=== PATIENT | female | born 1990 | race Caucasian/White ===

== ENCOUNTER 2020-05-03 17:57 | Emergency (ER) | payer OTHER ==
--- OUTSIDE RECORDS SUMMARY | 2020-05-03 17:59 | XMS REPORT | Continuity of Care Document ---
:1990 Author Organization [facility] t Address [address] [place] [address] Care Team Providers Name Role Phone Boaz WHEAT Attending Clinician Doctor Unassigned, Name Attending Clinician Unavailable Jarrod Fisher Attending Clinician Problems This patient has no known problems. Allergies, Adverse Reactions, Alerts This patient has no known allergies or adverse reactions. Medications This patient has no known medications. Procedures This patient has no known procedures. Encounters Start End Encounter Admission Attending Care Care Encounter Source Date/Time Date/Time Type Type Clinicians Facility Department ID 2019-09-16 2019-09-16 Emergency [facility] [id number] 14:20:14 18:01:00 Belkis Blanco [id number] [place] [id number] [place] [id number] 2019-09-16 2019-09-16 Orders Doctor SIMMS [id number] 00:00:00 00:00:00 Only UnassFERNANDO garcia [id number] [facility] [id number] 2019-01-07 2019-01-07 Emergency [place] [id number] 14:13:46 15:40:00 Endy Blanco [id number] [place] [id number] [place] [id number] 2019-01-07 2019-01-07 Orders Doctor DEMI [id number] 00:00:00 00:00:00 Only Unassigned, FERNANDO [id number] [facility] [id number] Results This patient has no known results.
[2020-05-03] MEDS ORDERED: MORPHINE 2 MG/ML SYR ONE (20:09)
[2020-05-03] MEDS ORDERED: NA CHLORIDE 0.9% 1,000 ML ONE (20:09)
--- NOTE | 2020-05-03 20:14 | RAD REPORT ---
EXAM DESCRIPTION: RAD - Wrist Left 3 View - 05/03/2020 8:04 pm CLINICAL HISTORY: Left wrist pain status post injury FINDINGS: No fracture or dislocation is seen. If the patient continues to have symptoms to suggest an occult fracture then a followup plain film se riddhi in 7 days would be recommended
--- NOTE | 2020-05-03 20:15 | RAD REPORT ---
EXAM DESCRIPTION: RAD - Forearm Left - 05/03/2020 8:04 pm CLINICAL HISTORY: Left forearm pain status post injury FINDINGS: No fracture is seen
--- NOTE | 2020-05-03 20:16 | RAD REPORT ---
EXAM DESCRIPTION: RAD - Ankle Right 3 View - 05/03/2020 8:04 pm CLINICAL HISTORY: Right ankle pain FINDINGS: No fracture or dislocation is seen.
--- NOTE | 2020-05-03 20:17 | RAD REPORT ---
EXAM DESCRIPTION: RAD - Wrist Right 3 View - 05/03/2020 8:04 pm CLINICAL HISTORY: Right wrist pain status post injury FINDINGS: No fracture or dislocation is seen. If the patient continues to have symptoms to suggest a n occult fracture then a followup plain film series in 7 days would be recommended.
--- NOTE | 2020-05-03 20:18 | RAD REPORT ---
EXAM DESCRIPTION: RAD - Knee Right 3 View - 05/03/2020 8:04 pm CLINICAL HISTORY: Right knee pain status post injury FINDINGS: No fracture or dislocation is seen.
--- NOTE | 2020-05-03 20:41 | RAD REPORT ---
EXAM DESCRIPTION: CT - Head C Spine Cap Wo Con - 05/03/2020 8:16 pm TECHNIQUE: Computed axial tomography of the head and cervical spine was obtained. Coronal and sagitt al reconstruction was performed Computed axial tomography of the chest, abdomen and pelvis was obtained. Contrast was not requested. All CT scans are performed using dose optimization technique as appropriate and may include automated exposure control or mA/KV adjustment according to patient size. CLINICAL HISTORY: Head and neck injury with chest and abdominal pain status post fall COMPARISON: None FINDINGS: An intracranial bleed is not seen. The ventricles are normal in caliber. An extra-axial fluid collection is not noted. . Fluid within the sinuses/mastoids is not seen. A cervical fracture is not seen. No dislocation is noted. The evaluation of mediastinum, dacia, vessels, solid organs and bowel are limited secondary to the lac k of contrast administration. A mediastinal hematoma is not noted. A pleural effusion is not seen. A lung contusion is not present. The liver,spleen, pancreas, adrenals,kidneys and bladder do not demonstrate a traumatic injury. IMPRESSION: 1. No acute intracranial abnormality is seen. 2. A cervical fracture is not visualized. If the patient continues have symptoms to suggest intracran ial/spinal cord pathology MRI be recommended 3. No traumatic abnormality involving the chest/abdomen/pelvis.
[2020-05-03 20:49] LABS: Absolute Lymphocytes (CBC) 1.9 K/uL (0.7-4.9); Basophils % 0.5 % (0-1.3); Hematocrit 41.2 % (36.0-45.0); Lymphocytes % 26.8 % (15.3-44.8); MPV 7.7 fL (7.6-11.3); RBC Red Blood Cell Count 4.66 M/uL (3.86-4.86)
[2020-05-03 21:03] LABS: Potassium 3.9 mmol/L (3.5-5.1)
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
[2020-05-04 03:52] VITALS: TEMP 98.7
[2020-05-04 03:53] VITALS: BP 112/78; O2SAT 100
== END 2020-05-03 21:17 | disposition home or self-care (01) ==
LOC: ER 17:57
DX: M54.2 Cervicalgia (principal); M54.5 Low back pain; M25.532 Pain in left wrist; M25.531 Pain in right wrist; M25.561 Pain in right knee; M25.571 Pain in right ankle and joints of right foot; V57.5XXA Driver of pick-up truck or van injured in collision with fixed or stationary object in traffic accident, initial encounter; Z88.2 Allergy status to sulfonamides; Z88.5 Allergy status to narcotic agent
CPT/HCPCS: 96361; 85025; 80048; 36415; 86900; 86850; 86901; 70450; 71250; 72125; 73090; 73110 ×2; 73562; 73610; 96374; 99284; J2270; J7030

== ENCOUNTER 2020-10-02 20:08 | Emergency (ER) | payer OTHER, SELFPAY ==
--- OUTSIDE RECORDS SUMMARY | 2020-10-02 20:11 | XMS REPORT | Continuity of Care Document ---
:1990 Author Organization [facility] t Address [address] [place] [address] Care Team Providers Name Role Phone Boaz [...] Clinicians Facility Department ID 2019-09-16 2019-09-16 Emergency [facility] [id number] 14:20:14 18:01:00 Belkis Blanco [id number] [place] [id number] [place] [id number] 2019-09-16 2019-09-16 Orders Doctor SIMMS [id number] 00:00:00 00:00:00 Only UnassFERNANDO garcia [id number] [place] [facility] [id number] 2019-01-07 2019-01-07 Emergency [place] [id number] 14:13:46 15:40:00 Endy Blanco [id number] [place] [id number] [place] [id number] 2019-01-07 2019-01-07 Orders Doctor DEMI [id number] 00:00:00 00:00:00 Only Unassigned, FERNANDO [id number] [place] [facility] [id number] Results This patient has no known results.
--- NOTE | 2020-10-02 21:25 | RAD REPORT ---
EXAM DESCRIPTION: US - 1St Trimest Single 1St Fetus - 10/02/2020 9:12 pm CLINICAL HISTORY: ABD PAIN COMPARISON: No comparisons FINDINGS: There is evidence of 2 gestational sacs within the endometrial fundus. Small yolk sacs are seen in each gestational sac. No embryo is yet visible. The maternal adnexa and ovaries are within normal limits. Normal Doppler blood flow was demonstrated to both ovaries. IMPRESSION: Early twin IUP findings are present. Recommend follow-up ultrasound in 10-12 days along with serial HCG measurements.
[2020-10-02 21:46] LABS: Urine Blood Negative (Negative); Urine Glucose 1+ (Negative); Urine Protein Negative (Negative); Urine Specific Gravity 1.015 (1.005-1.030)
[2020-10-02 21:56] LABS: Absolute Lymphocytes (CBC) 1.9 K/uL (0.7-4.9); Basophils % 0.5 % (0-1.3); Hematocrit 39.7 % (36.0-45.0); Lymphocytes % 21.7 % (15.3-44.8); MPV 7.9 fL (7.6-11.3); RBC Red Blood Cell Count 4.43 M/uL (3.86-4.86)
[2020-10-02 22:31] LABS: BUN Blood Urea Nitrogen 7 mg/dL (7-18); Bicarbonate 26 mmol/L (21-32); Glucose Level 92 mg/dL (74-106); HCG, Quantitative 18682 mIU/mL (1-3); Potassium 3.5 mmol/L (3.5-5.1); Sodium Level 140 mmol/L (136-145)
--- NOTE | 2020-10-02 22:39 | EDPHYS ---
Physician Documentation [facility] Name: Alberto Johnson Age: 29 yrs Sex: Female : 1990 Arrival Date: 10/02/2020 Time: 20:12 Bed 16 Private MD: ED Physician Oliver Da Silva HPI: 10/03 06:34 This 29 yrs old Female presents to ER via Ambulatory with complaints of tw4 Abdominal Pain, 5 WEEKS PREG. 06:34 The patient presents with pelvic pain, that is located in/on the left lower quadrant, a tw4 desire for an ultrasound to document her . Onset: The symptoms/episode began/occurred just prior to arrival, today. Modifying factors: The symptoms are alleviated by nothing, the symptoms are aggravated by. Associated signs and symptoms: The patient has no apparent associated signs or symptoms. Severity of symptoms: At their worst the symptoms were moderate, in the emergency department the symptoms are unchanged. The patient has not experienced similar symptoms in the past. 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 jb4 10/03 06:34 3, Full Term 2 tw4 Historical: - Allergies: 10/02 20:28 Hydrocodone-Acetaminophen; jb4 20:28 Sulfa (Sulfonamide Antibiotics); jb4 20:28 Tramadol HCl; jb4 - Home Meds: 20:28 pre- [Active]; jb4 - PMHx: 20:28 Anemia; jb4 - PSHx: 20:28 ; Adenoids; Appendectomy; jb4 - Immunization history:: Adult Immunizations up to date. - Social history:: Smoking status: Patient denies any tobacco usage or history of. Patient/guardian denies using alcohol, street drugs. ROS: 10/03 06:34 Positive for pelvic pain. tw4 Constitutional: Negative for fever, chills, and weight loss, Eyes: Negative for injury, pain, redness, and discharge, Cardiovascular: Negative for chest pain, palpitations, and edema, Respiratory: Negative for shortness of breath, cough, wheezing, and pleuritic chest pain, Abdomen/GI: Negative for abdominal pain, nausea, vomiting, diarrhea, and constipation, Back: Negative for injury and pain, MS/Extremity: Negative for injury and deformity, Skin: Negative for injury, rash, and discoloration. Exam: 06:34 Constitutional: This is a well developed, well nourished patient who is awake, alert, tw4 and in no acute distress. Head/Face: Normocephalic, atraumatic. Chest/axilla: Normal chest wall appearance and motion. Nontender with no deformity. No lesions are appreciated. Cardiovascular: Regular rate and rhythm with a normal S1 and S2. No gallops, murmurs, or rubs. Normal PMI, no JVD. No pulse deficits. Respiratory: Lungs have equal breath sounds bilaterally, clear to auscultation and percussion. No rales, rhonchi or wheezes noted. No increased work of breathing, no retractions or nasal flaring. Abdomen/GI: Soft, non-tender, with normal bowel sounds. No distension or tympany. No guarding or rebound. No evidence of tenderness throughout. Skin: Warm, dry with normal turgor. Normal color with no rashes, no lesions, and no evidence of cellulitis. MS/ Extremity: Pulses equal, no cyanosis. Neurovascular intact. Full, normal range of motion. Neuro: Awake and alert, GCS 15, oriented to person, place, time, and situation. Cranial nerves II-XII grossly intact. Motor strength 5/5 in all extremities. Sensory grossly intact. Cerebellar exam normal. Normal gait. Vital Signs: 10/02 20:24 BP 119 / 68; Pulse 83; Resp 16; Temp 98.2(TE); Pulse Ox 100% on R/A; Weight 55.34 kg jb4 (R); Height 5 ft. 3 in. (160.02 cm) (R); Pain 8/10; 22:51 BP 120 / 68; Pulse 78; Resp 16; Pulse Ox 99% on R/A; ea 20:24 Body Mass Index 21.61 (55.34 kg, 160.02 cm) jb4 MDM: 20:34 Patient medically screened. tw4 10/03 06:34 Data reviewed: vital signs, nurses notes. Data interpreted: Pulse oximetry: tw4 Interpretation: normal. Counseling: I had a detailed discussion with the patient and/or guardian regarding: the historical points, exam findings, and any diagnostic results supporting the discharge/admit diagnosis. Special discussion: Based on the patient's Hx, exam, and Dx evaluation, there is no indication for emergent surgery or inpatient Tx. It is understood by the patient/guardian that if the Sx's persist or worsen they need to return immediately for re-evaluation. I discussed with the patient/guardian in detail that at this point there is no indication for admission to the hospital. It is understood, however, that if the symptoms persist or worsen the patient needs to return immediately for re-evaluation. 10/02 20:35 Order name: Quantitative Hcg 10/02 20:35 Order name: Abo/rh Typing 10/02 20:35 Order name: Basic Metabolic Panel 10/02 20:35 Order name: CBC with Diff 10/02 20:36 Order name: HCG, Quantitative; Complete Time: 22:33 EDMS 10/02 22:33 Interpretation: Abnormal: HCGQ 93440. 10/02 20:36 Order name: ABO/RH typing; Complete Time: 22:33 EDMS 10/02 22:33 Interpretation: Within normal limits. 10/02 20:35 Order name: Urine Test (obtain specimen); Complete Time: 21:46 10/02 22:37 Interpretation: Within normal limits. 10/02 20:35 Order name: IV Saline Lock; Complete Time: 21:46 10/02 20:35 Order name: Labs collected and sent; Complete Time: 21:46 10/02 20:35 Order name: NPO; Complete Time: 21:46 10/02 20:35 Order name: 1st Trimest Single 1st Fetus; Complete Time: 22:33 10/02 22:33 Interpretation: No acute disease. 10/02 20:36 Order name: Basic Metabolic Panel; Complete Time: 22:33 EDMS 10/02 22:33 Interpretation: Normal except: CL 109. 10/02 20:36 Order name: CBC with Automated Diff; Complete Time: 22:33 EDMS 10/02 22:33 Interpretation: Within normal limits. 10/02 21:46 Order name: Urine Dipstick-Ancillary; Complete Time: 22:33 EDMS 10/02 22:33 Interpretation: Normal except: UGLUC 1+. 10/02 20:35 Order name: Urine Dipstick-Ancillary (obtain specimen); Complete Time: 21:47 Administered Medications: No medications were administered Disposition: 10/02/20 22:38 Discharged to Home. Impression: Discomfort of , Abdominal tenderness, unspecified site. - Condition is Stable. - Discharge Instructions: Abdominal Pain, Adult, Abdominal Pain During . - Work release form, Medication Reconciliation Form, Thank You Letter, Antibiotic Education, Prescription Opioid Use form. - Follow up: Private Physician; When: Upon discharge from the Emergency Department; Reason: Recheck today's complaints, Continuance of care, Re-evaluation by your physician. - Problem is new. - Symptoms have improved. Signatures: Dispatcher [employer] EDMS Jagjit Irving RN RN jb4 Angelica Segura RN Oliver Shook ea, MD MD tw4 Corrections: (The following items were deleted from the chart) 10/02 22:53 22:38 10/02/2020 22:38 Discharged to Home. Impression: Discomfort of ; ea Abdominal tenderness, unspecified site. Condition is Stable. Forms are Medication Reconciliation Form, Thank You Letter, Antibiotic Education, Prescription Opioid Use. Follow up: Private Physician; When: Upon discharge from the Emergency Department; Reason: Recheck today's complaints, Continuance of care, Re-evaluation by your physician. Problem is new. Symptoms have improved. tw4
--- NOTE | 2020-10-02 22:39 | ER ---
Nurse's Notes [facility] Name: Alberto Johnson Age: 29 yrs Sex: Female : 1990 Arrival Date: 10/02/2020 Time: 20:12 Bed 16 Private MD: Diagnosis: Discomfort of ;Abdominal tenderness, unspecified site Presentation: 10/02 20:24 Chief complaint: Patient states: I am having sharp pain beside my left ovary and it jb4 radiates to my vaginal area and up to my shoulder and to my lower back. The pain started last night at 2200, and today it has just been getting worse. Coronavirus screen: Client denies travel out of the [place] in the last 14 days. At this time, the client does not indicate any symptoms associated with coronavirus-19. Ebola Screen: No symptoms or risks identified at this time. Initial Sepsis Screen: Does the patient meet any 2 criteria? No. Patient's initial sepsis screen is negative. Does the patient have a suspected source of infection? No. Patient's initial sepsis screen is negative. Risk Assessment: Do you want to hurt yourself or someone else? Patient reports no desire to harm self or others. Onset of symptoms was October 01, 2020. Transition of care: patient was not received from another setting of care. 20:24 Method Of Arrival: Ambulatory jb4 20:24 Acuity: IKER 2 jb4 Triage Assessment: 20:00 General: Behavior is anxious. 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 jb4 10/03 06:34 3, Full Term 2 tw4 Historical: - Allergies: 10/02 20:28 Hydrocodone-Acetaminophen; jb4 20:28 Sulfa (Sulfonamide Antibiotics); jb4 20:28 Tramadol HCl; jb4 - Home Meds: 20:28 pre- [Active]; jb4 - PMHx: 20:28 Anemia; jb4 - PSHx: 20:28 ; Adenoids; Appendectomy; jb4 - Immunization history:: Adult Immunizations up to date. - Social history:: Smoking status: Patient denies any tobacco usage or history of. Patient/guardian denies using alcohol, street drugs. Screenin:47 Abuse screen: Denies threats or abuse. Denies injuries from another. Nutritional zb screening: No deficits noted. Tuberculosis screening: No symptoms or risk factors identified. Fall Risk None identified. Assessment: 21:00 Reassessment: US at bedside. zb 21:40 Reassessment: ecp at bedside. zb 21:47 General: Appears in no apparent distress. Pain: Complains of pain in left femoral area zb Pain radiates to right femoral area and right iliac crest Pain currently is 8 out of 10 on a pain scale. Quality of pain is described as aching, crampy. Neuro: Level of Consciousness is awake, alert, obeys commands, Oriented to person, place, time, situation. Cardiovascular: Patient's skin is warm and dry. Respiratory: Airway is patent Respiratory effort is even, unlabored, Respiratory pattern is regular, symmetrical. GI: Abdomen is round Bowel sounds present X 4 quads. Abd is soft and non tender X 4 quads. Derm: Skin is intact, is healthy with good turgor, Skin is pink, warm \T\ dry. normal, Skin temperature is warm. Musculoskeletal: Range of motion: intact in all extremities. 22:50 Reassessment: Patient and/or family updated on plan of care and expected duration. Pain ea level reassessed. Patient is alert, oriented x 3, equal unlabored respirations, skin warm/dry/pink. Discharge instruction given to patient verbalized the understanding of instruction. Pt left ED ambulatory accompanied by family. Vital Signs: 20:24 BP 119 / 68; Pulse 83; Resp 16; Temp 98.2(TE); Pulse Ox 100% on R/A; Weight 55.34 kg jb4 (R); Height 5 ft. 3 in. (160.02 cm) (R); Pain 8/10; 22:51 BP 120 / 68; Pulse 78; Resp 16; Pulse Ox 99% on R/A; ea 20:24 Body Mass Index 21.61 (55.34 kg, 160.02 cm) jb4 ED Course: 20:12 Patient arrived in ED. bp1 20:27 Triage completed. jb4 20:28 Arm band placed on right wrist. jb4 20:34 Oliver Da Silva MD is Attending Physician. tw4 20:50 Claudia Lopez, GAYATRI is Primary Nurse. zb 21:12 1st Trimest Single 1st Fetus In Process Unspecified. EDMS 21:51 Patient has correct armband on for positive identification. Placed in gown. Bed in low zb position. Call light in reach. Pulse ox on. NIBP on. Door closed. Noise minimized. 21:53 Inserted saline lock: 20 gauge in left antecubital area, using aseptic technique. Blood zb collected. 22:50 No provider procedures requiring assistance completed. IV discontinued, intact, ea bleeding controlled, No redness/swelling at site. Pressure dressing applied. Administered Medications: No medications were administered Outcome: 22:38 Discharge ordered by MD. luciano 22:50 Discharged to home ambulatory, with family. princess 22:50 Condition: stable 22:50 Discharge instructions given to patient, Instructed on discharge instructions, follow up and referral plans. Demonstrated understanding of instructions, follow-up care. 22:53 Patient left the ED. princess Signatures: Dispatcher [employer] EDJagjit Santos, RN RN jb4 Angelica Segura RN RN Oliver Ramos MD MD tw4 Marina Cabrera Zipporah RN RN zb
[2020-10-02 23:08] VITALS: TEMP 98.2
[2020-10-02 23:09] VITALS: BP 120/68; O2SAT 99
== END 2020-10-02 22:53 | disposition home or self-care (01) ==
LOC: ER 20:08
DX: O26.891 Other specified pregnancy related conditions, first trimester (principal); O30.041 Twin pregnancy, dichorionic/diamniotic, first trimester
CPT/HCPCS: 36415; 76801; 80048; 81003; 84702; 85025; 86900; 86901; 99284

== ENCOUNTER 2022-07-20 06:18 | Emergency (ER) | payer OTHER ==
--- OUTSIDE RECORDS SUMMARY | 2022-07-20 06:25 | XMS REPORT | Continuity of Care Document ---
:1990 Author Organization [facility] t Address [address] [place] [address] Care Team Providers Name Role Phone PCP, PATIENT DOES NOT HAVE A Primary Care Physician Unavaila FRAN Thomas Attending Clinician Unavailable FRAN MAYA Attending Clinician Unavailable DARYL ESCAMILLA Attending Clinician Unavailable Daryl Christina Attending Clinician Doctor Unassigned, [place] Attending Clinician Unavailable AARON HENDRICKS Attending Clinician Unavailable Aaron Hendricks MD Attending Clinician Nurse, [facility] Attending Clinician Unavailable KRYSTA SUN Attending Clinician Unavailable Krysta Sun MD Attending Clinician [phone] Josue Rausch DO Attending Clinician Ultrasound, [facility] Attending Clinician Unavailable Manny Pearson MD Attending Clinician Filipe Navarrete MD Attending Clinician Eric Arellano DO Attending Clinician FILIPE NAVARRETE Attending Clinician Unavailable Pob, [facility] Attending Clinician Unavailable Ultrasound, Ang-Mfvalentino Attending Clinician Unavailable MANNY PEARSON Attending Clinician Unavailable FRANCOIS AMEZCUA Attending Clinician Unavailable BELKIS SANDRA Attending Clinician Unavailable Belkis Sandra PA-C Attending Clinician Endy Fisher Attending Clinician AARON HENDRICKS Admitting Clinician Unavailable RKYSTA SUN Admitting Clinician Unavailable Krysta Sun MD Admitting Clinician [phone] Aaron Hendricks MD Admitting Clinician BELKIS SANDRA Admitting Clinician Unavailable Payers Payer Name Policy Type Policy Number Effective Date Expiration Date S [facility] [id number] 2020 CHOICE MEDICAID 00:00:[address] [facility] [id number] 2020 [facility]:00[facility] [id number] 2018 2020 00:00:00 00:00:00 Problems Condition Condition Condition Status Onset Resolution Last Treating Co mments Source Name Details Category Date Date Treatment Clinician Date Disease Active 2020-06 Univers uterine uterine 1-12 [place]y of contractio contractio [place] 00 Medical third third Branch trimester, trimester, antepartum antepartum Premature Premature Disease Active 2020-06 Uni vers uterine uterine 1-11 ity of contractio contractio 00:00[place] ns 00 Medical Branch Decreased Decreased Disease Active 2020-06 Uni vers 0-14 [place] of movements movements 00:00[place] in third in third 00 Medica l trimester trimester Bran ch Anemia of Anemia of Disease Active Uni vers mother in mother in 9- ity of , , [place] antepartum antepartum 00 Me dical Branch Abnormal Abnormal Disease Active Unive rs maternal maternal 9 ity of glucose glucose 00:00: [place] tolerance, tolerance, 00 Me dical antepartum antepartum Br anch Uterine Uterine Disease Active Univers contractio contractio 9-10 it y of ns during ns during 00:00[place] 00 [place] Branch Sciatic Sciatic Disease Active Univers nerve nerve 8-02 ity of pain, pain, 00:00: [place] unspecifie unspecifie 00 Me dical d d Branch laterality laterality History of History of Disease Active U nivers UTI UTI 6-08 ity of 00:00: [place] Medical [facility] History of History of Disease Active U nivers 4-27 ity of section section 00:00: Medical Branch Nausea Nausea Disease Active Univers 4-27 ity of 00:00: 00 Medical Branch Dichorioni Dichorioni Disease Active U nivers c c 4 ity of diamniotic diamniotic 00:00: [place] twin twin Medical Bran ch in third in third trimester trimester History of History of Disease Active U nivers gestationa gestationa 10-07 it y of l l 00:00: [place] hypertensi hypertensi 00 Me dical on on Branch Allergies, Adverse Reactions, Alerts Allergy Allergy Status Severity Reaction(s) Onset Inactive Treating Comm ents Source Name Type Date Date Clinician Hydrocod Propensi Active Nausea Univer s one ty to and/or 4 ity of adverse Vomiting 00:00: [place] reaction Medical s Branch Tramadol Propensi Active Nausea Univer s ty to and/or 4-27 ity of adverse Vomiting 00:00: [place] reaction Medical s Branch HYDROCOD DRUG Active N/V Univers ONE INGREDI 4-27 ity of 00:00: [place] [facility] TRAMADOL DRUG Active N/V Univers INGREDI 4-27 ity of 00:00: 00 Medical Branch Sulfa Propensi Active Anaphylaxis Uni vers (Sulfona ty to 7-28 ity of mide adverse 00:00: [place] Antibiot reaction 00 Medica l ics) s Branch Sulfa Propensi Active Anaphylaxis Uni vers (Sulfona ty to 7-28 ity of mide adverse 00:00: [place] Antibiot reaction 00 Medica l ics) s Branch SULFA Drug Active Anaphylaxis Unive rs (SULFONA Class 7-28 ity of MIDE 00:00: [place] ANTIBIOT 00 Medical ICS) Branch Social History Social Habit Start Date Stop Date Quantity Comments Source ASSERTION 2020-09-07 University of 00:00:00 [facility] Exposure to 2022-04-11 2022-04-21 Not sure University of SARS-CoV-2 00:00:00 17:01:00 [facility] (event) Mobile Alcohol intake 2022-04-21 2022-04-21 Ex-drinker [facility] 00:00:00 00:00:00 (finding) [facility] Tobacco use and 2020-10-07 2020-10-07 Smokeless tobacco Un iversity of exposure 00:00:00 00:00:00 non-user [facility] Sex [birth year] At [birth year] Universit y of 00:00:00 00:00:00 [facility] Smoking Status Start Date Stop Date Source Never smoked tobacco [facility] Medications Ordered Filled Start Stop Current Ordering Indication Dosage Frequency Signature Comments Components Source Medication Medication Date Date Medication? Clinician (SIG) Name Name acetaminoph 2021-06 No 650mg 650 mg, U nivers en 06-22 Oral, ity of (TYLENOL) 00:15: 23:45 ONCE, 1 [place] tablet 650 00 :00 dose, On Medic al mg [facility] 04/21/22 at 1815, HERNANDO naproxen 2021-06 No 250mg 250 mg, Univ ers (NAPROSYN) 06-22 Oral, ity of tablet 250 00:15: 23:45 ONCE, 1 [place] mg 00 :00 dose, On Medical [facility] 04/21/22 at 1815, HERNANDO naproxen 2021-06 Yes [id number] 500mg Take 1 [place] 500 mg EC 06-21 tablet by ity o f tablet 00:00: mouth in [place] 00 the Medical morning Branch and 1 tablet in the evening. Take with meals. No known 2020-06 No Univers medications 2-14 ity of 14:54: [place] 56 [facility] SERTraline 2020-06 Yes [id number] 25mg Take 1 U nivers 25 mg 2-14 tablet by ity of tablet 00:00: mouth [place] 00 daily. [facility] Branch SERTraline 2020-06 Yes [id number] 25mg Take 1 U nivers 25 mg 2-14 tablet by ity of tablet 00:00: mouth [place] 00 daily. [facility] Branch SERTraline 2020-06 Yes [id number] 25mg Take 1 U nivers 25 mg 2-14 tablet by ity of tablet 00:00: mouth [place] 00 daily. Medical Branch FEROSUL 325 2020-06- No TAKE ONE U nivers mg (65 mg 2- 12-14 (1) TABLET ity of iron) 00:00: 00:00 BY MOUTH 2 [place] tablet 00 :00 (TWO) Medical TIMES Branch DAILY. ibuprofen 2020-06- No TAKE ONE Uni vers 600 mg 2- 12-14 (1) TABLET ity of tablet 00:00: 00:00 BY MOUTH [place] 00 :00 EVERY 6 Medical (SIX) Branch HOURS NEEDED (PAIN). TAKE WITH FOOD OR MILK. 2020-06- No Take by Unive rs vit 1-15 11-15 mouth. ity of calc,iron,f 06:29: 00:00 [place] olic 27 :00 Medical ( Branch VITAMIN ORAL) 2020-06- No Take by Unive rs vit 1-15 11-15 mouth. ity of calc,iron,f 06:29: 00:00 [place] olic 27 :00 Medical ( Branch VITAMIN ORAL) 2020-06 Yes [id number] 1{tbl} Take 1 Univers vitamin 1-15 tablet by ity of w/FA tablet 00:00: mouth [place] 00 daily. Medical Branch docusate 2020-06 Yes [id number] 240mg Take 1 U nivers calcium 240 1-15 capsule by it y of mg capsule 00:00: mouth once [place] 00 daily as Medical needed for Branch Constipati on. ferrous 2020-06 Yes [id number] 325mg Take 1 [place] sulfate 325 1-15 tablet by ity of mg (65 mg 00:00: mouth 2 [place] iron) 00 (two) Medical tablet times Branch daily. ibuprofen 2020-06 Yes [id number] 600mg Take 1 Univers 600 mg 1-15 tablet by ity of tablet 00:00: mouth [place] 00 every 6 Medical (six) Branch hours as needed (Pain). Take with food or milk. 2020-06 Yes [id number] 1{tbl} Take 1 Univers vitamin 1-15 tablet by ity of w/FA tablet 00:00: mouth [place] 00 daily. Medical Branch docusate 2020-06 Yes [id number] 240mg Take 1 U nivers calcium 240 1-15 capsule by it y of mg capsule 00:00: mouth once [place] 00 daily as Medical needed for Branch Constipati on. ferrous 2020-06 Yes [id number] 325mg Take 1 [place] sulfate 325 1-15 tablet by ity of mg (65 mg 00:00: mouth 2 [place] iron) 00 (two) Medical tablet times Branch daily. ibuprofen 2020-06 Yes [id number] 600mg Take 1 Univers 600 mg 1-15 tablet by ity of tablet 00:00: mouth [place] 00 every 6 Medical (six) Branch hours as needed (Pain). Take with food or milk. 2020-06 Yes [id number] 1{tbl} Take 1 Univers vitamin 1-15 tablet by ity of w/FA tablet 00:00: mouth [place] 00 daily. Medical Branch docusate 2020-06 Yes [id number] 240mg Take 1 U nivers calcium 240 1-15 capsule by it y of mg capsule 00:00: mouth once [place] 00 daily as Medical needed for Branch Constipati on. ferrous 2020-06 Yes [id number] 325mg Take 1 [place] sulfate 325 1-15 tablet by ity of mg (65 mg 00:00: mouth 2 [place] iron) 00 (two) Medical tablet times Branch daily. ibuprofen 2020-06 Yes [id number] 600mg Take 1 Univers 600 mg 1-15 tablet by ity of tablet 00:00: mouth [place] 00 every 6 Medical (six) Branch hours as needed (Pain). Take with food or milk. 2020-06 Yes [id number] 1{tbl} Take 1 Univers vitamin 1-15 tablet by ity of w/FA tablet 00:00: mouth [place] 00 daily. Medical Branch docusate 2020-06 Yes [id number] 240mg Take 1 U nivers calcium 240 1-15 capsule by it y of mg capsule 00:00: mouth once [place] 00 daily as Medical needed for Branch Constipati on. ferrous 2020-06 Yes [id number] 325mg Take 1 [place] sulfate 325 1-15 tablet by ity of mg (65 mg 00:00: mouth 2 [place] iron) 00 (two) Medical tablet times Branch daily. ibuprofen 2020-06 Yes [id number] 600mg Take 1 Univers 600 mg 1-15 tablet by ity of tablet 00:00: mouth [place] 00 every 6 Medical (six) Branch hours as needed (Pain). Take with food or milk. cetirizine 2020-06 Yes 10mg Take 10 mg U nivers 10 mg -15 by mouth ity of tablet 00:00: daily. [place] Medical Branch fluticasone 2020-06 Yes USE TWO Uni vers propionate 1-15 (2) SPRAYS ity of 50 00:00: IN EACH [place] mcg/actuati 00 NOSTRIL Medic al on nasal DAILY. Branch spray foLIC acid 2020-06 Yes 1mg Take 1 mg [place] 1 mg tablet -15 by mouth ity of 00:00: daily. [place] [address] Medical Branch 2020-06- No [id number] 1{tbl} Take 1 Univers vitamin -15 05-15 tablet by ity of w/FA tablet 00:00: 00:00 mouth [place] 00 :00 daily. Medical Branch docusate 2020-06- No [id number] 240mg Take 1 Univers calcium 240 06-27 capsule by i ty of mg capsule 00:00: 00:00 mouth once [place] 00 :00 daily as Medical needed for Branch Constipati on. ferrous 2020-06- No [id number] 325mg Take 1 U nivers sulfate 325 06-27 tablet by it y of mg (65 mg 00:00: 00:00 mouth 2 [place] iron) 00 :00 (two) Medical tablet times Branch daily. ibuprofen 2020-06 No [id number] 600mg Take 1 Univers 600 mg -27 05- tablet by ity of tablet 00:00: 00:00 mouth [place] 00 :00 every 6 Medical (six) Branch hours as needed (Pain). Take with food or milk. cetirizine 2020-06- No 10mg Take 10 mg Univers 10 mg -15 -03 by mouth ity of tablet 00:00: 00:00 daily. [place] 00 :00 Medical Branch fluticasone 2020-06- No USE TWO [place] propionate 1-15 - (2) SPRAYS it y of 50 00:00: 00:00 IN EACH [place] mcg/actuati 00 :00 NOSTRIL Medic al on nasal DAILY. Branch spray foLIC acid 2020-06- No 1mg Take 1 mg U nivers 1 mg tablet 06-27 by mouth ity of 00:00: 00:00 daily. [place] 00 :00 Medical Branch acetaminoph 2020-06- No [id number] 1{tbl} Take 1 U nivers en-codeine -15 05-05 tablet by ity of 300-30 mg 00:00: 05:59 mouth [place] tablet 00 :00 every 6 Medical (six) Branch hours as needed (Pain Scale above 4) for up to 7 days. Do not exceed 3 grams of acetaminop hen in 24 hours. Indication s: acute pain acetaminoph 2020-06 No [id number] 1{tbl} Take 1 U nivers en-codeine 06-27 tablet by ity of 300-30 mg 00:00: 05:59 mouth [place] tablet 00 :00 every 6 Medical (six) Branch hours as needed (Pain Scale above 4) for up to 7 days. Do not exceed 3 grams of acetaminop hen in 24 hours. Indication s: acute pain acetaminoph 2020-06- No [id number] 1{tbl} Take 1 U nivers en-codeine 06-27 tablet by ity of 300-30 mg 00:00: 05:59 mouth [place] tablet 00 :00 every 6 Medical (six) Branch hours as needed (Pain Scale above 4) for up to 7 days. Do not exceed 3 grams of acetaminop hen in 24 hours. Indication s: acute pain acetaminoph 2020-06 Yes 1{tbl} 1 tablet, Univers en-codeine 06-24 Oral, ity of (TYLENOL 10:16: Q4HPRN, [place] #3) 300-30 40 Starting Medic al mg tablet 1 on Fri Branch tablet 04/24/21 at 0416, Until Discontinu ed, Routine, Pain (scale 7-10) acetaminoph 2020-06 No 1{tbl} 1 tablet, Univers en-codeine -04-27 Oral, ity of (TYLENOL 10:16: 20:36 Q4HPRN, [place] #3) 300-30 40 :48 Starting Medic al mg tablet 1 on Fri Branch tablet 04/24/21 at 0416, Until 04/27/21 at 1436, Routine, Pain (scale 7-10) rho(D) 2020-06 Yes 300ug 300 mcg, Univer s immune 1-12 Intramuscu ity of globulin 10:16: lar, ONCE, [place] (RHOGAM) 12 For 1 Medical syringe 300 dose, Branch mcg Conditiona l, Routine rho(D) 2020-06- No 300ug 300 mcg, Unive rs immune 1-12 11-15 Intramuscu ity of globulin 10:16: 20:36 [place], ONCE, [place] (RHOGAM) 12 :48 For 1 Medical syringe 300 dose, Branch mcg Conditiona l, Routine ondansetron 2020-06 Yes 4mg 4 mg, Slow Univers (ZOFRAN 1-12 IV Push, ity of (PF)) 10:16: Q8HPRN, [place] injection 4 07 Starting Medi [place] mg on Tue Branch 04/24/21 at 0416, Until Discontinu ed, Routine, Nausea and Vomiting (N/V) simethicone 2020-06 Yes 160mg 160 mg, [place] (GAS RELIEF 12 Oral, ity of (SIMETHICON 10:16: PC+HSPRN, [place] E)) 07 Starting Medical chewable on Tue Branch tablet 160 04/24/21 mg at 0416, Until Discontinu ed, Routine, Gas magnesium 2020-06 Yes 30mL 30 mL, Univer s hydroxide -12 Oral, ity of (MILK OF 10:16: QDAILYPRN, [place] MAGNESIA) 07 Starting Medica l 400 mg/5 mL on Tue Branch suspension 04/24/21 30 mL at 0416, Until Discontinu ed, Routine, Constipati on ondansetron 2020-06- No 4mg 4 mg, Slow Univers (ZOFRAN -12 11-15 IV Push, ity of (PF)) 10:16: 20:36 Q8HPRN, [place] injection 4 07 :48 Starting Medi [place] mg on Tue Branch 04/24/21 at 0416, Until 04/27/21 at 1436, Routine, Nausea and Vomiting (N/V) simethicone 2020-06- No 160mg 160 mg, U nivers (GAS RELIEF -12 11-15 Oral, ity of (SIMETHICON 10:16: 20:36 PC+HSPRN, [place] E)) 07 :48 Starting Medical chewable on Tue tablet 160 04/24/21 mg at 0416, Until Tue04/27/21 at 1436, Routine, Gas magnesium 2020-06- No 30mL 30 mL, Unive rs hydroxide 1-12 04-27 Oral, ity of (MILK OF 10:16: 20:36 QDAILYPRNSalomon MAGNDINORAH) 07 :48 Starting Medica l 400 mg/5 mL on Tue suspension 04/24/21 30 mL at 0416, Until Tue04/27/21 at 1436, Routine, Constipati on ibuprofen 2020-06 Yes 600mg 600 mg, Univ ers (IBU) 1-12 Oral, ity of tablet 600 10:16: Q6HPRN, [place] mg 06 Starting Medical on Tue04/24/21 at 0416, Until Discontinu ed, Routine, Pain (scale 1-3) diphenhydrA 2020-06 Yes 25mg 25 mg, IV U nivers MINE-0.9 % 1-12 Piggyback, ity of sod.chlr 10:16: Administer [place] (BENADRYL) 06 over 30 Medica l 25 mg/50 mL Minutes, Bran ch piggyback Q6HPRN, 1 25 mg dose, Starting on Tue04/24/21 at 0416, Until Discontinu ed, Routine, Itching diphenhydrA 2020-06 Yes 25mg 25 mg, Univ ers MINE 1-12 Oral, ity of (BENADRYL) 10:16: Q6HPRN, [place] tablet 25 06 Starting Medica l mg on Tue04/24/21 at 0416, Until Discontinu ed, Routine, Sleep, Itching bisacodyL 2020-06 Yes 10mg 10 mg, Univer s (DULCOLAX) 1-12 Rectal, ity of suppository 10:16: QDAILYPRN, [place] 10 mg 06 Starting Medical on Tue04/24/21 at 0416, Until Discontinu ed, Routine, Constipati on docusate 2020-06 Yes 240mg 240 mg, Unive rs calcium 1-12 Oral, ity of (SURFAK) 10:16: QDAILYPRN, [place] capsule 240 06 Starting Medi [place] mg on Tue04/24/21 at 0416, Until Discontinu ed, Routine, Constipati on ibuprofen 2020-06 No 600mg 600 mg, Uni vers (IBU) 06-24 Oral, ity of tablet 600 10:16: 20:36 Q6HPRN, [place] mg 06 :48 Starting Medical on Tue04/24/21 at 0416, Until Tue04/27/21 at 1436, Routine, Pain (scale 1-3) diphenhydrA 2020-06 No 25mg 25 mg, IV Univers MINE-0.9 % 06-24 Piggyback, it y of sod.chlr 10:16: 20:36 Administer [place] (BENADRYL) 06 :48 over 30 Medica l 25 mg/50 mL Minutes, Bran ch piggyback Q6HPRN, 1 25 mg dose, Starting on Tue04/24/21 at 0416, Until Tue04/27/21 at 1436, Routine, Itching diphenhydrA 2020-06 No 25mg 25 mg, Uni vers MINE 06-24 Oral, ity of (BENADRYL) 10:16: 20:36 Q6HPRN, [place] tablet 25 06 :48 Starting Medica l mg on Tue04/24/21 at 0416, Until 04/27/21 at 1436, Routine, Sleep, Itching bisacodyL 2020-06 No 10mg 10 mg, Unive rs (DULCOLAX) 06-24 Rectal, ity o f suppository 10:16: 20:36 QDAILYPRN, [place] 10 mg 06 :48 Starting Medical on Tue04/24/21 at 0416, Until 04/27/21 at 1436, Routine, Constipati on docusate 2020-06 No 240mg 240 mg, Univ ers calcium 06-24 Oral, ity of (SURFAK) 10:16: 20:36 QDAILYPRN, [place] capsule 240 06 :48 Starting Medi [place] mg on Tue04/24/21 at 0416, Until Tue04/27/21 at 1436, Routine, Constipati on nalbuphine 2020-06 Yes 5mg 5 mg, Univer s (NUBAIN) 06-24 Intravenou ity o f injection 5 09:49: s, PRN, 1 [place] mg 46 dose, Medical Starting Branch on Tue04/24/21 at 0349, Until Discontinu ed, Routine, itching, PACU nalbuphine 2020-06- No 5mg 5 mg, Unive rs (NUBAIN) 06-24 Intravenou ity of injection 5 09:49: 20:36 s, PRN, 1 [place] mg 46 :48 dose, Medical Starting Branch on Tue04/24/21 at 0349, Until 04/27/21 at 1436, Routine, itching, PACU ketorolac 2020-06 No 30mg 30 mg, Unive rs (TORADOL) 06-24 Slow IV ity of injection 09:49: 10:22 Push, PRN, [place] 30 mg 46 :00 1 dose, Medical Starting Branch on Tue04/24/21 at 0349, Until Discontinu ed, Routine, Pain (scale 4-6), PACU
Fa culty member approving Restricted medication : LD PACU ceFAZolin 2020-06 No 2000mg 2 g (2,000 Univers in dextrose 06-24 11-12 mg), IV ity of (iso-os) 06:32: 07:03 Piggyback, [place] (ANCEF) 2 22 :00 O.R. Medical gram/100 mL HOLDING Branc h Piggyback 2 ONCE, 1 g dose, Starting on Tue04/24/21 at 0032, Until Discontinu ed, 100 mL
Reas on for Anti-Infec tive: Surgical Prophylaxi s
Surgi [place] Prophylaxi s: [employer] BLASTING
Duration of therapy: within 24 hours of surgery D5W 0.45% 2020-06 No 1000mL at 75 Univ ers NaCl 06-24 11-12 mL/hr, ity of (1/2NS) IV 02:15: 10:16 1,000 mL, [place] infusion 00 :12 IV Medical 1,000 mL Infusion, Branch CONTINUOUS , Starting on [place] 04/23/21 at 2015, Until Tue04/24/21 at 0416, HERNANDO magnesium 2020-06- No 2g/h 2 g/hr (50 U nivers sulfate in 06-24 mL/hr), at it y of 0.9 %NaCl 02:15: 10:16 50 mL/hr, [place] 10 gram/250 00 :12 IV Medical mL (40 Infusion, Branch mg/mL) IV CONTINUOUS SOLUTION , Starting on [place] 04/23/21 at 2014, Until Tue04/24/21 at 0416, HERNANDO 2020-06 Yes Take by [facility] s vit 12 mouth. ity of calc,iron,f 01:07: [place] ol 30 Medical ( Branch VITAMIN ORAL) betamethaso 2020-06- No 12mg 12 mg, Uni vers ne acet,sod 06-24 Intramuscu i ty of phos 00:00: 10:16 [facility], Q24H, [place] (CELESTONE 00 :12 2 doses, Medic al SOLUSPAN) 6 First dose Br anch mg/mL on [place] injection 04/23/21 12 mg at 1800, Last dose on Tue04/24/21 at 1800, Routine ceFAZolin 2020-06- No 1000mg 1,000 mg, Univers (ANCEF) 06-23 IV ity of 1,000 mg in 23:45: 01:13 [place], [place] NaCl 0.9% 00 :00 ONCE, 1 Medical (NS) 50 mL dose, On Branc h MINI-BAG [place] 04/23/21 at 1745, Administer over 30 Minutes, 50 mL
Reas on for Anti-Infec tive: Empiric Non-Surgic al Prophylaxi s terbutaline 2020-06- No .25mg 0.25 mg, Univers (BRETHINE) 06-23 Subcutaneo it y of injection 23:45: 01:16 , ONCE, [place] 0.25 mg 00 :00 1 dose, On Medica l [place] Branch 04/23/21 at 1745, Routine D5W-LR IV 2020-06- No 1000mL at 125 Uni vers infusion 06-23 mL/hr, IV ity o f 1,000 mL 22:45: 10:16 Infusion, [place] 00 :12 CONTINUOUS Medical , Starting Branch on [place] 04/23/21 at 1645, Until 04/24/21 at 0416, Routine sodium 2020-06- No 30mL 30 mL, Univers citrate-cit 06-2312 Oral, ity of dayron acid 22:37: 07:04 PRE-PROCED [place] (BICITRA) 31 :00 URE ONCE, Medic al 500-334 1 dose, Branch mg/5 mL Starting solution 30 on [place] mL 04/23/21 at 1637, Until Discontinu ed, Routine, Surgery/Pr ocedure lactated 2020-06- No 1000mL at 999 Univ ers ringers IV 06-2311 mL/hr, ity of infusion 22:00: 22:25 1,000 mL, [place] 1,000 mL 00 :00 IV Medical Infusion, Branch ONCE, 1 dose, On [place] 04/23/21 at 1600, Routine magnesium 2020-06 Yes [id number] 400mg Take 1 Univers oxide 400 1-11 tablet by ity o f mg (241.3 00:00: mouth [place] mg 00 daily. Medical magnesium) Branch tablet magnesium 2020-06 Yes [id number] 400mg Take 1 Univers oxide 400 1-11 tablet by ity o f mg (241.3 00:00: mouth [place] mg 00 daily. Medical magnesium) Branch tablet magnesium 2020-06 Yes [id number] 400mg Take 1 Univers oxide 400 1-11 tablet by ity o f mg (241.3 00:00: mouth [place] mg 00 daily. Medical magnesium) Branch tablet magnesium 2020-06- No [id number] 400mg Take 1 Univers oxide 400 -11 11-15 tablet by ity of mg (241.3 00:00: 00:00 mouth [place] mg 00 :00 daily. Medical magnesium) Branch tablet magnesium 2020-06- No [id number] 400mg Take 1 Univers oxide 400 1-11 11-15 tablet by ity of mg (241.3 00:00: 00:00 mouth [place] mg 00 :00 daily. Medical magnesium) Branch tablet cetirizine 2020-06 Yes [id number] 10mg Take 1 Univers 10 mg 1-04 tablet by ity of tablet 00:00: mouth [place] 00 daily. Medical Branch fluticasone 2020-06 Yes [id number] 2{spray Use 2 Univers propionate 1-04 } Sprays in ity of (FLONASE 00:00: each [place] ALLERGY 00 nostril Medical RELIEF) 50 daily. Branch mcg/actuati on nasal spray cetirizine 2020-06 Yes [id number] 10mg Take 1 Univers 10 mg 1-04 tablet by ity of tablet 00:00: mouth [place] 00 daily. Medical Branch fluticasone 2020-06 Yes [id number] 2{spray Use 2 Univers propionate 1-04 } Sprays in ity of (FLONASE 00:00: each [place] ALLERGY 00 nostril Medical RELIEF) 50 daily. Branch mcg/actuati on nasal spray cetirizine 2020-06 Yes [id number] 10mg Take 1 Univers 10 mg 1-04 tablet by ity of tablet 00:00: mouth [place] 00 daily. Medical Branch fluticasone 2020-06 Yes [id number] 2{spray Use 2 Univers propionate 1-04 } Sprays in ity of (FLONASE 00:00: each [place] ALLERGY 00 nostril Medical RELIEF) 50 daily. Branch mcg/actuati on nasal spray cetirizine 2020-06 Yes [id number] 10mg Take 1 Univers 10 mg 1-04 tablet by ity of tablet 00:00: mouth [place] 00 daily. Medical Branch fluticasone 2020-06 Yes [id number] 2{spray Use 2 Univers propionate 1-04 } Sprays in ity of (FLONASE 00:00: each [place] ALLERGY 00 nostril Medical RELIEF) 50 daily. Branch mcg/actuati on nasal spray cetirizine 2020-06- No [id number] 10mg Take 1 Univers 10 mg 1-04 11-15 tablet by ity of tablet 00:00: 00:00 mouth [place] 00 :00 daily. Medical Branch fluticasone 2020-06- No [id number] 2{spray Use 2 Univers propionate 1-04 11-15 } Sprays in ity of (FLONASE 00:00: 00:00 each [place] ALLERGY 00 :00 nostril Medical RELIEF) 50 daily. Branch mcg/actuati on nasal spray cetirizine 2020-06- No [id number] 10mg Take 1 Univers 10 mg 06-16 tablet by ity of tablet 00:00: 00:00 mouth [place] 00 :00 daily. Medical Branch fluticasone 2020-06- No [id number] 2{spray Use 2 Univers propionate 06-16 } Sprays in ity of (FLONASE 00:00: 00:00 each [place] ALLERGY 00 :00 nostril Medical RELIEF) 50 daily. Branch mcg/actuati on nasal spray iron 2020-06- No 300mg 300 mg, IV Unive rs sucrose 0-26 - Infusion, ity of (VENOFER) 17:30: 20:27 ONCE, 1 [place] 300 mg in 00 :00 dose, On Medica l NaCl 0.9% Tue Branch (NS) 250 mL 04/07/21 infusion at 1230, Administer over 2.5 Hours, 250 mL
A pproved Indication /Faculty: ADC PROVIDER 2020-06 Yes Take by Univer s vit 0-26 mouth. ity of calc,iron,f 15:47: [address] ( Branch VITAMIN ORAL) 2020-06 Yes Take by Univer s vit 0-26 mouth. ity of calc,iron,f 15:47: [address] ( Branch VITAMIN ORAL) 2020-06 Yes Take by Univer s vit 0-26 mouth. ity of calc,iron,f 15:47: [address] ( Branch VITAMIN ORAL) 2020-06 Yes Take by Univer s vit 0-26 mouth. ity of calc,iron,f 15:47: [place] [id number] Medical ( Branch VITAMIN ORAL) 2020-06 Yes Take by [facility] vit 0-26 mouth. ity of calc,iron,f 15:47: [address] ( Branch VITAMIN ORAL) lactated 2020-06- No 1000mL at 999 [facility] ers ringers IV 0-15 10-15 mL/hr, ity of infusion 03:30: 02:36 1,000 mL, [place] 1,000 mL 00 :00 IV Medical Infusion, Branch ONCE, 1 dose, On [place] 03/26/21 at 2230, STAT acetaminoph 2021-1 Yes 1{tbl} 1 tablet, [facility] en-codeine 0-15 Oral, ity of (TYLENOL 02:21: [id number], [place] #3) 300-30 58 Starting Medic al mg tablet 1 on [place] Branch tablet 03/26/21 at 2121, Until Discontinu ed, Routine, Pain (scale 7-10) 2020-06 Yes [facility] by [email or web address] 0-15 mouth. ity of calc,iron,f 00:01: [place] [address] Medical ( Branch VITAMIN ORAL) 2020-06 Yes Take by [email or web address] vit 0-15 mouth. ity of calc,iron,f 00:01: [place] [address] Medical ( Branch VITAMIN ORAL) 2020-06 Yes Take by [email or web address] [facility] vit 0-15 mouth. ity of calc,iron,f 00:01: [address] ( Branch VITAMIN ORAL) iron 2020-06- No 300mg 300 mg, IV Unive rs sucrose 0-14 10-15 Infusion, ity of (VENOFER) 23:45: 04:17 ONCE, [place] 300 mg in 00 :00 Administer Medi gaston NaCl 0.9% over 2.5 Branch (NS) 250 mL Hours, On infusion [place] 03/26/21 at 1845, For 1 dose Nitrofurant 2020-06 Yes TAKE ONE [place] oin&Nit. 0-14 (1) ity of Macrocryst 00:00: CAPSULE(S) [place] 100 mg 00 BY MOUTH Medical capsule TWICE A Branch DAY. Nitrofurant 2020-06 Yes TAKE ONE [place] oin&Nit. 0-14 (1) ity of Macrocryst 00:00: CAPSULE(S) [place] 100 mg 00 BY MOUTH Medical capsule TWICE A Branch DAY. Nitrofurant 2020-06 Yes TAKE ONE [place] oin&Nit. 0-14 (1) ity of Macrocryst 00:00: CAPSULE(S) [place] 100 mg 00 BY MOUTH Medical capsule TWICE A Branch DAY. Nitrofurant 2020-06 Yes TAKE ONE [place] oin&Nit. 0-14 (1) ity of Macrocryst 00:00: CAPSULE(S) [place] 100 mg 00 BY MOUTH Medical capsule TWICE A Branch DAY. Nitrofurant 2020-06 Yes TAKE ONE [place] oin&Nit. 0-14 (1) ity of Macrocryst 00:00: CAPSULE(S) [place] 100 mg 00 BY MOUTH Medical capsule TWICE A Branch DAY. Nitrofurant 2020-06 Yes TAKE ONE [place] oin&Nit. 0-14 (1) ity of Macrocryst 00:00: CAPSULE(S) [place] 100 mg 00 BY MOUTH Medical capsule TWICE A Branch DAY. Nitrofurant 2020-06 Yes TAKE ONE [place] oin&Nit. 0-14 (1) ity of Macrocryst 00:00: CAPSULE(S) [place] 100 mg 00 BY MOUTH Medical capsule TWICE A Branch DAY. Nitrofurant 2020-06- No TAKE ONE U nivers oin&Nit. 0-14 -15 (1) ity of Macrocryst 00:00: 00:00 CAPSULE(S) [place] 100 mg 00 :00 BY MOUTH Medical capsule TWICE A Branch DAY. Nitrofurant 2020-06- No TAKE ONE U nivers oin&Nit. 0-14 -15 (1) ity of Macrocryst 00:00: 00:00 CAPSULE(S) [place] 100 mg 00 :00 BY MOUTH Medical capsule TWICE A Branch DAY. Yes Take by [facility] s vit 9-10 mouth. ity of calc,iron,f 19:44: [place] olic 27 Medical ( Branch VITAMIN ORAL) Nitrofurant 2020- No 100mg 100 mg, U nivers oin&Nit. 02-2010 Oral, ity of Macrocryst 19:30: 18:31 ONCE, 1 [place] (MACROBID) 00 :00 dose, Fri Medi [place] 100 mg 02/20/21 at Branch capsule 100 1430, mg Routine
Reason for Anti-Infec tive: Empiric Therapy for Suspected Infection< br>Empiric Therapy Site: Urine
D uration of therapy: 7 days lactated 2020- No 1000mL at 999 [facility] ers ringers IV 02-20 09-10 mL/hr, ity of infusion 19:15: 18:30 1,000 mL, [place] 1,000 mL 00 :00 IV Medical Infusion, Branch ONCE, 1 dose, 02/20/21 at 1415, STAT Yes Take by [facility] vit 9-10 mouth. ity of calc,iron,f 17:03: [address] ( Branch VITAMIN ORAL) Yes Take by [facility] vit 9-10 mouth. ity of calc,iron,f 14:44: [address] ( Branch VITAMIN ORAL) Yes Take by [facility] vit 9-10 mouth. ity of calc,iron,f 14:44: [address] ( Branch VITAMIN ORAL) Yes Take by [facility] vit 9-10 mouth. ity of calc,iron,f 14:44: [address] ( Branch VITAMIN ORAL) Yes Take by [facility] vit 9-10 mouth. ity of calc,iron,f 14:44: [address] ( Branch VITAMIN ORAL) Yes Take by [facility] vit 9-10 mouth. ity of calc,iron,f 14:44: [address] ( Branch VITAMIN ORAL) Yes Take by [facility] s vit 9-10 mouth. ity of calc,iron,f 14:44: [address] ( Branch VITAMIN ORAL) Yes Take by [facility] s vit 9-10 mouth. ity of calc,iron,f 14:44: [address] ( Branch VITAMIN ORAL) Yes Take by [facility] s vit 9-10 mouth. ity of calc,iron,f 14:44: [address] ( Branch VITAMIN ORAL) Yes Take by [facility] s vit 9-10 mouth. ity of calc,iron,f 14:44: [place] [address] Medical ( Branch VITAMIN ORAL) Yes Take by Un[facility] s vit 9-10 mouth. ity of calc,iron,f 14:44: [place] [address] Medical ( Branch VITAMIN ORAL) Nitrofurant Yes [id number] 100mg Take 1 [facility] oin&Nit. 9-10 capsule by ity o f [place] 00:00: mouth 2 [place] 100 [place] 00 (two) Medical capsule times Branch daily. famotidine 1-0 Yes [id number] 20mg Take 1 [facility] 20 mg 9-10 tablet by ity of tablet 00:00: mouth (two) Medical times Branch daily. Take about 30 minutes before eating. Nitrofurant 2020-0 Yes [id number] 100mg Take 1 [facility] oin&Nit. 9-10 capsule by ity o f [place] 00:00: mouth 2 [place] 100 mg 00 (two) Medical capsule times Branch daily. famotidine 2020-0 Yes [id number] 20mg Take 1 [facility] 20 mg 9-10 tablet by ity of tablet 00:00: mouth 2 (two) Medical times Branch daily. Take about 30 minutes before eating. Nitrofurant 2020-0 Yes [id number] 100mg Take 1 [facility] oin&Nit. 9-10 capsule by ity o f [place] 00:00: mouth 2 [place] 100 mg 00 (two) Medical capsule times Branch daily. famotidine 2020-0 Yes [id number] 20mg Take 1 [facility] 20 mg 9-10 tablet by ity of tablet 00:00: mouth (two) Medical times Branch daily. Take about 30 minutes before eating. Nitrofurant 2020-0 Yes [id number] 100mg Take 1 [facility] oin&Nit. 9-10 capsule by ity o f [place] 00:00: mouth 2 [place] 100 mg 00 (two) Medical capsule times Branch daily. famotidine 2020-0 Yes [id number] 20mg Take 1 [facility] 20 mg 9-10 tablet by ity of tablet 00:00: mouth (two) Medical times Branch daily. Take about 30 minutes before eating. Nitrofurant 2020-0 Yes [id number] 100mg Take 1 [facility] oin&Nit. 9-10 capsule by ity o f [place] 00:00: mouth 2 [place] 100 mg 00 (two) Medical capsule times Branch daily. famotidine 2021-0 Yes [id number] 20mg Take 1 [facility] 20 mg 9-10 tablet by ity of tablet 00:00: mouth 2 (two) Medical times Branch daily. Take about 30 minutes before eating. Nitrofurant 2020-0 Yes [id number] 100mg Take 1 [facility] oin&Nit. 9-10 capsule by ity o f [place] 00:00: mouth 2 [place] 100 mg 00 (two) Medical capsule times Branch daily. famotidine 1-0 Yes [id number] 20mg Take 1 [facility] 20 mg 9-10 tablet by ity of tablet 00:00: mouth 2 (two) Medical times Branch daily. Take about 30 minutes before eating. Nitrofurant 2020-0 Yes [id number] 100mg Take 1 [facility] oin&Nit. 9-10 capsule by ity o f [place] 00:00: mouth [place] 100 mg 00 (two) Medical capsule times Branch daily. famotidine 2020-0 Yes [id number] 20mg Take 1 [facility] 20 mg 9-10 tablet by ity of tablet 00:00: mouth (two) Medical times Branch daily. Take about 30 minutes before eating. Nitrofurant 2020-0 Yes [id number] 100mg Take 1 [facility] oin&Nit. 9-10 capsule by ity o f [place] 00:00: mouth 2 [place] 100 mg 00 (two) Medical capsule times Branch daily. famotidine 2020-0 Yes [id number] 20mg Take 1 [facility] 20 mg 9-10 tablet by ity of tablet 00:00: mouth (two) Medical times Branch daily. Take about 30 minutes before eating. Nitrofurant 1-0 Yes [id number] 100mg Take 1 [facility] oin&Nit. 9-10 capsule by ity o f [place] 00:00: mouth 2 [place] 100 mg 00 (two) Medical capsule times Branch daily. famotidine 1-0 Yes [id number] 20mg Take 1 [facility] 20 mg 9-10 tablet by ity of tablet 00:00: mouth (two) Medical times Branch daily. Take about 30 minutes before eating. Nitrofurant 2021-0 Yes [id number] 100mg Take 1 [facility] oin&Nit. 9-10 capsule by ity o f [place] 00:00: mouth 2 [place] 100 mg 00 (two) Medical capsule times Branch daily. famotidine 2021-0 Yes [id number] 20mg Take 1 [facility] 20 mg 9-10 tablet by ity of tablet 00:00: mouth 2 (two) Medical times Branch daily. Take about 30 minutes before eating. Nitrofurant 1-0 Yes [id number] 100mg Take 1 [facility] oin&Nit. 9-10 capsule by ity o f [place] 00:00: mouth 2 [place] 100 mg (two) Medical capsule times Branch daily. famotidine 2021-0 Yes [id number] 20mg Take 1 [facility] 20 mg 9-10 tablet by ity of tablet 00:00: mouth (two) Medical times Branch daily. Take about 30 minutes before eating. famotidine 2021-0 Yes [id number] 20mg Take 1 [facility] 20 mg 9-10 tablet by ity of tablet 00:00: mouth (two) Medical times Branch daily. Take about 30 minutes before eating. famotidine 2021-0 Yes [id number] 20mg Take 1 [facility] 20 mg 9-10 tablet by ity of tablet 00:00: mouth (two) Medical times Branch daily. Take about 30 minutes before eating. famotidine 2021-0 Yes [id number] 20mg Take 1 [facility] 20 mg 9-10 tablet by ity of tablet 00:00: mouth (two) Medical times Branch daily. Take about 30 minutes before eating. famotidine 2021-0 Yes [id number] 20mg Take 1 [facility] 20 mg 9-10 tablet by ity of tablet 00:00: mouth (two) Medical times Branch daily. Take about 30 minutes before eating. famotidine 2021-0 Yes [id number] 20mg Take 1 [facility] 20 mg 9-10 tablet by ity of tablet 00:00: mouth (two) Medical times Branch daily. Take about 30 minutes before eating. famotidine 2021-0 Yes [id number] 20mg Take 1 [facility] 20 mg 9-10 tablet by ity of tablet 00:00: mouth (two) Medical times Branch daily. Take about 30 minutes before eating. famotidine 2021-0 Yes [id number] 20mg Take 1 [facility] 20 mg 9-10 tablet by ity of tablet 00:00: mouth (two) Medical times Branch daily. Take about 30 minutes before eating. famotidine 2021-0 Yes [id number] 20mg Take 1 [facility] 20 mg 9-10 tablet by ity of tablet 00:00: mouth 2 [place] 00 (two) Medical times Branch daily. Take about 30 minutes before eating. famotidine 2020-0 Yes [id number] 20mg Take 1 Univers 20 mg 9-10 tablet by ity of tablet 00:00: mouth 2 [place] 00 (two) Medical times Branch daily. Take about 30 minutes before eating. famotidine 2020-0 2020- No [id number] 20mg Take 1 Univers 20 mg 9-10 11-15 tablet by ity of tablet 00:00: 00:00 mouth 2 [place] 00 :00 (two) Medical times Branch daily. Take about 30 minutes before eating. famotidine 2020-0 2020- No [id number] 20mg Take 1 Univers 20 mg 9-10 11-15 tablet by ity of tablet 00:00: 00:00 mouth 2 [place] 00 :00 (two) Medical times Branch daily. Take about 30 minutes before eating. Nitrofurant 0 2020- No [id number] 100mg Take 1 Univers oin&Nit. 9-10 10-14 capsule by ity of Macrocryst 00:00: 00:00 mouth 2 [place] 100 mg 00 :00 (two) Medical capsule times Branch daily. Nitrofurant 2020-0 Yes [id number] 100mg Take 1 Univers oin&Nit. 7-06 07 capsule by ity o f Macrocryst 00:00: mouth [place] (MACROBID) 00 daily. Medical 100 mg Branch capsule Nitrofurant 2020-0 2020- No [id number] 100mg Take 1 Univers oin&Nit. 7-06 09-10 07 capsule by ity of Macrocryst 00:00: 00:00 mouth [place] (MACROBID) 00 :00 daily. Medical 100 mg Branch capsule aspirin 81 2020-0 Yes [id number] 81mg Take 1 Univers mg EC 6-08 tablet by ity of tablet 00:00: mouth [place] 00 daily. Medical Branch aspirin 81 2020-0 Yes [id number] 81mg Take 1 Univers mg EC 6-08 tablet by ity of tablet 00:00: mouth [place] 00 daily. Medical Branch aspirin 81 2020-0 Yes [id number] 81mg Take 1 Univers mg EC 6-08 tablet by ity of tablet 00:00: mouth [place] 00 daily. Medical Branch aspirin 81 2020-0 Yes [id number] 81mg Take 1 Univers mg EC 6-08 tablet by ity of tablet 00:00: mouth [place] 00 daily. Medical Branch aspirin 81 2020-0 Yes [id number] 81mg Take 1 Univers mg EC 6-08 tablet by ity of tablet 00:00: mouth [place] 00 daily. Medical Branch aspirin 81 2020-0 Yes [id number] 81mg Take 1 Univers mg EC 6-08 tablet by ity of tablet 00:00: mouth [place] 00 daily. Medical Branch aspirin 81 2020-0 Yes [id number] 81mg Take 1 Univers mg EC 6-08 tablet by ity of tablet 00:00: mouth [place] 00 daily. Medical Branch aspirin 81 2020-0 Yes [id number] 81mg Take 1 Univers mg EC 6-08 tablet by ity of tablet 00:00: mouth [place] 00 daily. Medical Branch aspirin 81 2020-0 Yes [id number] 81mg Take 1 Univers mg EC 6-08 tablet by ity of tablet 00:00: mouth [place] 00 daily. Medical Branch aspirin 81 2020-0 Yes [id number] 81mg Take 1 Univers mg EC 6-08 tablet by ity of tablet 00:00: mouth [place] 00 daily. Medical Branch aspirin 81 2020-0 Yes [id number] 81mg Take 1 Univers mg EC 6-08 tablet by ity of tablet 00:00: mouth [place] 00 daily. Medical Branch aspirin 81 2020-0 Yes [id number] 81mg Take 1 Univers mg EC 6-08 tablet by ity of tablet 00:00: mouth [place] 00 daily. Medical Branch aspirin 81 2020-0 Yes [id number] 81mg Take 1 Univers mg EC 6-08 tablet by ity of tablet 00:00: mouth [place] 00 daily. Medical Branch aspirin 81 2020-0 Yes [id number] 81mg Take 1 Univers mg EC 6-08 tablet by ity of tablet 00:00: mouth [place] 00 daily. Medical Branch aspirin 81 2020-0 Yes [id number] 81mg Take 1 Univers mg EC 6-08 tablet by ity of tablet 00:00: mouth [place] 00 daily. Medical Branch aspirin 81 2020-0 Yes [id number] 81mg Take 1 Univers mg EC 6-08 tablet by ity of tablet 00:00: mouth [place] 00 daily. Medical Branch aspirin 81 2020-0 Yes [id number] 81mg Take 1 Univers mg EC 6-08 tablet by ity of tablet 00:00: mouth [place] 00 daily. Medical Branch aspirin 81 0 Yes [id number] 81mg Take 1 Univers mg EC 6-08 tablet by ity of tablet 00:00: mouth [place] 00 daily. Medical Branch aspirin 81 0 Yes [id number] 81mg Take 1 Univers mg EC 6-08 tablet by ity of tablet 00:00: mouth [place] 00 daily. Medical Branch aspirin 81 0 Yes [id number] 81mg Take 1 Univers mg EC 6-08 tablet by ity of tablet 00:00: mouth [place] 00 daily. Medical Branch aspirin 81 Yes [id number] 81mg Take 1 Univers mg EC 6-08 tablet by ity of tablet 00:00: mouth [place] 00 daily. Medical Branch aspirin 81 2020- No [id number] 81mg Take 1 Univers mg EC 6-08 11-15 tablet by ity of tablet 00:00: 00:00 mouth [place] 00 :00 daily. Medical Branch aspirin 81 2020- No [id number] 81mg Take 1 Univers mg EC 6-08 11-15 tablet by ity of tablet 00:00: 00:00 mouth [place] 00 :00 daily. Medical Branch foLIC acid Yes [id number] 1mg Take 1 U nivers 1 mg tablet 4-27 tablet by ity of 00:00: mouth [place] 00 daily. Medical Branch ferrous Yes [id number] 325mg Take 1 Uni vers sulfate 4-27 tablet by ity of (IRON, 00:00: mouth [place] FERROUS 00 daily. Medical SULFATE,) Branch 325 mg (65 mg iron) tablet ascorbic Yes [id number] 500mg Take 1 [facility] [place] acid, 4-27 tablet by ity of vitamin C, 00:00: mouth [place] 500 mg 00 daily. Medical tablet Take with Branch iron. foLIC acid Yes [id number] 1mg Take 1 U nivers 1 mg tablet 4-27 tablet by ity of 00:00: mouth [place] 00 daily. Medical Branch ferrous Yes [id number] 325mg Take 1 Uni vers sulfate 4-27 tablet by ity of (IRON, 00:00: mouth [place] FERROUS 00 daily. Medical SULFATE,) Branch 325 mg (65 mg iron) tablet ascorbic 2021-0 Yes [id number] 500mg Take 1 [facility] [place] acid, 4-27 tablet by ity of vitamin C, 00:00: mouth [place] 500 mg 00 daily. Medical tablet Take with Branch iron. foLIC acid 0 Yes [id number] 1mg Take 1 U nivers 1 mg tablet 4-27 tablet by ity of 00:00: mouth [place] 00 daily. Medical Branch ferrous 0 Yes [id number] 325mg Take 1 Uni vers sulfate 4-27 tablet by ity of (IRON, 00:00: mouth [place] FERROUS 00 daily. Medical SULFATE,) Branch 325 mg (65 mg iron) tablet ascorbic 0 Yes [id number] 500mg Take 1 [place] acid, 4-27 tablet by ity of vitamin C, 00:00: mouth [place] 500 mg 00 daily. Medical tablet Take with Branch iron. foLIC acid Yes [id number] 1mg Take 1 U nivers 1 mg tablet 4-27 tablet by ity of 00:00: mouth [place] 00 daily. Medical Branch ferrous 0 Yes [id number] 325mg Take 1 Uni vers sulfate 4-27 tablet by ity of (IRON, 00:00: mouth [place] FERROUS 00 daily. Medical SULFATE,) Branch 325 mg (65 mg iron) tablet ascorbic 0 Yes [id number] 500mg Take 1 [place] acid, 4-27 tablet by ity of vitamin C, 00:00: mouth [place] 500 mg 00 daily. Medical tablet Take with Branch iron. foLIC acid 0 Yes [id number] 1mg Take 1 U nivers 1 mg tablet 4-27 tablet by ity of 00:00: mouth [place] 00 daily. Medical Branch ferrous 0 Yes [id number] 325mg Take 1 Uni vers sulfate 4-27 tablet by ity of (IRON, 00:00: mouth [place] FERROUS 00 daily. Medical SULFATE,) Branch 325 mg (65 mg iron) tablet ascorbic 0 Yes [id number] 500mg Take 1 [place] acid, 4-27 tablet by ity of vitamin C, 00:00: mouth [place] 500 mg 00 daily. Medical tablet Take with Branch iron. foLIC acid 0 Yes [id number] 1mg Take 1 U nivers 1 mg tablet 4-27 tablet by ity of 00:00: mouth [place] 00 daily. Medical Branch ferrous 2021-0 Yes [id number] 325mg Take 1 Uni vers sulfate 4-27 tablet by ity of (IRON, 00:00: mouth [place] FERROUS 00 daily. Medical SULFATE,) Branch 325 mg (65 mg iron) tablet ascorbic Yes [id number] 500mg Take 1 [place] acid, 4-27 tablet by ity of vitamin C, 00:00: mouth [place] 500 mg 00 daily. Medical tablet Take with Branch iron. foLIC acid Yes [id number] 1mg Take 1 U nivers 1 mg tablet 4-27 tablet by ity of 00:00: mouth [place] 00 daily. Medical Branch ferrous Yes [id number] 325mg Take 1 Uni vers sulfate 4-27 tablet by ity of (IRON, 00:00: mouth [place] FERROUS 00 daily. Medical SULFATE,) Branch 325 mg (65 mg iron) tablet ascorbic Yes [id number] 500mg Take 1 [place] acid, 4-27 tablet by ity of vitamin C, 00:00: mouth [place] 500 mg 00 daily. Medical tablet Take with Branch iron. foLIC acid Yes [id number] 1mg Take 1 U nivers 1 mg tablet 4-27 tablet by ity of 00:00: mouth [place] 00 daily. Medical Branch ferrous Yes [id number] 325mg Take 1 Uni vers sulfate 4-27 tablet by ity of (IRON, 00:00: mouth [place] FERROUS 00 daily. Medical SULFATE,) Branch 325 mg (65 mg iron) tablet ascorbic Yes [id number] 500mg Take 1 [place] acid, 4-27 tablet by ity of vitamin C, 00:00: mouth [place] 500 mg 00 daily. Medical tablet Take with Branch iron. foLIC acid Yes [id number] 1mg Take 1 U nivers 1 mg tablet 4-27 tablet by ity of 00:00: mouth [place] 00 daily. Medical Branch ferrous 0 Yes [id number] 325mg Take 1 Uni vers sulfate 4-27 tablet by ity of (IRON, 00:00: mouth [place] F[place]OUS 00 daily. Medical SULFATE,) Branch 325 mg (65 mg iron) tablet ascorbic 0 Yes [id number] 500mg Take 1 [place] acid, 4-27 tablet by ity of vitamin C, 00:00: mouth [place] 500 mg 00 daily. Medical tablet Take with Branch iron. foLIC acid 2021-0 Yes [id number] 1mg Take 1 U nivers 1 mg tablet 4-27 tablet by ity of 00:00: mouth [place] 00 daily. Medical Branch ferrous 0 Yes [id number] 325mg Take 1 Uni vers sulfate 4-27 tablet by ity of (IRON, 00:00: mouth [place] F[place]OUS 00 daily. Medical SULFATE,) Branch 325 mg (65 mg iron) tablet ascorbic 0 Yes [id number] 500mg Take 1 [place] acid, 4-27 tablet by ity of vitamin C, 00:00: mouth [place] 500 mg 00 daily. Medical tablet Take with Branch iron. foLIC acid Yes [id number] 1mg Take 1 U nivers 1 mg tablet 4-27 tablet by ity of 00:00: mouth [place] 00 daily. Medical Branch ferrous Yes [id number] 325mg Take 1 Uni vers sulfate 4-27 tablet by ity of (IRON, 00:00: mouth [place] F[place]OUS 00 daily. Medical SULFATE,) Branch 325 mg (65 mg iron) tablet ascorbic Yes [id number] 500mg Take 1 [place] acid, 4-27 tablet by ity of vitamin C, 00:00: mouth [place] 500 mg 00 daily. Medical tablet Take with Branch iron. foLIC acid Yes [id number] 1mg Take 1 U nivers 1 mg tablet 4-27 tablet by ity of 00:00: mouth [place] 00 daily. Medical Branch ferrous 0 Yes [id number] 325mg Take 1 Uni vers sulfate 4-27 tablet by ity of (IRON, 00:00: mouth [place] 00 daily. Medical SULFATE,) Branch 325 mg (65 mg iron) tablet ascorbic 0 Yes [id number] 500mg Take 1 [place] acid, 4-27 tablet by ity of vitamin C, 00:00: mouth [place] 500 mg 00 daily. Medical tablet Take with Branch iron. foLIC acid Yes [id number] 1mg Take 1 U nivers 1 mg tablet 4-27 tablet by ity of 00:00: mouth [place] 00 daily. Medical Branch ferrous 0 Yes [id number] 325mg Take 1 Uni vers sulfate 4-27 tablet by ity of (IRON, 00:00: mouth [place] F[place] 00 daily. Medical SULFATE,) Branch 325 mg (65 mg iron) tablet ascorbic 0 Yes [id number] 500mg Take 1 [place] acid, 4-27 tablet by ity of vitamin C, 00:00: mouth [place] 500 mg 00 daily. Medical tablet Take with Branch iron. foLIC acid Yes [id number] 1mg Take 1 U nivers 1 mg tablet 4-27 tablet by ity of 00:00: mouth [place] 00 daily. Medical Branch ferrous 0 Yes [id number] 325mg Take 1 Uni vers sulfate 4-27 tablet by ity of (IRON, 00:00: mouth [place] F[place]OUS 00 daily. Medical SULFATE,) Branch 325 mg (65 mg iron) tablet ascorbic 0 Yes [id number] 500mg Take 1 [place] acid, 4-27 tablet by ity of vitamin C, 00:00: mouth [place] 500 mg 00 daily. Medical tablet Take with Branch iron. foLIC acid Yes [id number] 1mg Take 1 U nivers 1 mg tablet 4-27 tablet by ity of 00:00: mouth [place] 00 daily. Medical Branch ferrous Yes [id number] 325mg Take 1 Uni vers sulfate 4-27 tablet by ity of (IRON, 00:00: mouth [place] F[place]OUS 00 daily. Medical SULFATE,) Branch 325 mg (65 mg iron) tablet ascorbic Yes [id number] 500mg Take 1 [place] acid, 4-27 tablet by ity of vitamin C, 00:00: mouth [place] 500 mg 00 daily. Medical tablet Take with Branch iron. foLIC acid 0 Yes [id number] 1mg Take 1 U nivers 1 mg tablet 4-27 tablet by ity of 00:00: mouth [place] 00 daily. Medical Branch ferrous 0 Yes [id number] 325mg Take 1 Uni vers sulfate 4-27 tablet by ity of (IRON, 00:00: mouth [place] F[place] 00 daily. Medical SULFATE,) Branch 325 mg (65 mg iron) tablet ascorbic 0 Yes [id number] 500mg Take 1 [place] acid, 4-27 tablet by ity of vitamin C, 00:00: mouth [place] 500 mg 00 daily. Medical tablet Take with Branch iron. foLIC acid 0 Yes [id number] 1mg Take 1 U nivers 1 mg tablet 4-27 tablet by ity of 00:00: mouth [place] 00 daily. Medical Branch ferrous 0 Yes [id number] 325mg Take 1 Uni vers sulfate 4-27 tablet by ity of (IRON, 00:00: mouth [place] F[place] 00 daily. Medical SULFATE,) Branch 325 mg (65 mg iron) tablet ascorbic 0 Yes [id number] 500mg Take 1 [place] acid, 4-27 tablet by ity of vitamin C, 00:00: mouth [place] 500 mg 00 daily. Medical tablet Take with Branch iron. foLIC acid 0 Yes [id number] 1mg Take 1 U nivers 1 mg tablet 4-27 tablet by ity of 00:00: mouth [place] 00 daily. Medical Branch ferrous 0 Yes [id number] 325mg Take 1 Uni vers sulfate 4-27 tablet by ity of (IRON, 00:00: mouth [place] F[place]OUS 00 daily. Medical SULFATE,) Branch 325 mg (65 mg iron) tablet ascorbic 0 Yes [id number] 500mg Take 1 [place] acid, 4-27 tablet by ity of vitamin C, 00:00: mouth [place] 500 mg 00 daily. Medical tablet Take with Branch iron. foLIC acid Yes [id number] 1mg Take 1 U nivers 1 mg tablet 4-27 tablet by ity of 00:00: mouth [place] 00 daily. Medical Branch ferrous 0 Yes [id number] 325mg Take 1 Uni vers sulfate 4-27 tablet by ity of (IRON, 00:00: mouth [place] F[place]OUS 00 daily. Medical SULFATE,) Branch 325 mg (65 mg iron) tablet ascorbic 0 Yes [id number] 500mg Take 1 [place] acid, 4-27 tablet by ity of vitamin C, 00:00: mouth [place] 500 mg 00 daily. Medical tablet Take with Branch iron. foLIC acid 0 Yes [id number] 1mg Take 1 U nivers 1 mg tablet 4-27 tablet by ity of 00:00: mouth [place] 00 daily. Medical Branch ferrous 0 Yes [id number] 325mg Take 1 Uni vers sulfate 4-27 tablet by ity of (IRON, 00:00: mouth [place] FERROUS 00 daily. Medical SULFATE,) Branch 325 mg (65 mg iron) tablet ascorbic 0 Yes [id number] 500mg Take 1 [place] acid, 4-27 tablet by ity of vitamin C, 00:00: mouth [place] 500 mg 00 daily. Medical tablet Take with Branch iron. foLIC acid 2021-0 Yes [id number] 1mg Take 1 U nivers 1 mg tablet 4-27 tablet by ity of 00:00: mouth [place] 00 daily. Medical Branch ferrous Yes [id number] 325mg Take 1 Uni vers sulfate 4-27 tablet by ity of (IRON, 00:00: mouth [place] F[place]OUS 00 daily. Medical SULFATE,) Branch 325 mg (65 mg iron) tablet ascorbic Yes [id number] 500mg Take 1 [place] acid, 4-27 tablet by ity of vitamin C, 00:00: mouth [place] 500 mg 00 daily. Medical tablet Take with Branch iron. foLIC acid 2020- No [id number] 1mg Take 1 [facility] 1 mg tablet 4-27 11-15 tablet by it y of 00:00: 00:00 mouth [place] 00 :00 daily. Medical Branch ferrous 2020- No [id number] 325mg Take 1 [place] sulfate 4-27 11-15 tablet by ity of (IRON, 00:00: 00:00 mouth [place] F[place]OUS 00 :00 daily. Medical SULFATE,) Branch 325 mg (65 mg iron) tablet ascorbic 2020- No [id number] 500mg Take 1 [facility] nivers acid, 4-27 11-15 tablet by ity of vitamin C, 00:00: 00:00 mouth [place] 500 mg 00 :00 daily. Medical tablet Take with Branch iron. foLIC acid 2020- No [id number] 1mg Take 1 [facility] 1 mg tablet 4-27 11-15 tablet by it y of 00:00: 00:00 mouth [place] 00 :00 daily. Medical Branch ferrous 2020- No [id number] 325mg Take 1 Un [place] sulfate 4-27 11-15 tablet by ity of (IRON, 00:00: 00:00 mouth [place] FERROUS 00 :00 daily. Medical SULFATE,) Branch 325 mg (65 mg iron) tablet ascorbic 2020- No [id number] 500mg Take 1 U nivers acid, 4-27 11-15 tablet by ity of vitamin C, 00:00: 00:00 mouth [place] 500 mg 00 :00 daily. Medical tablet Take with Branch iron. Vital Signs Vital Name Observation Time Observation Value Comments Source Systolic blood 2022-04-21 23:02:00 122 mm[Hg] Univer sity of pressure [facility] Diastolic blood 2022-04-21 23:02:00 78 mm[Hg] Unive rsity of pressure [facility] Heart rate 2022-04-21 23:02:00 66 /min Universi ty of [facility] Body temperature 2022-04-21 23:02:00 36.83 Ilsa Univ ersity of [facility] Respiratory rate 2022-04-21 23:02:00 18 /min Univ ersity of [facility] Body height 2022-04-21 23:02:00 160 cm Universi ty of [facility] Body weight 2022-04-21 23:02:00 57.153 kg Universi ty of [facility] BMI 2022-04-21 23:02:00 22.32 kg/m2 Universi ty of [facility] Oxygen saturation in 2022-04-21 23:02:00 99 /min University of Arterial blood by [facility] Pulse oximetry Branch Systolic blood 2021-05-26 20:32:00 109 mm[Hg] Univer sity of pressure [facility] Diastolic blood 2021-05-26 20:32:00 58 mm[Hg] Unive rsity of pressure [facility] Heart rate 2021-05-26 20:32:00 80 /min Universi ty of [facility] Body temperature 2021-05-26 20:32:00 36.61 Ilsa Univ ersity of [facility] Respiratory rate 2021-05-26 20:32:00 18 /min Univ ersity of [facility] Body height 2021-05-26 20:32:00 157.5 cm Universi ty of [facility] Body weight 2021-05-26 20:32:00 57.834 kg Universi ty of [place] [facility] BMI 2021-05-26 20:32:00 23.32 kg/m2 Universi ty of [facility] Systolic blood 2021-05-14 17:25:00 124 mm[Hg] Univer sity of pressure [facility] Diastolic blood 2021-05-14 17:25:00 64 mm[Hg] Unive rsity of pressure [facility] Heart rate 2021-05-14 17:25:00 61 /min Universi ty of [facility] Body temperature 2021-05-14 17:25:00 36.67 Ilsa Univ ersity of [facility] Respiratory rate 2021-05-14 17:25:00 16 /min Univ ersity of [facility] Body height 2021-05-14 17:25:00 157.5 cm Universi ty of [facility] Body weight 2021-05-14 17:25:00 56.359 kg Universi ty of [facility] BMI 2021-05-14 17:25:00 22.73 kg/m2 Universi ty of [facility] Branch Systolic blood 2021-05-01 15:53:00 116 mm[Hg] Univer sity of pressure [facility] Diastolic blood 2021-05-01 15:53:00 79 mm[Hg] Unive rsity of pressure [facility] Heart rate 2021-05-01 15:53:00 84 /min Universi ty of [facility] Body temperature 2021-05-01 15:53:00 36.72 Ilsa Univ ersity of [facility] Respiratory rate 2021-05-01 15:53:00 18 /min Univ [facility]ity [facility] [place] [facility] Body weight 2021-05-01 15:53:00 58.015 kg Universi ty of [facility] BMI 2021-05-01 15:53:00 23.39 kg/m2 Universi ty of [facility] Systolic blood 2021-04-27 14:10:00 118 mm[Hg] Univer sity of pressure [facility] Diastolic blood 2021-04-27 14:10:00 76 mm[Hg] Unive rsity of pressure [facility] Heart rate 2021-04-27 14:10:00 75 /min Universi ty [facility] [place] [facility] Body temperature 2021-04-27 14:10:00 36.72 Ilsa Univ ersity of [facility] [place] [facility] Respiratory rate 2021-04-27 14:10:00 18 /min Univ ersity of [facility] Branch Oxygen saturation in 2021-04-27 14:10:00 97 /min University of Arterial blood by [facility] Pulse oximetry Branch Body height 2021-04-23 21:11:00 157.5 cm Universi ty of [facility] Body weight 2021-04-23 21:11:00 68.947 kg Universi ty of [facility] [place] [facility] BMI 2021-04-23 21:11:00 27.80 kg/m2 Universi ty of [facility] Branch Systolic blood 2021-04-24 09:45:00 118 mm[Hg] Univer sity of pressure [facility] Diastolic blood 2021-04-24 09:45:00 76 mm[Hg] Unive rsity of pressure [facility] Heart rate 2021-04-24 09:45:00 71 /min Universi ty of [place] [facility] Oxygen saturation in 2021-04-24 09:45:00 98 /min University Arterial blood by [facility] Pulse oximetry Branch Respiratory rate 2021-04-24 09:30:00 26 /min Univ ersity of [facility] Body temperature 2021-04-24 09:20:00 36.61 Ilsa Univ ersity of [facility] [place] [facility] Body height 2021-04-23 21:11:00 157.5 cm [facility]i ty [facility] [place] [facility] Body weight 2021-04-23 21:11:00 68.947 kg [facility]i ty [facility] [place] [facility] BMI 2021-04-23 21:11:00 27.80 kg/m2 Universi ty of [facility] Systolic blood 2021-04-23 17:17:00 112 mm[Hg] Univer sity of pressure [facility] Diastolic blood 2021-04-23 17:17:00 75 mm[Hg] Unive rsity of pressure [facility] Heart rate 2021-04-23 17:17:00 97 /min Universi ty of [facility] Respiratory rate 2021-04-23 17:17:00 20 /min Univ ersity of [place] [facility] Body height 2021-04-23 17:17:00 157.5 cm Universi ty of [facility] Body weight 2021-04-23 17:17:00 68.181 kg Universi ty of [facility] [place] [facility] BMI 2021-04-23 17:17:00 27.49 kg/m2 Universi ty of [facility] [place] [facility] Systolic blood 2021-04-16 15:13:00 100 mm[Hg] Univer sity of pressure [facility] Diastolic blood 2021-04-16 15:13:00 57 mm[Hg] Unive rsity of pressure [facility] Heart rate 2021-04-16 15:13:00 112 /min Universi ty of [facility] Body temperature 2021-04-16 15:13:00 36.44 Ilsa Univ ersity of [facility] [place] [facility] Respiratory rate 2021-04-16 15:13:00 19 /min Univ ersity of [facility] Body height 2021-04-16 15:13:00 157.5 cm Universi ty of [facility] [place] [facility] Body weight 2021-04-16 15:13:00 69.032 kg Universi ty of [facility] [place] [facility] BMI 2021-04-16 15:13:00 27.84 kg/m2 Universi ty of [facility] Oxygen saturation in 2021-04-16 15:13:00 98 /min University of Arterial blood by [facility] Pulse oximetry Branch Systolic blood 2021-04-09 15:30:00 99 mm[Hg] Univer sity of pressure [facility] Diastolic blood 2021-04-09 15:30:00 59 mm[Hg] Unive rsity of pressure [facility] Branch Heart rate 2021-04-09 15:30:00 105 /min Universi ty of [place] [facility] Body temperature 2021-04-09 15:30:00 36.94 Ilsa Univ ersity of [place] [facility] Respiratory rate 2021-04-09 15:30:00 19 /min Univ ersity of [facility] Body height 2021-04-09 15:30:00 157.5 cm Universi ty of [facility] Body weight 2021-04-09 15:30:00 67.643 kg Universi ty of [facility] [place] [facility] BMI 2021-04-09 15:30:00 27.28 kg/m2 Universi ty of [facility] [place] [facility] Systolic blood 2021-04-07 19:37:00 104 mm[Hg] Univer sity of pressure [facility] Diastolic blood 2021-04-07 19:37:00 60 mm[Hg] Unive rsity of pressure [facility] Body temperature 2021-04-07 18:00:00 36.89 Ilsa Univ ersity of [place] [facility] Respiratory rate 2021-04-07 18:00:00 16 /min Univ ersity of [facility] Branch Heart rate 2021-04-07 17:15:00 93 /min Universi ty of [facility] [place] [facility] Body weight 2021-04-07 16:29:00 68.13 kg Universi ty of [facility] [place] [facility] BMI 2021-04-07 16:29:00 27.47 kg/m2 Universi ty of [facility] [place] [facility] Systolic blood 2021-03-30 18:11:00 101 mm[Hg] Univer sity of pressure [facility] Diastolic blood 2021-03-30 18:11:00 59 mm[Hg] Unive rsity of pressure [facility] Heart rate 2021-03-30 18:11:00 97 /min Universi ty of [facility] Respiratory rate 2021-03-30 18:11:00 19 /min Univ ersity of [facility] Body height 2021-03-30 18:11:00 157.5 cm Universi ty of [facility] [place] [facility] Body weight 2021-03-30 18:11:00 68.748 kg Universi ty of [facility] [place] [facility] BMI 2021-03-30 18:11:00 27.72 kg/m2 Universi ty of [facility] [place] [facility] Heart rate 2021-03-26 23:00:00 89 /min Universi ty of [facility] [place] [facility] Oxygen saturation in 2021-03-26 23:00:00 100 /min University Arterial blood by [facility] Pulse oximetry Branch Systolic blood 2021-03-26 20:00:00 122 mm[Hg] Univer sity of pressure [facility] Diastolic blood 2021-03-26 20:00:00 69 mm[Hg] Unive rsity of pressure [facility] Body temperature 2021-03-26 20:00:00 36.78 Ilsa Univ ersity of [facility] [place] [facility] Respiratory rate 2021-03-26 20:00:00 18 /min Univ ersity of [facility] Body height 2021-03-26 20:00:00 157.5 cm Universi ty of [facility] Body weight 2021-03-26 20:00:00 67.405 kg Universi ty of [facility] BMI 2021-03-26 20:00:00 27.18 kg/m2 Universi ty of [facility] [place] [facility] Systolic blood 2021-03-16 19:05:00 100 mm[Hg] Univer sity of pressure [facility] Diastolic blood 2021-03-16 19:05:00 64 mm[Hg] Unive rsity of pressure [facility] Heart rate 2021-03-16 19:05:00 99 /min Universi ty of [facility] Body temperature 2021-03-16 19:05:00 36.83 Ilsa Univ ersity of [facility] Respiratory rate 2021-03-16 19:05:00 18 /min Univ ersity of [facility] Body height 2021-03-16 19:05:00 157.5 cm Universi ty of [facility] Body weight 2021-03-16 19:05:00 65.726 kg Universi ty of [place] [facility] BMI 2021-03-16 19:05:00 26.50 kg/m2 Universi ty of [facility] Systolic blood 2021-03-02 20:23:00 125 mm[Hg] Univer sity of pressure [facility] Diastolic blood 2021-03-02 20:23:00 74 mm[Hg] Unive rsity of pressure [facility] Heart rate 2021-03-02 20:23:00 100 /min Universi ty of [facility] Body temperature 2021-03-02 20:23:00 36.61 Ilsa Univ ersity of [facility] Respiratory rate 2021-03-02 20:23:00 18 /min Univ ersity of [facility] Body height 2021-03-02 20:23:00 157.5 cm Universi ty of [facility] Body weight 2021-03-02 20:23:00 65.545 kg Universi ty of [facility] BMI 2021-03-02 20:23:00 26.43 kg/m2 Universi ty of [facility] Systolic blood 2021-02-20 17:18:00 116 mm[Hg] Univer sity of pressure [facility] Diastolic blood 2021-02-20 17:18:00 69 mm[Hg] Unive rsity of pressure [facility] Heart rate 2021-02-20 17:18:00 98 /min Universi ty of [facility] [place] [facility] Respiratory rate 2021-02-20 17:18:00 28 /min Univ ersity of [facility] Body height 2021-02-20 17:18:00 157.5 cm Universi ty of [facility] Body weight 2021-02-20 17:18:00 63.141 kg Universi ty of [facility] BMI 2021-02-20 17:18:00 25.46 kg/m2 Universi ty of [facility] Oxygen saturation in 2021-02-20 17:18:00 100 /min [facility] Arterial blood by [facility] Pulse oximetry Branch Procedures Procedure Date / Time Performing Clinician Source Performed EKG-12 LEAD 2022-04-21 23:40:50 Daryl Escamilla [facility] CONSENT/REFUSAL FOR 2022-04-21 22:56:41 Doctor Unassigned, No Un [facility] DIAGNOSIS AND TREATMENT Name Medical Branch GALV ONLY - [place] 2021-04-25 21:18:00 Yoselin Dean [facility] IGG/IGM [facility] GALV ONLY - [place] 2021-04-25 21:18:00 Yoselin Dean [facility] IGG/IGM [facility] CBC WITH DIFF 2021-04-25 10:29:00 [facility] CBC WITH DIFF 2021-04-25 10:29:00 [facility] SURGICAL PATHOLOGY EXAM 2021-04-24 08:44:00 [facility] 2021-04-24 08:29:00 Daniele Paulino [facility] VENOUS CORD GAS 2021-04-24 08:29:00 Daniele Paulino [facility] SECTION 2021-04-24 06:59:00 [facility] 2021-04-24 06:59:00 Daniele Paulino [facility] HB ABO GROUPING 2021-04-24 06:29:00 [facility] RHO (D) IMMUNE GLOBULIN 2021-04-24 06:29:00 Tammy Brito [facility] HB ABO GROUPING 2021-04-24 06:29[facility] GLOBULIN 2021-04-24 06:29:00 Tammy Brito [facility] COVID-19 (ID NOW RAPID 2021-04-24 04:59:00 Aaron Hendricks [facility] TESTING) [facility] Branch LAB ONLY COVID 2021-04-24 04:59:00 Eladio [facility] COVID-19 (ID NOW RAPID 2021-04-24 04:59:00 Fish, Aaron Pastor [facility] TESTING) Medical Branch LAB ONLY COVID 2021-04-24 04:59:00 Fish, [facility] INTERPRETATION [facility] GROUP B STREPTOCOCCUS BY 2021-04-24 00:03:00 Fish, Aaron [facility] GROUP B STREPTOCOCCUS BY 2021-04-24 00:03:00 Fish, Aaron [facility] URINE CULTURE 2021-04-23 23:56:00 Fish, [facility] URINE CULTURE 2021-04-23 23:56:00 Fish, [facility] URINALYSIS 2021-04-23 23:55:00 Fish, [facility] HB ABO GROUPING 2021-04-23 23:55:00 Fish, [facility] URINALYSIS 2021-04-23 23:55:00 Fish, [facility] HB ABO GROUPING 2021-04-23 23:55:00 Fish, [facility] HEPATITIS B SURFACE 2021-04-23 23:53:00 Fish, Aaron [facility] ADC OR THI ONLY - RPR 2021-04-23 23:53:00 Fish, Aaron [facility] HIV 1/2 AG-AB WITH REFLEX 2021-04-23 23:53:00 Fish, Aaron Prescott [facility] HEPATITIS B SURFACE 2021-04-23 23:53:00 Fish, Aaron [facility] ADC OR THI ONLY - RPR 2021-04-23 23:53:00 Fish, Aaron Prescott [facility] HIV 1/2 AG-AB WITH REFLEX 2021-04-23 23:53:00 Fish, Aaron [facility] CBC WITH DIFF 2021-04-23 22:00:00 Fish, [facility] CBC WITH DIFF 2021-04-23 22:00:00 Fish, [facility] ASSIGNMENT OF BENEFITS 2021-04-23 20:31:55 Doctor Unassigned, No [facility] HOSPITAL ADMISSION 2021-04-23 06:01:00 Doctor Unassigned, No Uni versity of [facility] HOSPITAL ADMISSION 2021-04-23 06:01:00 [facility] 2021-04-16 15:16:00 Aaron Hendricks [facility] POCT URINALYSIS W/O 2021-04-09 16:15:00 Aaron Hendricks [facility] CONSENT/REFUSAL FOR 2021-04-07 15:55:21 Doctor Unassigned, No Un [facility] DIAGNOSIS AND [facility] ASSIGNMENT OF BENEFITS 2021-04-07 15:55:03 Doctor Unassigned, No [facility] POCT URINALYSIS W/O 2021-03-30 18:13:00 Aaron Hendricks [facility] CBC WITH DIFF 2021-03-26 21:32:00 Eladio Aaron [facility] ASSIGNMENT OF BENEFITS 2021-03-26 19:13:44 Doctor Unassigned, No [facility] CBC WITH DIFF 2021-03-17 16:50:00 Eladio Aaron [facility] ASSIGNMENT OF BENEFITS 2021-03-17 15:25:37 Doctor Unassigned, No [facility] POCT URINALYSIS W/O 2021-03-16 19:25:00 Aaron Hendricks [facility] STERILIZATION CONSENT 2021-03-02 05:01:00 Doctor Unassigned, No [facility] HB ABO GROUPING 2021-02-20 18:25:00 Eladio [facility] CBC WITH DIFF 2021-02-20 18:19:00 Eladio [facility] HIV 1/2 AG-AB WITH REFLEX 2021-02-20 18:19:00 Aaron Hendricks [facility] ADC ONLY - FERN TEST 2021-02-20 18:18:00 Aaron Hendricks [facility] Encounters Start End Encounter Admission Attending Care Care Encounter Source Date/Time Date/Time Type Type Clinicians Facility Department ID 2021-04-14 Outpatient P [facility] DAVID [id number] Univers 09:55:29 ity of [facility] 2021-04-14 Outpatient P [facility] DAVID [id number] Univers 06:58:15 ity of [facility] 2021-04-13 Outpatient P [facility] DAVID [id number] Univers 21:52:42 ity of [facility] 2021-04-13 Outpatient [facility] [id number] Univers 21:48:48 ity of [facility] 2022-05-19 2022-05-19 Outpatient R FRAN MAYA [facility] B [id number] Univers 11:30:00 11:30:00 FRANCESCO FRNA ity [facility] 2022-04-21 2022-04-21 Emergency X RIDDLE, [facility] ERT [id number] Univers 17:03:00 17:55:00 CHRISTSHAWNA it y of [facility] 2022-04-21 2022-04-21 Emergency [place], [facility] [id number] Univers 17:03:00 17:55:00 Daryl RAHMAN [id number] ity of [place] 4.2.7.2.686 [facility] [id number] [facility] 084 Branch 2022-04-21 2022-04-21 Orders Doctor DEMI 1.2.840.114 [id number] Univers 00:00:00 00:00:00 Only Unassigned, FERNANDO [id number] ity of [place] [facility] [id number] Nito [id number] [facility] 009 Branch 2021-06-16 2021-06-16 Outpatient R ELADIOLAMBERTN [facility] [id number] Univers 13:00:00 13:00:00 ity of [facility] 2021-05-26 2021-05-26 Routine Lambert Hendricksn [facility] CARR 1.2.840.114 [id number] Univers 14:25:34 14:40:34 NORBERT [id number] i ty of Visit WOMEN'S [id number] [facility] [place] [facility] [id number] [facility] 134 Branch 2021-05-26 2021-05-26 Outpatient R AARON HENDRICKS [facility] [id number] Univers 13:00:00 13:00:00 ity of [facility] 2021-05-14 2021-05-14 Outpatient R AARON HENDRICKS [facility] [id number] Univers 11:15:00 12:07:49 ity of [facility] 2021-05-14 2021-05-14 Routine Aaron Hendricks [facility] 1.2.840.114 [id number] Univers 11:00:44 12:07:49 NORBERT [id number] i ty [id number] [id number] [address] 2021-05-14 2021-05-14 Letter Aaron Hendricks [facility] [id number] Univers 00:00:00 00:00:00 (Out) NORBERT [id number] it y [id number] [id number] [address] 2021-05-01 2021-05-01 Nurse Nurse, Lkj [facility] 1.2.840.114 [id number] Univers 09:45:05 10:00:05 Visit Aaron Hendricks [id number] ity [place] [id number] [address] 2021-05-01 2021-05-01 Outpatient R AARON HENDRICKS [facility] [id number] Univers 09:30:00 09:30:00 ity of [facility] 2021-04-23 2021-04-27 Inpatient P DANIELE [facility] DAVID [id number] Univers 14:34:00 12:31:00 GLENNY it y of KRYSTA Corea [facility] 2021-04-23 2021-04-27 [facility] Aaron Hendricks 1.2.840.114 [id number] Univers 14:34:00 12:31:00 Encounter Krysta Sun 350. [id number] ity of [facility] 4.2.7.2.686 Nito as [id number] [facility] 134 Mobile 2021-04-24 2021-04-24 Surgery Daniele SIMMS 1.2.840.114 [id number] Univers 01:30:00 03:47:00 Glenny KING [id number] ity of [facility] 4.2.7.2.686 [place] as [id number] [facility] 013 Branch 2021-04-24 2021-04-24 Anesthesia Josue Rausch 1.2.840.114 [id number] Univers 00:36:26 00:36:26 Event FERNANDO 350.1.13.10 it y of [facility] 4.2.7.2.686 [place]ito as [id number] [facility] 140 Mobile 2021-04-23 2021-04-23 Routine Fish, Aaron [facility] 1.2.840.114 [id number] Univers 10:33:09 12:23:17 NORBERT 350.1.13.10 i ty of Visit W[facility] 4.2.7.2.686 [facility] [id number] [address] 2021-04-23 2021-04-23 Outpatient R AARON HENDRICKS [facility] [id number] Univers 10:30:00 12:23:17 ity [facility] 2021-04-23 2021-04-23 Orders Doctor SIMMS 1.2.840.114 [id number] Univers 00:00:00 00:00:00 Only Unassigned, FERNANDO [id number] ity of [place] [facility] 4.2.7.2.686 Nito as [id number] [facility] 009 Mobile 2021-04-16 2021-04-16 Routine Fish, Aaron CARR 1.2.840.114 [id number] Univers 10:02:54 10:50:32 NORBERT 350.1.13.10 i ty of [place] 4.2.7.2.686 [place] [facility] [id number] [address] 2021-04-16 2021-04-16 Outpatient R AARON HENDRICKS [facility] [id number] Univers 10:00:00 10:50:32 ity [facility] 2021-04-09 2021-04-09 Routine Aaron Hendricks [facility] 1.2.840.114 [id number] Univers 10:16:43 11:07:35 NORBERT 350.1.13.10 i ty of [place] W[place] 4.2.7.2.686 [place] [facility] [id number] [address] 2021-04-09 2021-04-09 Outpatient R AARON HENDRICKS [facility] [id number] Univers 10:00:00 11:07:35 ity [facility] 2021-04-07 2021-04-07 Hospital Aaron Hendricks [facility] 1.2.840.114 [id number] Univers 10:53:00 15:42:00 Encounter [id number] [facility] 4.2.7.2.686 [facility] [id number] [address] 2021-04-07 2021-04-07 Restaurant Managing Partner Ultrasound, [facility] 1.2 .840.114 [id number] [facility] 09:05:58 10:05:58 Visit Manny Pearson [id number] ity Filipe Navarrete [place] 4.2.7.2.686 [facility] [id number] [address] 2021-04-07 2021-04-07 Outpatient P LANDON [facility] [id number] Univers 09:00:00 09:00:00 [facility] 2021-04-07 2021-04-07 Outpatient P [facility] DAVID [id number] Univers 00:00:00 00:00:00 ity [facility] 2021-03-30 2021-03-30 Routine Aaron Hendricks [facility] 1.2.840.114 [id number] Univers 13:04:07 13:33:33 Norbert 350.1.13.10 i ty of Visit Women's 4.[place].2.686 [place] [facility] [id number] [address] 2021-03-30 2021-03-30 Outpatient R AARON HENDRICKS [facility] [id number] Univers 13:00:00 13:00:00 ity of [facility] 2021-03-26 2021-03-26 [facility] Aarno Hendricks [facility] 1.2.840.114 [id number] Univers 14:14:00 23:18:00 Encounter Bella 350.1.13.10 ity of [place].2.686 [place] [id number] [facility] 083 Branch 2021-03-26 2021-03-26 Telephone Aaron Hendricks [facility] 1.2.840.114 [id number] Univers 00:00:00 00:00:00 Bella 350.1.13.10 i ty of [place].2.686 [place] [id number] Nm dical nal 134 [facility] 2021-03-26 2021-03-26 Telephone Aaron Hendricks [facility] 1.2.840.11 [id number] Univers 00:00:00 00:00:00 Norbert 350.1.13.10 it y of [place]'s 4.2.7.2.686 [place] [facility] [id number] [facility] 134 [address] 2021-03-26 2021-03-26 Orders Doctor DEMI 1.2.840.114 [id number] Univers 00:00:00 00:00:00 Only Unassigned, FERNANDO [id number] ity of [place] [facility] 4.2.7.2.686 Nito as [id number] [facility] 009 Branch 2021-03-17 2021-03-17 Outpatient R A[facility]ICKS [facility] [facility] [id number] Univers 11:00:00 11:00:00 ity of [facility] 2021-03-17 2021-03-17 Restaurant Managing Partner Bonilla Peguero Lab Main [facility] 1.2.8 40.114 [id number] Univers 10:27:40 10:42:40 Visit Aaron Hendricks 350.1.13.10 ity of [place] [phone] Nm dical nal 353 [facility] 2021-03-172021-03-17 Case Aaron Hendricks [place] 1.2.840.114 [id number] Univers 00:00:00 00:00:00 Management NORBERT 350.1.13.10 [place] [facility] [phone] [facility] 134 Mobile 2021-03-17 2021-03-17 Orders Doctor DEMI 1.2.840.114 [id number] Univers 00:00:00 00:00:00 Only Unassigned, FERNANDO 350.1.13.10 ity of [place] [facility] 4.2.7.2.686 [place] [phone] [place] [address] [place] 2021-03-16 2021-03-16 Routine Aaron Hendricks [facility] 1.2.840.114 [id number] Univers 13:47:40 14:25:56 Norbert 350.1.13.10 i ty of Visit Women's 4.2.7.2.686 [facility] Health [phone] [address] 2021-03-16 2021-03-16 Outpatient R AARON HENDRICKS [facility] [id number] Univers 13:45:00 13:45:00 ity of [facility] 2021-03-10 2021-03-10 Restaurant Managing Partner Ultrasound, [facility] 1.2 .840.114 [id number] Univers 09:58:59 10:58:59 Visit Manny Pearson [employer] 350.1.13.10 ity of [facility] 4.2.7.2.686 [place] MATERNAL [phone] [facility] ical & CHILD [address] [place] [address] 2021-03-10 2021-03-10 Outpatient P GOMEZ [facility] [id number] Univers 08:00:00 08:00:00 MANNY gaona [facility] 2021-03-02 2021-03-02 Routine Aaron Hendricks [facility] 1.2.840.114 [id number] Univers 15:01:02 16:11:02 Norbert 350.1.13.10 i ty of Visit Women's [place] [phone] [facility] 134 [address] 2021-03-02 2021-03-02 Outpatient R AARON HENDRICKS [facility] [id number] Univers 15:00:00 15:00:00 ity of [facility] 2021-03-02 2021-03-02 Orders Doctor DEMI 1.2.840.114 [id number] Univers 00:00:00 00:00:00 Only Unassigned, FERNANDO 350.1.13.10 ity of [place] [facility] 4.2.7.2.686 [place] [phone] [facility] [address] 2021-02-25 2021-02-25 Telephone Aaron Hendricks [facility] 1.2.840.11 [id number] Univers 00:00:00 00:00:00 Norbert 350.1.13.10 it y of [place] [phone] [address] 2021-02-24 2021-02-24 Outpatient R AARON HENDRICKS [facility] [id number] Univers 13:15:00 13:15:00 ity of [facility] 2021-02-20 2021-02-20 Hospital Aaron Hendricks [facility] 1.2.840.114 [id number] Univers 11:59:00 14:43:00 Encounter [place] 350.1.13.10 [place] of [place].2.[place] [id number] [place] [id number] [place] 2021-02-20 2021-02-20 Routine Aaron Hendricks [facility] 1.2.840.114 [id number] Univers 11:09:15 11:38:12 [place] 350.1.13.10 ity of Visit [place].2.[place] [facility] [phone] Nm dic[address] 2021-02-20 2021-02-20 Outpatient R AARON HENDRICKS [facility] [id number] Univers 11:00:00 11:00:00 ity of [facility] 2021-02-20 2021-02-20 Telephone Aaron Hendricks 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 1.2.840.11 [id number] Univers 00:00:00 00:00:00 Norbert 350.1.13.10 it y of [facility] 4.2.7.2.686 [facility] [id number] [address] 2021-02-04 2021-02-04 Outpatient P [facility] [id number] Univers 14:45:00 14:45:00 ity [facility] 2021-02-03 2021-02-03 Outpatient R SEVEN [facility] [id number] Univers 08:00:00 08:00:00 FRANCOIS ity [facility] 2021-02-02 2021-02-02 Outpatient R AARON HENDRICKS [facility] [id number] Univers 08:00:00 08:00:00 ity of [facility] 2021-01-12 2021-01-12 Outpatient R AARON HENDRICKS [facility] [id number] Univers 13:15:00 13:15:00 ity of [facility] 2021-01-06 2021-01-06 Outpatient P [facility] [id number] Univers 14:00:00 14:00:00 ity of [facility] 2021-01-01 2021-01-01 Outpatient R FISHAARON [facility] [id number] Univers 08:00:00 08:00:00 ity of [facility] 2020-12-24 2020-12-24 Outpatient R FISHAARON [facility] [id number] Univers 10:30:00 10:30:00 ity of [facility] 2020-12-17 2020-12-17 Outpatient R FISHAARON [facility] [id number] Univers 13:15:00 13:15:00 ity of [facility] 2020-12-16 2020-12-16 Outpatient R FISHAARON [facility] [id number] Univers 13:45:00 13:45:00 ity of [facility] 2020-11-18 2020-11-18 Outpatient R FISHAARON [facility] [id number] Univers 11:00:00 11:00:00 ity of [facility] 2020-11-18 2020-11-18 Outpatient R AARON HENDRICKS [facility] [id number] Univers 08:00:00 08:00:00 ity of [facility] 2020-10-29 2020-10-29 Outpatient P [facility] [id number] Univers 14:00:00 14:00:00 ity of [facility] 2020-10-28 2020-10-28 Outpatient R FISHAARON [facility] [id number] Univers 14:30:00 14:30:00 ity of [facility] 2020-10-21 2020-10-21 Outpatient R FISHAARON [facility] [id number] Univers 08:30:00 08:30:00 ity of [facility] 2020-10-07 2020-10-07 Outpatient R FISHAARON [facility] [id number] Univers 10:30:00 10:30:00 jimenez [facility] 2019-09-16 2019-09-16 Emergency X BOAZ [facility] ERT [id number] Univers 14:20:14 18:01:00 BELKIS gaona [facility] 2019-09-16 2019-09-16 Emergency Boaz [facility] 1.2.640.701 [id number] 14:20:14 18:01:00 Belkis Rahman 350.1.13.10 [place] [address].2.7.2.686 [place] [id number] 084 2019-09-16 2019-09-16 Orders Doctor DEMI 1.2.840.114 [id number] 00:00:00 00:00:00 Only UnassignedFERNANDO 350.1.13.10 [place] [address]686 [id number] 009 2019-01-07 2019-01-07 Emergency [facility] 1.2.544.419 [id number] 14:13:46 15:40:00 Endy Rahman 350.1.13.10 [place] [address].2.7.2.686 [place] [id number] 084 2019-01-07 2019-01-07 Orders Doctor DEMI 1.2.840.114 [id number] 00:00:00 00:00:00 Only Unassigned FERNANDO 350.1.13.10 [place] [address]686 [phone] 009 Results Test Description Test Time Test Comments Results Result Comments Source SURGICAL PATHOLOGY EXAM 2021-04-27 18:44:00 Test Item Value Reference Range Interpretation Comme [facility] Case Report (test code = 3957755095) Surgical Pathology ?Case: [id number] ? Authorizing Provider: ?Krysta Sun, ? Collected: ? 04/24/20214 ? MD ? Ordering Location: ? ? Obstetrics and Gynecology ?Received: ?04/24/2021 8954 ? (DEMI 3A) ?Pathologist: ? Jose Manuel Asencio MD ?Specimens: ? A) - FALLOPIAN TUBE, LEFT ? B) - FALLOPIAN TUBE, RIGHT ? Final Diagnosis (test code = f1ramKSeATGqc4qhFXXrpJAyHiDbLwQpHiEoYz 9830426686) dWMxIHtccnRmMVxlcGljOTYwMVxhbnNpXHNwbHRw F0BkgljbOYbsKQ5gVY5piFjgkKXdlPKzSUWmGfZr n3tsx993lZXmk0osYVVFhfqczWb9hNdfX03nl9L0 FxpbI06duVUyCJD5KGHtUNUvpVCqWIRsOZR9FYIr jAPsT0lhQYElXA8hjkiyGOhxXRviDIKdwJX6HQYz cTVdO8JqDNHnNOvtKAMkkdc1GjFvYd6lxXIyqOki MFxwYXJkXHBsYWluXGZzMjBccGFyIEEuIEZBTExP YJmOBiXANWWTUPVCETTPREXWCQoWTJ5LXIxdQlMJ NAUCAD1CSnljBQQoGRJoLLFAIIiLTBKOC5HZDIZA X1ONG71vC7WdAnTZJE2XWWITHHODRyUtPBXQTuLP RklFRFxwYXJccGFyIEIuIEZBTExPUElBTiBUVUJF HHYMRSlQMWrvQ5IKIUQHHUDBRIUPU6NUFAdQWcrl rTOhXGYuFI7iEqYGRJSDMh7JYhIQHMTVQC1GMC1R PVUWQWjWHGbIPaNJQSVMQTdHSA7ZECNDDXGdEAMk wivnTLG3q2hwrABbILHjxHBmJoElCSVnOAHlg0tz PLWusRXdFfTwMrKzBpNnRgnvvLWdFLSmZqDbb7tu b176yDHnj3wgRCMvSgD0wOOrILJtbUlfaht0uWny ZxYqGYDxf1auodRvMnWrZXWnGDKaRSXesOYsR851 DRFePOqhh5pjx1LuKRCbzCOjx2G4IBSFFXzpVpZx H103r3qsp7rgugOdzHJ7RIMiBXR8BRypycNzvrB4 XPcooKIrBiA5QQzqgiRwVKzgobNhxvChOca8EHBi C847NSZ2fZket2ogKRX6KSGiFUEiQtouFm3jvHUv G641YPMyGULCMVPcdPn8YWRkuzOzstNhuIZNo009 O738s2enPJWyckUstCvDaniff6dqM719HDNraAWl rqVhPbMbPXLycSJauZS8SOBrIA7ptbogTWiqZRxo OLSotdJ9VFJlsVUoQ4SzBENvIG0oxniwDDU7GEzy AZIpNLT2GeVgSQGfe8Diarx7CkBhxq8jbh13HWT5 k6EabSxfQHN9QCW8NsJhXk9dcBRkURFdBB4kRaWj rOMhDJDuhb58tCagSXqsqkOtrR6iOjOmBTYyeFQy VWZnQW6zpMIeYSKogL0sjfgkJPKkFxFuzzqoSKBz iJsfpeQyBk9jbJqgIII6ESbqS9mudA6bQdC8SUyx X6rdhH7tHDq2FQqblVD5URIcaF9wOF5btvrqu5ec AHmdDIulQUTcqaP0iaQ0HLIwqWZuE2KojY1fPRQe XE6bibowy9tqXKC2FUxmVZYqLEB3YoAdCPVgr6Lf kxi6SyGey6QasTHgSCdsS30uc015ASMcjnBwQ4vd wOQpdcilxAEnigyjTSfscoA3GPOfYYGdHRihFCCc XGZzMjBcbGFuZzEwMzNcaGljaFxmMVxkYmNoXGYx SPnbQ0hqGzSoE3OfDRNfEwDpuRTlETjdcZG4GUMc BCKfo35bxGa9CGStqsoqr7MyQKCnoSHyjCCjbT9a yiGpx9srWVTxXFKlNSRvU2UgJYG5qPYcZJQvuJEk vPG2GJ2lhlUqJO7oVFYoNozomtDxuDMjiiRgQUJl CLfww6nxPX5cIPCmzFmwqT1tsCN0DFUle9imiUPb mDIrj1hvx9JbefVkFAwuRGNlMUutZPXhNYOwBW1q ITVxaHOaluVxi1C5XkiftOBueophObjmmtJ8RUyx wjjdNTMsSQgnE6hnByWlCTPowQydByhme5OtPLVh XGZzMjhccGFyfX0= Clinical Information (test code = 30 yo s/p ERCS for PTL, w BT L 5660580421) Gross Description (test code = j4zssOEsBSAtyXNMHNWdQsqtcaGlOQGbiSPz [facility] 4665773887) horwOBnnUA8gWC4fyObcpYKcpWOiFV2JBBNkUsFv MIBdlYFpltFiUxPbKIFbqUIfnEN8WVBmAF4kwqjb HRdoQRxlBPZnunD1TLNpdYUjC3RsWCDeXA4mchpz YOX9MPnamZ2jdmSCXkifAq1inNCyxCeuHmVmGwEt ZNPeUQKuYQDcwIhiSTUbPSs4rG9HYoruQZY9BEAZ NjsoMRDtPU4Fo8swWFAuhGLpIGM9VSdxzIPjMHGa JQXfTFe0BEKtRTcrdLLbUX1rnRwfXrytxArib3Yw uKAfEXotCRRgFCHfGCzbKNUgPW4CMiRnGZwFTTJl XOk5XxY7ONq2VHKVOhTpYqDgGPliWSU2WNQhZPt4 VVk1OLbNItZkHda2IPLzZDP4ZXK2VLgaUMifeIUk DVhnFaUIeldnvZMwEYJaHEDbZDjjKnuxLHrbQ61w xFaboK9pEzZfFCOJGcZPWDqPU0ZEEM8gYBKGOQqj [file] s3onpYwiz6SdqNGvCA6QYp4= Disclaimer (test code = 5413215700) s4nudWEiTMKdz7scILVqtGJvYtReElN cZnRuYmpc jFNrIYppzzDaZCvrn5ZxK3HsAaYnCCswxqCcLHEx JueklhbwGHZgQHI3irEfHHMiIJhfIJKbPZglWt8w qSZjlPkrAmRzVTHwc3xfssFZMVvdXyOyV531DEPy VZwhk6tqj8QpQALruHCwg6M6QLJMujyzvBb7vUlh M20jj6Q7UeadE1blAISwAZEmV3VrXM7cZQWhBqu6 GXT3EJD7MVPiNWCkE8OqDR8jEMNvfWNxJCm7g2ff oTseUHJdADU4y6liTChsyxNuKF5zny1hpGp1j9jd ejCiUJXgYJOkmZIVAIMvH4KorGhjOi0fcUu1gEqi VizmLIB0Xsd2UX8jke34otd2sGoyYGQwpjupKzI2 SEsgNLGrtsgpNSh8UHhaZPKtwQE7DIIpsFEmX7Ps LASoJY5pxyn6HXY3ZEmgARRwDyH7ZBZnuBYbWJLj yQqiZFxge445XXP2WbOgQM0fN8Rjb6O1vD0wjBWs MEKorGZbDdXlPJGsne8naHXtVDfnl2KaPVH8lgP0 rNYnoQKvCFDhJD79Ijsmj9BiHtyuh1JwI23ibMB8 LIziw4gsWY0aPcK6ggAhHRvgy3gsuC4pWcH4GScw EI1xVL8sSGYzcS8pwpbtFRKeHiOyrwyvEYStzJst idCvEi6gzWxqTHT9LGmjM1dxuW4wRvT1IEjdL5ap kR5xFKz4CGnnjTU7HSZdfL0nXQ3shsqnw2ggAAxd PLwzNRBlhwH8wuD4DDTizPOaI1YwuW8oUFTwTA3w lxspi7kiLMF8TDudBNKcVJH6CcIdSTTpk1Tcmfa8 KyKvc2WjoQRnLElsK64hb878FYUzdqJvY9niiMVa zctalLDozuhfHVfjbuQ5ZEVcvrZkl2QgURYySVE7 GXczBJoneORkETBbaAvlm2vaR8MnuKOrRZYtNCjw XGYxXGZzMjBcbGFuZzEwMzNcaGljaFxmMVxkYmNo [file] G7xcZsUlrE9olZtlTGnnExLkXpXfDHulCLZ1nP== Embedded Images (test code = 9810279053) [facility] ONLY - [place] [id number] 14:51:03 Test Item Value Reference Range Interpretation Comments Syphilis IgG/IgM (test Non-reactive Non-reactive code = 52679-0) GAGAN (test code = GAGAN) Non-reactive - No serologic evidence of T. pallidum infection. Cannot exclude incubating or early syphilis. Submit a second specimen in 2-4 weeks if syphilis is clinically suspected. Equivocal - Further testing to follow. Reactive - Further testing to follow. Lab Interpretation (test Normal code = 13018-1) [facility] ONLY - [place] [id number] 14:51:03 Test Item Value Reference Range Interpretation Comments Syphilis IgG/IgM (test Non-reactive Non-reactive code = 36427-3) GAGAN (test code = GAGAN) Non-reactive - No serologic evidence of T. pallidum infection. Cannot exclude incubating or early syphilis. Submit a second specimen in 2-4 weeks if syphilis is clinically suspected. Equivocal - Further testing to follow. Reactive - Further testing to follow. Lab Interpretation (test Normal code = 26836-2) [facility] with [id number] 11:18:41 Test Item Value Reference Range Interpretation Comments WBC (test code = See_Comment H [Automated 6690-2) message] The sy stem which generated this result transmitted reference range : 4.30 - 11.10 10*3/?L. The reference range was not used to interpret this result as normal/abnormal . RBC (test code = See_Comment L [Automated 789-8) message] The sy stem which generated this result transmitted reference range : 3.93 - 5.25 10*6/?L. The reference range was not used to interpret this result as normal/abnormal . HGB (test code = 8.4 g/dL 11.6-15.0 L 718-7) HCT (test code = 28.4 % 35.7-45.2 L 4544-3) MCV (test code = 79.8 fL 80.6-95.5 L 787-2) MCH (test code = 23.6 pg 25.9-32.8 L 785-6) MCHC (test code = 29.6 g/dL 31.6-35.1 L 786-4) RDW-SD (test code = 57.2 fL 39.0-49.9 H 92303-4) RDW-CV (test code = 20.2 % 12.0-15.5 H 788-0) PLT (test code = See_Comment [Automated 777-3) message] The sy stem which generated this result transmitted reference range : 166 - 358 10*3/ ?L. The reference r maria elena was not used to interpret this result as normal/abnormal . MPV (test code = 10.1 fL 9.5-12.9 32879-6) NRBC/100 WBC (test See_Comment [Automat ed code = 4125704676) message] The system which generated this result transmitted reference range : 0.0 - 10.0 /100 WBCs. The refer ence range was not u sed to interpret th is result as normal/abnormal . NRBC x10^3 (test code <0.01 See_Comment [Auto mated = 8347044546) message] The s ystem which generated this result transmitted reference range : 10*3/?L. The reference range was not used to interpret this result as normal/abnormal . GRAN MAT (NEUT) % 78.8 % (test code = 770-8) IMM GRAN % (test code 1.00 % = 5995088803) LYMPH % (test code = 15.1 % 736-9) MONO % (test code = 4.7 % 5905-5) EOS % (test code = 0.2 % 713-8) BASO % (test code = 0.2 % 706-2) GRAN MAT x10^3(ANC) 8.96 10*3/uL 1.88-7.09 H (test code = 9083925672) IMM GRAN x10^3 (test 0.11 10*3/uL 0.00-0.06 H code = 4153327903) LYMPH x10^3 (test code 1.71 10*3/uL 1.32-3.29 = 731-0) MONO x10^3 (test code 0.53 10*3/uL 0.33-0.92 = 742-7) EOS x10^3 (test code = <0.03 0.03-0.39 L 711-2) BASO x10^3 (test code <0.03 0.01-0.07 = 704-7) Lab Interpretation Abnormal (test code = 55964-2) [facility] with [id number] 11:18:41 Test Item Value Reference Range Interpretation Comments WBC (test code = See_Comment H [Automated 6690-2) message] The sy stem which generated this result transmitted reference range : 4.30 - 11.10 10*3/?L. The reference range was not used to interpret this result as normal/abnormal . RBC (test code = See_Comment L [Automated 789-8) message] The sy stem which generated this result transmitted reference range : 3.93 - 5.25 10*6/?L. The reference range was not used to interpret this result as normal/abnormal . HGB (test code = 8.4 g/dL 11.6-15.0 L 718-7) HCT (test code = 28.4 % 35.7-45.2 L 4544-3) MCV (test code = 79.8 fL 80.6-95.5 L 787-2) MCH (test code = 23.6 pg 25.9-32.8 L 785-6) MCHC (test code = 29.6 g/dL 31.6-35.1 L 786-4) RDW-SD (test code = 57.2 fL 39.0-49.9 H 38166-7) RDW-CV (test code = 20.2 % 12.0-15.5 H 788-0) PLT (test code = See_Comment [Automated 777-3) message] The sy stem which generated this result transmitted reference range : 166 - 358 10*3/ ?L. The reference r maria elena was not used to interpret this result as normal/abnormal . MPV (test code = 10.1 fL 9.5-12.9 49110-5) NRBC/100 WBC (test See_Comment [Automat ed code = 9217234641) message] The system which generated this result transmitted reference range : 0.0 - 10.0 /100 WBCs. The refer ence range was not u sed to interpret th is result as normal/abnormal . NRBC x10^3 (test code <0.01 See_Comment [Auto mated = 5911563946) message] The s ystem which generated this result transmitted reference range : 10*3/?L. The reference range was not used to interpret this result as normal/abnormal . GRAN MAT (NEUT) % 78.8 % (test code = 770-8) IMM GRAN % (test code 1.00 % = 0609143589) LYMPH % (test code = 15.1 % 736-9) MONO % (test code = 4.7 % 5905-5) EOS % (test code = 0.2 % 713-8) BASO % (test code = 0.2 % 706-2) GRAN MAT x10^3(ANC) 8.96 10*3/uL 1.88-7.09 H (test code = 3848792219) IMM GRAN x10^3 (test 0.11 10*3/uL 0.00-0.06 H code = 8288926477) LYMPH x10^3 (test code 1.71 10*3/uL 1.32-3.29 = 731-0) MONO x10^3 (test code 0.53 10*3/uL 0.33-0.92 = 742-7) EOS x10^3 (test code = <0.03 0.03-0.39 L 711-2) BASO x10^3 (test code <0.03 0.01-0.07 = 704-7) Lab Interpretation Abnormal (test code = 55654-0) [facility] (D) IMMUNE [id number] 10:16:52 Test Item Value Reference Range Interpretation Comments RHIG CANDIDATE? No- see comment Patient i s not a (test code = candidate for R hIg- 5055) Patient is Rh Positive.Perfor med at [facility] Laboratory [facility] Blood [address] [place] [address] Free: [phone] A No. [id number] [facility] (D) IMMUNE [id number] 10:16:52 Test Item Value Reference Range Interpretation Comments RHIG CANDIDATE? No- see comment Patient i s not a (test code = candidate for R hIg- 5055) Patient is Rh Positive.Perfor med at [facility] Laboratory Services - [facility] Blood [address] [place] [address] Free: [phone] A No. [id number] [facility] [id number] 08:56:38 Test Item Value Reference Range Interpretation Comments BASE EXCESS, CORD mEq/L (test code = 4106744137) AC PH, CORD (BEAKER) 7.18-7.38 (test code = 1205178563) PC02, CORD (test code See_Comment [Auto mated message] The = 7355981266) system which g enerated this result transmit ca reference range : 32 - 66 mmHg. The refer ence range was not used to interpret this result as normal/abnormal . PO2, CORD (test code See_Comment [Autom ated message] The = 9321616474) system which g enerated this result transmit ca reference range : 10 - 30 mmHg. The refer ence range was not used to interpret this result as normal/abnormal . BICARBONATE, CORD See_Comment [Automate d message] The (test code = system which ge nerated this 7128876334) result transmit ca reference range : 17 - 27 mEq/L. The refe rence range was not used to interpret this result as normal/abnormal . [facility] CORD [id number] 08:56:38 Test Item Value Reference Range Interpretation Comments BASE EXCESS, CORD mEq/L (test code = 6406222797) AC PH, CORD (BEAKER) 7.18-7.38 (test code = [id number]) PC02, CORD (test code See_Comment [Auto mated message] The = [id number]) system which g enerated this result transmit ca reference range : 32 - 66 mmHg. The refer ence range was not used to interpret this result as normal/abnormal . PO2, CORD (test code See_Comment [Autom ated message] The = [id number]) system which g enerated this result transmit ca reference range : 10 - 30 mmHg. The refer ence range was not used to interpret this result as normal/abnormal . BICARBONATE, CORD See_Comment [Automate d message] The (test code = system which ge nerated this [id number]) result transmit ca reference range : 17 - 27 mEq/L. The refe rence range was not used to interpret this result as normal/abnormal . [facility] CORD [id number] 08:54:07 Test Item Value Reference Range Interpretation Comments VENOUS BASE EXCESS, mEq/L CORD (test code = [id number]) VENOUS PH, CORD (test 7.25-7.45 code = [id number]) VENOUS PC02, CORD See_Comment [Automate d message] The (test code = system which ge nerated [id number]) this result tra nsmitted reference range : 27 - 49 mmHg. The refer ence range was not used to interpret this result as normal/abnormal . VENOUS PO2, CORD (test See_Comment [Aut omated message] The code = [id number]) system wh ich generated this result tra nsmitted reference range : 17 - 41 mmHg. The refer ence range was not used to interpret this result as normal/abnormal . VENOUS BICARBONATE, See_Comment [Automa ca message] The CORD (test code = [facility] [id number]) this result tra nsmitted reference range : 12 - 29 mEq/L. The refe rence range was not used to interpret this result as normal/abnormal . [facility] CORD [id number] 08:54:07 Test Item Value Reference Range Interpretation Comments VENOUS BASE EXCESS, mEq/L CORD (test code = [id number]) VENOUS PH, CORD (test 7.25-7.45 code = 1039202585) VENOUS PC02, CORD See_Comment [Automate d message] The (test code = system [facility] nerated [id number]) this result tra nsmitted reference range : 27 - 49 mmHg. The refer ence range was not used to interpret this result as normal/abnormal . VENOUS PO2, CORD (test See_Comment [Aut omated message] The code = [id number]) system [facility] generated this result tra nsmitted reference range : 17 - 41 mmHg. The refer ence range was not used to interpret this result as normal/abnormal . VENOUS BICARBONATE, See_Comment [Automa ca message] The CORD (test code = [facility] [id number]) this result tra nsmitted reference range : 12 - 29 mEq/L. The refe rence range was not used to interpret this result as normal/abnormal . [facility] OR [facility] ONLY - [id number] 08:52:42 Test Item Value Reference Range Interpretation Comments RPR (Qualitative) (test code = Nonreactive Nonreactive 39330-0) Lab Interpretation (test code = Normal 50721-0) [facility] OR [facility] ONLY - [id number] 08:52:42 Test Item Value Reference Range Interpretation Comments RPR (Qualitative) (test code = Nonreactive Nonreactive 85981-8) Lab Interpretation (test code = Normal 16533-7) [facility] CORD [id number] 08:50:56 Test Item Value Reference Range Interpretation Comments VENOUS BASE EXCESS, mEq/L CORD (test code = [id number]) VENOUS PH, CORD (test 7.25-7.45 code = 6693697399) VENOUS PC02, CORD See_Comment [Automate d message] The (test code = system which ge nerated [id number]) this result tra nsmitted reference range : 27 - 49 mmHg. The refer ence range was not used to interpret this result as normal/abnormal . VENOUS PO2, CORD (test See_Comment [Aut omated message] The code = [id number]) system [facility] generated this result tra nsmitted reference range : 17 - 41 mmHg. The refer ence range was not used to interpret this result as normal/abnormal . VENOUS BICARBONATE, See_Comment [Automa ca message] The CORD (test code = [facility] [id number]) this result tra nsmitted reference range : 12 - 29 mEq/L. The refe rence range was not used to interpret this result as normal/abnormal . [facility] CORD [id number] 08:50:56 Test Item Value Reference Range Interpretation Comments VENOUS BASE EXCESS, mEq/L CORD (test code = 9297902290) VENOUS PH, CORD (test 7.25-7.45 code = 1342341408) VENOUS PC02, CORD See_Comment [Automate d message] The (test code = system which ge nerated 9163072554) this result tra nsmitted reference range : 27 - 49 mmHg. The refer ence range was not used to interpret this result as normal/abnormal . VENOUS PO2, CORD (test See_Comment [Aut omated message] The code = [id number]) system [facility] generated this result tra nsmitted reference range : 17 - 41 mmHg. The refer ence range was not used to interpret this result as normal/abnormal . VENOUS BICARBONATE, See_Comment [Automa ca message] The CORD (test code = system [facility] generated 8198609918) this result tra nsmitted reference range : 12 - 29 mEq/L. The refe rence range was not used to interpret this result as normal/abnormal . [facility] CORD [id number] 08:48:36 Test Item Value Reference Range Interpretation Comments BASE EXCESS, CORD mEq/L (test code = 2247855651) AC PH, CORD (BEAKER) 7.18-7.38 (test code = 9374789567) PC02, CORD (test code See_Comment [Auto mated message] The = ) system which g enerated this result transmit ca reference range : 32 - 66 mmHg. The refer ence range was not used to interpret this result as normal/abnormal . PO2, CORD (test code See_Comment [Autom ated message] The = ) system which g enerated this result transmit ca reference range : 10 - 30 mmHg. The refer ence range was not used to interpret this result as normal/abnormal . BICARBONATE, CORD See_Comment [Automate d message] The (test code = system which ge nerated this 0889219234) result transmit ca reference range : 17 - 27 mEq/L. The refe rence range was not used to interpret this result as normal/abnormal . [facility] [id number] 08:48:36 Test Item Value Reference Range Interpretation Comments BASE EXCESS, CORD mEq/L (test code = 0167857347) AC PH, CORD (BEAKER) 7.18-7.38 (test code = 0745158588) PC02, CORD (test code See_Comment [Auto mated message] The = ) system which g enerated this result transmit ca reference range : 32 - 66 mmHg. The refer ence range was not used to interpret this result as normal/abnormal . PO2, CORD (test code See_Comment [Autom ated message] The = ) system which g enerated this result transmit ca reference range : 10 - 30 mmHg. The refer ence range was not used to interpret this result as normal/abnormal . BICARBONATE, CORD See_Comment [Automate d message] The (test code = system which ge nerated this 5285577398) result transmit ca reference range : 17 - 27 mEq/L. The refe rence range was not used to interpret this result as normal/abnormal . [facility] - ONCE [id number] 07:13:42 Test Item Value Reference Range Interpretation Comments ABO & RH (test code A POSITIVE Performe d at [facility] = 20) Laboratory Serv [facility] Blood [facility] [place] [address]Jdha Free: [phone] A No. [id number] IAT (test code = Negative Performed a t [facility] 1185) Laboratory Serv [facility] [address] [facility] s [address]Coni Free: [phone] A No. [id number] [facility] - ONCE [id number] 07:13:42 Test Item Value Reference Range Interpretation Comments ABO & RH (test code A POSITIVE Performe d at [facility] = 20) Laboratory Serv [facility]3 [facility] s [address]Jbpo Free: [phone] A No. [id number] IAT (test code = Negative Performed a t [facility] 1185) Laboratory [facility] Blood Bank3 [facility] s [address]Lcrt Free: [phone] A No. [id number] [facility] B Surface [id number] 06:10:47 Test Item Value Reference Range Interpretation Comments HBsAg Semi-Quantitative (test code = Negative Negative 5195-3) [facility] B Surface [id number] 06:10:47 Test Item Value Reference Range Interpretation Comments HBsAg Semi-Quantitative (test code = Negative Negative 5195-3) [facility]-AB WITH [id number] 01:35:43 Test Item Value Reference Range Interpretation Comments HIV Negative Negative Semi-quantitative (test code = 78452-0) GAGAN (test code = Non-reactive for HIV-1 GAGAN) antigen and HIV-1/HIV-2 antibodies. ?No laboratory evidence of HIV infection. ?Repeat in 2-4 weeks if acute HIV infection is suspected. [facility] WITH [id number] 01:35:43 Test Item Value Reference Range Interpretation Comments HIV Negative Negative Semi-quantitative (test code = 24685-1) GAGAN (test code = Non-reactive for HIV-1 GAGAN) antigen and HIV-1/HIV-2 antibodies. ?No laboratory evidence of HIV infection. ?Repeat in 2-4 weeks if acute HIV infection is suspected. [facility] - ONCE [id number] 00:42:20 Test Item Value Reference Range Interpretation Comments ABO & RH (test code A Positive Performe d at [facility] = 20) Laboratory [facility] Blood [address] [place], [place] [address]Toll Free: [phone] A No. [id number] IAT (test code = Negative Performed a t [facility] 1185) Laboratory [facility] Blood [place] [address]Toll Free: [phone] A No. [id number] [facility] Screen - ONCE [id number] 00:42:20 Test Item Value Reference Range Interpretation Comments ABO & RH (test code A Positive Performe d at [facility] = 20) Laboratory [facility] Blood [place] [address]Toll Free: [phone] A No. [id number] IAT (test code = Negative Performed a t [facility] 1185) Laboratory [facility] Blood [place] [address]Toll Free: [phone] A No. [id number] [facility] WITH [id number] 22:10:03 Test Item Value Reference Range Interpretation Comments WBC (test code = See_Comment [Automated 6465-2) message] The sy stem which generated this result transmitted reference range : 4.30 - 11.10 10*3/?L. The reference range was not used to interpret this result as normal/abnormal . RBC (test code = See_Comment [Automated 653-8) message] The sy stem which generated this result transmitted reference range : 3.93 - 5.25 10*6/?L. The reference range was not used to interpret this result as normal/abnormal . HGB (test code = 9.2 g/dL 11.6-15.0 L 718-7) HCT (test code = 30.9 % 35.7-45.2 L 4544-3) MCV (test code = 78.4 fL 80.6-95.5 L 787-2) MCH (test code = 23.4 pg 25.9-32.8 L 785-6) MCHC (test code = 29.8 g/dL 31.6-35.1 L 786-4) RDW-SD (test code = 55.2 fL 39.0-49.9 H 37657-8) RDW-CV (test code = 20.4 % 12.0-15.5 H 788-0) PLT (test code = See_Comment [Automated 777-3) message] The sy stem which generated this result transmitted reference range : 166 - 358 10*3/ ?L. The reference r maria elena was not used to interpret this result as normal/abnormal . MPV (test code = 10.0 fL 9.5-12.9 78601-1) NRBC/100 WBC (test See_Comment [Automat ed code = 6200920147) message] The system which generated this result transmitted reference range : 0.0 - 10.0 /100 WBCs. The refer ence range was not u sed to interpret th is result as normal/abnormal . NRBC x10^3 (test code <0.01 See_Comment [Auto mated = 8846683083) message] The s ystem which generated this result transmitted reference range : 10*3/?L. The reference range was not used to interpret this result as normal/abnormal . GRAN MAT (NEUT) % 80.2 % (test code = 770-8) IMM GRAN % (test code 0.60 % = 7885097205) LYMPH % (test code = 15.0 % 736-9) MONO % (test code = 3.6 % 5905-5) EOS % (test code = 0.3 % 713-8) BASO % (test code = 0.3 % 706-2) GRAN MAT x10^3(ANC) 5.80 10*3/uL 1.88-7.09 (test code = 5951479680) IMM GRAN x10^3 (test 0.04 10*3/uL 0.00-0.06 code = 3405917855) LYMPH x10^3 (test code 1.08 10*3/uL 1.32-3.29 L = 731-0) MONO x10^3 (test code 0.26 10*3/uL 0.33-0.92 L = 742-7) EOS x10^3 (test code = <0.03 0.03-0.39 L 711-2) BASO x10^3 (test code <0.03 0.01-0.07 = 704-7) Lab Interpretation Abnormal (test code = 16040-7) [facility] WITH [id number] 22:10:03 Test Item Value Reference Range Interpretation Comments WBC (test code = See_Comment [Automated 6690-2) message] The sy stem which generated this result transmitted reference range : 4.30 - 11.10 10*3/?L. The reference range was not used to interpret this result as normal/abnormal . RBC (test code = See_Comment [Automated 789-8) message] The sy stem which generated this result transmitted reference range : 3.93 - 5.25 10*6/?L. The reference range was not used to interpret this result as normal/abnormal . HGB (test code = 9.2 g/dL 11.6-15.0 L 718-7) HCT (test code = 30.9 % 35.7-45.2 L 4544-3) MCV (test code = 78.4 fL 80.6-95.5 L 787-2) MCH (test code = 23.4 pg 25.9-32.8 L 785-6) MCHC (test code = 29.8 g/dL 31.6-35.1 L 786-4) RDW-SD (test code = 55.2 fL 39.0-49.9 H 71576-3) RDW-CV (test code = 20.4 % 12.0-15.5 H 788-0) PLT (test code = See_Comment [Automated 777-3) message] The sy stem which generated this result transmitted reference range : 166 - 358 10*3/ ?L. The reference r maria elena was not used to interpret this result as normal/abnormal . MPV (test code = 10.0 fL 9.5-12.9 24079-3) NRBC/100 WBC (test See_Comment [Automat ed code = 6257687987) message] The system which generated this result transmitted reference range : 0.0 - 10.0 /100 WBCs. The refer ence range was not u sed to interpret th is result as normal/abnormal . NRBC x10^3 (test code <0.01 See_Comment [Auto mated = 5971494646) message] The s ystem which generated this result transmitted reference range : 10*3/?L. The reference range was not used to interpret this result as normal/abnormal . GRAN MAT (NEUT) % 80.2 % (test code = 770-8) IMM GRAN % (test code 0.60 % = 7128275999) LYMPH % (test code = 15.0 % 736-9) MONO % (test code = 3.6 % 5905-5) EOS % (test code = 0.3 % 713-8) BASO % (test code = 0.3 % 706-2) GRAN MAT x10^3(ANC) 5.80 10*3/uL 1.88-7.09 (test code = 8413330100) IMM GRAN x10^3 (test 0.04 10*3/uL 0.00-0.06 code = 2550060905) LYMPH x10^3 (test code 1.08 10*3/uL 1.32-3.29 L = 731-0) MONO x10^3 (test code 0.26 10*3/uL 0.33-0.92 L = 742-7) EOS x10^3 (test code = <0.03 0.03-0.39 L 711-2) BASO x10^3 (test code <0.03 0.01-0.07 = 704-7) Lab Interpretation Abnormal (test code = 19397-1) [facility] URINALYSIS W/O SPECIFIC [id number] 15:17:00 Test Item Value Reference Range Interpretation Comments POCT PH U (test code = 3254) n/a 5-8 POCT U LEUK EST (test code = n/a Negative - Negative 3263) POCT U NIT (test code = 3262) n/a Negative - Negative POCT U PROT (test code = 3259) negative Negative - Negative POCT U GLU (test code = 3256) Negative - Negative POCT U KETONE (test code = 3258) n/a Negative - Negative POCT U BLD (test code = 3257) n/a Negative - Negative Lab Interpretation (test code = Normal 45696-1) [facility] URINALYSIS W/O SPECIFIC [id number] 16:16:00 Test Item Value Reference Range Interpretation Comments POCT PH U (test code = 3254) n/a 5-8 POCT U LEUK EST (test code = n/a Negative - Negative 3263) POCT U NIT (test code = 3262) n/a Negative - Negative POCT U PROT (test code = 3259) negative Negative - Negative POCT U GLU (test code = 3256) Negative - Negative POCT U KETONE (test code = 3258) n/a Negative - Negative POCT U BLD (test code = 3257) n/a Negative - Negative Lab Interpretation (test code = Normal 46184-4) [facility] URINALYSIS W/O SPECIFIC [id number] 18:14:00 Test Item Value Reference Range Interpretation Comments POCT PH U (test code = 3254) n/a 5-8 POCT U LEUK EST (test code = n/a Negative - Negative 3263) POCT U NIT (test code = 3262) n/a Negative - Negative POCT U PROT (test code = 3259) negative Negative - Negative POCT U GLU (test code = 3256) negative Negative - Negative POCT U KETONE (test code = 3258) n/a Negative - Negative POCT U BLD (test code = 3257) n/a Negative - Negative Lab Interpretation (test code = Normal 10303-4) [facility] WITH [id number] 21:35:10 Test Item Value Reference Range Interpretation Comments WBC (test code = See_Comment [Automated 7120-2) message] The sy stem which generated this result transmitted reference range : 4.30 - 11.10 10*3/?L. The reference range was not used to interpret this result as normal/abnormal . RBC (test code = See_Comment L [Automated 298-8) message] The sy stem which generated this result transmitted reference range : 3.93 - 5.25 10*6/?L. The reference range was not used to interpret this result as normal/abnormal . HGB (test code = 8.4 g/dL 11.6-15.0 L 718-7) HCT (test code = 27.9 % 35.7-45.2 L 4544-3) MCV (test code = 77.9 fL 80.6-95.5 L 787-2) MCH (test code = 23.5 pg 25.9-32.8 L 785-6) MCHC (test code = 30.1 g/dL 31.6-35.1 L 786-4) RDW-SD (test code = 42.6 fL 39.0-49.9 49726-2) RDW-CV (test code = 15.2 % 12.0-15.5 788-0) PLT (test code = See_Comment [Automated 777-3) message] The sy stem which generated this result transmitted reference range : 166 - 358 10*3/ ?L. The reference r maria elena was not used to interpret this result as normal/abnormal . MPV (test code = 9.7 fL 9.5-12.9 98798-9) NRBC/100 WBC (test See_Comment [Automat ed code = 8477427745) message] The system which generated this result transmitted reference range : 0.0 - 10.0 /100 WBCs. The refer ence range was not u sed to interpret th is result as normal/abnormal . NRBC x10^3 (test code See_Comment [Auto mated = 8886072561) message] The s ystem which generated this result transmitted reference range : 10*3/?L. The reference range was not used to interpret this result as normal/abnormal . GRAN MAT (NEUT) % 72.7 % (test code = 770-8) IMM GRAN % (test code 1.10 % = 1457196278) LYMPH % (test code = 18.8 % 736-9) MONO % (test code = 6.2 % 5905-5) EOS % (test code = 0.8 % 713-8) BASO % (test code = 0.4 % 706-2) GRAN MAT x10^3(ANC) 5.16 10*3/uL 1.88-7.09 (test code = 7547694399) IMM GRAN x10^3 (test 0.08 10*3/uL 0.00-0.06 H code = 0458993506) LYMPH x10^3 (test code 1.34 10*3/uL 1.32-3.29 = 731-0) MONO x10^3 (test code 0.44 10*3/uL 0.33-0.92 = 742-7) EOS x10^3 (test code = 0.06 10*3/uL 0.03-0.39 711-2) BASO x10^3 (test code 0.03 10*3/uL 0.01-0.07 = 704-7) Lab Interpretation Abnormal (test code = 10953-3) [facility] SPECIFIC [id number] 19:26:00 Test Item Value Reference Range Interpretation Comments POCT PH U (test code = 3254) N/A 5-8 POCT U LEUK EST (test code = N/A Negative - Negative 3263) POCT U NIT (test code = 3262) N/A Negative - Negative POCT U PROT (test code = 3259) Negative Negative - Negative POCT U GLU (test code = 3256) Negative Negative - Negative POCT U KETONE (test code = 3258) N/A Negative - Negative POCT U BLD (test code = 3257) N/A Negative - Negative Lab Interpretation (test code = Normal 13458-3) [facility] WITH [id number] 19:37:38 Test Item Value Reference Range Interpretation Comments HIV Negative Negative Semi-quantitative (test code = 25774-1) GAGAN (test code = Non-reactive for HIV-1 GAGAN) antigen and HIV-1/HIV-2 antibodies. ?No laboratory evidence of HIV infection. ?Repeat in 2-4 weeks if acute HIV infection is suspected. [facility], BLOOD [id number] 19:31:04 Test Item Value Reference Range Interpretation Comments ABO & RH (test code A Positive Performe d at [facility] = 20) Laboratory Serv [facility] Blood Bank[address] [place] [address]Oetg Free: [phone] A No. [id number] IAT (test code = Negative Performed a t [facility] 1185) Laboratory [facility] Blood [facility] [place] [address]Dxtq Free: [phone] A No. [id number] [facility] ONLY - FERN [id number] 18:53:33 Test Item Value Reference Range Interpretation Comments Fern Test (test code = 7380310688) Negative [facility] WITH [id number] 18:45:29 Test Item Value Reference Range Interpretation Comments WBC (test code = See_Comment [Automated 6690-2) message] The sy stem which generated this result transmitted reference range : 4.30 - 11.10 10*3/?L. The reference range was not used to interpret this result as normal/abnormal . RBC (test code = See_Comment L [Automated 789-8) message] The sy stem which generated this result transmitted reference range : 3.93 - 5.25 10*6/?L. The reference range was not used to interpret this result as normal/abnormal . HGB (test code = 9.9 g/dL 11.6-15.0 L 718-7) HCT (test code = 30.7 % 35.7-45.2 L 4544-3) MCV (test code = 80.8 fL 80.6-95.5 787-2) MCH (test code = 26.1 pg 25.9-32.8 785-6) MCHC (test code = 32.2 g/dL 31.6-35.1 786-4) RDW-SD (test code = 38.5 fL 39.0-49.9 L 16226-2) RDW-CV (test code = 13.2 % 12.0-15.5 788-0) PLT (test code = See_Comment [Automated 777-3) message] The sy stem which generated this result transmitted reference range : 166 - 358 10*3/ ?L. The reference r maria elena was not used to interpret this result as normal/abnormal . MPV (test code = 9.7 fL 9.5-12.9 40637-5) NRBC/100 WBC (test See_Comment [Automat ed code = 4318701206) message] The system which generated this result transmitted reference range : 0.0 - 10.0 /100 WBCs. The refer ence range was not u sed to interpret th is result as normal/abnormal . NRBC x10^3 (test code <0.01 See_Comment [Auto mated = 4407323285) message] The s ystem which generated this result transmitted reference range : 10*3/?L. The reference range was not used to interpret this result as normal/abnormal . GRAN MAT (NEUT) % 75.3 % (test code = 770-8) IMM GRAN % (test code 1.50 % = 4518636199) LYMPH % (test code = 16.4 % 736-9) MONO % (test code = 5.8 % 5905-5) EOS % (test code = 0.5 % 713-8) BASO % (test code = 0.5 % 706-2) GRAN MAT x10^3(ANC) 6.37 10*3/uL 1.88-7.09 (test code = 7371440517) IMM GRAN x10^3 (test 0.13 10*3/uL 0.00-0.06 H code = 1982658924) LYMPH x10^3 (test code 1.39 10*3/uL 1.32-3.29 = 731-0) MONO x10^3 (test code 0.49 10*3/uL 0.33-0.92 = 742-7) EOS x10^3 (test code = 0.04 10*3/uL 0.03-0.39 711-2) BASO x10^3 (test code 0.04 10*3/uL 0.01-0.07 = 704-7) Lab Interpretation Abnormal (test code = 01124-1) [facility]
[2022-07-20] MEDS ORDERED: IBUPROFEN 400 MG TAB ONE (07:03)
[2022-07-20] MEDS ORDERED: IBUPROFEN 200 MG TAB PO ONE (07:03)
--- NOTE | 2022-07-20 07:53 | ER ---
Nurse's Notes [facility] Name: Alberto Johnson Age: 31 yrs Sex: Female : 1990 Arrival Date: 07/20/2022 Time: 06:22 Bed 18 Private MD: Diagnosis: Sprain of other part of left wrist and hand Presentation: 07/20 06:40 Chief complaint: Patient states: left wrist/hand pain of 7,onset Tuesday. Patient pf1 stated she tripped over her kids while carrying a pot of food. Patient denies any head injury. Coronavirus screen: Vaccine status: Patient reports being unvaccinated. Client denies travel out of the [place] in the last 14 days. At this time, the client does not indicate any symptoms associated with coronavirus-19. Ebola Screen: Patient negative for fever greater than or equal to 101.5 degrees Fahrenheit, and additional compatible Ebola Virus Disease symptoms. Initial Sepsis Screen: Does the patient meet any 2 criteria? No. Patient's initial sepsis screen is negative. Does the patient have a suspected source of infection? No. Patient's initial sepsis screen is negative. Risk Assessment: Do you want to hurt yourself or someone else? Patient reports no desire to harm self or others. Care prior to arrival: None. 06:40 Method Of Arrival: Ambulatory pf1 06:40 Acuity: IKER 4 pf1 08:01 Onset of symptoms was July 20, 2022. ap3 Triage Assessment: 06:47 General: see nurse assessment. pf1 08:02 Injury Description: fall onto left wrist. 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 Last tetanus immunization: < 10 years ago Flu vaccine is not up to date. It has been more than one year since last vaccine. - Social history:: Smoking status: Patient denies any tobacco usage or history of. Patient/guardian denies using alcohol, street drugs. - Family history:: not pertinent. Screenin:47 [facility] ED Fall Risk Assessment (Adult) History of falling in the last 3 months, pf1 including since admission Yes- single mechanical fall (1 pt) Confusion or Disorientation No (0 pts) Intoxicated or Sedated No (0 pts) Impaired Gait No (0 pts) Mobility Assist Device Used No (0 pt) Altered Elimination No (0 pt) Score/Fall Risk Level 0 - 2 = Low Risk Oriented to surroundings, Maintained a safe environment, Educated pt \T\ family on fall prevention, incl call for assistance when getting out of bed, Assessed \T\ reinforced patient's understanding of fall precautions, Provided non-skid footwear, Hourly rounding (assess needs \T\ fall precautionary measures) done, Used ambulatory aids as needed (educated on \T\ assisted with), Used gait belt as appropriate. Abuse screen: Denies threats or abuse. Nutritional screening: No deficits noted. Tuberculosis screening: No symptoms or risk factors identified. Assessment: 06:45 General: Appears in no apparent distress. comfortable, well groomed, well developed, pf1 Behavior is calm, cooperative, appropriate for age, quiet. Pain: Complains of pain in left hand and left wrist Pain currently is 7 out of 10 on a pain scale. Neuro: No deficits noted. Level of Consciousness is awake, alert, obeys commands, Oriented to person, place, time, situation. Cardiovascular: No deficits noted. Capillary refill < 3 seconds Patient's skin is warm and dry. Respiratory: No deficits noted. Airway is patent Trachea midline Respiratory effort is even, unlabored, Respiratory pattern is regular, symmetrical. GI: No deficits noted. No signs and/or symptoms were reported involving the gastrointestinal system. Abdomen is flat, non-distended. : No deficits noted. No signs and/or symptoms were reported regarding the genitourinary system. EENT: No deficits noted. No signs and/or symptoms were reported regarding the EENT system. Derm: No deficits noted. No signs and/or symptoms reported regarding the dermatologic system. Musculoskeletal: Circulation, motion, and sensation intact. Capillary refill < 3 seconds, Range of motion: intact in all extremities, Swelling present in left hand Reports pain in left hand and left wrist. Vital Signs: 06:40 BP 133 / 88; Pulse 71; Resp 18; Temp 98.1; Pulse Ox 100% on R/A; Weight 55.79 kg; pf1 Height 5 ft. 2 in. (157.48 cm); Pain 7/10; 06:40 Body Mass Index 22.50 (55.79 kg, 157.48 cm) pf1 ED Course: 06:22 Patient arrived in ED. ja2 06:31 Eric Carmona MD is Attending Physician. ann 06:33 Maria Teresa lima, RN is Primary Nurse. pf1 06:43 Triage completed. pf1 06:45 Arm band placed on. pf1 06:47 Patient did not have IV access during this emergency room visit. pf1 07:23 Attending Physician role handed off by Eric Carmona MD sp3 07:23 Marie Redman MD is Attending Physician. sp3 07:50 XRAY Wrist LEFT 3 view In Process Unspecified. EDMS 07:52 Gab Duong MD is Referral Physician. sp3 08:01 Patient has correct armband on for positive identification. Bed in low position. Call ap3 light in reach. Pulse ox on. NIBP on. Door closed. Noise minimized. 08:01 No provider procedures requiring assistance completed. ap3 Administered Medications: 07:01 Drug: Motrin (ibuprofen) 600 mg Route: PO; pf1 08:01 Follow up: Response: No adverse reaction; Pain is decreased ap3 Medication: 08:01 VIS not applicable for this client. ap3 Outcome: 07:52 Discharge ordered by . sp3 08:02 Discharged to home ambulatory. ap3 08:02 Condition: good 08:02 Discharge instructions given to patient, Instructed on discharge instructions, follow up and referral plans. Demonstrated understanding of instructions, follow-up care, medications, Prescriptions given X 1. 08:02 Patient left the ED. ap3 Signatures: Dispatcher [employer] EDCT Eric Carmona MD MD cha Prokisch, Amanda, RN RN ap3 Marie Redman MD MD sp3 Anne-Marie Avilez ja2 Maria Teresa lima, GAYATRI RN pf1
--- NOTE | 2022-07-20 07:53 | EDPHYS ---
Physician Documentation [facility] Name: Alberto Johnson Age: 31 yrs Sex: Female : 1990 Arrival Date: 07/20/2022 Time: 06:22 Bed 18 Private MD: ED Physician Marie Redman HPI: 07/20 06:54 This 31 yrs old Female presents to ER via Ambulatory with complaints of Wrist ann Injury. 06:54 The patient or guardian reports decreased range of motion, pain. The complaints affect ann the left wrist diffusely. Context: The problem was sustained at home, resulted from a direct blow, a fall. Onset: The symptoms/episode began/occurred yesterday. Modifying factors: The symptoms are alleviated by holding still, ice/coldpack to affected area, the symptoms are aggravated by movement. Associated signs and symptoms: The patient has no apparent associated signs or symptoms. Compartment Syndrome negative for numbness, tingling, positive for pain. The patient has not experienced similar symptoms in the past. 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 Last tetanus immunization: < 10 years ago Flu vaccine is not up to date. It has been more than one year since last vaccine. - Social history:: Smoking status: Patient denies any tobacco usage or history of. Patient/guardian denies using alcohol, street drugs. - Family history:: not pertinent. ROS: 06:54 Constitutional: Negative for fever, chills, and weight loss, Eyes: Negative for injury, ann pain, redness, and discharge, ENT: Negative for injury, pain, and discharge, Neck: Negative for injury, pain, and swelling, Cardiovascular: Negative for chest pain, palpitations, and edema, Respiratory: Negative for shortness of breath, cough, wheezing, and pleuritic chest pain, Abdomen/GI: Negative for abdominal pain, nausea, vomiting, diarrhea, and constipation, Back: Negative for injury and pain, : Negative for injury, bleeding, discharge, and swelling, Skin: Negative for injury, rash, and discoloration, Neuro: Negative for headache, weakness, numbness, tingling, and seizure, Psych: Negative for depression, anxiety, suicide ideation, homicidal ideation, and hallucinations, Allergy/Immunology: Negative for hives, rash, and allergies, Endocrine: Negative for neck swelling, polydipsia, polyuria, polyphagia, and marked weight changes, Hematologic/Lymphatic: Negative for swollen nodes, abnormal bleeding, and unusual bruising. 06:54 MS/extremity: Positive for decreased range of motion, pain, tenderness, of the lateral aspect of left wrist and medial aspect of left wrist. Exam: 06:54 Constitutional: This is a well developed, well nourished patient who is awake, alert, ann and in no acute distress. Head/Face: Normocephalic, atraumatic. Eyes: Pupils equal round and reactive to light, extra-ocular motions intact. Lids and lashes normal. Conjunctiva and sclera are non-icteric and not injected. Cornea within normal limits. Periorbital areas with no swelling, redness, or edema. ENT: Nares patent. No nasal discharge, no septal abnormalities noted. Tympanic membranes are normal and external auditory canals are clear. Oropharynx with no redness, swelling, or masses, exudates, or evidence of obstruction, uvula midline. Mucous membranes moist. Neck: Trachea midline, no thyromegaly or masses palpated, and no cervical lymphadenopathy. Supple, full range of motion without nuchal rigidity, or vertebral point tenderness. No Meningismus. Chest/axilla: Normal chest wall appearance and motion. Nontender with no deformity. No lesions are appreciated. Cardiovascular: Regular rate and rhythm with a normal S1 and S2. No gallops, murmurs, or rubs. Normal PMI, no JVD. No pulse deficits. Respiratory: Lungs have equal breath sounds bilaterally, clear to auscultation and percussion. No rales, rhonchi or wheezes noted. No increased work of breathing, no retractions or nasal flaring. Abdomen/GI: Soft, non-tender, with normal bowel sounds. No distension or tympany. No guarding or rebound. No evidence of tenderness throughout. Back: No spinal tenderness. No costovertebral tenderness. Full range of motion. Skin: Warm, dry with normal turgor. Normal color with no rashes, no lesions, and no evidence of cellulitis. Neuro: Awake and alert, GCS 15, oriented to person, place, time, and situation. Cranial nerves II-XII grossly intact. Motor strength 5/5 in all extremities. Sensory grossly intact. Cerebellar exam normal. Normal gait. Psych: Awake, alert, with orientation to person, place and time. Behavior, mood, and affect are within normal limits. 06:54 Musculoskeletal/extremity: Extremities: grossly normal except: noted in the lateral aspect of left wrist and medial aspect of left wrist: decreased ROM, pain, ROM: limited active range of motion, limited passive range of motion, in the lateral aspect of left wrist and medial aspect of left wrist, Pulses: noted to be 4+ in the bilateral radial, brachial, femoral, popliteal, posterior tibial and and dorsalis pedis arteries., Sensation intact. Compartment Syndrome exam of affected extremity: is normal. Joints: All joints are normal except the left wrist displays pain at rest, painful range of motion, tenderness. Vital Signs: 06:40 BP 133 / 88; Pulse 71; Resp 18; Temp 98.1; Pulse Ox 100% on R/A; Weight 55.79 kg; pf1 Height 5 ft. 2 in. (157.48 cm); Pain 7/10; 06:40 Body Mass Index 22.50 (55.79 kg, 157.48 cm) pf1 MDM: 06:31 Patient medically screened. [facility] 06:58 Differential diagnosis: closed fracture, contusion, abrasion, tendonitis. Data [facility] reviewed: vital signs, nurses notes, radiologic studies, plain films. Consideration of Admission/Observation Escalation of care including admission/observation considered. I considered the following discharge prescriptions or medication management in the emergency department Medications were administered in the Emergency Department. See MAR. Test considered but Not performed: CT: LEFT WRIST. Care significantly affected by the following chronic conditions: ANEMIA. 07/20 06:47 Order name: XRAY Wrist LEFT 3 view bb 07/20 06:54 Order name: Ice pack; Complete Time: 07:01 ann 07/20 06:54 Order name: Splint - Volar Wrist Splint: COCK UP; Complete Time: 08:01 ann Administered Medications: 07:01 Drug: Motrin (ibuprofen) 600 mg Route: PO; pf1 08:01 Follow up: Response: No adverse reaction; Pain is decreased ap3 Disposition Summary: 07/20/22 07:52 Discharge Ordered Location: Home sp3 Problem: new sp3 Symptoms: have improved sp3 Condition: Stable sp3 Diagnosis - Sprain of other part of left wrist and hand sp3 Followup: [facility] - With: Private Physician - When: 2 - 3 days - Reason: Recheck today's complaints, Continuance of care, Re-evaluation by your physician Followup: ann - With: - When: 2 - 3 days - Reason: Recheck today's complaints, Continuance of care, Re-evaluation by your physician Discharge Instructions: - Wrist Pain, Adult ann - Wrist Pain, Adult, [id number] [facility] - Discharge Summary Sheet pf1 - Wrist Sprain, Adult [facility] Forms: - Medication Reconciliation Form sp3 - SBAR form pf1 - Thank You Letter sp3 - Antibiotic Education sp3 - Prescription Opioid Use sp3 Prescriptions: - Diclofenac Sodium 75 mg Oral tablet,delayed release (DR/EC) - take 1 tablet by ORAL route 2 times per day; 14 tablet; Refills: 0, Product ann Selection Permitted Signatures: Dispatcher [employer] EDEric Grijalva MD MD cha Patel, Setul, MD MD sp3 Maria Teresa lima RN RN pf1 Magnolia Jolley RN ap3
--- NOTE | 2022-07-20 08:23 | RAD REPORT ---
EXAM DESCRIPTION: RAD - Wrist Left 3 View - 07/20/2022 7:48 am CLINICAL HISTORY: PAIN COMPARISON: Wrist Left 3 View dated 05/03/2020 FINDINGS: No fracture is identified. There is no dislocation or periosteal reaction noted. No foreig n body or other soft tissue abnormality. IMPRESSION: Negative left wrist examination.
[2022-07-20 08:24] VITALS: BP 133/88; TEMP 98.1; O2SAT 100
== END 2022-07-20 08:02 | disposition home or self-care (01) ==
LOC: ER 06:18
DX: S63.8X2A Sprain of other part of left wrist and hand, initial encounter (principal)

== ENCOUNTER → 2023-06-05 | Emergency (ER) | payer OTHER, SELFPAY ==
[~2023-06-05] MED LIST: AMOX/K CLAV 875 MG TAB ONE; IBUPROFEN 200 MG TAB PO ONE; ONDANSETRON 4 MG (ODT) TAB ONE; OSELTAMIVIR 75 MG CAP PO ONE
--- OUTSIDE RECORDS SUMMARY | 2023-06-05 12:00 | XMS REPORT | Continuity of Care Document ---
Author Name Unknown Address [address] [facility] [address] [place] [address] [facility] Address [address] [facility] 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 Name Role Phone PCP, PATIENT DOES NOT HAVE A Primary Care Physic romulo Unavailable SREEDHAR RODGERS Attending Clinician Unavailable JEANA MAYA Attending Clinician UnavailJEANA Rodriguez Attending Clinician UnavailBonilla [facility] Attending Clinician Unavailabl e Doctor Unassigned, [place] Attending Clinician U navailDARYL Escobar Attending Clinician Unavaila Daryl Aden Attending Clinician + [phone] AARON HENDRICKS Attending Clinician Unavailable Aaron Hendricks MD Attending Clinician [phone] Nurse, [facility] Attending Clinician Unavailable KRYSTA SUN Attending Clinician Unav ailKrysta Bui MD Attending Clinician + Josue Rausch DO Attending Clinician [phone] Ultrasound, [facility] Attending Clinician Unavaila Manny Dickey MD Attending Clinician [phone] Fiilpe Navarrete MD Attending Clinician + [phone] Eric Arellano DO Attending Clinician FILIPE NAVARRETE Attending Clinician Unavailsen Bautista, [facility] Attending Clinician Unavaila MANNY Dickey Attending Clinician UnavailFRANCOIS Gudino Attending Clinician Unavailable BELKIS SANDRA Attending Clinician Unavailable Belkis Sandra PA-C Attending Clinician [phone] Endy Fisher Attending Clinician [phone] AARON HENDRICKS Admitting Clinician Unavailable JEANA MAYA Admitting Clinician Unavaila KRYSTA Mcbride Admitting Clinician Unav ailable Daniele Paulino MD, Krysta Admitting Clinician + Aaron Hendricks MD Admitting Clinician [phone] BELKIS SANDRA Admitting Clinician Unavailable Payers Payer Name Policy Type Policy Number Effective Date Expirati on Date Source [employer] MEDICAID [id number] 2020 00:00:00 [place] [id number] 2020 00:00:00 [facility] [id number] 2018 00:00:00 2020 00:00:00 Problems Condition Name Condition Details Condition Category Status Onset Date Resolution Date Last Treatment Date Treating Clinician Comments Source Dizziness and giddiness Dizziness and giddiness Disease Active 11-22 00:00: 00 [facility] Pain pelvic Pain pelvic Disease Active 11-22 00:00: 00 [facility] Dyspareuni a in female Dyspareuni a in female Disease Active 20 00:00: 00 [facility] RLQ abdominal pain RLQ abdominal pain Disease Active 08-24 00:00: 00 [facility] Vaginal discharge Vaginal discharge Disease Active 08-24 00:00: 00 [facility] Tubal ligation status Tubal ligation status Disease Active 08-24 00:00: 00 [facility] uterine contractio ns in third trimester, antepartum uterine contractio ns in third trimester, antepartum Disease Active 2020-06 00:00: 00 [facility] Premature uterine contractio ns Premature uterine contractio ns Disease Active 2020-06 1-11 00:00: 00 [facility] Decreased movements in third trimester Decreased movements in third trimester Disease Active 2020-06 0-14 00:00: 00 [facility] Anemia of mother in , antepartum Anemia of mother in , antepartum Disease Active 9-22 00:00: 00 [facility] Abnormal maternal glucose tolerance, antepartum Abnormal maternal glucose tolerance, antepartum Disease Active 9-22 00:00: 00 [facility] Uterine contractio ns during Uterine contractio ns during Disease Active 9-10 00:00: 00 [facility] Sciatic nerve pain, unspecifie d laterality Sciatic nerve pain, unspecifie d laterality Disease Active 8-02 00:00: 00 [facility] History of UTI History of UTI Disease Active 6-08 00:00: 00 [facility] Screening examinatio n for venereal disease Screening examinatio n for venereal disease Disease Active 4 00:00: 00 [facility] History of section History of section Disease Active 4 00:00: 00 [facility] Nausea Nausea Disease Active 10-07 00:00: 00 [facility] Dichorioni c diamniotic twin in third trimester Dichorioni c diamniotic twin in third trimester Disease Active 10-07 00:00: 00 [facility] History of gestationa l hypertensi on History of gestationa l hypertensi on Disease Active 4 00:00: 00 [facility] Allergies, Adverse Reactions, Alerts Allergy Name Allergy Type Status Severity Reaction(s) Onset Date Inactive Date Treating Clinician Comments Source Hydrocod one Propensi ty to adverse reaction s Active Nausea and/or Vomiting 10-07 00:00: 00 [facility] Tramadol Propensi ty to adverse reaction s Active Nausea and/or Vomiting 10-07 00:00: 00 [facility] HYDROCOD ONE DRUG INGREDI Active N/V 10-07 00:00: 00 [facility] TRAMADOL DRUG INGREDI Active N/V 10-07 00:00: 00 [facility] Sulfa (Sulfona mide Antibiot ics) Propensi ty to adverse reaction s Active Anaphylaxis 01-07 00:00: 00 [facility] Sulfa (Sulfona mide Antibiot ics) Propensi ty to adverse reaction s Active Anaphylaxis 01-07 00:00: 00 [facility] SULFA (SULFONA MIDE ANTIBIOT ICS) Drug Class Active Anaphylaxis 01-07 00:00: 00 [facility] Social History Social Habit Start Date Stop Date Quantity Comments Source ASSERTION 2020-09-07 00:00:00 [facility] Alcohol intake 2022-11-22 00:00:00 2022-11-22 00:00:00 Ex-drinker (finding) [facility] Exposure to SARS-CoV-2 (event) 2022-09-12 00:00:00 2022-09-22 15:40:00 Not sure [facility] Tobacco use and exposure 2022-08-24 00:00:00 2022-08-24 00:00:00 Smokeless tobacco non-user [facility] Sex Assigned At 1990 00:00:00 1990 00:00:00 [facility] Smoking Status Start Date Stop Date Source Never smoked tobacco [facility] Medications Ordered Medication Name Filled Medication Name Start Date Stop Date Current Medication? Ordering Clinician Indication Dosage Frequency Signature (SIG) Comments Components Source metroNIDAZO LE 500 mg tablet 08-25 00:00: 00 09-02 04:59 :00 No [id number] 500mg Take 1 tablet by mouth every 12 (twelve) hours for 7 days. [facility] metroNIDAZO LE 500 mg tablet 08-25 00:00: 00 09-02 04:59 :00 No [id number] 500mg Take 1 tablet by mouth every 12 (twelve) hours for 7 days. [facility] acetaminoph en (TYLENOL) tablet 650 mg 2021-06 00:15: 00 04-21 23:45 :00 No 650mg 650 mg, Oral, ONCE, 1 dose, On Tue04/21/22 at 1815, HERNANDO [facility] naproxen (NAPROSYN) tablet 250 mg 2021-06 00:15: 00 04-21 23:45 :00 No 250mg 250 mg, Oral, ONCE, 1 dose, On Tue04/21/22 at 1815, HERNANDO [facility] naproxen 500 mg EC tablet 2021-06 00:00: 00 Yes [id number] 500mg Take 1 tablet by mouth in the morning and 1 tablet in the evening. Take with meals. [facility] naproxen 500 mg EC tablet 2021-06 00:00: 00 Yes [id number] 500mg Take 1 tablet by mouth in the morning and 1 tablet in the evening. Take with meals. [facility] naproxen 500 mg EC tablet 2021-06 00:00: 00 Yes [id number] 500mg Take 1 tablet by mouth in the morning and 1 tablet in the evening. Take with meals. [facility] naproxen 500 mg EC tablet 2021-06 00:00: 00 Yes [id number] 500mg Take 1 tablet by mouth in the morning and 1 tablet in the evening. Take with meals. [facility] naproxen 500 mg EC tablet 2021-06 00:00: 00 Yes [id number] 500mg Take 1 tablet by mouth in the morning and 1 tablet in the evening. Take with meals. [facility] naproxen 500 mg EC tablet 2021-06 00:00: 00 Yes [id number] 500mg Take 1 tablet by mouth in the morning and 1 tablet in the evening. Take with meals. [facility] naproxen 500 mg EC tablet 2021-06 00:00: 00 Yes [id number] 500mg Take 1 tablet by mouth in the morning and 1 tablet in the evening. Take with meals. [facility] naproxen 500 mg EC tablet 2021-06 00:00: 00 Yes [id number] 500mg Take 1 tablet by mouth in the morning and 1 tablet in the evening. Take with meals. [facility] naproxen 500 mg EC tablet 2021-06 00:00: 00 Yes [id number] 500mg Take 1 tablet by mouth in the morning and 1 tablet in the evening. Take with meals. [facility] naproxen 500 mg EC tablet 2021-06 00:00: 00 Yes [id number] 500mg Take 1 tablet by mouth in the morning and 1 tablet in the evening. Take with meals. [facility] naproxen 500 mg EC tablet 2021-06 00:00: 00 Yes [id number] 500mg Take 1 tablet by mouth in the morning and 1 tablet in the evening. Take with meals. [facility] naproxen 500 mg EC tablet 2021-06 00:00: 00 Yes [id number] 500mg Take 1 tablet by mouth in the morning and 1 tablet in the evening. Take with meals. [facility] naproxen 500 mg EC tablet 2021-06 00:00: 00 Yes [id number] 500mg Take 1 tablet by mouth in the morning and 1 tablet in the evening. Take with meals. [facility] naproxen 500 mg EC tablet 2021-06 00:00: 00 Yes [id number] 500mg Take 1 tablet by mouth in the morning and 1 tablet in the evening. Take with meals. [facility] No known medications 2020-06 14:54: 56 No [facility] SERTraline 25 mg tablet 2020-06 00:00: 00 Yes [id number] 25mg Take 1 tablet by mouth daily. [facility] SERTraline 25 mg tablet 2020-06 00:00: 00 Yes [id number] 25mg Take 1 tablet by mouth daily. [facility] SERTraline 25 mg tablet 2020-06 00:00: 00 Yes [id number] 25mg Take 1 tablet by mouth daily. [facility] SERTraline 25 mg tablet 2020-06 00:00: 00 Yes [id number] 25mg Take 1 tablet by mouth daily. [facility] SERTraline 25 mg tablet 2020-06 00:00: 00 Yes [id number] 25mg Take 1 tablet by mouth daily. [facility] SERTraline 25 mg tablet 2020-06 00:00: 00 Yes [id number] 25mg Take 1 tablet by mouth daily. [facility] SERTraline 25 mg tablet 2020-06 00:00: 00 Yes [id number] 25mg Take 1 tablet by mouth daily. [facility] SERTraline 25 mg tablet 2020-06 00:00: 00 Yes [id number] 25mg Take 1 tablet by mouth daily. [facility] SERTraline 25 mg tablet 2020-06 00:00: 00 Yes [id number] 25mg Take 1 tablet by mouth daily. [facility] SERTraline 25 mg tablet 2020-06 00:00: 00 Yes [id number] 25mg Take 1 tablet by mouth daily. [facility] SERTraline 25 mg tablet 2020-06 00:00: 00 Yes [id number] 25mg Take 1 tablet by mouth daily. [facility] SERTraline 25 mg tablet 2020-06 00:00: 00 Yes [id number] 25mg Take 1 tablet by mouth daily. [facility] SERTraline 25 mg tablet 2020-06 00:00: 00 Yes [id number] 25mg Take 1 tablet by mouth daily. [facility] SERTraline 25 mg tablet 2020-06 00:00: 00 Yes [id number] 25mg Take 1 tablet by mouth daily. [facility] SERTraline 25 mg tablet 2020-06 00:00: 00 Yes [id number] 25mg Take 1 tablet by mouth daily. [facility] SERTraline 25 mg tablet 2020-06 00:00: 00 Yes [id number] 25mg Take 1 tablet by mouth daily. [facility] FEROSUL 325 mg (65 mg iron) tablet 2020-06 00:00: 00 05-26 00:00 :00 No TAKE ONE (1) TABLET BY MOUTH 2 (TWO) TIMES DAILY. [facility] ibuprofen 600 mg tablet 2020-06 00:00: 00 05-26 00:00 :00 No TAKE ONE (1) TABLET BY MOUTH EVERY 6 (SIX) HOURS NEEDED (PAIN). TAKE WITH FOOD OR MILK. [facility] vit calc,iron,f olic ( VITAMIN ORAL) 2020-06 06:29: 27 04-27 00:00 :00 No Take by mouth. [facility] vit calc,iron,f olic ( VITAMIN ORAL) 2020-06 06:29: 27 04-27 00:00 :00 No Take by mouth. [facility] vitamin w/FA tablet 2020-06 00:00: 00 Yes [id number] 1{tbl} Take 1 tablet by mouth daily. [facility] docusate calcium 240 mg capsule 2020-06 00:00: 00 Yes [id number] 240mg Take 1 capsule by mouth once daily as needed for Constipati on. [facility] ferrous sulfate 325 mg (65 mg iron) tablet 2020-06 00:00: 00 Yes [id number] 325mg Take 1 tablet by mouth 2 (two) times daily. [facility] ibuprofen 600 mg tablet 2020-06 00:00: 00 Yes [id number] 600mg Take 1 tablet by mouth every 6 (six) hours as needed (Pain). Take with food or milk. [facility] vitamin w/FA tablet 2020-06 00:00: 00 Yes [id number] 1{tbl} Take 1 tablet by mouth daily. [facility] docusate calcium 240 mg capsule 2020-06 00:00: 00 Yes [id number] 240mg Take 1 capsule by mouth once daily as needed for Constipati on. [facility] ferrous sulfate 325 mg (65 mg iron) tablet 2020-06 00:00: 00 Yes [id number] 325mg Take 1 tablet by mouth 2 (two) times daily. [facility] ibuprofen 600 mg tablet 2020-06 00:00: 00 Yes [id number] 600mg Take 1 tablet by mouth every 6 (six) hours as needed (Pain). Take with food or milk. [facility] vitamin w/FA tablet 2020-06 00:00: 00 Yes [id number] 1{tbl} Take 1 tablet by mouth daily. [facility] docusate calcium 240 mg capsule 2020-06 00:00: 00 Yes [id number] 240mg Take 1 capsule by mouth once daily as needed for Constipati on. [facility] ferrous sulfate 325 mg (65 mg iron) tablet 2020-06 00:00: 00 Yes [id number] 325mg Take 1 tablet by mouth 2 (two) times daily. [facility] ibuprofen 600 mg tablet 2020-06 00:00: 00 Yes [id number] 600mg Take 1 tablet by mouth every 6 (six) hours as needed (Pain). Take with food or milk. [facility] vitamin w/FA tablet 2020-06 00:00: 00 Yes [id number] 1{tbl} Take 1 tablet by mouth daily. [facility] docusate calcium 240 mg capsule 2020-06 00:00: 00 Yes [id number] 240mg Take 1 capsule by mouth once daily as needed for Constipati on. [facility] ferrous sulfate 325 mg (65 mg iron) tablet 2020-06 00:00: 00 Yes [id number] 325mg Take 1 tablet by mouth 2 (two) times daily. [facility] ibuprofen 600 mg tablet 2020-06 00:00: 00 Yes [id number] 600mg Take 1 tablet by mouth every 6 (six) hours as needed (Pain). Take with food or milk. [facility] cetirizine 10 mg tablet 2020-06 00:00: 00 Yes 10mg Take 10 mg by mouth daily. [facility] fluticasone propionate 50 mcg/actuati on nasal spray 2020-06 00:00: 00 Yes USE TWO (2) SPRAYS IN EACH NOSTRIL DAILY. [facility] foLIC acid 1 mg tablet 2020-06 00:00: 00 Yes 1mg Take 1 mg by mouth daily. [facility] vitamin w/FA tablet 2020-06 00:00: 00 05-15 00:00 :00 No [id number] 1{tbl} Take 1 tablet by mouth daily. [facility] docusate calcium 240 mg capsule 2020-06 00:00: 00 05-15 00:00 :00 No [id number] 240mg Take 1 capsule by mouth once daily as needed for Constipati on. [facility] ferrous sulfate 325 mg (65 mg iron) tablet 2020-06 00:00: 00 05-15 00:00 :00 No [id number] 325mg Take 1 tablet by mouth 2 (two) times daily. [facility] ibuprofen 600 mg tablet 2020-06 00:00: 00 05-15 00:00 :00 No [id number] 600mg Take 1 tablet by mouth every 6 (six) hours as needed (Pain). Take with food or milk. [facility] cetirizine 10 mg tablet 2020-06 00:00: 00 05-15 00:00 :00 No 10mg Take 10 mg by mouth daily. [facility] fluticasone propionate 50 mcg/actuati on nasal spray 2020-06 00:00: 00 05-15 00:00 :00 No USE TWO (2) SPRAYS IN EACH NOSTRIL DAILY. [facility] foLIC acid 1 mg tablet 2020-06 00:00: 00 05-15 00:00 :00 No 1mg Take 1 mg by mouth daily. [facility] acetaminoph en-codeine 300-30 mg tablet 2020-06 00:00: 00 05-05 05:59 :00 No [id number] 1{tbl} Take 1 tablet by mouth every 6 (six) hours as needed (Pain Scale above 4) for up to 7 days. Do not exceed 3 grams of acetaminop hen in 24 hours. Indication s: [facility] 300-30 mg tablet 2020-06 00:00: 00 05-05 05:59 :00 No [id number] 1{tbl} Take 1 tablet by mouth every 6 (six) hours as needed (Pain Scale above 4) for up to 7 days. Do not exceed 3 grams of acetaminop hen in 24 hours. Indication s: acute [facility] acetaminoph en-codeine 300-30 mg tablet 2020-06 00:00: 00 05-05 05:59 :00 No [id number] 1{tbl} Take 1 tablet by mouth every 6 (six) hours as needed (Pain Scale above 4) for up to 7 days. Do not exceed 3 grams of acetaminop hen in 24 hours. Indication s: acute pain [facility] acetaminoph en-codeine (TYLENOL #3) 300-30 mg tablet 1 tablet 2020-06 10:16: 40 Yes 1{tbl} 1 tablet, Oral, Q4HPRN, Starting on Tue04/24/21 at 0416, Until Discontinu ed, Routine, Pain (scale 7-10) [facility] acetaminoph en-codeine (TYLENOL #3) 300-30 mg tablet 1 tablet 2020-06 10:16: 40 04-27 20:36 :48 No 1{tbl} 1 tablet, Oral, Q4HPRN, Starting on Tue04/24/21 at 0416, Until 04/27/21 at 1436, Routine, Pain (scale 7-10) [facility] rho(D) immune globulin (RHOGAM) syringe 300 mcg 2020-06 10:16: 12 Yes 300ug 300 mcg, Intramuscu lar, ONCE, For 1 dose, Conditiona l, Routine [facility] rho(D) immune globulin (RHOGAM) syringe 300 mcg 2020-06 10:16: 12 04-27 20:36 :48 No 300ug 300 mcg, Intramuscu lar, ONCE, For 1 dose, Conditiona l, Routine [facility] ondansetron (ZOFRAN (PF)) injection 4 mg 2020-06 10:16: 07 Yes 4mg 4 mg, Slow IV Push, Q8HPRN, Starting on Tue04/24/21 at 0416, Until Discontinu ed, Routine, Nausea and Vomiting (N/V) [facility] simethicone (GAS RELIEF (SIMETHICON E)) chewable tablet 160 mg 2020-06 10:16: 07 Yes 160mg 160 mg, Oral, PC+HSPRN, Starting on Tue04/24/21 at 0416, Until Discontinu ed, Routine, Gas [facility] magnesium hydroxide (MILK OF MAGNESIA) 400 mg/5 mL suspension 30 mL 2020-06 10:16: 07 Yes 30mL 30 mL, Oral, QDAILYPRN, Starting on Tue04/24/21 at 0416, Until Discontinu ed, Routine, Constipati on [facility] ondansetron (ZOFRAN (PF)) injection 4 mg 2020-06 10:16: 07 04-27 20:36 :48 No 4mg 4 mg, Slow IV Push, Q8HPRN, Starting on Tue04/24/21 at 0416, Until Tue04/27/21 at 1436, Routine, Nausea and Vomiting (N/V) [facility] simethicone (GAS RELIEF (SIMETHICON E)) chewable tablet 160 mg 2020-06 10:16: 07 04-27 20:36 :48 No 160mg 160 mg, Oral, PC+HSPRN, Starting on Tue04/24/21 at 0416, Until 04/27/21 at 1436, Routine, Gas [facility] magnesium hydroxide (MILK OF MAGNESIA) 400 mg/5 mL suspension 30 mL 2020-06 10:16: 07 04-27 20:36 :48 No 30mL 30 mL, Oral, QDAILYPRN, Starting on Tue04/24/21 at 0416, Until 04/27/21 at 1436, Routine, Constipati on [facility] ibuprofen (IBU) tablet 600 mg 2020-06 10:16: 06 Yes 600mg 600 mg, Oral, Q6HPRN, Starting on Tue04/24/21 at 0416, Until Discontinu ed, Routine, Pain (scale 1-3) [facility] diphenhydrA MINE-0.9 % sod.chlr (BENADRYL) 25 mg/50 mL piggyback 25 mg 2020-06 10:16: 06 Yes 25mg 25 mg, IV Piggyback, Administer over 30 Minutes, Q6HPRN, 1 dose, Starting on Tue04/24/21 at 0416, Until Discontinu ed, Routine, Itching [facility] diphenhydrA MINE (BENADRYL) tablet 25 mg 2020-06 10:16: 06 Yes 25mg 25 mg, Oral, Q6HPRN, Starting on Tue04/24/21 at 0416, Until Discontinu ed, Routine, Sleep, Itching [facility] bisacodyL (DULCOLAX) suppository 10 mg 2020-06 10:16: 06 Yes 10mg 10 mg, Rectal, QDAILYPRN, Starting on Tue04/24/21 at 0416, Until Discontinu ed, Routine, Constipati on [facility] docusate calcium (SURFAK) capsule 240 mg 2020-06 10:16: 06 Yes 240mg 240 mg, Oral, QDAILYPRN, Starting on Tue04/24/21 at 0416, Until Discontinu ed, Routine, Constipati on [facility] ibuprofen (IBU) tablet 600 mg 2020-06 10:16: 06 04-27 20:36 :48 No 600mg 600 mg, Oral, Q6HPRN, Starting on Tue04/24/21 at 0416, Until 04/27/21 at 1436, Routine, Pain (scale 1-3) [facility] diphenhydrA MINE-0.9 % sod.chlr (BENADRYL) 25 mg/50 mL piggyback 25 mg 2020-06 10:16: 06 04-27 20:36 :48 No 25mg 25 mg, IV Piggyback, Administer over 30 Minutes, Q6HPRN, 1 dose, Starting on Tue04/24/21 at 0416, Until Tue04/27/21 at 1436, Routine, Itching [facility] diphenhydrA MINE (BENADRYL) tablet 25 mg 2020-06 10:16: 06 04-27 20:36 :48 No 25mg 25 mg, Oral, Q6HPRN, Starting on Tue04/24/21 at 0416, Until Tue04/27/21 at 1436, Routine, Sleep, Itching [facility] bisacodyL (DULCOLAX) suppository 10 mg 2020-06 10:16: 06 04-27 20:36 :48 No 10mg 10 mg, Rectal, QDAILYPRN, Starting on Tue04/24/21 at 0416, Until Tue04/27/21 at 1436, Routine, Constipati on [facility] docusate calcium (SURFAK) capsule 240 mg 2020-06 10:16: 06 04-27 20:36 :48 No 240mg 240 mg, Oral, QDAILYPRN, Starting on Tue04/24/21 at 0416, Until Tue04/27/21 at 1436, Routine, Constipati on [facility] nalbuphine (NUBAIN) injection 5 mg 2020-06 09:49: 46 Yes 5mg 5 mg, Intravenou s, PRN, 1 dose, Starting on Tue04/24/21 at 0349, Until Discontinu ed, Routine, itching, PACU [facility] nalbuphine (NUBAIN) injection 5 mg 2020-06 09:49: 46 04-27 20:36 :48 No 5mg 5 mg, Intravenou s, PRN, 1 dose, Starting on Tue04/24/21 at 0349, Until 04/27/21 at 1436, Routine, itching, PACU [facility] ketorolac (TORADOL) injection 30 mg 2020-06 09:49: 46 04-24 10:22 :00 No 30mg 30 mg, Slow IV Push, PRN, 1 dose, Starting on Tue04/24/21 at 0349, Until Discontinu ed, Routine, Pain (scale 4-6), PACU
Fa culty member approving Restricted medication : LD PACU [facility] ceFAZolin in dextrose (iso-os) (ANCEF) 2 gram/100 mL Piggyback 2 g 2020-06 06:32: 22 04-24 07:03 :00 No 2000mg 2 g (2,000 mg), IV Piggyback, O.R. HOLDING ONCE, 1 dose, Starting on Tue04/24/21 at 0032, Until Discontinu ed, 100 mL
Reas on for Anti-Infec tive: Surgical Prophylaxi s
Surgi gaston Prophylaxi s: BELLMAKER
Duration of therapy: within 24 hours of surgery [facility] D5W 0.45% NaCl (1/2NS) IV infusion 1,000 mL 2020-06 02:15: 00 04-24 10:16 :12 No 1000mL at 75 mL/hr, 1,000 mL, IV Infusion, CONTINUOUS , Starting on Tue04/23/21 at 2014, Until Tue04/24/21 at 0416, [facility] magnesium sulfate in 0.9 %NaCl 10 gram/250 mL (40 mg/mL) IV SOLUTION 2020-06 02:15: 00 04-24 10:16 :12 No 2g/h 2 g/hr (50 mL/hr), at 50 mL/hr, IV Infusion, CONTINUOUS , Starting on Makenzie 04/23/21 at 2014, Until Tue04/24/21 at 0416, [facility] vit calc,iron,f olic ( VITAMIN ORAL) 2020-06 01:07: 30 Yes Take by mouth. [facility] betamethaso ne acet,sod phos (CELESTONE SOLUSPAN) 6 mg/mL injection 12 mg 2020-06 00:00: 00 04-24 10:16 :12 No 12mg 12 mg, Intramuscu lar, Q24H, 2 doses, First dose on Tue04/23/21 at 1800, Last dose on Tue04/24/21 at 1800, Routine [facility] ceFAZolin (ANCEF) 1,000 mg in NaCl 0.9% (NS) 50 mL MINI-BAG 2020-06 23:45: 00 04-24 01:13 :00 No 1000mg 1,000 mg, IV Piggyback, ONCE, 1 dose, On Makenzie 04/23/21 at 1745, Administer over 30 Minutes, 50 mL
Reas on for Anti-Infec tive: Empiric Non-Surgic al Prophylaxi s [facility] terbutaline (BRETHINE) injection 0.25 mg 2020-06 23:45: 00 04-24 01:16 :00 No .25mg 0.25 mg, Subcutaneo us, ONCE, 1 dose, On Tue04/23/21 at 1745, Routine [facility] [id number] IV infusion 1,000 mL 2020-06 22:45: 00 04-24 10:16 :12 No 1000mL at 125 mL/hr, IV Infusion, CONTINUOUS , Starting on Tue04/23/21 at 1645, Until Tue04/24/21 at 0416, Routine [facility] sodium citrate-cit dayron acid (BICITRA) 500-334 mg/5 mL solution 30 mL 2020-06 22:37: 31 04-24 07:04 :00 No 30mL 30 mL, Oral, PRE-PROCED URE ONCE, 1 dose, Starting on Makenzie 04/23/21 at 1637, Until Discontinu ed, Routine, Surgery/Pr ocedure [facility] lactated ringers IV infusion 1,000 mL 2020-06 22:00: 00 04-23 22:25 :00 No 1000mL at 999 mL/hr, 1,000 mL, IV Infusion, ONCE, 1 dose, On Makenzie 04/23/21 at 1600, Routine [facility] magnesium oxide 400 mg (241.3 mg magnesium) tablet 2020-06 00:00: 00 Yes [id number] 400mg Take 1 tablet by mouth daily. [facility] magnesium oxide 400 mg (241.3 mg magnesium) tablet 2020-06 00:00: 00 Yes [id number] 400mg Take 1 tablet by mouth daily. [facility] magnesium oxide 400 mg (241.3 mg magnesium) tablet 2020-06 00:00: 00 Yes [id number] 400mg Take 1 tablet by mouth daily. [facility] magnesium oxide 400 mg (241.3 mg magnesium) tablet 2020-06 00:00: 00 04-27 00:00 :00 No [id number] 400mg Take 1 tablet by mouth daily. [facility] magnesium oxide 400 mg (241.3 mg magnesium) tablet 2020-06 00:00: 00 04-27 00:00 :00 No [id number] 400mg Take 1 tablet by mouth daily. [facility] cetirizine 10 mg tablet 2020-06 00:00: 00 Yes [id number] 10mg Take 1 tablet by mouth daily. [facility] fluticasone propionate (FLONASE ALLERGY RELIEF) 50 mcg/actuati on nasal spray 2020-06 00:00: 00 Yes [id number] 2{spray } Use 2 Sprays in each nostril daily. [facility] cetirizine 10 mg tablet 2020-06 00:00: 00 Yes [id number] 10mg Take 1 tablet by mouth daily. [facility] fluticasone propionate (FLONASE ALLERGY RELIEF) 50 mcg/actuati on nasal spray 2020-06 00:00: 00 Yes [id number] 2{spray } Use 2 Sprays in each nostril daily. [facility] cetirizine 10 mg tablet 2020-06 00:00: 00 Yes [id number] 10mg Take 1 tablet by mouth daily. [facility] fluticasone propionate (FLONASE ALLERGY RELIEF) 50 mcg/actuati on nasal spray 2020-06 00:00: 00 Yes [id number] 2{spray } Use 2 Sprays in each nostril daily. [facility] cetirizine 10 mg tablet 2020-06 00:00: 00 Yes [id number] 10mg Take 1 tablet by mouth daily. [facility] fluticasone propionate (FLONASE ALLERGY RELIEF) 50 mcg/actuati on nasal spray 2020-06 00:00: 00 Yes [id number] 2{spray } Use 2 Sprays in each nostril daily. [facility] cetirizine 10 mg tablet 2020-06 00:00: 00 04-27 00:00 :00 No [id number] 10mg Take 1 tablet by mouth daily. [facility] fluticasone propionate (FLONASE ALLERGY RELIEF) 50 mcg/actuati on nasal spray 2020-06 00:00: 00 04-27 00:00 :00 No [id number] 2{spray } Use 2 Sprays in each nostril daily. [facility] cetirizine 10 mg tablet 2020-06 00:00: 00 04-27 00:00 :00 No [id number] 10mg Take 1 tablet by mouth daily. [facility] fluticasone propionate (FLONASE ALLERGY RELIEF) 50 mcg/actuati on nasal spray 2020-06 00:00: 00 04-27 00:00 :00 No [id number] 2{spray } Use 2 Sprays in each nostril daily. [facility] iron sucrose (VENOFER) 300 mg in NaCl 0.9% (NS) 250 mL infusion 2020-06 0 17:30: 00 04-07 20:27 :00 No 300mg 300 mg, IV Infusion, ONCE, 1 dose, On Tue04/07/21 at 1230, Administer over 2.5 Hours, 250 mL
Appr kwaku Indication /Faculty: ADC PROVIDER [facility] vit calc,iron,f olic ( VITAMIN ORAL) 2020-06 0 15:47: 10 Yes Take by mouth. [facility] vit calc,iron,f olic ( VITAMIN ORAL) 2020-06 0 15:47: 10 Yes Take by mouth. [facility] vit calc,iron,f olic ( VITAMIN ORAL) 2020-06 0 15:47: 10 Yes Take by mouth. [facility] vit calc,iron,f olic ( VITAMIN ORAL) 2020-06 15:47: 10 Yes Take by mouth. [facility] vit calc,iron,f olic ( VITAMIN ORAL) 2020-06 15:47: 10 Yes Take by mouth. [facility] lactated ringers IV infusion 1,000 mL 2020-06 03:30: 00 03-27 02:36 :00 No 1000mL at 999 mL/hr, 1,000 mL, IV Infusion, ONCE, 1 dose, On Tue03/26/21 at 2230, STAT [facility] acetaminoph en-codeine (TYLENOL #3) 300-30 mg tablet 1 tablet 2020-06 02:21: 58 Yes 1{tbl} 1 tablet, Oral, Q4HPRN, Starting on Tue03/26/21 at 2121, Until Discontinu ed, Routine, Pain (scale 7-10) [facility] vit calc,iron,f olic ( VITAMIN ORAL) 2020-06 0 00:01: 28 Yes Take by mouth. [facility] vit calc,iron,f olic ( VITAMIN ORAL) 2020-06 0 00:01: 28 Yes Take by mouth. [facility] vit calc,iron,f olic ( VITAMIN ORAL) 2020-06 0 00:01: 28 Yes Take by mouth. [facility] iron sucrose (VENOFER) 300 mg in NaCl 0.9% (NS) 250 mL infusion 2020-06 23:45: 00 03-27 04:17 :00 No 300mg 300 mg, IV Infusion, ONCE, Administer over 2.5 Hours, On Makenzie 03/26/21 at 1845, For 1 dose [facility] Nitrofurant oin&Nit. Macrocryst 100 mg capsule 2020-06 00:00: 00 Yes TAKE ONE (1) CAPSULE(S) BY MOUTH TWICE A DAY. [facility] Nitrofurant oin&Nit. Macrocryst 100 mg capsule 2020-06 00:00: 00 Yes TAKE ONE (1) CAPSULE(S) BY MOUTH TWICE A DAY. [facility] Nitrofurant oin&Nit. Macrocryst 100 mg capsule 2020-06 00:00: 00 Yes TAKE ONE (1) CAPSULE(S) BY MOUTH TWICE A DAY. [facility] Nitrofurant oin&Nit. Macrocryst 100 mg capsule 2020-06 00:00: 00 Yes TAKE ONE (1) CAPSULE(S) BY MOUTH TWICE A DAY. [facility] Nitrofurant oin&Nit. Macrocryst 100 mg capsule 2020-06 00:00: 00 Yes TAKE ONE (1) CAPSULE(S) BY MOUTH TWICE A DAY. [facility] Nitrofurant oin&Nit. Macrocryst 100 mg capsule 2020-06 00:00: 00 Yes TAKE ONE (1) CAPSULE(S) BY MOUTH TWICE A DAY. [facility] Nitrofurant oin&Nit. Macrocryst 100 mg capsule 2020-06 00:00: 00 Yes TAKE ONE (1) CAPSULE(S) BY MOUTH TWICE A DAY. [facility] Nitrofurant oin&Nit. Macrocryst 100 mg capsule 2020-06 00:00: 00 04-27 00:00 :00 No TAKE ONE (1) CAPSULE(S) BY MOUTH TWICE A DAY. [facility] Nitrofurant oin&Nit. Macrocryst 100 mg capsule 2020-06 0-14 00:00: 00 04-27 00:00 :00 No TAKE ONE (1) CAPSULE(S) BY MOUTH TWICE A DAY. [facility] vit calc,iron,f olic ( VITAMIN ORAL) 02-20 19:44: 27 Yes Take by mouth. [facility] Nitrofurant oin&Nit. Macrocryst (MACROBID) 100 mg capsule 100 mg 02-20 19:30: 00 02-20 18:31 :00 No 100mg 100 mg, Oral, ONCE, 1 dose, Tue02/20/21 at 1430, Routine
Reason for Anti-Infec tive: Empiric Therapy for Suspected Infection< br>Empiric Therapy Site: Urine
D uration of therapy: 7 days [facility] lactated ringers IV infusion 1,000 mL 02-20 19:15: 00 02-20 18:30 :00 No 1000mL at 999 mL/hr, 1,000 mL, IV Infusion, ONCE, 1 dose, Tue02/20/21 at 1415, STAT [facility] vit calc,iron,f olic ( VITAMIN ORAL) 02-20 17:03: 54 Yes Take by mouth. [facility] vit calc,iron,f olic ( VITAMIN ORAL) 02-20 14:44: 27 Yes Take by mouth. [facility] vit calc,iron,f olic ( VITAMIN ORAL) 02-20 14:44: 27 Yes Take by mouth. [facility] vit calc,iron,f olic ( VITAMIN ORAL) 02-20 14:44: 27 Yes Take by mouth. [facility] vit calc,iron,f olic ( VITAMIN ORAL) 02-20 14:44: 27 Yes Take by mouth. [facility] vit calc,iron,f olic ( VITAMIN ORAL) 02-20 14:44: 27 Yes Take by mouth. [facility] vit calc,iron,f olic ( VITAMIN ORAL) 02-20 14:44: 27 Yes Take by mouth. [facility] vit calc,iron,f olic ( VITAMIN ORAL) 02-20 14:44: 27 Yes Take by mouth. [facility] vit calc,iron,f olic ( VITAMIN ORAL) 02-20 14:44: 27 Yes Take by mouth. [facility] vit calc,iron,f olic ( VITAMIN ORAL) 02-20 14:44: 27 Yes Take by mouth. [facility] vit calc,iron,f olic ( VITAMIN ORAL) 02-20 14:44: 27 Yes Take by mouth. [facility] Nitrofurant oin&Nit. Macrocryst 100 mg capsule 02-20 00:00: 00 Yes [id number] 100mg Take 1 capsule by mouth 2 (two) times daily. [facility] famotidine 20 mg tablet 02-20 00:00: 00 Yes [id number] 20mg Take 1 tablet by mouth 2 (two) times daily. Take about 30 minutes before eating. [facility] Nitrofurant oin&Nit. Macrocryst 100 mg capsule 02-20 00:00: 00 Yes [id number] 100mg Take 1 capsule by mouth 2 (two) times daily. [facility] famotidine 20 mg tablet 02-20 00:00: 00 Yes [id number] 20mg Take 1 tablet by mouth 2 (two) times daily. Take about 30 minutes before eating. [facility] Nitrofurant oin&Nit. Macrocryst 100 mg capsule 02-20 00:00: 00 Yes [id number] 100mg Take 1 capsule by mouth 2 (two) times daily. [facility] famotidine 20 mg tablet 02-20 00:00: 00 Yes [id number] 20mg Take 1 tablet by mouth 2 (two) times daily. Take about 30 minutes before eating. [facility] Nitrofurant oin&Nit. Macrocryst 100 mg capsule 0 02-20 00:00: 00 Yes [id number] 100mg Take 1 capsule by mouth 2 (two) times daily. [facility] famotidine 20 mg tablet 02-20 00:00: 00 Yes [id number] 20mg Take 1 tablet by mouth 2 (two) times daily. Take about 30 minutes before eating. [facility] Nitrofurant oin&Nit. Macrocryst 100 mg capsule 0 02-20 00:00: 00 Yes [id number] 100mg Take 1 capsule by mouth 2 (two) times daily. [facility] famotidine 20 mg tablet 02-20 00:00: 00 Yes [id number] 20mg Take 1 tablet by mouth 2 (two) times daily. Take about 30 minutes before eating. [facility] Nitrofurant oin&Nit. Macrocryst 100 mg capsule 02-20 00:00: 00 Yes [id number] 100mg Take 1 capsule by mouth 2 (two) times daily. [facility] famotidine 20 mg tablet 02-20 00:00: 00 Yes [id number] 20mg Take 1 tablet by mouth 2 (two) times daily. Take about 30 minutes before eating. [facility] Nitrofurant oin&Nit. Macrocryst 100 mg capsule 02-20 00:00: 00 Yes [id number] 100mg Take 1 capsule by mouth 2 (two) times daily. [facility] famotidine 20 mg tablet 0 02-20 00:00: 00 Yes [id number] 20mg Take 1 tablet by mouth 2 (two) times daily. Take about 30 minutes before eating. [facility] Nitrofurant oin&Nit. Macrocryst 100 mg capsule 02-20 00:00: 00 Yes [id number] 100mg Take 1 capsule by mouth 2 (two) times daily. [facility] famotidine 20 mg tablet 2020-0 02-20 00:00: 00 Yes [id number] 20mg Take 1 tablet by mouth 2 (two) times daily. Take about 30 minutes before eating. [facility] Nitrofurant oin&Nit. Macrocryst 100 mg capsule 2020-0 10 00:00: 00 Yes [id number] 100mg Take 1 capsule by mouth 2 (two) times daily. [facility] famotidine 20 mg tablet 2020-0 02-20 00:00: 00 Yes [id number] 20mg Take 1 tablet by mouth 2 (two) times daily. Take about 30 minutes before eating. [facility] Nitrofurant oin&Nit. Macrocryst 100 mg capsule 2020-0 02-20 00:00: 00 Yes [id number] 100mg Take 1 capsule by mouth 2 (two) times daily. [facility] famotidine 20 mg tablet 2020-0 02-20 00:00: 00 Yes [id number] 20mg Take 1 tablet by mouth 2 (two) times daily. Take about 30 minutes before eating. [facility] Nitrofurant oin&Nit. Macrocryst 100 mg capsule 2020-0 02-20 00:00: 00 Yes [id number] 100mg Take 1 capsule by mouth 2 (two) times daily. [facility] famotidine 20 mg tablet 2020-0 02-20 00:00: 00 Yes [id number] 20mg Take 1 tablet by mouth 2 (two) times daily. Take about 30 minutes before eating. [facility] famotidine 20 mg tablet 2020-0 02-20 00:00: 00 Yes [id number] 20mg Take 1 tablet by mouth 2 (two) times daily. Take about 30 minutes before eating. [facility] famotidine 20 mg tablet 2020-0 02-20 00:00: 00 Yes [id number] 20mg Take 1 tablet by mouth 2 (two) times daily. Take about 30 minutes before eating. [facility] famotidine 20 mg tablet 2020-0 02-20 00:00: 00 Yes [id number] 20mg Take 1 tablet by mouth 2 (two) times daily. Take about 30 minutes before eating. [facility] famotidine 20 mg tablet 2020-0 02-20 00:00: 00 Yes [id number] 20mg Take 1 tablet by mouth 2 (two) times daily. Take about 30 minutes before eating. [facility] famotidine 20 mg tablet 02-20 00:00: 00 Yes [id number] 20mg Take 1 tablet by mouth 2 (two) times daily. Take about 30 minutes before eating. [facility] famotidine 20 mg tablet 02-20 00:00: 00 Yes [id number] 20mg Take 1 tablet by mouth 2 (two) times daily. Take about 30 minutes before eating. [facility] famotidine 20 mg tablet 02-20 00:00: 00 Yes [id number] 20mg Take 1 tablet by mouth 2 (two) times daily. Take about 30 minutes before eating. [facility] famotidine 20 mg tablet 02-20 00:00: 00 Yes [id number] 20mg Take 1 tablet by mouth 2 (two) times daily. Take about 30 minutes before eating. [facility] famotidine 20 mg tablet 02-20 00:00: 00 Yes [id number] 20mg Take 1 tablet by mouth 2 (two) times daily. Take about 30 minutes before eating. [facility] famotidine 20 mg tablet 02-20 00:00: 00 04-27 00:00 :00 No [id number] 20mg Take 1 tablet by mouth 2 (two) times daily. Take about 30 minutes before eating. [facility] famotidine 20 mg tablet 02-20 00:00: 00 04-27 00:00 :00 No [id number] 20mg Take 1 tablet by mouth 2 (two) times daily. Take about 30 minutes before eating. [facility] Nitrofurant oin&Nit. Macrocryst 100 mg capsule 02-20 00:00: 00 03-26 00:00 :00 No [id number] 100mg Take 1 capsule by mouth 2 (two) times daily. [facility] Nitrofurant oin&Nit. Macrocryst (MACROBID) 100 mg capsule -06 00:00: 00 Yes [id number] 07 100mg Take 1 capsule by mouth daily. [facility] Nitrofurant oin&Nit. Macrocryst (MACROBID) 100 mg capsule 12-16 00:00: 00 02-20 00:00 :00 No [id number] 07 100mg Take 1 capsule by mouth daily. [facility] aspirin 81 mg EC tablet 11-18 00:00: 00 Yes [id number] 81mg Take 1 tablet by mouth daily. [facility] aspirin 81 mg EC tablet 11-18 00:00: 00 Yes [id number] 81mg Take 1 tablet by mouth daily. [facility] aspirin 81 mg EC tablet 11-18 00:00: 00 Yes [id number] 81mg Take 1 tablet by mouth daily. [facility] aspirin 81 mg EC tablet 11-18 00:00: 00 Yes [id number] 81mg Take 1 tablet by mouth daily. [facility] aspirin 81 mg EC tablet 11-18 00:00: 00 Yes [id number] 81mg Take 1 tablet by mouth daily. [facility] aspirin 81 mg EC tablet 11-18 00:00: 00 Yes [id number] 81mg Take 1 tablet by mouth daily. [facility] aspirin 81 mg EC tablet 11-18 00:00: 00 Yes [id number] 81mg Take 1 tablet by mouth daily. [facility] aspirin 81 mg EC tablet 11-18 00:00: 00 Yes [id number] 81mg Take 1 tablet by mouth daily. [facility] aspirin 81 mg EC tablet 11-18 00:00: 00 Yes [id number] 81mg Take 1 tablet by mouth daily. [facility] aspirin 81 mg EC tablet 11-18 00:00: 00 Yes [id number] 81mg Take 1 tablet by mouth daily. [facility] aspirin 81 mg EC tablet 11-18 00:00: 00 Yes [id number] 81mg Take 1 tablet by mouth daily. [facility] aspirin 81 mg EC tablet 0 608 00:00: 00 Yes [id number] 81mg Take 1 tablet by mouth daily. [facility] aspirin 81 mg EC tablet 0 08 00:00: 00 Yes [id number] 81mg Take 1 tablet by mouth daily. [facility] aspirin 81 mg EC tablet 0 08 00:00: 00 Yes [id number] 81mg Take 1 tablet by mouth daily. [facility] aspirin 81 mg EC tablet 0 08 00:00: 00 Yes [id number] 81mg Take 1 tablet by mouth daily. [facility] aspirin 81 mg EC tablet 11-18 00:00: 00 Yes [id number] 81mg Take 1 tablet by mouth daily. [facility] aspirin 81 mg EC tablet 11-18 00:00: 00 Yes [id number] 81mg Take 1 tablet by mouth daily. [facility] aspirin 81 mg EC tablet 0 11-18 00:00: 00 Yes [id number] 81mg Take 1 tablet by mouth daily. [facility] aspirin 81 mg EC tablet 0 11-18 00:00: 00 Yes [id number] 81mg Take 1 tablet by mouth daily. [facility] aspirin 81 mg EC tablet 11-18 00:00: 00 Yes [id number] 81mg Take 1 tablet by mouth daily. [facility] aspirin 81 mg EC tablet 0 08 00:00: 00 Yes [id number] 81mg Take 1 tablet by mouth daily. [facility] aspirin 81 mg EC tablet 08 00:00: 00 04-27 00:00 :00 No [id number] 81mg Take 1 tablet by mouth daily. [facility] aspirin 81 mg EC tablet 08 00:00: 00 04-27 00:00 :00 No [id number] 81mg Take 1 tablet by mouth daily. [facility] foLIC acid 1 mg tablet 427 00:00: 00 Yes [id number] 1mg Take 1 tablet by mouth daily. [facility] ferrous sulfate (IRON, FERROUS SULFATE,) 325 mg (65 mg iron) tablet 10-07 00:00: 00 Yes [id number] 325mg Take 1 tablet by mouth daily. [facility] ascorbic acid, vitamin C, 500 mg tablet 10-07 00:00: 00 Yes [id number] 500mg Take 1 tablet by mouth daily. Take with iron. [facility] foLIC acid 1 mg tablet 10-07 00:00: 00 Yes [id number] 1mg Take 1 tablet by mouth daily. [facility] ferrous sulfate (IRON, FERROUS SULFATE,) 325 mg (65 mg iron) tablet 10-07 00:00: 00 Yes [id number] 325mg Take 1 tablet by mouth daily. [facility] ascorbic acid, vitamin C, 500 mg tablet 10-07 00:00: 00 Yes [id number] 500mg Take 1 tablet by mouth daily. Take with iron. [facility] foLIC acid 1 mg tablet 10-07 00:00: 00 Yes [id number] 1mg Take 1 tablet by mouth daily. [facility] ferrous sulfate (IRON, FERROUS SULFATE,) 325 mg (65 mg iron) tablet 10-07 00:00: 00 Yes [id number] 325mg Take 1 tablet by mouth daily. [facility] ascorbic acid, vitamin C, 500 mg tablet 10-07 00:00: 00 Yes [id number] 500mg Take 1 tablet by mouth daily. Take with iron. [facility] foLIC acid 1 mg tablet 10-07 00:00: 00 Yes [id number] 1mg Take 1 tablet by mouth daily. [facility] ferrous sulfate (IRON, FERROUS SULFATE,) 325 mg (65 mg iron) tablet 10-07 00:00: 00 Yes [id number] 325mg Take 1 tablet by mouth daily. [facility] ascorbic acid, vitamin C, 500 mg tablet 10-07 00:00: 00 Yes [id number] 500mg Take 1 tablet by mouth daily. Take with iron. [facility] foLIC acid 1 mg tablet 10-07 00:00: 00 Yes [id number] 1mg Take 1 tablet by mouth daily. [facility] ferrous sulfate (IRON, FERROUS SULFATE,) 325 mg (65 mg iron) tablet 10-07 00:00: 00 Yes [id number] 325mg Take 1 tablet by mouth daily. [facility] ascorbic acid, vitamin C, 500 mg tablet 10-07 00:00: 00 Yes [id number] 500mg Take 1 tablet by mouth daily. Take with iron. [facility] foLIC acid 1 mg tablet 10-07 00:00: 00 Yes [id number] 1mg Take 1 tablet by mouth daily. [facility] ferrous sulfate (IRON, FERROUS SULFATE,) 325 mg (65 mg iron) tablet 10-07 00:00: 00 Yes [id number] 325mg Take 1 tablet by mouth daily. [facility] ascorbic acid, vitamin C, 500 mg tablet 10-07 00:00: 00 Yes [id number] 500mg Take 1 tablet by mouth daily. Take with iron. [facility] foLIC acid 1 mg tablet 10-07 00:00: 00 Yes [id number] 1mg Take 1 tablet by mouth daily. [facility] ferrous sulfate (IRON, FERROUS SULFATE,) 325 mg (65 mg iron) tablet 10-07 00:00: 00 Yes [id number] 325mg Take 1 tablet by mouth daily. [facility] ascorbic acid, vitamin C, 500 mg tablet 10-07 00:00: 00 Yes [id number] 500mg Take 1 tablet by mouth daily. Take with iron. [facility] foLIC acid 1 mg tablet 10-07 00:00: 00 Yes [id number] 1mg Take 1 tablet by mouth daily. [facility] ferrous sulfate (IRON, FERROUS SULFATE,) 325 mg (65 mg iron) tablet 10-07 00:00: 00 Yes [id number] 325mg Take 1 tablet by mouth daily. [facility] ascorbic acid, vitamin C, 500 mg tablet 10-07 00:00: 00 Yes [id number] 500mg Take 1 tablet by mouth daily. Take with iron. [facility] foLIC acid 1 mg tablet 10-07 00:00: 00 Yes [id number] 1mg Take 1 tablet by mouth daily. [facility] ferrous sulfate (IRON, FERROUS SULFATE,) 325 mg (65 mg iron) tablet 10-07 00:00: 00 Yes [id number] 325mg Take 1 tablet by mouth daily. [facility] ascorbic acid, vitamin C, 500 mg tablet 10-07 00:00: 00 Yes [id number] 500mg Take 1 tablet by mouth daily. Take with iron. [facility] foLIC acid 1 mg tablet 10-07 00:00: 00 Yes [id number] 1mg Take 1 tablet by mouth daily. [facility] ferrous sulfate (IRON, FERROUS SULFATE,) 325 mg (65 mg iron) tablet 10-07 00:00: 00 Yes [id number] 325mg Take 1 tablet by mouth daily. [facility] ascorbic acid, vitamin C, 500 mg tablet 10-07 00:00: 00 Yes [id number] 500mg Take 1 tablet by mouth daily. Take with iron. [facility] foLIC acid 1 mg tablet 10-07 00:00: 00 Yes [id number] 1mg Take 1 tablet by mouth daily. [facility] ferrous sulfate (IRON, FERROUS SULFATE,) 325 mg (65 mg iron) tablet 10-07 00:00: 00 Yes [id number] 325mg Take 1 tablet by mouth daily. [facility] ascorbic acid, vitamin C, 500 mg tablet 10-07 00:00: 00 Yes [id number] 500mg Take 1 tablet by mouth daily. Take with iron. [facility] foLIC acid 1 mg tablet 10-07 00:00: 00 Yes [id number] 1mg Take 1 tablet by mouth daily. [facility] ferrous sulfate (IRON, FERROUS SULFATE,) 325 mg (65 mg iron) tablet 10-07 00:00: 00 Yes [id number] 325mg Take 1 tablet by mouth daily. [facility] ascorbic acid, vitamin C, 500 mg tablet 10-07 00:00: 00 Yes [id number] 500mg Take 1 tablet by mouth daily. Take with iron. [facility] foLIC acid 1 mg tablet 10-07 00:00: 00 Yes [id number] 1mg Take 1 tablet by mouth daily. [facility] ferrous sulfate (IRON, FERROUS SULFATE,) 325 mg (65 mg iron) tablet 10-07 00:00: 00 Yes [id number] 325mg Take 1 tablet by mouth daily. [facility] ascorbic acid, vitamin C, 500 mg tablet 10-07 00:00: 00 Yes [id number] 500mg Take 1 tablet by mouth daily. Take with iron. [facility] foLIC acid 1 mg tablet 10-07 00:00: 00 Yes [id number] 1mg Take 1 tablet by mouth daily. [facility] ferrous sulfate (IRON, FERROUS SULFATE,) 325 mg (65 mg iron) tablet 10-07 00:00: 00 Yes [id number] 325mg Take 1 tablet by mouth daily. [facility] ascorbic acid, vitamin C, 500 mg tablet 10-07 00:00: 00 Yes [id number] 500mg Take 1 tablet by mouth daily. Take with iron. [facility] foLIC acid 1 mg tablet 10-07 00:00: 00 Yes [id number] 1mg Take 1 tablet by mouth daily. [facility] ferrous sulfate (IRON, FERROUS SULFATE,) 325 mg (65 mg iron) tablet 10-07 00:00: 00 Yes [id number] 325mg Take 1 tablet by mouth daily. [facility] ascorbic acid, vitamin C, 500 mg tablet 10-07 00:00: 00 Yes [id number] 500mg Take 1 tablet by mouth daily. Take with iron. [facility] foLIC acid 1 mg tablet 10-07 00:00: 00 Yes [id number] 1mg Take 1 tablet by mouth daily. [facility] ferrous sulfate (IRON, FERROUS SULFATE,) 325 mg (65 mg iron) tablet 10-07 00:00: 00 Yes [id number] 325mg Take 1 tablet by mouth daily. [facility] ascorbic acid, vitamin C, 500 mg tablet 10-07 00:00: 00 Yes [id number] 500mg Take 1 tablet by mouth daily. Take with iron. [facility] foLIC acid 1 mg tablet 10-07 00:00: 00 Yes [id number] 1mg Take 1 tablet by mouth daily. [facility] ferrous sulfate (IRON, FERROUS SULFATE,) 325 mg (65 mg iron) tablet 10-07 00:00: 00 Yes [id number] 325mg Take 1 tablet by mouth daily. [facility] ascorbic acid, vitamin C, 500 mg tablet 10-07 00:00: 00 Yes [id number] 500mg Take 1 tablet by mouth daily. Take with iron. [facility] foLIC acid 1 mg tablet 10-07 00:00: 00 Yes [id number] 1mg Take 1 tablet by mouth daily. [facility] ferrous sulfate (IRON, FERROUS SULFATE,) 325 mg (65 mg iron) tablet 10-07 00:00: 00 Yes [id number] 325mg Take 1 tablet by mouth daily. [facility] ascorbic acid, vitamin C, 500 mg tablet 10-07 00:00: 00 Yes [id number] 500mg Take 1 tablet by mouth daily. Take with iron. [facility] foLIC acid 1 mg tablet 10-07 00:00: 00 Yes [id number] 1mg Take 1 tablet by mouth daily. [facility] ferrous sulfate (IRON, FERROUS SULFATE,) 325 mg (65 mg iron) tablet 10-07 00:00: 00 Yes [id number] 325mg Take 1 tablet by mouth daily. [facility] ascorbic acid, vitamin C, 500 mg tablet 10-07 00:00: 00 Yes [id number] 500mg Take 1 tablet by mouth daily. Take with iron. [facility] foLIC acid 1 mg tablet 10-07 00:00: 00 Yes [id number] 1mg Take 1 tablet by mouth daily. [facility] ferrous sulfate (IRON, FERROUS SULFATE,) 325 mg (65 mg iron) tablet 10-07 00:00: 00 Yes [id number] 325mg Take 1 tablet by mouth daily. [facility] ascorbic acid, vitamin C, 500 mg tablet 10-07 00:00: 00 Yes [id number] 500mg Take 1 tablet by mouth daily. Take with iron. [facility] foLIC acid 1 mg tablet 10-07 00:00: 00 Yes [id number] 1mg Take 1 tablet by mouth daily. [facility] ferrous sulfate (IRON, FERROUS SULFATE,) 325 mg (65 mg iron) tablet 10-07 00:00: 00 Yes [id number] 325mg Take 1 tablet by mouth daily. [facility] ascorbic acid, vitamin C, 500 mg tablet 10-07 00:00: 00 Yes [id number] 500mg Take 1 tablet by mouth daily. Take with iron. [facility] foLIC acid 1 mg tablet 10-07 00:00: 00 04-27 00:00 :00 No [id number] 1mg Take 1 tablet by mouth daily. [facility] ferrous sulfate (IRON, FERROUS SULFATE,) 325 mg (65 mg iron) tablet 10-07 00:00: 00 04-27 00:00 :00 No [id number] 325mg Take 1 tablet by mouth daily. [facility] ascorbic acid, vitamin C, 500 mg tablet 10-07 00:00: 00 04-27 00:00 :00 No [id number] 500mg Take 1 tablet by mouth daily. Take with iron. [facility] foLIC acid 1 mg tablet 10-07 00:00: 00 04-27 00:00 :00 No [id number] 1mg Take 1 tablet by mouth daily. [facility] ferrous sulfate (IRON, FERROUS SULFATE,) 325 mg (65 mg iron) tablet 10-07 00:00: 00 04-27 00:00 :00 No [id number] 325mg Take 1 tablet by mouth daily. [facility] ascorbic acid, vitamin C, 500 mg tablet 10-07 00:00: 00 04-27 00:00 :00 No [id number] 500mg Take 1 tablet by mouth daily. Take with iron. [facility] Vital Signs Vital Name Observation Time Observation Value Comments S ource Systolic blood pressure 2022-11-22 19:00:00 120 mm[Hg] [facility] Diastolic blood pressure 2022-11-22 19:00:00 78 mm[Hg] [facility] Heart rate 2022-11-22 19:00:00 99 /min [facility] Body height 2022-11-22 19:00:00 158.8 cm [facility] Body weight 2022-11-22 19:00:00 56.926 kg [facility] BMI 2022-11-22 19:00:00 22.59 kg/m2 [facility] Systolic blood pressure 2022-09-22 20:52:00 119 mm[Hg] [facility] Diastolic blood pressure 2022-09-22 20:52:00 71 mm[Hg] [facility] Heart rate 2022-09-22 20:52:00 67 /min [facility] Respiratory rate 2022-09-22 20:52:00 18 /min [facility] Body height 2022-09-22 20:52:00 158.8 cm [facility] Body weight 2022-09-22 20:52:00 60.328 kg [facility] BMI 2022-09-22 20:52:00 23.94 kg/m2 [facility] Systolic blood pressure 2022-08-24 19:04:00 129 mm[Hg] [facility] Diastolic blood pressure 2022-08-24 19:04:00 74 mm[Hg] [facility] Heart rate 2022-08-24 19:04:00 64 /min [facility] Body temperature 2022-08-24 19:04:00 36.72 Ilsa [facility] Respiratory rate 2022-08-24 19:04:00 16 /min [facility] Body height 2022-08-24 19:04:00 160 cm [facility] Body weight 2022-08-24 19:04:00 59.693 kg [facility] BMI 2022-08-24 19:04:00 23.31 kg/m2 [facility] Systolic blood pressure 2022-04-21 23:02:00 122 mm[Hg] [facility] Diastolic blood pressure 2022-04-21 23:02:00 78 mm[Hg] [facility] Heart rate 2022-04-21 23:02:00 66 /min [facility] Body temperature 2022-04-21 23:02:00 36.83 Ilsa [facility] Respiratory rate 2022-04-21 23:02:00 18 /min [facility] Body height 2022-04-21 23:02:00 160 cm [facility] Body weight 2022-04-21 23:02:00 57.153 kg [facility] BMI 2022-04-21 23:02:00 22.32 kg/m2 [facility] Oxygen saturation in Arterial blood by Pulse oximetry 2022-04-21 23:02:00 99 /min [facility] Systolic blood pressure 2021-05-26 20:32:00 109 mm[Hg] [facility] Diastolic blood pressure 2021-05-26 20:32:00 58 mm[Hg] [facility] Heart rate 2021-05-26 20:32:00 80 /min [facility] Body temperature 2021-05-26 20:32:00 36.61 Ilsa [facility] Respiratory rate 2021-05-26 20:32:00 18 /min [facility] Body height 2021-05-26 20:32:00 157.5 cm [facility] Body weight 2021-05-26 20:32:00 57.834 kg [facility] BMI 2021-05-26 20:32:00 23.32 kg/m2 [facility] Systolic blood pressure 2021-05-14 17:25:00 124 mm[Hg] [facility] Diastolic blood pressure 2021-05-14 17:25:00 64 mm[Hg] [facility] Heart rate 2021-05-14 17:25:00 61 /min [facility] Body temperature 2021-05-14 17:25:00 36.67 Ilsa [facility] Respiratory rate 2021-05-14 17:25:00 16 /min [facility] Body height 2021-05-14 17:25:00 157.5 cm [facility] Body weight 2021-05-14 17:25:00 56.359 kg [facility] BMI 2021-05-14 17:25:00 22.73 kg/m2 [facility] Systolic blood pressure 2021-05-01 15:53:00 116 mm[Hg] [facility] Diastolic blood pressure 2021-05-01 15:53:00 79 mm[Hg] [facility] Heart rate 2021-05-01 15:53:00 84 /min [facility] Body temperature 2021-05-01 15:53:00 36.72 Ilsa [facility] Respiratory rate 2021-05-01 15:53:00 18 /min [facility] Body weight 2021-05-01 15:53:00 58.015 kg [facility] BMI 2021-05-01 15:53:00 23.39 kg/m2 [facility] Systolic blood pressure 2021-04-27 14:10:00 118 mm[Hg] [facility] Diastolic blood pressure 2021-04-27 14:10:00 76 mm[Hg] [facility] Heart rate 2021-04-27 14:10:00 75 /min [facility] Body temperature 2021-04-27 14:10:00 36.72 Ilsa [facility] Respiratory rate 2021-04-27 14:10:00 18 /min [facility] Oxygen saturation in Arterial blood by Pulse oximetry 2021-04-27 14:10:00 97 /min [facility] Body height 2021-04-23 21:11:00 157.5 cm [facility] Body weight 2021-04-23 21:11:00 68.947 kg [facility] BMI 2021-04-23 21:11:00 27.80 kg/m2 [facility] Systolic blood pressure 2021-04-24 09:45:00 118 mm[Hg] [facility] Diastolic blood pressure 2021-04-24 09:45:00 76 mm[Hg] [facility] Heart rate 2021-04-24 09:45:00 71 /min [facility] Oxygen saturation in Arterial blood by Pulse oximetry 2021-04-24 09:45:00 98 /min [facility] Respiratory rate 2021-04-24 09:30:00 26 /min [facility] Body temperature 2021-04-24 09:20:00 36.61 Ilsa [facility] Body height 2021-04-23 21:11:00 157.5 cm [facility] Body weight 2021-04-23 21:11:00 68.947 kg [facility] BMI 2021-04-23 21:11:00 27.80 kg/m2 [facility] Systolic blood pressure 2021-04-23 17:17:00 112 mm[Hg] [facility] Diastolic blood pressure 2021-04-23 17:17:00 75 mm[Hg] [facility] Heart rate 2021-04-23 17:17:00 97 /min [facility] 2021-04-23 17:17:00 20 /min [facility] Body height 2021-04-23 17:17:00 157.5 cm [facility] Body weight 2021-04-23 17:17:00 68.181 kg [facility] BMI 2021-04-23 17:17:00 27.49 kg/m2 [facility] Systolic blood pressure 2021-04-16 15:13:00 100 mm[Hg] [facility] Diastolic blood pressure 2021-04-16 15:13:00 57 mm[Hg] [facility] Heart rate 2021-04-16 15:13:00 112 /min [facility] Body temperature 2021-04-16 15:13:00 36.44 Ilsa [facility] Respiratory rate 2021-04-16 15:13:00 19 /min [facility] Body height 2021-04-16 15:13:00 157.5 cm [facility] Body weight 2021-04-16 15:13:00 69.032 kg [facility] BMI 2021-04-16 15:13:00 27.84 kg/m2 [facility] Oxygen saturation in Arterial blood by Pulse oximetry 2021-04-16 15:13:00 98 /min [facility] Systolic blood pressure 2021-04-09 15:30:00 99 mm[Hg] [facility] Diastolic blood pressure 2021-04-09 15:30:00 59 mm[Hg] [facility] Heart rate 2021-04-09 15:30:00 105 /min [facility] Body temperature 2021-04-09 15:30:00 36.94 Ilsa [facility] Respiratory rate 2021-04-09 15:30:00 19 /min [facility] Body height 2021-04-09 15:30:00 157.5 cm [facility] Body weight 2021-04-09 15:30:00 67.643 kg [facility] BMI 2021-04-09 15:30:00 27.28 kg/m2 [facility] Systolic blood pressure 2021-04-07 19:37:00 104 mm[Hg] [facility] Diastolic blood pressure 2021-04-07 19:37:00 60 mm[Hg] [facility] Body temperature 2021-04-07 18:00:00 36.89 Ilsa [facility] Respiratory rate 2021-04-07 18:00:00 16 /min [facility] Heart rate 2021-04-07 17:15:00 93 /min [facility] Body weight 2021-04-07 16:29:00 68.13 kg [facility] BMI 2021-04-07 16:29:00 27.47 kg/m2 [facility] Systolic blood pressure 2021-03-30 18:11:00 101 mm[Hg] [facility] Diastolic blood pressure 2021-03-30 18:11:00 59 mm[Hg] [facility] Heart rate 2021-03-30 18:11:00 97 /min [facility] Respiratory rate 2021-03-30 18:11:00 19 /min [facility] Body height 2021-03-30 18:11:00 157.5 cm [facility] Body weight 2021-03-30 18:11:00 68.748 kg [facility] BMI 2021-03-30 18:11:00 27.72 kg/m2 [facility] Heart rate 2021-03-26 23:00:00 89 /min [facility] Oxygen saturation in Arterial blood by Pulse oximetry 2021-03-26 23:00:00 100 /min [facility] Systolic blood pressure 2021-03-26 20:00:00 122 mm[Hg] [facility] Diastolic blood pressure 2021-03-26 20:00:00 69 mm[Hg] [facility] Body temperature 2021-03-26 20:00:00 36.78 Ilsa [facility] Respiratory rate 2021-03-26 20:00:00 18 /min [facility] Body height 2021-03-26 20:00:00 157.5 cm [facility] Body weight 2021-03-26 20:00:00 67.405 kg [facility] BMI 2021-03-26 20:00:00 27.18 kg/m2 [facility] Systolic blood pressure 2021-03-16 19:05:00 100 mm[Hg] [facility] Diastolic blood pressure 2021-03-16 19:05:00 64 mm[Hg] [facility] Heart rate 2021-03-16 19:05:00 99 /min [facility] Body temperature 2021-03-16 19:05:00 36.83 Ilsa [facility] Respiratory rate 2021-03-16 19:05:00 18 /min [facility] Body height 2021-03-16 19:05:00 157.5 cm [facility] Body weight 2021-03-16 19:05:00 65.726 kg [facility] BMI 2021-03-16 19:05:00 26.50 kg/m2 [facility] Systolic blood pressure 2021-03-02 20:23:00 125 mm[Hg] [facility] Diastolic blood pressure 2021-03-02 20:23:00 74 mm[Hg] [facility] Heart rate 2021-03-02 20:23:00 100 /min [facility] Body temperature 2021-03-02 20:23:00 36.61 Ilsa [facility] Respiratory rate 2021-03-02 20:23:00 18 /min [facility] Body height 2021-03-02 20:23:00 157.5 cm [facility] Body weight 2021-03-02 20:23:00 65.545 kg [facility] BMI 2021-03-02 20:23:00 26.43 kg/m2 [facility] Systolic blood pressure 2021-02-20 17:18:00 116 mm[Hg] [facility] Diastolic blood pressure 2021-02-20 17:18:00 69 mm[Hg] [facility] Heart rate 2021-02-20 17:18:00 98 /min [facility] Respiratory rate 2021-02-20 17:18:00 28 /min [facility] Body height 2021-02-20 17:18:00 157.5 cm [facility] Body weight 2021-02-20 17:18:00 63.141 kg [facility] BMI 2021-02-20 17:18:00 25.46 kg/m2 [facility] Oxygen saturation in Arterial blood by Pulse oximetry 2021-02-20 17:18:00 100 /min [facility] Procedures Procedure Date / Time Performed Performing Clinician Source US ABDOMEN COMPLETE 2022-10-15 15:40:06 Laura Maya [facility] US PELVIS COMPLETE WITH TRANSVAGINAL 2022-09-20 16:40:32 Jeana Maya [facility] ASSIGNMENT OF BENEFITS 2022-09-20 15:22:06 Docto r Unassigned, [place] [facility] GC & CHLAMYDIA AMPLIFIED ASSAY 2022-08-24 19:37:00 Jeana Maya [facility] GALV ONLY - VAGINAL PATHOGENS BY NUCLEIC ACID TESTING 2022-08-24 19:37:00 Jeana Maya [facility] ASSIGNMENT OF BENEFITS 2022-08-24 18:48:09 Docto r Unassigned, [place] [facility] POCT URINALYSIS W/O SPECIFIC GRAVITY 2022-08-24 00:00:00 Jeana Maya [facility] EKG-12 LEAD 2022-04-21 23:40:[address] [facility] CONSENT/REFUSAL FOR DIAGNOSIS AND TREATMENT 2022-04-21 22:56:41 Doctor Unassigned, [place] [facility] GALV ONLY - SYPHILIS IGG/IGM 2021-04-25 21:18:00 Dianne [facility] GALV ONLY - SYPHILIS IGG/IGM 2021-04-25 21:18:00 Dianne [facility] CBC WITH DIFF 2021-04-25 10:29:00 Tammy Brito [facility] CBC WITH DIFF 2021-04-25 10:29:00 Tammy Brito [facility] SURGICAL PATHOLOGY EXAM 2021-04-24 08:44:00 Neftali Paulino [facility] VENOUS CORD GAS 2021-04-24 08:29:00 Daniele rayo [facility] VENOUS CORD GAS 2021-04-24 08:29:00 Daniele rayo [facility] SECTION 2021-04-24 06:59:00 Daniele moreno [facility] TUBAL LIGATION 2021-04-24 06:59:00 Daniele rayo [facility] HB ABO GROUPING 2021-04-24 06:29:00 GailDavid thakur [facility] RHO (D) IMMUNE GLOBULIN 2021-04-24 06:29:00 Alisha [facility] HB ABO GROUPING 2021-04-24 06:29:00 David Levy [facility] RHO (D) IMMUNE GLOBULIN 2021-04-24 06:29:00 Alisha [facility] COVID-19 (ID NOW RAPID TESTING) 2021-04-24 04:59:00 Fish, [facility] LAB ONLY COVID INTERPRETATION 2021-04-24 04:59:00 Fish, [facility] COVID-19 (ID NOW RAPID TESTING) 2021-04-24 04:59:00 Fish, [facility] LAB ONLY COVID INTERPRETATION 2021-04-24 04:59:00 Fish, [facility] GROUP B STREPTOCOCCUS BY PCR 2021-04-24 00:03:00 Fish, [facility] GROUP B STREPTOCOCCUS BY PCR 2021-04-24 00:03:00 Fish, [facility] URINE CULTURE 2021-04-23 23:56:00 Fish, [facility] URINE CULTURE 2021-04-23 23:56:00 Fish, Aaron [facility] URINALYSIS 2021-04-23 23:55:00 Fish, [facility] HB ABO GROUPING 2021-04-23 23:55:00 Fish, Aaron [facility] URINALYSIS 2021-04-23 23:55:00 Fish, [facility] HB ABO GROUPING 2021-04-23 23:55:00 Fish, [facility] HEPATITIS B SURFACE ANTIGEN 2021-04-23 23:53:00 Fish, [facility] ADC OR THI ONLY - RPR 2021-04-23 23:53:00 Fish, [facility] HIV 1/2 AG-AB WITH REFLEX 2021-04-23 23:53:00 Fish, [facility] HEPATITIS B SURFACE ANTIGEN 2021-04-23 23:53:00 Fish, [facility] ADC OR THI ONLY - RPR 2021-04-23 23:53:00 Fish, [facility] HIV 1/2 AG-AB WITH REFLEX 2021-04-23 23:53:00 Fish, [facility] CBC WITH DIFF 2021-04-23 22:00:00 Fish, Aaron [facility] CBC WITH DIFF 2021-04-23 22:00:00 Fish, [facility] ASSIGNMENT OF BENEFITS 2021-04-23 20:31:55 Docramu r Unassigned, [place] [facility] ADMISSION 2021-04-23 06:01:00 Doctor Un assigned, [place] [facility] ADMISSION 2021-04-23 06:01:00 Doctor Un assigned, [place] [facility] POCT URINALYSIS W/O SPECIFIC GRAVITY 2021-04-16 15:16:00 Fish, [facility] POCT URINALYSIS W/O SPECIFIC GRAVITY 2021-04-09 16:15:00 Fish, [facility] CONSENT/REFUSAL FOR DIAGNOSIS AND TREATMENT 2021-04-07 15:55:21 Doctor Unassigned, [place] [facility] ASSIGNMENT OF BENEFITS 2021-04-07 15:55:03 Docto r Unassigned, [place] [facility] POCT URINALYSIS W/O SPECIFIC GRAVITY 2021-03-30 18:13:00 Fish, [facility] CBC WITH DIFF 2021-03-26 21:32:00 Fish, [facility] ASSIGNMENT OF BENEFITS 2021-03-26 19:13:44 Docto r Unassigned, [place] [facility] CBC WITH DIFF 2021-03-17 16:50:00 Fish, [facility] ASSIGNMENT OF BENEFITS 2021-03-17 15:25:37 Docto r Unassigned, [place] [facility] POCT URINALYSIS W/O SPECIFIC GRAVITY 2021-03-16 19:25:00 Aaron Hendricks [facility] STERILIZATION CONSENT FORM 2021-03-02 05:01:00 Doctor Unassigned, [place] [facility] HB ABO GROUPING 2021-02-20 18:25:00 Aaron Hendricks [facility] CBC WITH DIFF 2021-02-20 18:19:00 Aaron Hendricks [facility] HIV 1/2 AG-AB WITH REFLEX 2021-02-20 18:19:00 Eladio, Me navarrete [facility] ADC ONLY - FERN TEST 2021-02-20 18:18:00 Aaron Hendricks [facility] Encounters Start Date/Time End Date/Time Encounter Type Admission Type Attending Clinicians Care Facility Care Department Encounter ID Source 2021-04-14 09:55:29 Outpatient [facility] [id number] [facility] 2021-04-14 06:58:15 Outpatient [facility] [id number] [facility] 2021-04-13 21:52:42 Outpatient [facility] [id number] [facility] 2021-04-13 21:48:[address] [facility] [id number] [facility] 2022-12-06 10:30:00 2022-12-06 10:30:00 Outpatient R SREEDHAR RODGERS [facility] [id number] [facility] 2022-11-22 14:00:00 2022-11-22 14:25:36 Outpatient R JEANA MAYA CHERYAL [facility] [id number] [facility] 2022-11-22 14:00:00 2022-11-22 14:25:36 Office Visit Jeana Maya [facility] [id number] [facility] 2022-10-15 09:50:17 2022-10-15 23:59:00 Outpatient R JEANA MAYA CHERYAL [facility] [id number] [facility] 2022-10-15 09:50:17 2022-10-15 23:59:00 Hospital Encounter Jeana Maya [facility] [id number] [facility] 2022-10-15 10:30:00 2022-10-15 10:45:00 Machinist Instructor Visit Pob, [facility] Lab Main Jenaa Maya [facility] [id number] [facility] 2022-09-22 16:00:00 2022-09-22 16:09:11 Outpatient R JEANA MAYA CHERYAL [facility] [id number] [facility] 2022-09-22 16:00:00 2022-09-22 16:09:11 Office Visit LatoyaJeana cohen [facility] 1.2.840.114 350.1.13.10 4.2.7.2.686 [id number] [facility] 2022-09-22 00:00:00 2022-09-22 00:00:00 Telephone LatoyaJeana cohen [facility] 1.2.840.114 350.1.13.10 4.2.7.2.686 [id number] [facility] 2022-09-20 10:24:14 2022-09-20 23:59:00 Outpatient R JEANA MAYA CHERYAL [facility] [id number] [facility] 2022-09-20 10:24:14 2022-09-20 23:59:00 Hospital Encounter Jeana Maya [facility] 1.2.840.114 350.1.13.10 4.2.7.2.686 [id number] [facility] 2022-09-20 00:00:00 2022-09-20 00:00:00 Orders Only Doctor Unassigned, [place] [facility] 1.2840.114 350.1.13.10 4.2.7.2.686 [id number] [id number] [facility] 2022-09-14 00:00:00 2022-09-14 00:00:00 Outpatient R JEANA MAYA CHERYAL [facility] [id number] [facility] 2022-08-25 00:00:00 2022-08-25 00:00:00 Telephone Jeana Maya [facility] 1.2840.114 350.1.13.10 4.2.7.2.686 [id number] [facility] 2022-08-24 14:00:00 2022-08-24 14:24:38 Outpatient R JEANA MAYA CHERYAL [facility] [id number] [facility] 2022-08-24 14:00:00 2022-08-24 14:24:38 Office Visit Jeana Maya [facility] 1.2840.114 350.1.13.10 4.2.7.2.686 [id number] 134 [id number] [facility] 2022-08-24 00:00:00 2022-08-24 00:00:00 Orders Only Doctor Unassigned, [place] [facility] 1.2840.114 350.1.13.10 4.2.7.2.686 [id number] [id number] [facility] 2022-05-19 11:30:00 2022-05-19 11:30:00 Outpatient R JEANA MAYAJEANA COHEN [facility] [id number] [facility] 2022-04-21 17:03:00 2022-04-21 17:55:00 Emergency X DARYL ESCAMILLA [facility] [id number] [facility] 2022-04-21 17:03:00 2022-04-21 17:55:00 Emergency Daryl Escamilla [facility] 1.0.114 350.1.13.10 4.2.7.2.686 [id number] [facility] 2022-04-21 00:00:00 2022-04-21 00:00:00 Orders Only Doctor Unassigned, [place] [facility] 1.114 350.1.13.10 4.2.7.2.686 [id number] [id number] [facility] 2021-06-16 13:00:00 2021-06-16 13:00:00 Outpatient R AARON HENDRICKS [facility] [id number] [facility] 2021-05-26 14:25:34 2021-05-26 14:40:34 Routine Visit EladioAaron [facility] 1.114 350.1.13.10 4.2.7.2.686 [id number] 134 [id number] [facility] 2021-05-26 13:00:00 2021-05-26 13:00:00 Outpatient R AARON HENDRICKS [facility] [id number] [facility] 2021-05-14 11:15:00 2021-05-14 12:07:49 Outpatient R AARON HENDRICKS [facility] [id number] [facility] 2021-05-14 11:00:44 2021-05-14 12:07:49 Routine Visit [facility] Aaron [facility] 1..114 350.1.13.10 4.2.7.2.686 [id number] [facility] 2021-05-14 00:00:00 2021-05-14 00:00:00 Letter (Out) Aaron Hendricks [facility] 1.2.840.114 350.1.13.10 4.2.7.2.686 [id number] [facility] 2021-05-01 09:45:05 2021-05-01 10:00:05 Nurse Visit Nurse, Lkj [facility] Aaron Hendricks [facility] 1.2.840.114 350.1.13.10 4.2.7.2.686 [id number] 134 [id number] [facility] 2021-05-01 09:30:00 2021-05-01 09:30:00 Outpatient R AARON HENDRICKS [facility] [id number] [facility] 2021-04-23 14:34:00 2021-04-27 12:31:00 Inpatient P DANIELE [facility]AKENJILISA [facility] [id number] [facility] 2021-04-23 14:34:00 2021-04-27 12:31:00 Hospital Encounter Aaron Hendricks [facility] 1.2.840.114 350.1.13.10 4.2.7.2.686 [id number] [facility] 2021-04-24 01:30:00 2021-04-24 03:47:[address] [facility] 1.2.840.114 350.1.13.10 4.2.7.2.686 [id number] [facility] 2021-04-24 00:36:26 2021-04-24 00:36:26 Anesthesia Event Shalom Josue [facility] 1.2.840.114 350.1.13.10 4.2.7.2.686 [id number] [facility] 2021-04-23 10:33:09 2021-04-23 12:23:17 Routine Visit Aaron Hendricks [facility] 1.2.840.114 350.1.13.10 4.2.7.2.686 [id number] 134 [id number] [facility] 2021-04-23 10:30:00 2021-04-23 12:23:17 Outpatient R AARON HENDRICKS [facility] [id number] [facility] 2021-04-23 00:00:00 2021-04-23 00:00:00 Orders Only Doctor Unassigned, [place] [facility] 1.2840.114 350.1.13.10 4.2.7.2.686 [id number] [id number] [facility] 2021-04-16 10:02:54 2021-04-16 10:50:32 Routine Visit Aaron Hendricks [facility] 1.2.840.114 350.1.13.10 4.2.7.2.686 [id number] 134 [id number] [facility] 2021-04-16 10:00:00 2021-04-16 10:50:32 Outpatient R AARON HENDRICKS [facility] [id number] [facility] 2021-04-09 10:16:43 2021-04-09 11:07:35 Routine Visit aAron Hendricks [facility] 1.2.840.114 350.1.13.10 4.2.7.2.686 [id number] [facility] 2021-04-09 10:00:00 2021-04-09 11:07:35 Outpatient R AARON HENDRICKS [facility] [id number] [facility] 2021-04-07 10:53:00 2021-04-07 15:42:00 Hospital Encounter Aaron Hendricks [facility] 1.0.114 350.1.13.10 4.2.7.2.686 [id number] [facility] 2021-04-07 09:05:58 2021-04-07 10:05:58 Machinist Instructor Visit Ultrasound, Adc Manny Bartlett, Filipe Arellano [facility] Professio nal Building 1.20.114 350.1.13.10 4.2.7.2.686 [id number] [facility] 2021-04-07 09:00:00 2021-04-07 09:00:00 Outpatient FILIPE LEE [facility] [id number] [facility] 2021-04-07 00:00:00 2021-04-07 00:00:00 Outpatient P [facility] [id number] [facility] 2021-03-30 13:04:07 2021-03-30 13:33:33 Routine Visit Aaron Hendricks [facility] 1..114 350.1.13.10 4.2.7.2.686 [id number] [facility] 2021-03-30 13:00:00 2021-03-30 13:00:00 Outpatient R AARON HENDRICKS [facility] [id number] [facility] 2021-03-26 14:14:00 2021-03-26 23:18:00 Hospital Encounter Aaron Hendricks [facility] 1..114 350.1.13.10 4.2.7.2.686 [id number] [facility] 2021-03-26 00:00:00 2021-03-26 00:00:00 Telephone Aaron Hendricks [facility] Building 1.2.114 350.1.13.10 4.2.7.2.686 [id number] [facility] 2021-03-26 00:00:00 2021-03-26 00:00:00 Telephone Aaron Hendricks [facility] 1.2.114 350.1.13.10 4.2.7.2.686 [id number] 134 [id number] [facility] 2021-03-26 00:00:00 2021-03-26 00:00:00 Orders Only Doctor Unassigned, [place] [facility] 1.20.114 350.1.13.10 4.2.7.2.686 [id number] [id number] [facility] 2021-03-17 11:00:00 2021-03-17 11:00:00 Outpatient R AARON HENDRICKS [facility] [id number] [facility] 2021-03-17 10:27:40 2021-03-17 10:42:40 Machinist Instructor Visit Pob, Adc Lab Main Eladio [facility] 1.114 350.1.13.10 4.2.7.2.686 [id number] [facility] 2021-03-17 00:00:00 2021-03-17 00:00:00 Case Management Eladio Aaron [facility] 1.2.114 350.1.13.10 4.2.7.2.686 [id number] 134 [id number] [facility] 2021-03-17 00:00:00 2021-03-17 00:00:00 Orders Only Doctor Unassigned, [place] [facility] 1.20.114 350.1.13.10 4.2.7.2.686 [id number] [id number] [facility] 2021-03-16 13:47:40 2021-03-16 14:25:56 Routine Visit Eladio Aaron [facility] 1.0.114 350.1.13.10 4.2.7.2.686 [id number] [facility] 2021-03-16 13:45:00 2021-03-16 13:45:00 Outpatient R AARON HENDRICKS [facility] [id number] [facility] 2021-03-10 09:58:59 2021-03-10 10:58:59 Machinist Instructor Visit Ultrasound, Manny Ang Luis Diego [facility] 1.0.114 350.1.13.10 4.2.7.2.686 [id number] [facility] 2021-03-10 08:00:00 2021-03-10 08:00:00 Outpatient MANNY AGUILERA [facility] [id number] [facility] 2021-03-02 15:01:02 2021-03-02 16:11:02 Routine Visit Eladio Aaron [facility] 1.2.114 350.1.13.10 4.2.7.2.686 [id number] 134 [id number] [facility] 2021-03-02 15:00:00 2021-03-02 15:00:00 Outpatient R AARON HENDRICKS [facility] [id number] [facility] 2021-03-02 00:00:00 2021-03-02 00:00:00 Orders Only Doctor Unassigned, [place] [facility] 1.0.114 350.1.13.10 4.2.7.2.686 [id number] [facility] 2021-02-25 00:00:00 2021-02-25 00:00:00 Telephone Aaron Hendricks [facility] 1.0.114 350.1.13.10 4.2.7.2.686 [id number] [facility] 2021-02-24 13:15:00 2021-02-24 13:15:00 Outpatient R AARON HENDRICKS [facility] [id number] [facility] 2021-02-20 11:59:00 2021-02-20 14:43:00 Hospital Encounter Aaron Hendricks [facility] 1.2.840.114 350.1.13.10 4.2.7.2.686 [id number] [facility] 2021-02-20 11:09:15 2021-02-20 11:38:12 Routine Visit [facility] 1.2.840.114 350.1.13.10 4.2.7.2.686 [id number] [facility] 2021-02-20 11:00:00 2021-02-20 11:00:00 Outpatient R AARON HENDRICKS [facility] [id number] [facility] 2021-02-20 00:00:00 2021-02-20 00:00:00 Telephone Aaron Hendricks [facility] 1.2.840.114 350.1.13.10 4.2.7.2.686 [id number] 134 [id number] [facility] 2021-02-12 14:34:26 2021-02-12 15:27:11 Routine Visit Aaron Hendricks [facility] 1.2.840.114 350.1.13.10 4.2.7.2.686 [id number] [facility] 2021-02-12 14:30:00 2021-02-12 14:30:00 Outpatient R AARON HENDRICKS [facility] [id number] [facility] 2021-02-10 08:01:18 2021-02-10 09:01:18 Machinist Instructor Visit Ultrasound, Manny Ang [facility] 1..840.114 350.1.13.10 4.2.7.2.686 [id number] [facility] 2021-02-10 08:00:00 2021-02-10 08:00:00 Outpatient P [facility] [id number] [facility] 2021-02-09 00:00:00 2021-02-09 00:00:[address] [facility] 1..840.114 350.1.13.10 4.2.7.2.686 [id number] [facility] 2021-02-04 14:45:00 2021-02-04 14:45:00 Outpatient P [facility] [id number] [facility] 2021-02-03 08:00:00 2021-02-03 08:00:00 Outpatient R FRANCOIS AMEZCUA [facility] [id number] [facility] 2021-02-02 08:00:00 2021-02-02 08:00:00 Outpatient R AARON HENDRICKS [facility] [id number] [facility] 2021-01-12 13:15:00 2021-01-12 13:15:00 Outpatient R AARON HENDRICKS [facility] [id number] [facility] 2021-01-06 14:00:00 2021-01-06 14:00:00 Outpatient P [facility] [id number] [facility] 2021-01-01 08:00:00 2021-01-01 08:00:00 Outpatient R AARON HENDRICKS [facility] [id number] [facility] 2020-12-24 10:30:00 2020-12-24 10:30:00 Outpatient R AARON HENDRICSK [facility] [id number] [facility] 2020-12-17 13:15:00 2020-12-17 13:15:00 Outpatient AARON MISHRA [facility] [id number] [facility] 2020-12-16 13:45:00 2020-12-16 13:45:00 Outpatient R AARON HENDRICKS [facility] [id number] [facility] 2020-11-18 11:00:00 2020-11-18 11:00:00 Outpatient R AARON HENDRICKS [facility] [id number] [facility] 2020-11-18 08:00:00 2020-11-18 08:00:00 Outpatient R AARON HENDRICKS [facility] [id number] [facility] 2020-10-29 14:00:00 2020-10-29 14:00:00 Outpatient P [facility] [id number] [facility] 2020-10-28 14:30:00 2020-10-28 14:30:00 Outpatient R AARON HENDRICKS [facility] [id number] [facility] 2020-10-21 08:30:00 2020-10-21 08:30:00 Outpatient R AARON HENDRICKS [facility] [id number] [facility] 2020-10-07 10:30:00 2020-10-07 10:30:00 Outpatient R AARON HENDRICKS [facility] [id number] [facility] 2019-09-16 14:20:14 2019-09-16 18:01:00 Emergency X BELKIS SANDRA [facility] [id number] [facility] 2019-09-16 14:20:14 2019-09-16 18:01:00 Emergency Belkis Sandra [facility] 1.840.114 350.1.13.10 4.2.7.2.686 [id number] 2019-09-16 00:00:00 2019-09-16 00:00:00 Orders Only Doctor Unassigned, [place] [facility] 1.840.114 350.1.13.10 4.2.7.2.686 [id number] 2019-01-07 14:13:46 2019-01-07 15:40:00 Emergency Endy Spencer [facility] 1.2.840.114 350.1.13.10 4.2.7.2.686 [id number] 2019-01-07 00:00:00 2019-01-07 00:00:00 Orders Only Doctor Unassigned, [place] [facility] 1.2.840.114 350.1.13.10 4.2.7.2.686 [id number] Results Test Description Test Time Test Comments Results Result Co mments Source [facility]/O SPECIFIC [id number] 19:02:00* Test Item Value Reference Range Interpretation Comme nts POCT PH U (test code = 3254) 5 mg/dl 5-8 POCT U LEUK EST (test code = 3263) negative Negative - Negative POCT U NIT (test code = 3262) negative Negative - Negati ve POCT U PROT (test code = 3259) negative Negative - Negat kezia POCT U GLU (test code = 3256) negative Negative - Negati ve POCT U KETONE (test code = 3258) negative Negative - Neg ative POCT U BLD (test code = 3257) negative Negative - Negati ve [facility] [id number] 18:44:00* Test Item Value Reference Range Interpretation Comme nts Case Report (test code = 7143818590) Surgical Pathology ?Case: [id number] ? Authorizing Provider: ?Krysta Sun, ? Collected: ? 04/24/2021 0244 ? MD ? Ordering Location: ? ? Obstetrics and Gynecology ?Received: ?04/24/2021 7718 ? (DEMI 3A) ?Pathologist: ? Luis M, Jose Manuel Marvin MD ?Specimens: ? A) - FALLOPIAN TUBE, LEFT ? B) - FALLOPIAN TUBE, RIGHT ? Final Diagnosis (test code = 4313047505) g9aixFIjLXGxp5jaSPZjqC FuZzEwMzNcZnRuYmpcdWMx IHtccnRmMVxlcGljOTYwMV lgxaEiUOGopMHfC6Izpgyc CHyhLT8vPQ1hnUhxvGCrcW DeMCAqCuDij1hse243dEWm n5zgKNHGainnmVx7iKzhM8 5sd4J3AzfoX91maQQyTTL9 VPImMHKiuCRmSYVeTQM7WS NetDBeJ5gvIBLbOM6aebml FTkcUOzkFLWuwFY2QNWnaY MiW0OxBSVfYSrbFWSlqlj0 NwDrNt2tcDXfdUqtWSjsUV JkXHBsYWluXGZzMjBccGFy IEEuIEZBTExPUElBTiBUVU UENLWNPARYUPAKGUePLG9W IHhaDcUNJEGNAX2HHurkTA YgLXOrAXQVLPtVAQGRB3ZJ SWJQZ2DYA09aJ3KeFrUEST 9QSUFOIFRVQkUgSURFTlRJ RklFRFxwYXJccGFyIEIuIE ZBTExPUElBTiBUVUJFLCBS XHtOMPcaI3WEYTXUIMZUEB DWX1ECNWzRKxybpLOqPIVd CF1bPoRUDFHTTm5QHhDYFT YKPF7JOB1HZPODWDoQBDfD IdMQNYTKMGxLVE7PMHWHHY YgJTRjrhuwBBN0p6rfbNMc XHNzdGVjZjIyMDAwXGFuc2 lcZGVmbGFuZzEwMzNcZnRu IgdckJLyNQIoAlNvk3ezf5 71fIFvf4mnFGHwRpS6lFNr JGPdvLsbxpt6cBjuIcDoYF Bpv3eikxOdIlUxRWXzRIDp YXPdsNHbM104ITVzNAiln3 zku6TjEBLppOQmr9U1QHOQ NTvuMaOnG540s9cey5ukft RgpTC1HJGxOBZ7JUebbrXc xqN5ZPvdiDOrGnW0NItypl XlYMscomIzdyXbMew0XUNa E240LDY8tMjwb4hnPQP5BJ QxMXTtItduHr5awOGyK522 JQKhIEXFDEHbxXc8NHWhit NbdoTizFZZt642O429x5in ANWvdwScmEmUyfgcz5mrD7 19XHBhcGVydzEyMjQwXHBh kJVilZG4RSOoXA2mbsudTA itYDljNDLbasI3IDZrtSPc I5LmNQNuJY0iegcvWXY9KN pnSATxWZQ0BeOnYTDvz7Lz dnr1NkIkna8wwh79QME6o6 CitYmeZXQ0CXT0ImLfEl9w uLUcKBEuON7zViMsyNVgZN Lvad21oYtkTXkjrfDdbP2e WoVvUTWasYHjLWZzTU9iiK UeDMEhzT3upzoiLTLwRcPp mmayLULijTaysvYlNe4vrE zoLOC4CRkgF3aieR6uVkM8 KUdhR1npzC8dJQv5RCzinM D1SWHfoW4gHV4pakmvb1ow GOwsBHwyNQMcyeO0knP7JM KnaOBgW3BjtB1yGTGbNI5c fhpuz3cnMNN4ACeuZZZrSB P4YkBgHBNbm5Qupbf9HrSm e9PglGKhYZdkS76uc427VF OofyCyF4sxhJNrltnsbVAe ohezALnvkrB4LYDtTSGgQK luXGYxXGZzMjBcbGFuZzEw MzNcaGljaFxmMVxkYmNoXG GzIRmzK8pjXhEmM4KtLPCl SyFrmYIsDErzzTI0KUTgTT Ukn49vmXg4ATCgfvqxh6Ju GPNbxZPllVRfcR3zgcRtd5 acVYLzDMNeGBIfI3HhIRF1 aXNhDLCgwEAalPN1CS8qdk KsID9jQJXmFeebgdZghNIg puJhDXOdSXqnv3faPE4rNF PbaQmrcH3eoMP1EGNcw5po iFTedTXyf3jpu5QfdkFwWH ckNWWfSIpmQULjTJZwSL4t ZGIuyMQcvbGud3B0GwbunX AcezyqWeqzfrT0CXwujtuk VHMwCHyeL5mpPlKbMWOmdJ efHioeo0DaOQFkNMJeAnmy cGFyfX0= Clinical Information (test code = [id number]) 30 yo s/p ERCS for PTL, w BTL Gross Description (test code = 0984790498) d0vciGXzFUJugNFWTPTbSp aepjArIZHycUPeL3Kivdvl JCmlVC0tPG5urXfmiWNcrP DhQJ5OCTNmOwNnSTHlvXBc jzYpNpRjFVHknRCcyHE5QZ OqSR1kjpkiPMuqMNqfFYRd ztX2OEPjiBSvS6ViRTInLL 3uvzqeBXI9EJepnL0brgLZ FvhfRa1jpNBehRevWkNkZs NoYXJzZXQwXGZuaWwgQXJp LTp1qC1CAeacBWM2ZKHYJl iuZJWcWA9Tr4ybYHXhdGVc WON0LKskjDXpZSQjPGFpJP i2HGXzORssoEYiBV8ekRna LtykeFuin2MnyTSnVKzcFE XvTJFrZWcrTUFgCK9GQdMd JPwGCVYcKQb6JsY5YDh2XH AVJdQrWxDwRHbmRME1MBIm YQg6HLi9EQyMXxQjIun2RQ TuLXF5GGJ7WQnvUTmlhQRh IFxcZiBBcmlhbCBcXGZzID AiXVjjLmuqQGhqV69btHel sD1yFtEjQQIKDtPWVKyTZ6 TWPT5oOYRBZXwwLRCHED2v gRIoEZ0SZOPrVOciZUIgjZ WGLLM7YN1xKVFAImkshVMe VSDblVflJRsuyE9hKO1JBT v8rqMrLQCuOiMkH9AzM5gn DT8aFLAkegRlMJDzaYZvLG NgqiDvh0ArROfhlhWcGZZb bGVkIHdpdGggdGhlIHBhdG brfnWbrqEtMU4fXAPXQHHm vR5xMCSsHBEzDHayb8EzJO 0uiERcRFylsEGpqKLjYW4z FKPzjjIbx0BjYL3kCHFlb3 gxL2oyIGEcfz1zkY9cCXWp Q80nsiHab3IqEsQszN8vzT FvSPQ0YxPdTFWbYSOsgVEv ocBeRL0tuJnmPhbjUX08GW WjGOupJTUuAU6mkASbSLT7 aGljaCBpcyBzZXJpYWxseS VeHML4vR3mJMXgyT0anvA6 VMTjDQDjrb3lrG1rYPZwah 2lt2h1QRSzylOuBKNtJCRs XSTjhSQvn0OuHcLtQNRdPS DIXABlVPCdzkZxsWl7FBEo DHD3dF1vmhFvheKrx3OdrK q6sXIqMElbTCDnFeagcC2j CN9DEEGjPUltVSMqpHMFUE E7RC1rCOgalUNncvjwRIFh R5PcZ9ZzijVfsXGhLKApca Epe3kmHUT5DESqiQNtaUWq SxSoIwneLWZ9AJg4ROjtZS RkI1EaR4CuUPsjMNK4XCHf MiBcXGRiICBPVlIgIiBaQj Q5YUE9VaHiPJe1ZKvtZ5GJ HUReHWY5OOY7Gby8OsD0AS l7CTHUBz0aQYQ2JWNzKxD5 WrZ9OLU7SKQsAHBvIkJhVB YgQXJpYWwgXFxmcyAxMCBc SWDbRDeazqF4UQDkInPzDm 5zNlRYBV2JTPBQQJHVYbTu VTPHF8eYMfwiSMSbMWeeiM ihfC0qYYXaH98za4YAg4Tl YM6DAAx6ubMueprmdB0xLX DcewTnWMzerHLmH5ntGhHl IwGLcGElxP5ydyBMKIfzRJ NbC1OggtDlSHdsCULukh7w nCxmNJutBkKjBKBca2m2oR G8cNGdvLL9uKIhkYyeUF6b wIChMVUVSX48wNLtsaciRh YjmHddmBnlxsO0lREeOLSr lIpzoIPqRZ7fHCIsodXij3 CkPC2vBPIwd9zwJ1cgNSKw qw1yeC0tHBLnT76xmaAkh4 CyGaFxxT0nwNQmBFP2RjVk RNUrMBUqdZNfxuKrDH9rzR xtVzrhTM70SFHqVWenWGOm OV4aoFInOGS2jAawqGMynt QvCIFbZFhkrQPbGSF0mC8e VDOojB0jtlM9DLNzDCQrni 7qcQ1zVIIegq8cz4r1MDBy cmVtYXJrYWJsZSBjdXQgc3 VyZmFjZXMuICBSZXByZXNl vlKclZx4PGIyJGH8oY9ivp XmxvLql6GenIw7sBDdAXrd JHUrOlyyzW2zXOfxiL0sGC w4gJlbEA3aQXrgSQ7gyVme WPYaCPCQP2IbUQecvWwrnV 3zQBQyT14al9SWz5QzFYCk VJbmt0bbiPicm2MalILeTP mxVEUwbUMxFQdavG9gMfGl l7ojiQx2ENwwiqH9TNBsmn 4YPuirdK6cIeUjb3fvkJd5 YZEFVoxeulV2e0jkpQjsg9 DsfCMbHK6NGq1= Disclaimer (test code = [id number]) i9oukWJbGGSqr7jjXJBrbW FuZzEwMzNcZnRuYmpcdWMx VBsrsnIqPVgvo3YpL0KqFf AwMFxhbnNpXGRlZmxhbmcx QGGmOIY7tnQxMLUgNHgzVQ CpJHhvWc6sgUPncZytIiKv FIMok3fdslSHTXhwRxApF6 22QZVwYJsxi1pck3ToNVZv lHHmf0S4CDONinydyDf5zA zrH57hr0L6OuxdZ9ldRITo CCTgJ2ZiQV9tLKSjNak5XI T0ARO1CGJtBVXkK9IqVN8i JCTysSNlWBu2q7cheNonJS KxUVZ7f4vhYCpenoEeAR8c zj4ftQa7h9gxkvYhUEIpUJ FnyIRPOWCiI6PpoQzrOl9b kBy3hBnbYzrgPNW3Yxv7YP 8ckv16zvw1eXrqPQFabzje NyP1CFeyCBEuzrhpNHz0YH nlEVCcbWH6DXCspLIyI6Bs VTEwSJ7fhti5QYW9HWksPK GrGfP3ZXRqfOZnVZSbaWgm USabd709MCY7KjKsAU9vH9 Mgb6M4hI9vsYAoVSCzsTLd VwJvREIirc3usMJdXRyzz9 ZrRIK6qpI4jNGioQBqCGIq OY59Skcja3OaJdkbt5PzG6 2xvZC4WOcds3aoUE4dTqO5 zgYbDQfmi2jerE8gBxR4DH bsZU6cEG2iRQAcjM9vzdma XHBnYnJkcmhlYWRccGdicm WsAu9rqXtuVLN3IPoyS0pl yI1uFdF3PIwrB2nqyE1jTR k1VZkcnHV8VHGfzD7cGT4r yeswr2upRUryYRpzXFKjxd J3cvT7INKjbDPgW4XrzH0h JKCfEV8chbapi8opFFI1FU geCJGgDQR2QmEjNWKrs8Dc mtr9PpMkw3PqpHKnRIglW6 4ox816VYMmzzVbO9sviIEs pxjgwONtiftzYExwxdF1DR WlraAbq1HmTWNyAGS5UMru YWnsbHVkJJXkpNeqs9buB7 RscGFyXHBsYWluXGYxXGZz MjBcbGFuZzEwMzNcaGljaF vqUEhaLcLsGTSzVMguU7db EqUtO0FmAYMeKwBelVUyQ2 ggVGhpcyByZXBvcnQgbWF5 OPfqW5j9CWYcjoGfjSn4vu SvLjOrXZGrVJK0MBrbaPUw GNOgz2YafbdmaFNzPp3xlY SmTJRxkB5eNSWsMMUkCLgc IL2tjKk0ACPErXNwjJNeLk URWGAhJF94rnUiWKUAfkbb x6V1DOdeVJMxk3EknTDfB3 out2MjFCRgk81fJB3im5X3 k7trNJE3ZB9cg8UqARWeaO MzqRHuHXUfx0Ckpjaas2Su BKDigyNno3OhWHFfopCbqD MwBCIddqYbyk1cxjSnZQYw PLJrE4JhpakrzObnxfQdLB Vksf6cgtLpNVE3TZKHRCBj MXRdx3HtjN7fgTHPEFW5iN Cqwv5wujCIuAAtEJPqir90 QLTvEO6wM6syCSIlMDEmvk WkgFVud4GrLIOttHM7mYXi MA1JXaUWb05aDNOgSHTVxr KeJZZowVpavWT9nvA8mH7f IChGREEpLlx+IFRoZSBGRE PdTC1gdoOwt5AeldEkyGyd QSJplKGik4RfaNDzt7OtuE zdq8QrnVGqgNRnSA1fFORu clxwYXIgVVRNQiBMYWJvcm E1z5DjWDSaAVYdUMX6wTyv iuw4MDFxmF4zIIMnO9wbwo nsQKzpPJYoa2QnqD0mzONZ iWKfe8HlbLHfgRHSyQTmCH 6ivtWwBCgIUKoLOKA9yhZg QMWnr4SjMOobF2ruG08jsT iypPl7nFG7SNJ9pV6xSgc+ IFxwYXJccGFyIEFwcHJvcH DcWJVfgAoujjWkH1DocsZc qL7ehZKsonJhOU9mFJ3jI9 Q3eOSxOVBjrbAfi3fbGKyh dmUgYmVlbiByZXZpZXdlZC Rcx3PpPIulMXV4ZBdbohXz bmNsdWRpbmcgSCZFLCBTcG EeaISfODA0HBcnzpUywhNy TD6ziO1yrOshiD9nqDZrbM J9dbfjDBDfTURxgGdyTDXn ND5foTMmVKGipeCDpFrxlI CbjO0uT0OqTMGnYNMurm2q BWEwpV5mGMyuu0YrpykvFJ WfQYUpFIGcimTyoq2mCKLo pZWOUK8TIBqsmUGsu4Jclt EnD5wPJZA8TPIxQbCmRpww EOIfxYCliYAgYZOhcx60YS BchQ1epBonCENjoJ0zlY3n aVwofQ4nZqYjLeKjOIabHK 9pLIYsO7yzjXPpSGIiKPLc V1ltTvVfbD6wlYshSMogMz OuMzFsYZflIMR5iA== Embedded Images (test code = [id number]) [facility] ONLY - SYPHILIS IGG/[id number] 14:51:03* Test Item Value Reference Range Interpretation Comme nts Syphilis IgG/IgM (test code = 24596-1) Non-reactive Non-reactive GAGAN (test code = GAGAN) Non-reactive - No serologic evidence of T. pallidum infection. Cannot exclude incubating or early syphilis. Submit a second specimen in 2-4 weeks if syphilis is clinically suspected. Equivocal - Further testing to follow. Reactive - Further testing to follow. Lab Interpretation (test code = 00023-3) Normal [facility] ONLY - SYPHILIS IGG/[id number] 14:51:03* Test Item Value Reference Range Interpretation Comme nts Syphilis IgG/IgM (test code = 04011-2) Non-reactive Non-reactive GAGAN (test code = GAGAN) Non-reactive - No serologic evidence of T. pallidum infection. Cannot exclude incubating or early syphilis. Submit a second specimen in 2-4 weeks if syphilis is clinically suspected. Equivocal - Further testing to follow. Reactive - Further testing to follow. Lab Interpretation (test code = 51493-9) Normal [facility] with Fbvntvfytfgl6835-73-11 11:18:41* Test Item Value Reference Range Interpretation Comme nts WBC (test code = 6690-2) See_Comment H [Automated [employer] ABa ge] The system which generated this result transmitted reference range: 4.30 - 11.10 10*3/?L. The reference range was not used to interpret this result as normal/abnormal. RBC (test code = 789-8) See_Comment L [Automated [employer] ABa ge] The system which generated this result transmitted reference range: 3.93 - 5.25 10*6/?L. The reference range was not used to interpret this result as normal/abnormal. HGB (test code = 718-7) 8.4 g/dL 11.6-15.0 L HCT (test code = 4544-3) 28.4 % 35.7-45.2 L MCV (test code = 787-2) 79.8 fL 80.6-95.5 L MCH (test code = 785-6) 23.6 pg 25.9-32.8 L MCHC (test code = 786-4) 29.6 g/dL 31.6-35.1 L RDW-SD (test code = 59680-1) 57.2 fL 39.0-49.9 H RDW-CV (test code = 788-0) 20.2 % 12.0-15.5 H PLT (test code = 777-3) See_Comment [Automated [employer] ABa ge] The system which generated this result transmitted reference range: 166 - 358 10*3/?L. The reference range was not used to interpret this result as normal/abnormal. MPV (test code = 93893-2) 10.1 fL 9.5-12.9 NRBC/100 WBC (test code = 2624409899) See_Comment [Automated [employer] ssage] The system which generated this result transmitted reference range: 0.0 - 10.0 /100 WBCs. The reference range was not used to interpret this result as normal/abnormal. NRBC x10^3 (test code = 4342954843) <0.01 See_Comment [Automated messa ge] The system which generated this result transmitted reference range: 10*3/?L. The reference range was not used to interpret this result as normal/abnormal. GRAN MAT (NEUT) % (test code = 770-8) 78.8 % IMM GRAN % (test code = 0796784868) 1.00 % LYMPH % (test code = 736-9) 15.1 % MONO % (test code = 5905-5) 4.7 % EOS % (test code = 713-8) 0.2 % BASO % (test code = 706-2) 0.2 % GRAN MAT x10^3(ANC) (test code = 4723649864) 8.96 10*3/uL 1.88-7.09 H IMM GRAN x10^3 (test code = 6108689367) 0.11 10*3/uL 0.00-0.06 H LYMPH x10^3 (test code = 731-0) 1.71 10*3/uL 1.32-3.29 MONO x10^3 (test code = 742-7) 0.53 10*3/uL 0.33-0.92 EOS x10^3 (test code = 711-2) <0.03 0.03-0.39 L BASO x10^3 (test code = 704-7) <0.03 0.01-0.07 Lab Interpretation (test code = 81527-8) Abnormal [facility] with Ezgmqxewhkwl1985-53-88 11:18:41* Test Item Value Reference Range Interpretation Comme nts WBC (test code = 6690-2) See_Comment H [Automated messa ge] The system which generated this result transmitted reference range: 4.30 - 11.10 10*3/?L. The reference range was not used to interpret this result as normal/abnormal. RBC (test code = 789-8) See_Comment L [Automated messa ge] The system which generated this result transmitted reference range: 3.93 - 5.25 10*6/?L. The reference range was not used to interpret this result as normal/abnormal. HGB (test code = 718-7) 8.4 g/dL 11.6-15.0 L HCT (test code = 4544-3) 28.4 % 35.7-45.2 L MCV (test code = 787-2) 79.8 fL 80.6-95.5 L MCH (test code = 785-6) 23.6 pg 25.9-32.8 L MCHC (test code = 786-4) 29.6 g/dL 31.6-35.1 L RDW-SD (test code = 33475-9) 57.2 fL 39.0-49.9 H RDW-CV (test code = 788-0) 20.2 % 12.0-15.5 H PLT (test code = 777-3) See_Comment [Automated [employer] ABa ge] The system which generated this result transmitted reference range: 166 - 358 10*3/?L. The reference range was not used to interpret this result as normal/abnormal. MPV (test code = 24917-0) 10.1 fL 9.5-12.9 NRBC/100 WBC (test code = 7335809690) See_Comment [Automated [employer] ssage] The system which generated this result transmitted reference range: 0.0 - 10.0 /100 WBCs. The reference range was not used to interpret this result as normal/abnormal. NRBC x10^3 (test code = 1978187571) <0.01 See_Comment [Automated [employer] ABa ge] The system which generated this result transmitted reference range: 10*3/?L. The reference range was not used to interpret this result as normal/abnormal. GRAN MAT (NEUT) % (test code = 770-8) 78.8 % IMM GRAN % (test code = 7833546088) 1.00 % LYMPH % (test code = 736-9) 15.1 % MONO % (test code = 5905-5) 4.7 % EOS % (test code = 713-8) 0.2 % BASO % (test code = 706-2) 0.2 % GRAN MAT x10^3(ANC) (test code = 6690548893) 8.96 10*3/uL 1.88-7.09 H IMM GRAN x10^3 (test code = 7626844880) 0.11 10*3/uL 0.00-0.06 H LYMPH x10^3 (test code = 731-0) 1.71 10*3/uL 1.32-3.29 MONO x10^3 (test code = 742-7) 0.53 10*3/uL 0.33-0.92 EOS x10^3 (test code = 711-2) <0.03 0.03-0.39 L BASO x10^3 (test code = 704-7) <0.03 0.01-0.07 Lab Interpretation (test code = 25940-4) Abnormal [facility] (D) IMMUNE [id number] 10:16:52* Test Item Value Reference Range Interpretation Comme nts RHIG CANDIDATE? (test code = 5055) No- see comment Patient is not a candidate for RhIg- Patient is Rh Positive.Performed at [facility] Laboratory [facility] Blood [address] Free: [phone] No. [id number] [facility] (D) IMMUNE [id number] 10:16:52* Test Item Value Reference Range Interpretation Comme nts RHIG CANDIDATE? (test code = 5055) No- see comment Patient is not a candidate for RhIg- Patient is Rh Positive.Performed at [facility] Laboratory Services [facility] Blood [address] Free: [phone] No. [id number] [facility] [id number] 08:56:38* Test Item Value Reference Range Interpretation Comme nts BASE EXCESS, CORD (test code = 3911189530) mEq/L AC PH, CORD (BEAKER) (test code = 4817490550) 7.18-7.38 PC02, CORD (test code = 0203579735) See_Comment [Automated messa ge] The system which generated this result transmitted reference range: 32 - 66 mmHg. The reference range was not used to interpret this result as normal/abnormal. PO2, CORD (test code = 5697524696) See_Comment [Automated messa ge] The system which generated this result transmitted reference range: 10 - 30 mmHg. The reference range was not used to interpret this result as normal/abnormal. BICARBONATE, CORD (test code = 1453743173) See_Comment [Automated messa ge] The system which generated this result transmitted reference range: 17 - 27 mEq/L. The reference range was not used to interpret this result as normal/abnormal. [facility] [id number] 08:56:38* Test Item Value Reference Range Interpretation Comme nts BASE EXCESS, CORD (test code = 2200564958) mEq/L AC PH, CORD (BEAKER) (test code = 6569445929) 7.18-7.38 PC02, CORD (test code = 4216256285) See_Comment [Automated messa ge] The system which generated this result transmitted reference range: 32 - 66 mmHg. The reference range was not used to interpret this result as normal/abnormal. PO2, CORD (test code = 8300872948) See_Comment [Automated messa ge] The system which generated this result transmitted reference range: 10 - 30 mmHg. The reference range was not used to interpret this result as normal/abnormal. BICARBONATE, CORD (test code = 2517908523) See_Comment [Automated messa ge] The system which generated this result transmitted reference range: 17 - 27 mEq/L. The reference range was not used to interpret this result as normal/abnormal. [facility] CORD [id number] 08:54:07* Test Item Value Reference Range Interpretation Comme nts VENOUS BASE EXCESS, CORD (test code = 5155852849) mEq/L VENOUS PH, CORD (test code = 5861113766) 7.25-7.45 VENOUS PC02, CORD (test code = 8967571890) See_Comment [Automated messa ge] The system which generated this result transmitted reference range: 27 - 49 mmHg. The reference range was not used to interpret this result as normal/abnormal. VENOUS PO2, CORD (test code = 3433599836) See_Comment [Automated me ssage] The system which generated this result transmitted reference range: 17 - 41 mmHg. The reference range was not used to interpret this result as normal/abnormal. VENOUS BICARBONATE, CORD (test code = 3333084250) See_Comment [Automated messa ge] The system which generated this result transmitted reference range: 12 - 29 mEq/L. The reference range was not used to interpret this result as normal/abnormal. [facility] CORD [id number] 08:54:07* Test Item Value Reference Range Interpretation Comme nts VENOUS BASE EXCESS, CORD (test code = 2902295967) mEq/L VENOUS PH, CORD (test code = 6220821550) 7.25-7.45 VENOUS PC02, CORD (test code = 0528970544) See_Comment [Automated messa ge] The system which generated this result transmitted reference range: 27 - 49 mmHg. The reference range was not used to interpret this result as normal/abnormal. VENOUS PO2, CORD (test code = 9106866252) See_Comment [Automated me ssage] The system which generated this result transmitted reference range: 17 - 41 mmHg. The reference range was not used to interpret this result as normal/abnormal. VENOUS BICARBONATE, CORD (test code = 4327501657) See_Comment [Automated messa ge] The system which generated this result transmitted reference range: 12 - 29 mEq/L. The reference range was not used to interpret this result as normal/abnormal. [facility] ONLY - [id number] 08:52:42* Test Item Value Reference Range Interpretation Comme nts RPR (Qualitative) (test code = 62470-2) Nonreactive Nonreactive Lab Interpretation (test cod e = 10391-8) Normal [facility] ONLY - [id number] 08:52:42* Test Item Value Reference Range Interpretation Comme nts RPR (Qualitative) (test code = 71533-7) Nonreactive Nonreactive Lab Interpretation (test cod e = 80877-6) Normal [facility] CORD [id number] 08:50:56* Test Item Value Reference Range Interpretation Comme nts VENOUS BASE EXCESS, CORD (test code = 4923092823) mEq/L VENOUS PH, CORD (test code = 5699640034) 7.25-7.45 VENOUS PC02, CORD (test code = 6365879430) See_Comment [Automated messa ge] The system which generated this result transmitted reference range: 27 - 49 mmHg. The reference range was not used to interpret this result as normal/abnormal. VENOUS PO2, CORD (test code = 9649531049) See_Comment [Automated me ssage] The system which generated this result transmitted reference range: 17 - 41 mmHg. The reference range was not used to interpret this result as normal/abnormal. VENOUS BICARBONATE, CORD (test code = 4227094366) See_Comment [Automated messa ge] The system which generated this result transmitted reference range: 12 - 29 mEq/L. The reference range was not used to interpret this result as normal/abnormal. [facility] CORD [id number] 08:50:56* Test Item Value Reference Range Interpretation Comme nts VENOUS BASE EXCESS, CORD (test code = 5919520562) mEq/L VENOUS PH, CORD (test code = 6745929926) 7.25-7.45 VENOUS PC02, CORD (test code = 9167618312) See_Comment [Automated messa ge] The system which generated this result transmitted reference range: 27 - 49 mmHg. The reference range was not used to interpret this result as normal/abnormal. VENOUS PO2, CORD (test code = 0122782181) See_Comment [Automated me ssage] The system which generated this result transmitted reference range: 17 - 41 mmHg. The reference range was not used to interpret this result as normal/abnormal. VENOUS BICARBONATE, CORD (test code = 7869375478) See_Comment [Automated messa ge] The system which generated this result transmitted reference range: 12 - 29 mEq/L. The reference range was not used to interpret this result as normal/abnormal. [facility] CORD [id number] 08:48:36* Test Item Value Reference Range Interpretation Comme nts BASE EXCESS, CORD (test code = 6839543140) mEq/L AC PH, CORD (BEAKER) (test code = 1400026918) 7.18-7.38 PC02, CORD (test code = 0496020771) See_Comment [Automated messa ge] The system which generated this result transmitted reference range: 32 - 66 mmHg. The reference range was not used to interpret this result as normal/abnormal. PO2, CORD (test code = 1503740187) See_Comment [Automated messa ge] The system which generated this result transmitted reference range: 10 - 30 mmHg. The reference range was not used to interpret this result as normal/abnormal. BICARBONATE, CORD (test code = 5485754268) See_Comment [Automated messa ge] The system which generated this result transmitted reference range: 17 - 27 mEq/L. The reference range was not used to interpret this result as normal/abnormal. [facility] [id number] 08:48:36* Test Item Value Reference Range Interpretation Comme nts BASE EXCESS, CORD (test code = 9864381672) mEq/L AC PH, CORD (BEAKER) (test code = 7049155238) 7.18-7.38 PC02, CORD (test code = 8891388712) See_Comment [Automated messa ge] The system which generated this result transmitted reference range: 32 - 66 mmHg. The reference range was not used to interpret this result as normal/abnormal. PO2, CORD (test code = 2104050766) See_Comment [Automated messa ge] The system which generated this result transmitted reference range: 10 - 30 mmHg. The reference range was not used to interpret this result as normal/abnormal. BICARBONATE, CORD (test code = 8839695399) See_Comment [Automated messa ge] The system which generated this result transmitted reference range: 17 - 27 mEq/L. The reference range was not used to interpret this result as normal/abnormal. [facility] and Screen - ONCE Whjbaof8838-08-31 07:13:42* Test Item Value Reference Range Interpretation Comme nts ABO & RH (test code = 20) A POSITIVE Performed at [facility] Laboratory Services - [facility] Blood [address] Free: [phone] No. [id number] IAT (test code = 1185) Negative Performed at [facility] Laboratory Services - [facility] Blood [address] Free: [phone] No. [id number] [facility] - ONCE [id number] 07:13:42* Test Item Value Reference Range Interpretation Comme nts ABO & RH (test code = 20) A POSITIVE Performed at [facility] Laboratory Services - [facility] Blood [address] Free: [phone] No. [id number] IAT (test code = 1185) Negative Performed at [facility] Laboratory Services - [facility] Blood [address] [address]Pddq Free: [phone] No. [id number] [facility] B Surface Tooynlq8414-85-21 06:10:47 * Test Item Value Reference Range Interpretation Comme nts HBsAg Semi-Quantitative (herlinda t code = 5195-3) Negative Negative [facility] B Surface Cbppmav2184-18-36 06:10:47 * Test Item Value Reference Range Interpretation Comme nts HBsAg Semi-Quantitative (herlinda t code = 5195-3) Negative Negative [facility] AG-AB WITH [id number] 01:35:43* Test Item Value Reference Range Interpretation Comme nts HIV Semi-quantitative (test code = 39175-1) Negative Negative GAGAN (test code = GAGAN) Non-reactive for HIV-1 antigen and HIV-1/HIV-2 antibodies. ?No laboratory evidence of HIV infection. ?Repeat in 2-4 weeks if acute HIV infection is suspected. [facility]-AB WITH [id number] 01:35:43* Test Item Value Reference Range Interpretation Comme nts HIV Semi-quantitative (test code = 13387-6) Negative Negative GAGAN (test code = GAGAN) Non-reactive for HIV-1 antigen and HIV-1/HIV-2 antibodies. ?No laboratory evidence of HIV infection. ?Repeat in 2-4 weeks if acute HIV infection is suspected. [facility] - ONCE [id number] 00:42:20 * Test Item Value Reference Range Interpretation Comme nts ABO & RH (test code = 20) A Positive Performed at [facility] Laboratory Services - [facility] Blood [address] [place] [id number] Free: [phone] No. [id number] IAT (test code = 1185) Negative Performed at [facility] Laboratory Services - [facility] Blood [address] [id number] Free: [phone] No. [id number] [facility] and Screen - ONCE [id number] 00:42:20 * Test Item Value Reference Range Interpretation Comme nts ABO & RH (test code = 20) A Positive Performed at [facility] Laboratory [facility] Blood [address] Free: [phone] No. [id number] IAT (test code = 1185) Negative Performed at [facility] Blood [place] [address]Toll Free: [phone] No. [id number] [facility] WITH [id number] 22:10:03* Test Item Value Reference Range Interpretation Comme nts WBC (test code = 6690-2) See_Comment [Automated messa ge] The system which generated this result transmitted reference range: 4.30 - 11.10 10*3/?L. The reference range was not used to interpret this result as normal/abnormal. RBC (test code = 789-8) See_Comment [Automated messa ge] The system which generated this result transmitted reference range: 3.93 - 5.25 10*6/?L. The reference range was not used to interpret this result as normal/abnormal. HGB (test code = 718-7) 9.2 g/dL 11.6-15.0 L HCT (test code = 4544-3) 30.9 % 35.7-45.2 L MCV (test code = 787-2) 78.4 fL 80.6-95.5 L MCH (test code = 785-6) 23.4 pg 25.9-32.8 L MCHC (test code = 786-4) 29.8 g/dL 31.6-35.1 L RDW-SD (test code = 36963-9) 55.2 fL 39.0-49.9 H RDW-CV (test code = 788-0) 20.4 % 12.0-15.5 H PLT (test code = 777-3) See_Comment [Automated messa ge] The system which generated this result transmitted reference range: 166 - 358 10*3/?L. The reference range was not used to interpret this result as normal/abnormal. MPV (test code = 84903-6) 10.0 fL 9.5-12.9 NRBC/100 WBC (test code = 2644313650) See_Comment [Automated [employer] ssage] The system which generated this result transmitted reference range: 0.0 - 10.0 /100 WBCs. The reference range was not used to interpret this result as normal/abnormal. NRBC x10^3 (test code = 8803635684) <0.01 See_Comment [Automated messa ge] The system which generated this result transmitted reference range: 10*3/?L. The reference range was not used to interpret this result as normal/abnormal. GRAN MAT (NEUT) % (test code = 770-8) 80.2 % IMM GRAN % (test code = 8420667036) 0.60 % LYMPH % (test code = 736-9) 15.0 % MONO % (test code = 5905-5) 3.6 % EOS % (test code = 713-8) 0.3 % BASO % (test code = 706-2) 0.3 % GRAN MAT x10^3(ANC) (test code = 3603487671) 5.80 10*3/uL 1.88-7.09 IMM GRAN x10^3 (test code = 9703191281) 0.04 10*3/uL 0.00-0.06 LYMPH x10^3 (test code = 731-0) 1.08 10*3/uL 1.32-3.29 L MONO x10^3 (test code = 742-7) 0.26 10*3/uL 0.33-0.92 L EOS x10^3 (test code = 711-2) <0.03 0.03-0.39 L BASO x10^3 (test code = 704-7) <0.03 0.01-0.07 Lab Interpretation (test code = 14633-8) Abnormal [facility] WITH [id number] 22:10:03* Test Item Value Reference Range Interpretation Comme nts WBC (test code = 6690-2) See_Comment [Automated messa ge] The system which generated this result transmitted reference range: 4.30 - 11.10 10*3/?L. The reference range was not used to interpret this result as normal/abnormal. RBC (test code = 789-8) See_Comment [Automated messa ge] The system which generated this result transmitted reference range: 3.93 - 5.25 10*6/?L. The reference range was not used to interpret this result as normal/abnormal. HGB (test code = 718-7) 9.2 g/dL 11.6-15.0 L HCT (test code = 4544-3) 30.9 % 35.7-45.2 L MCV (test code = 787-2) 78.4 fL 80.6-95.5 L MCH (test code = 785-6) 23.4 pg 25.9-32.8 L MCHC (test code = 786-4) 29.8 g/dL 31.6-35.1 L RDW-SD (test code = 12656-6) 55.2 fL 39.0-49.9 H RDW-CV (test code = 788-0) 20.4 % 12.0-15.5 H PLT (test code = 777-3) See_Comment [Automated messa ge] The system which generated this result transmitted reference range: 166 - 358 10*3/?L. The reference range was not used to interpret this result as normal/abnormal. MPV (test code = 76330-3) 10.0 fL 9.5-12.9 NRBC/100 WBC (test code = 9240749335) See_Comment [Automated [employer] ssage] The system which generated this result transmitted reference range: 0.0 - 10.0 /100 WBCs. The reference range was not used to interpret this result as normal/abnormal. NRBC x10^3 (test code = 9877996246) <0.01 See_Comment [Automated messa ge] The system which generated this result transmitted reference range: 10*3/?L. The reference range was not used to interpret this result as normal/abnormal. GRAN MAT (NEUT) % (test code = 770-8) 80.2 % IMM GRAN % (test code = 5466451381) 0.60 % LYMPH % (test code = 736-9) 15.0 % MONO % (test code = 5905-5) 3.6 % EOS % (test code = 713-8) 0.3 % BASO % (test code = 706-2) 0.3 % GRAN MAT x10^3(ANC) (test code = 1891819101) 5.80 10*3/uL 1.88-7.09 IMM GRAN x10^3 (test code = 3247400322) 0.04 10*3/uL 0.00-0.06 LYMPH x10^3 (test code = 731-0) 1.08 10*3/uL 1.32-3.29 L MONO x10^3 (test code = 742-7) 0.26 10*3/uL 0.33-0.92 L EOS x10^3 (test code = 711-2) <0.03 0.03-0.39 L BASO x10^3 (test code = 704-7) <0.03 0.01-0.07 Lab Interpretation (test code = 61011-8) Abnormal [facility] URINALYSIS W/O SPECIFIC [id number] 15:17:00* Test Item Value Reference Range Interpretation Comme nts POCT PH U (test code = 3254) n/a 5-8 POCT U LEUK EST (test code = 3263) n/a Negative - Negative POCT U NIT (test code = 3262) n/a Negative - Negati ve POCT U PROT (test code = 3259) negative Negative - Negat kezia POCT U GLU (test code = 3256) Negative - Negati ve POCT U KETONE (test code = 3258) n/a Negative - Neg ative POCT U BLD (test code = 3257) n/a Negative - Negati ve Lab Interpretation (test cod e = 08669-1) Normal [facility] URINALYSIS W/O SPECIFIC [id number] 16:16:00* Test Item Value Reference Range Interpretation Comme nts POCT PH U (test code = 3254) n/a 5-8 POCT U LEUK EST (test code = 3263) n/a Negative - Negative POCT U NIT (test code = 3262) n/a Negative - Negati ve POCT U PROT (test code = 3259) negative Negative - Negat kezia POCT U GLU (test code = 3256) Negative - Negati ve POCT U KETONE (test code = 3258) n/a Negative - Neg ative POCT U BLD (test code = 3257) n/a Negative - Negati ve Lab Interpretation (test cod e = 40796-4) Normal [facility]/O SPECIFIC [id number] 18:14:00* Test Item Value Reference Range Interpretation Comme nts POCT PH U (test code = 3254) n/a 5-8 POCT U LEUK EST (test code = 3263) n/a Negative - Negative POCT U NIT (test code = 3262) n/a Negative - Negati ve POCT U PROT (test code = 3259) negative Negative - Negat kezia POCT U GLU (test code = 3256) negative Negative - Negati ve POCT U KETONE (test code = 3258) n/a Negative - Neg ative POCT U BLD (test code = 3257) n/a Negative - Negati ve Lab Interpretation (test cod e = 04794-3) Normal [facility] WITH [id number] 21:35:10* Test Item Value Reference Range Interpretation Comme nts WBC (test code = 6690-2) See_Comment [Automated messa ge] The system which generated this result transmitted reference range: 4.30 - 11.10 10*3/?L. The reference range was not used to interpret this result as normal/abnormal. RBC (test code = 789-8) See_Comment L [Automated messa ge] The system which generated this result transmitted reference range: 3.93 - 5.25 10*6/?L. The reference range was not used to interpret this result as normal/abnormal. HGB (test code = 718-7) 8.4 g/dL 11.6-15.0 L HCT (test code = 4544-3) 27.9 % 35.7-45.2 L MCV (test code = 787-2) 77.9 fL 80.6-95.5 L MCH (test code = 785-6) 23.5 pg 25.9-32.8 L MCHC (test code = 786-4) 30.1 g/dL 31.6-35.1 L RDW-SD (test code = 74908-2) 42.6 fL 39.0-49.9 RDW-CV (test code = 788-0) 15.2 % 12.0-15.5 PLT (test code = 777-3) See_Comment [Automated messa ge] The system which generated this result transmitted reference range: 166 - 358 10*3/?L. The reference range was not used to interpret this result as normal/abnormal. MPV (test code = 29123-2) 9.7 fL 9.5-12.9 NRBC/100 WBC (test code = 0708228247) See_Comment [Automated [employer] ssage] The system which generated this result transmitted reference range: 0.0 - 10.0 /100 WBCs. The reference range was not used to interpret this result as normal/abnormal. NRBC x10^3 (test code = 5647593070) See_Comment [Automated messa ge] The system which generated this result transmitted reference range: 10*3/?L. The reference range was not used to interpret this result as normal/abnormal. GRAN MAT (NEUT) % (test code = 770-8) 72.7 % IMM GRAN % (test code = 8028122183) 1.10 % LYMPH % (test code = 736-9) 18.8 % MONO % (test code = 5905-5) 6.2 % EOS % (test code = 713-8) 0.8 % BASO % (test code = 706-2) 0.4 % GRAN MAT x10^3(ANC) (test code = 5610006741) 5.16 10*3/uL 1.88-7.09 IMM GRAN x10^3 (test code = 5989650543) 0.08 10*3/uL 0.00-0.06 H LYMPH x10^3 (test code = 731-0) 1.34 10*3/uL 1.32-3.29 MONO x10^3 (test code = 742-7) 0.44 10*3/uL 0.33-0.92 EOS x10^3 (test code = 711-2) 0.06 10*3/uL 0.03-0.39 BASO x10^3 (test code = 704-7) 0.03 10*3/uL 0.01-0.07 Lab Interpretation (test code = 85449-9) [facility] [id number] 19:26:00* Test Item Value Reference Range Interpretation Comme nts POCT PH U (test code = 3254) N/A 5-8 POCT U LEUK EST (test code = 3263) N/A Negative - Negative POCT U NIT (test code = 3262) N/A Negative - Negati ve POCT U PROT (test code = 3259) Negative Negative - Negat kezia POCT U GLU (test code = 3256) Negative Negative - Negati ve POCT U KETONE (test code = 3258) N/A Negative - Neg ative POCT U BLD (test code = 3257) N/A Negative - Negati ve Lab Interpretation (test cod e = 15745-2) Normal [facility] AG-AB WITH [id number] 19:37:38* Test Item Value Reference Range Interpretation Comme nts HIV Semi-quantitative (test code = 29807-3) Negative Negative GAGAN (test code = GAGAN) Non-reactive for HIV-1 antigen and HIV-1/HIV-2 antibodies. ?No laboratory evidence of HIV infection. ?Repeat in 2-4 weeks if acute HIV infection is suspected. [facility], BLOOD [id number] 19:31:04 * Test Item Value Reference Range Interpretation Comme nts ABO & RH (test code = 20) A Positive Performed at [facility] Laboratory Services - [facility] Blood [address] [place] [address] Free: [phone] No. [id number] IAT (test code = 1185) Negative Performed at [facility] Laboratory Services - [facility] Blood [address] [place], [place] [id number] Free: [phone] No. [id number] [facility] - FERN [id number] 18:53:33* Test Item Value Reference Range Interpretation Comme nts Fern Test (test code = 4699243688) Negative [facility] WITH [id number] 18:45:29* Test Item Value Reference Range Interpretation Comme nts WBC (test code = 6690-2) See_Comment [Automated messa ge] The system which generated this result transmitted reference range: 4.30 - 11.10 10*3/?L. The reference range was not used to interpret this result as normal/abnormal. RBC (test code = 789-8) See_Comment L [Automated messa ge] The system which generated this result transmitted reference range: 3.93 - 5.25 10*6/?L. The reference range was not used to interpret this result as normal/abnormal. HGB (test code = 718-7) 9.9 g/dL 11.6-15.0 L HCT (test code = 4544-3) 30.7 % 35.7-45.2 L MCV (test code = 787-2) 80.8 fL 80.6-95.5 MCH (test code = 785-6) 26.1 pg 25.9-32.8 MCHC (test code = 786-4) 32.2 g/dL 31.6-35.1 RDW-SD (test code = 29640-4) 38.5 fL 39.0-49.9 L RDW-CV (test code = 788-0) 13.2 % 12.0-15.5 PLT (test code = 777-3) See_Comment [Automated messa ge] The system which generated this result transmitted reference range: 166 - 358 10*3/?L. The reference range was not used to interpret this result as normal/abnormal. MPV (test code = 66414-4) 9.7 fL 9.5-12.9 NRBC/100 WBC (test code = 4067911750) See_Comment [Automated [employer] ssage] The system which generated this result transmitted reference range: 0.0 - 10.0 /100 WBCs. The reference range was not used to interpret this result as normal/abnormal. NRBC x10^3 (test code = 9836248681) <0.01 See_Comment [Automated messa ge] The system which generated this result transmitted reference range: 10*3/?L. The reference range was not used to interpret this result as normal/abnormal. GRAN MAT (NEUT) % (test code = 770-8) 75.3 % IMM GRAN % (test code = 2002352536) 1.50 % LYMPH % (test code = 736-9) 16.4 % MONO % (test code = 5905-5) 5.8 % EOS % (test code = 713-8) 0.5 % BASO % (test code = 706-2) 0.5 % GRAN MAT x10^3(ANC) (test code = 3451574011) 6.37 10*3/uL 1.88-7.09 IMM GRAN x10^3 (test code = 3481591245) 0.13 10*3/uL 0.00-0.06 H LYMPH x10^3 (test code = 731-0) 1.39 10*3/uL 1.32-3.29 MONO x10^3 (test code = 742-7) 0.49 10*3/uL 0.33-0.92 EOS x10^3 (test code = 711-2) 0.04 10*3/uL 0.03-0.39 BASO x10^3 (test code = 704-7) 0.04 10*3/uL 0.01-0.07 Lab Interpretation (test code = 75483-3) Abnormal [facility]
--- NOTE | 2023-06-05 13:57 | ER ---
Nurse's Notes [facility] Name: Alberto Johnson Age: 32 yrs Sex: Female : 1990 Arrival Date: 06/05/2023 Time: 11:55 Bed 12 Private MD: Diagnosis: Influenza due to other identified influenza virus with other respiratory manifestations;Streptococcal pharyngitis Presentation: 06/05 12:14 Chief complaint: Patient states: cough, fever, body aches onset 2 days ago. Pt states cm10 that her children had the flu recently. Coronavirus screen: Vaccine status: Patient reports being unvaccinated. Client denies travel out of the [place] in the last 14 days. Ebola Screen: Patient denies travel to an Ebola-affected area in the 21 days before illness onset. No symptoms or risks identified at this time. Initial Sepsis Screen: Does the patient meet any 2 criteria? No. Patient's initial sepsis screen is negative. Does the patient have a suspected source of infection? No. Patient's initial sepsis screen is negative. Risk Assessment: Do you want to hurt yourself or someone else? Patient reports no desire to harm self or others. Onset of symptoms was June 03, 2023. 12:14 Method Of Arrival: Ambulatory cm10 12:14 Acuity: IKER 4 cm10 Triage Assessment: 12:44 General: Appears in no apparent distress. comfortable, Behavior is calm, cooperative. cm10 Pain: Complains of pain in Generalized body aches. EENT: No deficits noted. No signs and/or symptoms were reported regarding the EENT system. Neuro: No deficits noted. Level of Consciousness is awake, alert, obeys commands, Oriented to person, place, time, situation. Cardiovascular: No deficits noted. Patient's skin is warm and dry. Respiratory: No deficits noted. Reports cough that is Airway is patent Respiratory effort is even, unlabored, Respiratory pattern is regular, symmetrical. GI: No deficits noted. Reports nausea. : No deficits noted. No signs and/or symptoms were reported regarding the genitourinary system. Derm: No deficits noted. No signs and/or symptoms reported regarding the dermatologic system. Skin is intact, Skin is pink, warm \T\ dry. Musculoskeletal: No deficits noted. No signs and/or symptoms reported regarding the musculoskeletal system. Range of motion: intact in all extremities. Historical: - Allergies: 12:15 Hydrocodone-Acetaminophen; cm10 12:15 Sulfa (Sulfonamide Antibiotics); cm10 12:15 Tramadol HCl; cm10 - PMHx: 12:15 Anemia; cm10 - PSHx: 12:15 Adenoid excision; Appendectomy; section; tubal ligation; cm10 - Immunization history:: Adult Immunizations unknown. - Social history:: Smoking status: Patient denies any tobacco usage or history of. Screenin:45 [facility] ED Fall Risk Assessment (Adult) History of falling in the last 3 months, cm10 including since admission No falls in past 3 months (0 pts) Confusion or Disorientation No (0 pts) Intoxicated or Sedated No (0 pts) Impaired Gait No (0 pts) Mobility Assist Device Used No (0 pt) Altered Elimination No (0 pt) Score/Fall Risk Level 0 - 2 = Low Risk Oriented to surroundings, Maintained a safe environment, Hourly rounding (assess needs \T\ fall precautionary measures) done. Abuse screen: Denies threats or abuse. Denies injuries from another. Nutritional screening: No deficits noted. Tuberculosis screening: No symptoms or risk factors identified. Assessment: 14:13 Reassessment: Patient appears in no apparent distress at this time. Patient and/or db family updated on plan of care and expected duration. Pain level reassessed. Patient is alert, oriented x 3, equal unlabored respirations, skin warm/dry/pink. Patient states feeling better. Vital Signs: 12:14 BP 105 / 85; Pulse 94; Resp 18; Temp 99.6; Pulse Ox 97% on R/A; Weight 55.34 kg; Height cm10 5 ft. 2 in. ; Pain 10/10; 14:13 BP 99 / 85; Pulse 95; Resp 18; Pulse Ox 98% on R/A; db 12:14 Body Mass Index 22.31 (55.34 kg, 157.48 cm) cm10 12:14 Pain Scale: Adult cm10 ED Course: 11:57 Patient arrived in ED. im 12:12 Eric Rivas PA is PHCP. cp 12:12 Elias García MD is Attending Physician. cp 12:15 Triage completed. cm10 12:15 Arm band placed on Patient placed in an exam room, on a stretcher. cm10 12:36 COVID swab sent to lab. Flu and/or RSV swab sent to lab. Strep swab sent to lab. db 12:39 Leonel Gresham, RN is Primary Nurse. jl7 12:45 Patient has correct armband on for positive identification. Call light in reach. Side cm10 rails up X2. Provided Education on: ER process and procedures.. 12:45 No provider procedures requiring assistance completed. Patient did not have IV access cm10 during this emergency room visit. Administered Medications: 12:46 Drug: Ondansetron PO 4 mg PO once Route: PO; jl7 14:14 Follow up: Response: No adverse reaction db 12:46 Drug: Ibuprofen PO 600 mg PO once Route: PO; jl7 14:14 Follow up: Response: No adverse reaction db 14:02 Drug: Amoxicillin-Clavulanate PO 875 mg PO once Route: PO; db 14:14 Follow up: Response: No adverse reaction db 14:02 Drug: Oseltamivir PO 75 mg PO once Route: PO; db 14:14 Follow up: Response: No adverse reaction db Medication: 12:45 VIS not applicable for this client. cm10 Outcome: 13:56 Discharge ordered by . ricky 14:13 Discharged to home ambulatory, with family, db 14:13 Condition: stable 14:13 Discharge instructions given to patient, Instructed on discharge instructions, follow up and referral plans. Prescriptions given X 4, 14:14 Patient left the ED. db Signatures: Eric Rivas PA PA cp Leal, Jahala, RN RN jl7 Lily Goldstein, RN RN db Blanche Chen Clarissa, RN RN cm10
--- NOTE | 2023-06-05 13:57 | EDPHYS ---
Physician Documentation [facility] Name: Alberto Johnson Age: 32 yrs Sex: Female : 1990 Arrival Date: 06/05/2023 Time: 11:55 Bed 12 Private MD: ED Physician Elias García HPI: 06/05 12:33 This 32 yrs old Female presents to ER via Ambulatory with complaints of Flu Symptoms. cp 12:33 The patient or guardian reports cough, that is intermittent. Onset: The cp symptoms/episode began/occurred 2 day(s) ago. Associated signs and symptoms: Pertinent positives: nausea, sore throat, vomiting. Severity of symptoms: in the emergency department the symptoms are unchanged despite home interventions. Historical: - Allergies: 12:15 Hydrocodone-Acetaminophen; cm10 12:15 Sulfa (Sulfonamide Antibiotics); cm10 12:15 Tramadol HCl; cm10 - PMHx: 12:15 Anemia; cm10 - PSHx: 12:15 Adenoid excision; Appendectomy; section; tubal ligation; cm10 - Immunization history:: Adult Immunizations unknown. - Social history:: Smoking status: Patient denies any tobacco usage or history of. ROS: 12:40 Constitutional: Positive for body aches, Negative for fever, cp 12:40 Eyes: Negative for injury, pain, redness, and discharge, cp 12:40 ENT: Positive for sore throat, Negative for drainage from ear(s), ear pain, difficulty swallowing, difficulty handling secretions, 12:40 Cardiovascular: Positive for chest pain, with cough, 12:40 Respiratory: Positive for cough, 12:40 Abdomen/GI: Positive for nausea and vomiting, 12:40 Neuro: Positive for headache, Negative for altered mental status, weakness, 12:40 All other systems are negative, Exam: 12:45 Constitutional: The patient appears in no acute distress, alert, awake, non-toxic, well cp developed, well nourished, uncomfortable, 12:45 Head/Face: Normocephalic, atraumatic. cp 12:45 Eyes: Periorbital structures: appear normal, Conjunctiva: normal, no exudate, no injection, Sclera: no appreciated abnormality, Lids and lashes: appear normal, bilaterally, 12:45 ENT: External ear(s): are unremarkable, Ear canal(s): are normal, clear, TM's: dullness, bilaterally, Nose: is normal, Mouth: Lips: moist, Oral mucosa: moist, Posterior pharynx: Airway: no evidence of obstruction, patent, Tonsils: with erythema, erythema, that is moderate, exudate, is not appreciated, 12:45 Neck: ROM/movement: is normal, is supple, no meningismus, no nuchal rigidity, 12:45 Chest/axilla: Inspection: normal, 12:45 Cardiovascular: Rate: normal, Rhythm: regular, 12:45 Respiratory: the patient does not display signs of respiratory distress, Respirations: normal, no use of accessory muscles, no retractions, Breath sounds: bronchial sounds, that are mild, stridor, is not appreciated, wheezing: is not appreciated, 12:45 Abdomen/GI: Inspection: abdomen appears normal, Palpation: abdomen is soft and non-tender, in all quadrants, 12:45 Skin: no rash present. 12:45 Neuro: Orientation: to person, place \T\ time. Mentation: is normal, Vital Signs: 12:14 BP 105 / 85; Pulse 94; Resp 18; Temp 99.6; Pulse Ox 97% on R/A; Weight 55.34 kg; Height cm10 5 ft. 2 in. ; Pain 10/10; 14:13 BP 99 / 85; Pulse 95; Resp 18; Pulse Ox 98% on R/A; db 12:14 Body Mass Index 22.31 (55.34 kg, 157.48 cm) cm10 12:14 Pain Scale: Adult cm10 MDM: 12:17 Patient medically screened. cp 13:55 Data reviewed: vital signs, nurses notes, lab test result(s). cp 13:55 Differential diagnosis: bronchitis, flu, URI. Antibiotic administration: The patient is cp discharged and will get outpatient antibiotics, Amoxicillin, Tamiflu. I considered the following discharge prescriptions or medication management in the emergency department Medications were administered in the Emergency Department. See MAR. Counseling: I had a detailed discussion with the patient and/or guardian regarding the historical points, exam findings, and any diagnostic results supporting the discharge/admit diagnosis, lab results, to return to the emergency department if symptoms worsen or persist or if there are any questions or concerns that arise at home. Response to treatment: the patient's symptoms have mildly improved after treatment. 12/24 12:27 Order name: Strep; Complete Time: 13:54 cp 06/05 13:54 Interpretation: Reviewed. cp 06/05 12:27 Order name: COVID-19 SARS RT PCR; Complete Time: 13:54 cp 06/05 12:27 Order name: Influenza Screen (a \T\ B); Complete Time: 13:54 cp 06/05 13:54 Interpretation: Reviewed. cp Administered Medications: 12:46 Drug: Ondansetron PO 4 mg PO once Route: PO; jl7 14:14 Follow up: Response: No adverse reaction db 12:46 Drug: Ibuprofen PO 600 mg PO once Route: PO; jl7 14:14 Follow up: Response: No adverse reaction db 14:02 Drug: Amoxicillin-Clavulanate PO 875 mg PO once Route: PO; db 14:14 Follow up: Response: No adverse reaction db 14:02 Drug: Oseltamivir PO 75 mg PO once Route: PO; db 14:14 Follow up: Response: No adverse reaction db Disposition: 16:32 Co-signature as Attending Physician, Eilas García MD I reviewed the patient's care rt provided by the Advanced Practice Provider and agree with the diagnosis and treatment plan. Disposition Summary: 06/05/23 13:56 Discharge Ordered Notes: Location: Home cp Problem: new cp Symptoms: have improved cp Condition: Stable cp Diagnosis - Influenza due to other identified influenza virus with other respiratory cp manifestations - Streptococcal pharyngitis cp Followup: cp - With: Private Physician - When: 2 - 3 days - Reason: Worsening of condition Discharge Instructions: - Discharge Summary Sheet cp - Influenza, Adult cp - Strep Throat, Adult cp Forms: - Medication Reconciliation Form cp - Thank You Letter cp - Antibiotic Education cp - Prescription Opioid Use cp - Patient Portal Instructions cp - Leadership Thank You Letter cp Prescriptions: - Augmentin 875-125 mg Oral Tablet - take 1 tablet ORAL route every 12 hours for 10 days; 20 tablet; Refills: 0, cp Product Selection Permitted - Ibuprofen 600 mg Oral tablet - take 1 tablet ORAL route every 8 hours As needed take with food; 30 tablet; cp Refills: 0, Product Selection Permitted - Zofran 4 mg Oral Tablet - take 1 tablet ORAL route every 12 hours As needed; 20 tablet; Refills: 0, cp Product Selection Permitted - Tamiflu 75 mg Oral capsule - take 1 tablet ORAL route every 12 hours for 5 days; 10 tablet; Refills: 0, cp Product Selection Permitted Signatures: Dispatcher [employer] EDEric Valladares PA PA cp Leal, Jahala, RN RN jl7 Lily Goldstein RN RN db Elias García MD MD rt Mariana Michaud RN RN cm10 Corrections: (The following items were deleted from the chart) 21:34 21:32 Constitutional: Negative for fever, cp cp
[2023-06-05 14:23] VITALS: BP 99/85; TEMP 99.6; O2SAT 98
== END ==
LOC: ER 11:55
DX: J10.1 Influenza due to other identified influenza virus with other respiratory manifestations (principal); J02.0 Streptococcal pharyngitis; Z11.52 Encounter for screening for COVID-19
CPT/HCPCS: 87081; 87635; 87804; 99283; Q0162

== ENCOUNTER 2024-07-02 21:40 | Emergency (ER) | payer SELFPAY ==
--- OUTSIDE RECORDS SUMMARY | 2024-07-02 21:44 | XMS REPORT | Continuity of Care Document ---
Author Name Unknown Address [address] [facility] [address] [place] [address] [facility] Address [address] [facility] [address] [place] [address] Care Team Providers Care Astronomy Teacher Name Role Phone PCP, PATIENT DOES NOT HAVE A Primary Care Physic romulo Unavailable MARIVEL PARSONS Attending Clinician Unavailable Issa Marivel WALSH Attending Clinician CHRIS SANDRA Attending Clinician Unavailable CHRIS SANDRA Attending Clinician Unavailable Chris Sandra MD Attending Clinician ARMANDO ALDANA Attending Clinician ARMANDO Mcqueen Attending Clinician SAVITA Cross Attending Clinician SAVITA Parikh Attending Clinician ANNE-MARIE Nettles Attending Clinician FRAN Crawford Attending Clinician FRAN Ying Attending Clinician Alli al Pob, [facility] Attending Clinician Anton biggs Doctor Unassigned, [place] Attending Clinician U chrissyailDARYL Escobar Attending Clinician Unavaila Daryl Aden Attending Clinician + [phone] AARON HENDRICKS Attending Clinician Unavailable Aaron Hendricks MD Attending Clinician [phone] Nurse, [place] [facility] Attending Clinician Unavailable KRYSTA SUN Attending Clinician Krysta Schmitz MD Attending Clinician + Josue Rausch DO Attending Clinician [phone] Ultrasound, [facility] Attending Clinician UnavailBronwyn Zacarias MD Attending Clinician [phone] Filipe Navarrete MD Attending Clinician + [phone] AdanEric holland DO Attending Clinician +[phone] FILIPE NAVARRETE Attending Clinician Unavaila servando Ultrasound, [facility] Attending Clinician UnavailBRONWYN Zacarias Attending Clinician UnavailFRANCOIS Gudino Attending Clinician Unavailable CALLY SANDRA Attending Clinician Unavailable Cally Sandra PA-C Attending Clinician [phone] Endy Fisher Attending Clinician [phone] AARON HENDRICKS Admitting Clinician Unavailable FRAN MAYA Admitting Clinician UnavailKRYSTA [place] Admitting Clinician Krysta Schmitz MD Admitting Clinician + Aaron Hendricks MD Admitting Clinician [phone] CALLY SANDRA Admitting Clinician Unavailable Payers Payer Name Policy Type Policy Number Effective Date Expirati on Date Source [employer] MEDICAID [id number] 2020 00:00:00 [facility] [id number] 2023 00:00:00 [place]ICA[place] [id number] 2020 00:00:00 [facility] [id number] 2018 00:00:00 2020 00:00:00 Problems Condition Name Condition Details Condition Category Status Onset Date Resolution Date Last Treatment Date Treating Clinician Comments Source Dizziness and giddiness Dizziness and giddiness Disease Active 0 6-12 00:00: 00 [facility] Pain pelvic Pain pelvic Disease Active 0 6-12 00:00: 00 [facility] Dyspareuni a in female Dyspareuni a in female Disease Active 0 3-20 00:00: 00 [facility] RLQ abdominal pain RLQ abdominal pain Disease Active 0 3-14 00:00: 00 [facility] Vaginal discharge Vaginal discharge Disease Active 0 3-14 00:00: 00 [facility] Tubal ligation status Tubal ligation status Disease Active 0 3-14 00:00: 00 [facility] Anemia of mother in , antepartum Anemia of mother in , antepartum Disease Active 9-22 00:00: 00 [facility] Sciatic nerve pain, unspecifie d laterality Sciatic nerve pain, unspecifie d laterality Disease Active 8-02 00:00: 00 [facility] Screening examinatio n for venereal disease Screening examinatio n for venereal disease Disease Active 4-27 00:00: 00 [facility] History of section History of section Disease Active 0 4-27 00:00: 00 [facility] Dichorioni c diamniotic twin in third trimester Dichorioni c diamniotic twin in third trimester Disease Active 4-27 00:00: 00 [facility] History of gestationa l hypertensi on History of gestationa l hypertensi on Disease Active 0 4-27 00:00: 00 [facility] uterine contractio ns in third trimester, antepartum uterine contractio ns in third trimester, antepartum Disease Resolve d 2020-06- 00:00: 00 2021-05-15 00:00:00 2021-05-15 11:27:19 [facility] Premature uterine contractio ns Premature uterine contractio ns Disease Resolve d 2020-06- 00:00: 00 2021-05-15 00:00:00 2021-05-15 11:27:22 [facility] Decreased movements in third trimester Decreased movements in third trimester Disease Resolve d 2020-1 0-14 00:00: 00 2021-05-15 00:00:00 2021-05-15 11:27:43 [facility] Anemia of mother in , antepartum Anemia of mother in , antepartum Disease Resolve d 2020-0 9-22 00:00: 00 2021-05-15 00:00:00 2021-05-15 11:27:38 [facility] Abnormal maternal glucose tolerance, antepartum Abnormal maternal glucose tolerance, antepartum Disease Resolve d 2020-0 9-22 00:00: 00 2021-05-15 00:00:00 2021-05-15 11:27:40 [facility] Uterine contractio ns during Uterine contractio ns during Disease Resolve d 2020-0 9-10 00:00: 00 2021-05-15 00:00:00 2021-05-15 11:27:25 [facility] History of UTI History of UTI Disease Resolve d 2020-0 6-08 00:00: 00 2021-05-15 00:00:00 2021-05-15 11:27:27 [facility] Nausea Nausea Disease Resolve d 2020-0 4-27 00:00: 00 2021-05-15 00:00:00 2021-05-15 11:27:46 [facility] Sinusitis, unspecifie d chronicity , unspecifie d location Sinusitis, unspecifie d chronicity , unspecifie d location Disease Resolve d 2020-0 7-07 00:00: 00 2021-01-04 00:00:00 2021-01-04 22:22:20 [facility] Yeast detected Yeast detected Disease Resolve d 2020-0 5-18 00:00: 00 2020-12-17 00:00:00 2020-12-17 13:37:27 [facility] Dysuria Dysuria Disease Resolve d 2020-0 5-11 00:00: 00 2020-12-17 00:00:00 2020-12-17 13:37:28 [facility] 8 weeks gestation of 8 weeks gestation of Disease Resolve d 10-21 00:00: 00 2020-10-21 00:00:00 2020-10-21 09:55:44 [facility] Allergies, Adverse Reactions, Alerts Allergy Name Allergy Type Status Severity Reaction(s) Onset Date Inactive Date Treating Clinician Comments Source Hydrocod one Propensi ty to adverse reaction s Active Nausea and/or Vomiting 10-07 00:00: 00 [facility] Tramadol Propensi ty to adverse reaction s Active Nausea and/or Vomiting 10-07 00:00: 00 [facility] HYDROCOD ONE DRUG INGREDI Active N/V 10-07 00:00: 00 [facility] TRAMADOL DRUG INGREDI Active N/V 10-07 00:00: 00 [facility] Sulfa (Sulfona mide Antibiot ics) Propensi ty to adverse reaction s Active Anaphylaxis 0 01-07 00:00: 00 [facility] Sulfa (Sulfona mide Antibiot ics) Propensi ty to adverse reaction s Active Anaphylaxis 01-07 00:00: 00 [facility] SULFA (SULFONA MIDE ANTIBIOT ICS) Drug Class Active Anaphylaxis 0 01-07 00:00: 00 [facility] Social History Social Habit Start Date Stop Date Quantity Comments Source ASSERTION 2020-09-07 00:00:00 [facility]coholic beverage intake 2024-06-29 00:00:00 2024-06-29 00:00:00 Current drinker of alcohol (finding) [facility] Alcohol Comment 2024-06-28 00:00:00 2024-06-28 00:00:00 socially [facility] Alcohol intake 2022-11-22 00:00:00 2022-11-22 00:00:00 Ex-drinker (finding) [facility] Exposure to SARS-CoV-2 (event) 2022-09-12 00:00:00 2022-09-22 15:40:00 Not sure [facility] Tobacco use and exposure 2022-08-24 00:00:00 2022-08-24 00:00:00 Smokeless tobacco non-user [facility] History of Social function 2020-10-21 00:00:00 2020-10-21 00:00:00 [facility] Sex assigned at 1990 00:00:00 1990 00:00:00 [facility] Smoking Status Start Date Stop Date Source Never smoked tobacco [facility] Medications Ordered Medication Name Filled Medication Name Start Date Stop Date Current Medication? Ordering Clinician Indication Dosage Frequency Signature (SIG) Comments Components Source metroNIDAZO LE 500 mg tablet 06-28 00:00: 00 Yes [id number] 500mg Take 1 tablet by mouth every 12 (twelve) hours. [facility] fluconazole 150 mg tablet 06-28 00:00: 00 06-29 05:59 :00 No [id number] 150mg Take 1 tablet by mouth once now for [address] [facility] butalbital- acetaminoph en-caff (ESGIC) 50-325-40 mg tablet 1 tablet 2023-06 06:15: 00 03-28 06:34 :00 No 1{tbl} 1 tablet, Oral, ONCE, 1 dose, On Tue03/28/24 at 0115, HERNANDO [facility] ondansetron (ZOFRAN) 4 mg tablet 2023-06 00:00: 00 Yes [id number] 4mg Take 1 tablet by mouth every 8 (eight) hours as needed for Nausea and Vomiting (N/V). [facility] butalbital- acetaminoph en-caff 50-325-40 mg tablet 2023-06 00:00: 00 Yes [id number] 1{tbl} Take 1 tablet by mouth every 6 (six) hours as needed for Pain (scale 7-10) (Headache) . [facility] metroNIDAZO LE 500 mg tablet 08-25 00:00: 00 09-02 04:59 :00 No [id number] 500mg Take 1 tablet by mouth every 12 (twelve) hours for [address] [facility] acetaminoph en (TYLENOL) tablet 650 mg 2021-06 00:15: 00 04-21 23:45 :00 No 650mg 650 mg, Oral, ONCE, 1 dose, On Tue04/21/22 at 1815, HERNANDO [facility] naproxen (NAPROSYN) tablet 250 mg 2021-06 00:15: 00 04-21 23:45 :00 No 250mg 250 mg, Oral, ONCE, 1 dose, On Tue04/21/22 at 1815, [facility] naproxen 500 mg EC tablet 2021-06 00:00: 00 Yes [id number] 500mg Take 1 tablet by mouth in the morning and 1 tablet in the evening. Take with meals. [facility] No known medications 2020-06 14:54: [address] [facility] SERTraline 25 mg tablet 2020-06 00:00: 00 Yes [id number] 25mg Take 1 tablet by mouth daily. [facility] FEROSUL 325 mg (65 mg iron) tablet 2020-06 00:00: 00 05-26 00:00 :00 No TAKE ONE (1) TABLET BY MOUTH 2 (TWO) TIMES DAILY. [facility] ibuprofen 600 mg tablet 2020-06 00:00: 00 05-26 00:00 :00 No TAKE ONE (1) TABLET BY MOUTH EVERY 6 (SIX) HOURS NEEDED (PAIN). TAKE WITH FOOD OR MILK. [facility] vit calc,iron,f olic ( VITAMIN ORAL) 2020-06 06:29: 27 04-27 00:00 :00 No Take by mouth. [facility] cetirizine 10 mg tablet 2020-06 00:00: 00 Yes 10mg Take 10 mg by mouth daily. [facility] fluticasone propionate 50 mcg/actuati on nasal spray 2020-06 00:00: 00 Yes USE TWO (2) SPRAYS IN EACH NOSTRIL DAILY. [facility] foLIC acid 1 mg tablet 2020-06 00:00: 00 Yes 1mg Take 1 mg by mouth daily. [facility] vitamin w/FA tablet 2020-06 00:00: 00 05-15 00:00 :00 No [id number] 1{tbl} Take 1 tablet by mouth daily. [facility] docusate calcium 240 mg capsule 2020-06 00:00: 00 05-15 00:00 :00 No [id number] 240mg Take 1 capsule by mouth once daily as needed for Constipati on. [facility] ferrous sulfate 325 mg (65 mg iron) tablet 2020-06 00:00: 00 05-15 00:00 :00 No [id number] 325mg Take 1 tablet by mouth 2 (two) times daily. [facility] ibuprofen 600 mg tablet 2020-06 00:00: 00 05-15 00:00 :00 No [id number] 600mg Take 1 tablet by mouth every 6 (six) hours as needed (Pain). Take with food or milk. [facility] acetaminoph en-codeine 300-30 mg tablet 2020-06 00:00: 00 05-05 05:59 :00 No [id number] 1{tbl} Take 1 tablet by mouth every 6 (six) hours as needed (Pain Scale above 4) for up to 7 days. Do not exceed 3 grams of acetaminop hen in 24 hours. Indication s: acute pain [facility] acetaminoph en-codeine (TYLENOL #3) 300-30 mg tablet 1 tablet 2020-06 10:16: 40 Yes 1{tbl} 1 tablet, Oral, Q4HPRN, Starting on Tue04/24/21 at 0416, Until Discontinu ed, Routine, Pain (scale 7-10) [facility] rho(D) immune globulin (RHOGAM) syringe 300 mcg 2020-06 10:16: 12 Yes 300ug 300 mcg, Intramuscu lar, ONCE, For 1 dose, Conditiona l, Routine [facility] ondansetron (ZOFRAN (PF)) injection 4 mg 2020-06 10:16: 07 Yes 4mg 4 mg, Slow IV Push, Q8HPRN, Starting on Tue04/24/21 at 0416, Until Discontinu ed, Routine, Nausea and Vomiting (N/V) [facility] simethicone (GAS RELIEF (SIMETHICON E)) chewable tablet 160 mg 2020-06 10:16: 07 Yes 160mg 160 mg, Oral, PC+HSPRN, Starting on Tue04/24/21 at 0416, Until Discontinu ed, Routine, Gas [facility] magnesium hydroxide (MILK OF MAGNESIA) 400 mg/5 mL suspension 30 mL 2020-06 10:16: 07 Yes 30mL 30 mL, Oral, QDAILYPRN, Starting on Tue04/24/21 at 0416, Until Discontinu ed, Routine, Constipati on [facility] ibuprofen (IBU) tablet 600 mg 2020-06 10:16: 06 Yes 600mg 600 mg, Oral, Q6HPRN, Starting on Tue04/24/21 at 0416, Until Discontinu ed, Routine, Pain (scale 1-3) [facility] diphenhydrA MINE-0.9 % sod.chlr (BENADRYL) 25 mg/50 mL piggyback 25 mg 2020-06 10:16: 06 Yes 25mg 25 mg, IV Piggyback, Administer over 30 Minutes, Q6HPRN, 1 dose, Starting on Tue04/24/21 at 0416, Until Discontinu ed, Routine, Itching [facility] diphenhydrA MINE (BENADRYL) tablet 25 mg 2020-06 10:16: 06 Yes 25mg 25 mg, Oral, Q6HPRN, Starting on Tue04/24/21 at 0416, Until Discontinu ed, Routine, Sleep, Itching [facility] bisacodyL (DULCOLAX) suppository 10 mg 2020-06 10:16: 06 Yes 10mg 10 mg, Rectal, QDAILYPRN, Starting on Tue04/24/21 at 0416, Until Discontinu ed, Routine, Constipati on [facility] docusate calcium (SURFAK) capsule 240 mg 2020-06 10:16: 06 Yes 240mg 240 mg, Oral, QDAILYPRN, Starting on Tue04/24/21 at 0416, Until Discontinu ed, Routine, Constipati on [facility] nalbuphine (NUBAIN) injection 5 mg 2020-06 09:49: 46 Yes 5mg 5 mg, Intravenou s, PRN, 1 dose, Starting on Tue04/24/21 at 0349, Until Discontinu ed, Routine, itching, PACU [facility] ketorolac (TORADOL) injection 30 mg 2020-06 09:49: 46 04-24 10:22 :00 No 30mg 30 mg, Slow IV Push, PRN, 1 dose, Starting on Tue04/24/21 at 0349, Until Discontinu ed, Routine, Pain (scale 4-6), PACU
Fa quorum healthy member approving Restricted medication : LD PACU [facility] ceFAZolin in dextrose (iso-os) (ANCEF) 2 gram/100 mL Piggyback 2 g 2020-06 06:32: 22 04-24 07:03 :00 No 2000mg 2 g (2,000 mg), IV Piggyback, O.R. HOLDING ONCE, 1 dose, Starting on Tue04/24/21 at 0032, Until Discontinu ed, 100 mL
Reas on for Anti-Infec tive: Surgical Prophylaxi s
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
Duration of therapy: within [address] [facility] D5W 0.45% NaCl (1/2NS) IV infusion 1,000 mL 2020-06 02:15: 00 04-24 10:16 :12 No 1000mL at 75 mL/hr, 1,000 mL, IV Infusion, CONTINUOUS , Starting on Tue04/23/21 at 2014, Until Tue04/24/21 at 0416, [facility] magnesium sulfate in 0.9 %NaCl 10 gram/250 mL (40 mg/mL) IV SOLUTION 2020-06 02:15: 00 04-24 10:16 :12 No 2g/h 2 g/hr (50 mL/hr), at 50 mL/hr, IV Infusion, CONTINUOUS , Starting on Tue04/23/21 at 2014, Until Tue04/24/21 at 0416, [facility] vit calc,iron,f olic ( VITAMIN ORAL) 2020-06 01:07: 30 Yes Take by mouth. [facility] betamethaso ne acet,sod phos (CELESTONE SOLUSPAN) 6 mg/mL injection 12 mg 2020-06 00:00: 00 04-24 10:16 :12 No 12mg 12 mg, Intramuscu lar, Q24H, 2 doses, First dose on Tue04/23/21 at 1800, Last dose on Tue04/24/21 at 1800, Routine [facility] ceFAZolin (ANCEF) 1,000 mg in NaCl 0.9% (NS) 50 mL MINI-BAG 2020-06 23:45: 00 04-24 01:13 :00 No 1000mg 1,000 mg, IV Piggyback, ONCE, 1 dose, On Makenzie 04/23/21 at 1745, Administer over 30 Minutes, 50 mL
Reas on for Anti-Infec tive: Empiric Non-Surgic al Prophylaxi s [facility] terbutaline (BRETHINE) injection 0.25 mg 2020-06 23:45: 00 04-24 01:16 :00 No .25mg 0.25 mg, Subcutaneo us, ONCE, 1 dose, On Tue04/23/21 at 1745, Routine [facility] D5W-LR IV infusion 1,000 mL 2020-06 22:45: 00 04-24 10:16 :12 No 1000mL at 125 mL/hr, IV Infusion, CONTINUOUS , Starting on Tue04/23/21 at 1645, Until Tue04/24/21 at 0416, Routine [facility] sodium citrate-cit dayron acid (BICITRA) 500-334 mg/5 mL solution 30 mL 2020-06 22:37: 31 04-24 07:04 :00 No 30mL 30 mL, Oral, PRE-PROCED URE ONCE, 1 dose, Starting on Tue04/23/21 at 1637, Until Discontinu ed, Routine, Surgery/Pr ocedure [facility] lactated ringers IV infusion 1,000 mL 2020-06 22:00: 00 04-23 22:25 :00 No 1000mL at 999 mL/hr, 1,000 mL, IV Infusion, ONCE, 1 dose, On Tue04/23/21 at 1600, Routine [facility] magnesium oxide 400 mg (241.3 mg magnesium) tablet 2020-06 00:00: 00 04-27 00:00 :00 No [id number] 400mg Take 1 tablet by mouth daily. [facility] cetirizine 10 mg tablet 2020-06 00:00: 00 04-27 00:00 :00 No [id number] 10mg Take 1 tablet by mouth daily. [facility] fluticasone propionate (FLONASE ALLERGY RELIEF) 50 mcg/actuati on nasal spray 2020-06 00:00: 00 04-27 00:00 :00 No [id number] 2{spray } Use 2 Sprays in each nostril daily. [facility] iron sucrose (VENOFER) 300 mg in NaCl 0.9% (NS) 250 mL infusion 2020-06 17:30: 00 04-07 20:27 :00 No 300mg 300 mg, IV Infusion, ONCE, 1 dose, On Tue04/07/21 at 1230, Administer over 2.5 Hours, 250 mL
Appr kwaku Indication /Faculty: ADC PROVIDER [facility] vit calc,iron,f olic ( VITAMIN ORAL) 2020-06 15:47: 10 Yes Take by mouth. [facility] lactated ringers IV infusion 1,000 mL 2020-06 03:30: 00 03-27 02:36 :00 No 1000mL at 999 mL/hr, 1,000 mL, IV Infusion, ONCE, 1 dose, On Makenzie 03/26/21 at 2230, STAT [facility] acetaminoph en-codeine (TYLENOL #3) 300-30 mg tablet 1 tablet 2020-06 02:21: 58 Yes 1{tbl} 1 tablet, Oral, Q4HPRN, Starting on Makenzie 03/26/21 at 2121, Until Discontinu ed, Routine, Pain (scale 7-10) [facility] vit calc,iron,f olic ( VITAMIN ORAL) 2020-06 00:01: 28 Yes Take by mouth. [facility] iron sucrose (VENOFER) 300 mg in NaCl 0.9% (NS) 250 mL infusion 2020-06 23:45: 00 03-27 04:17 :00 No 300mg 300 mg, IV Infusion, ONCE, Administer over 2.5 Hours, On Makenzie 03/26/21 at 1845, For [address] [facility] Nitrofurant oin&Nit. Macrocryst 100 mg capsule 2020-06 00:00: 00 04-27 00:00 :00 No TAKE ONE (1) CAPSULE(S) BY MOUTH TWICE A DAY. [facility] vit calc,iron,f olic ( VITAMIN ORAL) 02-20 19:44: 27 Yes Take by mouth. [facility] Nitrofurant oin&Nit. Macrocryst (MACROBID) 100 mg capsule 100 mg 02-20 19:30: 00 02-20 18:31 :00 No 100mg 100 mg, Oral, ONCE, 1 dose, 02/20/21 at 1430, Routine
Reason for Anti-Infec tive: Empiric Therapy for Suspected Infection< br>Empiric Therapy Site: Urine
D uration of therapy: [address] [facility] lactated ringers IV infusion 1,000 mL 02-20 19:15: 00 02-20 18:30 :00 No 1000mL at 999 mL/hr, 1,000 mL, IV Infusion, ONCE, 1 dose, Tue02/20/21 at 1415, STAT [facility] vit calc,iron,f olic ( VITAMIN ORAL) 02-20 17:03: 54 Yes Take by mouth. [facility] vit calc,iron,f olic ( VITAMIN ORAL) 02-20 14:44: 27 Yes Take by mouth. [facility] famotidine 20 mg tablet 02-20 00:00: 00 04-27 00:00 :00 No [id number] 20mg Take 1 tablet by mouth 2 (two) times daily. Take about [address] [facility] Nitrofurant oin&Nit. Macrocryst 100 mg capsule 02-20 00:00: 00 03-26 00:00 :00 No [id number] 100mg Take 1 capsule by mouth 2 (two) times daily. [facility] Nitrofurant oin&Nit. Macrocryst (MACROBID) 100 mg capsule 06 00:00: 00 Yes [id number] 07 100mg Take 1 capsule by mouth daily. [facility] aspirin 81 mg EC tablet 6-08 00:00: 00 04-27 00:00 :00 No [id number] 81mg Take 1 tablet by mouth daily. [facility] foLIC acid 1 mg tablet 10-07 00:00: 00 04-27 00:00 :00 No [id number] 1mg Take 1 tablet by mouth daily. [facility] ferrous sulfate (IRON, FERROUS SULFATE,) 325 mg (65 mg iron) tablet 27 00:00: 00 04-27 00:00 :00 No [id number] 325mg Take 1 tablet by mouth daily. [facility] ascorbic acid, vitamin C, 500 mg tablet 427 00:00: 00 04-27 00:00 :00 No [id number] 500mg Take 1 tablet by mouth daily. Take with iron. [facility] Vital Signs Vital Name Observation Time Observation Value Radha anderson Systolic blood pressure 2024-06-28 15:54:00 130 mm[Hg] [facility] Diastolic blood pressure 2024-06-28 15:54:00 70 mm[Hg] [facility] Heart rate 2024-06-28 15:54:00 63 /min [facility] Body temperature 2024-06-28 15:54:00 36.61 Ilsa [facility] Respiratory rate 2024-06-28 15:54:00 18 /min [facility] Body height 2024-06-28 15:54:00 157.5 cm [facility] Body weight 2024-06-28 15:54:00 58.605 kg [facility] BMI 2024-06-28 15:54:00 23.63 kg/m2 [facility] Systolic blood pressure 2024-03-28 07:00:00 112 mm[Hg] [facility] Diastolic blood pressure 2024-03-28 07:00:00 67 mm[Hg] [facility] Heart rate 2024-03-28 07:00:00 62 /min [facility] Body temperature 2024-03-28 07:00:00 36.94 Ilsa [facility] Respiratory rate 2024-03-28 07:00:00 16 /min [facility] Oxygen saturation in Arterial blood by Pulse oximetry 2024-03-28 07:00:00 97 /min [facility] Body height 2024-03-28 02:51:00 157.5 cm [facility] Body weight 2024-03-28 02:51:00 63.504 kg [facility] BMI 2024-03-28 02:51:00 25.61 kg/m2 [facility] Systolic blood pressure 2022-11-22 19:00:00 120 mm[Hg] [facility] Diastolic blood pressure 2022-11-22 19:00:00 78 mm[Hg] [facility] Heart rate 2022-11-22 19:00:00 99 /min [facility] Body height 2022-11-22 19:00:00 158.8 cm [facility] 2022-11-22 19:00:00 56.926 [facility] BMI 2022-11-22 19:00:00 22.59 kg/m2 [facility] Systolic blood pressure 2022-09-22 20:52:00 119 mm[Hg] [facility] Diastolic blood pressure 2022-09-22 20:52:00 71 mm[Hg] [place] [facility] Heart rate 2022-09-22 20:52:00 67 /min [facility] Respiratory rate 2022-09-22 20:52:00 18 /min [facility] Body height 2022-09-22 20:52:00 158.8 cm [facility] Body weight 2022-09-22 20:52:00 60.328 kg [facility] BMI 2022-09-22 20:52:00 23.94 kg/m2 [facility] Systolic blood pressure 2022-08-24 19:04:00 129 mm[Hg] [facility] Diastolic blood pressure 2022-08-24 19:04:00 74 mm[Hg] [facility] Heart rate 2022-08-24 19:04:00 64 /min [facility] Body temperature 2022-08-24 19:04:00 36.72 Ils[facility] Respiratory rate 2022-08-24 19:04:00 16 /min [facility] Body height 2022-08-24 19:04:00 160 cm [facility] Body weight 2022-08-24 19:04:00 59.693 kg [facility] BMI 2022-08-24 19:04:00 23.31 kg/m2 [facility] Systolic blood pressure 2022-04-21 23:02:00 122 mm[Hg] [facility] Diastolic blood pressure 2022-04-21 23:02:00 78 mm[Hg] [facility] Heart rate 2022-04-21 23:02:00 66 /min [facility] Body temperature 2022-04-21 23:02:00 36.83 Ilsa [facility] Respiratory rate 2022-04-21 23:02:00 18 /min [facility] Body height 2022-04-21 23:02:00 160 cm [facility] Body weight 2022-04-21 23:02:00 57.153 kg [facility] BMI 2022-04-21 23:02:00 22.32 kg/m2 [facility] Oxygen saturation in Arterial blood by Pulse oximetry 2022-04-21 23:02:00 99 /min [facility] Systolic blood pressure 2021-05-26 20:32:00 109 mm[Hg] [facility] Diastolic blood pressure 2021-05-26 20:32:00 58 mm[Hg] [facility] Heart rate 2021-05-26 20:32:00 80 /min [facility] Body temperature 2021-05-26 20:32:00 36.61 Ilsa [facility] Respiratory rate 2021-05-26 20:32:00 18 /min [facility] Body height 2021-05-26 20:32:00 157.5 cm [facility] Body weight 2021-05-26 20:32:00 57.834 kg [facility] BMI 2021-05-26 20:32:00 23.32 kg/m2 [facility] Systolic blood pressure 2021-05-14 17:25:00 124 mm[Hg] [facility] [facility] Diastolic blood pressure 2021-05-14 17:25:00 64 mm[Hg] [facility] Heart rate 2021-05-14 17:25:00 61 /min [facility] Body temperature 2021-05-14 17:25:00 36.67 Ilsa [facility] Respiratory rate 2021-05-14 17:25:00 16 /min [facility] Body height 2021-05-14 17:25:00 157.5 cm [facility] Body weight 2021-05-14 17:25:00 56.359 [facility] BMI 2021-05-14 17:25:00 22.73 kg/m2 [facility] Systolic blood pressure 2021-05-01 15:53:00 116 mm[Hg] [facility] Diastolic blood pressure 2021-05-01 15:53:00 79 mm[Hg] [facility] Heart rate 2021-05-01 15:53:00 84 /min [facility] Body temperature 2021-05-01 15:53:00 36.72 [facility] Respiratory rate 2021-05-01 15:53:00 18 /min [facility] Body weight 2021-05-01 15:53:00 58.015 kg [facility] BMI 2021-05-01 15:53:00 23.39 kg/m2 [facility] Systolic blood pressure 2021-04-27 14:10:00 118 mm[Hg] [facility] Diastolic blood pressure 2021-04-27 14:10:00 76 mm[Hg] [facility] Heart rate 2021-04-27 14:10:00 75 /min [facility] Body temperature 2021-04-27 14:10:00 36.72 [facility] Respiratory rate 2021-04-27 14:10:00 18 /min [facility] Oxygen saturation in Arterial blood by Pulse oximetry 2021-04-27 14:10:00 97 /min [facility] Body height 2021-04-23 21:11:00 157.5 cm [facility] Body weight 2021-04-23 21:11:00 68.947 kg [facility] BMI 2021-04-23 21:11:00 27.80 kg/m2 [facility] Systolic blood pressure 2021-04-24 09:45:00 118 mm[Hg] [facility] Diastolic blood pressure 2021-04-24 09:45:00 76 mm[Hg] [facility] Heart rate 2021-04-24 09:45:00 71 /min [facility] Oxygen saturation in Arterial blood by Pulse oximetry 2021-04-24 09:45:00 98 /min [facility] Respiratory rate 2021-04-24 09:30:00 26 /min [facility] Body temperature 2021-04-24 09:20:00 36.61 [facility] Body height 2021-04-23 21:11:00 157.5 cm [facility] Body weight 2021-04-23 21:11:00 68.947 [facility] BMI 2021-04-23 21:11:00 27.80 kg/m2 [facility] Systolic blood pressure 2021-04-23 17:17:00 112 mm[Hg] [facility] Diastolic blood pressure 2021-04-23 17:17:00 75 mm[Hg] [facility] Heart rate 2021-04-23 17:17:00 97 /min [facility] Respiratory rate 2021-04-23 17:17:00 20 /min [facility] Body height 2021-04-23 17:17:00 157.5 cm [facility] Body weight 2021-04-23 17:17:00 68.181 [facility] BMI 2021-04-23 17:17:00 27.49 kg/m2 [facility] Systolic blood pressure 2021-04-16 15:13:00 100 mm[Hg] [facility] Diastolic blood pressure 2021-04-16 15:13:00 57 mm[Hg] [facility] Heart rate 2021-04-16 15:13:00 112 /min [facility] Body temperature 2021-04-16 15:13:00 36.44 [facility] Respiratory rate 2021-04-16 15:13:00 19 /min [facility] Body height 2021-04-16 15:13:00 157.5 cm [facility] Body weight 2021-04-16 15:13:00 69.032 [facility] BMI 2021-04-16 15:13:00 27.84 kg/m2 [facility] Oxygen saturation in Arterial blood by Pulse oximetry 2021-04-16 15:13:00 98 /min [facility] Systolic blood pressure 2021-04-09 15:30:00 99 mm[Hg] [facility] Diastolic blood pressure 2021-04-09 15:30:00 59 mm[Hg] [facility] Heart rate 2021-04-09 15:30:00 105 /min [facility] Body temperature 2021-04-09 15:30:00 36.94 [facility] Respiratory rate 2021-04-09 15:30:00 19 /min [facility] Body height 2021-04-09 15:30:00 157.5 cm [facility] Body weight 2021-04-09 15:30:00 67.643 kg [facility] BMI 2021-04-09 15:30:00 27.28 kg/m2 [facility] Systolic blood pressure 2021-04-07 19:37:00 104 mm[Hg] [facility] Diastolic blood pressure 2021-04-07 19:37:00 60 mm[Hg] [facility] Body temperature 2021-04-07 18:00:00 36.89 [facility] Respiratory rate 2021-04-07 18:00:00 16 /min [facility] Heart rate 2021-04-07 17:15:00 93 /min [facility] Body weight 2021-04-07 16:29:00 68.13 kg [facility] BMI 2021-04-07 16:29:00 27.47 kg/m2 [facility] Systolic blood pressure 2021-03-30 18:11:00 101 mm[Hg] [facility] Diastolic blood pressure 2021-03-30 18:11:00 59 mm[Hg] [facility] Heart rate 2021-03-30 18:11:00 97 /min [facility] Respiratory rate 2021-03-30 18:11:00 19 /min [facility] Body height 2021-03-30 18:11:00 157.5 cm [facility] Body weight 2021-03-30 18:11:00 68.748 [facility] 2021-03-30 18:11:00 27.72 [facility]m2 [facility] Heart [facility] 2021-03-26 23:00:00 89 /min [facility] Oxygen saturation in Arterial blood by Pulse oximetry 2021-03-26 23:00:00 100 /min [facility] Systolic blood pressure 2021-03-26 20:00:00 122 mm[Hg] [facility] Diastolic blood pressure 2021-03-26 20:00:00 69 mm[Hg] [facility] Body temperature 2021-03-26 20:00:00 36.78 [facility] Respiratory rate 2021-03-26 20:00:00 18 /min [facility] Body height 2021-03-26 20:00:00 157.5 cm [facility] Body weight 2021-03-26 20:00:00 67.405 [facility] BMI 2021-03-26 20:00:00 27.18 kg/m2 [facility] Systolic blood pressure 2021-03-16 19:05:00 100 mm[Hg] [facility] Diastolic blood pressure 2021-03-16 19:05:00 64 mm[Hg] [facility] Heart rate 2021-03-16 19:05:00 99 /min [facility] Body temperature 2021-03-16 19:05:00 36.83 [facility] Respiratory rate 2021-03-16 19:05:00 18 /min [facility] Body height 2021-03-16 19:05:00 157.5 cm [facility] Body weight 2021-03-16 19:05:00 65.726 kg [facility] BMI 2021-03-16 19:05:00 26.50 kg[facility]m2 [facility] Systolic blood pressure 2021-03-02 20:23:00 125 mm[Hg] [facility] Diastolic blood pressure 2021-03-02 20:23:00 74 mm[Hg] [facility] Heart rate 2021-03-02 20:23:00 100 /min [facility] Body temperature 2021-03-02 20:23:00 36.61 [facility]ls[facility] Respiratory rate 2021-03-02 20:23:00 18 /min [facility] Body height 2021-03-02 20:23:00 157.5 cm [facility] Body weight 2021-03-02 20:23:00 65.545 kg [facility] BMI 2021-03-02 20:23:00 26.43 kg/m2 [facility] Systolic blood pressure 2021-02-20 17:18:00 116 mm[Hg] [facility] Diastolic blood pressure 2021-02-20 17:18:00 69 mm[Hg] [facility] Heart rate 2021-02-20 17:18:00 98 /min [facility] Respiratory rate 2021-02-20 17:18:00 28 /min [facility] Body height 2021-02-20 17:18:00 157.5 cm [facility] Body weight 2021-02-20 17:18:00 63.141 kg [facility] BMI 2021-02-20 17:18:00 25.46 kg/m2 [facility] Oxygen saturation in Arterial blood by Pulse oximetry 2021-02-20 17:18:00 100 /min [facility] Procedures Procedure Date / Time Performed Performing Clinician Source POCT URINALYSIS W/O SPECIFIC GRAVITY 2024-06-28 16:53:00 Marivel Parsons [facility] GALV ONLY - VAGINAL PATHOGENS BY NUCLEIC ACID TESTING 2024-06-28 16:47:00 Marivel Parsons [facility] HIV 1/2 AG-AB WITH REFLEX 2024-06-28 16:47:00 Oleg Parsons [facility] PAP SMEAR-LIQUID BASED-CP 2024-06-28 16:47:00 Oleg Parsons [facility] SYPHILIS IGG/IGM 2024-06-28 16:47:00 Marivel Parsons [facility] COMP. METABOLIC PANEL (13513) 2024-03-28 05:35:00 Chris Sandra [facility] URINALYSIS 2024-03-28 05:24:00 Chris Sandra [facility] INFLUENZA A/B RSV COVID NAAT 2024-03-28 04:52:00 Chris Sandra [facility] LIPASE 2024-03-28 04:44:00 Chris Sandra [facility] CBC WITH DIFF 2024-03-28 04:44:00 Chris Sandra [facility] US ABDOMEN COMPLETE 2022-10-15 15:40:06 Laura Maya [facility] PELVIS COMPLETE WITH TRANSVAGINAL 2022-09-20 16:40:32 [facility] 2022-09-20 15:22:06 Docto r Unassigned, [place] [facility] GC & CHLAMYDIA AMPLIFIED ASSAY 2022-08-24 19:37:00 Francesco [facility] GALV ONLY - VAGINAL PATHOGENS BY NUCLEIC ACID TESTING 2022-08-24 19:37:00 Francesco [facility] ASSIGNMENT OF BENEFITS 2022-08-24 18:48:09 Docto r Unassigned, [place] [facility] POCT URINALYSIS W/O SPECIFIC GRAVITY 2022-08-24 00:00:00 [facility] EKG-12 LEAD 2022-04-21 23:40:50 Daryl Danielle [facility] CONSENT/REFUSAL FOR DIAGNOSIS AND TREATMENT 2022-04-21 22:56:41 Doctor Unassigned, [place] [facility] GALV ONLY - SYPHILIS IGG/IGM 2021-04-25 21:18:00 Yoselin Dean [facility] GALV ONLY - SYPHILIS IGG/IGM 2021-04-25 21:18:00 Yoselin Dean [facility] CBC WITH DIFF 2021-04-25 10:29:00 Tammy Brito [facility] CBC WITH DIFF 2021-04-25 10:29:00 Tammy Brito [facility] SURGICAL PATHOLOGY EXAM 2021-04-24 08:44:00 Neftali Paulino, [facility] VENOUS CORD GAS 2021-04-24 08:29:00 Jacqui diazs, [facility] VENOUS CORD GAS 2021-04-24 08:29:00 Jacqui rayo, [facility] SECTION 2021-04-24 06:59:00 Jacqui moreno, [facility] TUBAL LIGATION 2021-04-24 06:59:00 Jacqui rayo, [facility] HB ABO GROUPING 2021-04-24 06:29:00 David Levy [facility] RHO (D) IMMUNE GLOBULIN 2021-04-24 06:29:00 Alisha [facility] HB ABO GROUPING 2021-04-24 06:29:00 GailDavid thakur [facility] RHO (D) IMMUNE GLOBULIN 2021-04-24 06:29:00 Alisha [facility] COVID-19 (ID NOW RAPID TESTING) 2021-04-24 04:59:00 Fish, [facility] LAB ONLY COVID INTERPRETATION 2021-04-24 04:59:00 Fish, [facility] COVID-19 (ID NOW RAPID TESTING) 2021-04-24 04:59:00 Fish, [facility] LAB ONLY COVID INTERPRETATION 2021-04-24 04:59:00 Fish, [facility] GROUP B STREPTOCOCCUS BY PCR 2021-04-24 00:03:00 Fish, [facility] GROUP B STREPTOCOCCUS BY PCR 2021-04-24 00:03:00 Fish, [facility] URINE CULTURE 2021-04-23 23:56:00 Fish, Aaron [facility] URINE CULTURE 2021-04-23 23:56:00 Fish, Aaron [facility] URINALYSIS 2021-04-23 23:55:00 Fish, Aaron [facility] HB ABO GROUPING 2021-04-23 23:55:00 Fish, Aaron [facility] URINALYSIS 2021-04-23 23:55:00 Fish, Aaron [facility] HB ABO GROUPING 2021-04-23 23:55:00 Fish, Aaron [facility] HEPATITIS B SURFACE ANTIGEN 2021-04-23 23:53:00 Fish, [facility] ADC OR THI ONLY - RPR 2021-04-23 23:53:00 Fish, [facility] HIV 1/2 AG-AB WITH REFLEX 2021-04-23 23:53:00 Fish, [facility] HEPATITIS B SURFACE ANTIGEN 2021-04-23 23:53:00 Fish, [facility] ADC OR THI ONLY - RPR 2021-04-23 23:53:00 Fish, [facility] HIV 1/2 AG-AB WITH REFLEX 2021-04-23 23:53:00 Fish, [facility] CBC WITH DIFF 2021-04-23 22:00:00 Fish, Aaron [facility] CBC WITH DIFF 2021-04-23 22:00:00 Fish, Aaron [facility] ASSIGNMENT OF BENEFITS 2021-04-23 20:31:55 Docto r Unassigned, [place] [facility] HOSPITAL ADMISSION 2021-04-23 06:01:00 Doctor Un assigned, [place] [facility] HOSPITAL ADMISSION 2021-04-23 06:01:00 Doctor Un assigned, [place] [facility] POCT URINALYSIS W/O SPECIFIC GRAVITY 2021-04-16 15:16:00 Fish, [facility] POCT URINALYSIS W/O SPECIFIC GRAVITY 2021-04-09 16:15:00 Fish, [facility] CONSENT/REFUSAL FOR DIAGNOSIS AND TREATMENT 2021-04-07 15:55:21 Doctor Unassigned, [place] [facility] ASSIGNMENT OF BENEFITS 2021-04-07 15:55:03 Docto r Unassigned, [place] [facility] POCT URINALYSIS W/O SPECIFIC GRAVITY 2021-03-30 18:13:00 Fish, Aaron [facility] CBC WITH DIFF 2021-03-26 21:32:00 Fish, Aaron [facility] ASSIGNMENT OF BENEFITS 2021-03-26 19:13:44 Docto r Unassigned, [place] [facility] CBC WITH DIFF 2021-03-17 16:50:[address] [facility] ASSIGNMENT OF BENEFITS 2021-03-17 15:25:37 Docto r Unassigned, [place] [facility] POCT URINALYSIS W/O SPECIFIC GRAVITY 2021-03-16 19:25:00 Fish, Aaron [facility] STERILIZATION CONSENT FORM 2021-03-02 05:01:00 Doctor Unassigned, [place] [facility] HB ABO GROUPING 2021-02-20 18:25:00 Fish, Aaron [facility] CBC WITH DIFF 2021-02-20 18:19:00 Fish, Aaron [facility] HIV 1/2 AG-AB WITH REFLEX 2021-02-20 18:19:00 Fish, Me navarrete [facility] ADC ONLY - FERN TEST 2021-02-20 18:18:00 Aaron Hendricks [facility] Encounters Start Date/Time End Date/Time Encounter Type Admission Type Attending [facility] Care Facility Care Department Encounter ID Source 2021-04-14 09:55:[address] [facility] DAVID [id number] [facility] 2021-04-14 06:58:[address] [facility] DAVID [id number] [facility] 2021-04-13 21:52:42 Outpatient P CAMB DAVID [id number] [facility] 2021-04-13 21:48:48 Outpatient [facility] [id number] [facility] 2024-06-28 09:45:00 2024-06-28 10:47:32 Outpatient R ISSAMARIVEL [facility] [id number] [facility] 2024-06-28 09:45:00 2024-06-28 10:47:32 Office Visit IssaMarivel [facility] 1.2.840.114 350.1.13.10 4.2.7.2.[id number] [facility] 2024-06-28 09:45:00 2024-06-28 09:45:00 Outpatient R ADRIANNE PARSONSICE [facility] [id number] [facility] 2024-03-27 21:54:00 2024-03-28 02:38:00 Emergency X CHRIS SANDRA WAKILI [facility] ERT [id number] [facility] 2024-03-27 21:54:00 2024-03-28 02:38:00 Emergency Chris Sandra [facility] 1..840.114 350.1.13.10 4.2.7.2.[id number] [facility] 2023-09-20 11:30:00 2023-09-20 11:30:00 Outpatient R UBCK-MICHELE S, ARMANDO BUCK-MICHELE S, ARMANDO [facility] [id number] [facility] 2023-08-30 09:30:00 2023-08-30 09:30:00 Outpatient R BUCK-MICHELE S, ARMANDO BUCK-MICHELE S, ARMANDO [facility] [id number] [facility] 2023-07-13 12:45:00 2023-07-13 12:45:00 Outpatient R SAVITA GALAVIZ EMILY [facility] [id number] [facility] 2023-06-20 15:30:00 2023-06-20 15:30:00 Outpatient R BUCK-MICHELE S, ARMANDO BUCK-MICHELE S, ARMANDO [facility] [id number] [facility] 2022-12-06 10:30:00 2022-12-06 10:30:00 Outpatient R ANNE-MARIE RODGERS [facility] [id number] [facility] 2022-11-22 14:00:00 2022-11-22 14:25:36 Outpatient R FRAN MAYA CHERYAL [facility] [id number] [facility] 2022-11-22 14:00:00 2022-11-22 14:25:36 Office Visit RenoFran taveras [facility] 1.2.840.114 350.1.13.10 4.2.7.2.[id number] [facility] 2022-10-15 09:50:17 2022-10-15 23:59:00 Outpatient R LATOYAFRAN CAVANAUGH CHERYAL [facility] [id number] [facility] 2022-10-15 09:50:17 2022-10-15 23:59:00 Hospital Encounter Fran Maya [facility] 1.2.840.114 350.1.13.10 4.2.7.2.[id number] [facility] 2022-10-15 10:30:00 2022-10-15 10:45:00 Communication Consultant Visit Poraheem, [facility] Fran Maya [facility] 1.2.840.114 350.1.13.10 4.2.7.2.[id number] [facility] 2022-09-22 16:00:00 2022-09-22 16:09:11 Outpatient R LATOYAFRAN CAVANAUGH CHERYAL [facility] [id number] [facility] 2022-09-22 16:00:00 2022-09-22 16:09:11 Office Visit Tony Mayayal [facility] 1.2.840.114 350.1.13.10 4.2.7.2.[id number] [facility] 2022-09-22 00:00:00 2022-09-22 00:00:00 Telephone LatoyawandygiovannyFran [facility] 1.2.840.114 350.1.13.10 4.2.7.2.[id number] [facility] 2022-09-20 10:24:14 2022-09-20 23:59:00 Outpatient R FRANCESCO FRAN STOKES [facility] [id number] [facility] 2022-09-20 10:24:14 2022-09-20 23:59:00 Hospital Encounter Francesco Fran [facility] 1.2840.114 350.1.13.10 4.2.7.2.[id number] [facility] 2022-09-20 00:00:00 2022-09-20 00:00:00 Orders Only Doctor Unassigned, [place] [facility] 1.2.840.114 350.1.13.10 4.2.7.2.[id number] [facility] 2022-09-14 00:00:00 2022-09-14 00:00:00 Outpatient R RENOTONY TAVERASFRAN BUCKLEY [facility] [id number] [facility] 2022-08-25 00:00:00 2022-08-25 00:00:00 Telephone Fran Maya [facility] 1.2.840.114 350.1.13.10 4.2.7.2.[id number] [facility] 2022-08-24 14:00:00 2022-08-24 14:24:38 Outpatient R FRAN MAYA CHERYAL [facility] [id number] [facility] 2022-08-24 14:00:00 2022-08-24 14:24:38 Office Visit Fran Maya [facility] 1.2840.114 350.1.13.10 4.2.7.2.[id number] [facility] 2022-08-24 00:00:00 2022-08-24 00:00:00 Orders Only Doctor Unassigned, [place] [facility] 1.2.114 350.1.13.10 4.2.7.2.[id number] [facility] 2022-05-19 11:30:00 2022-05-19 11:30:00 Outpatient R FRAN MAYA CHERYAL [facility] [id number] [facility] 2022-04-21 17:03:00 2022-04-21 17:55:00 Emergency X [facility]ANCINE [facility] ERT [id number] [facility] 2022-04-21 17:03:00 2022-04-21 17:55:00 [facility] 1..114 350.1.13.10 4.2.7.2.[id number] [facility] 2022-04-21 00:00:00 2022-04-21 00:00:00 Orders Only Doctor Unassigned, [place] [facility] 1.2.114 350.1.13.10 4.2.7.2.[id number] [facility] 2021-06-16 13:00:00 2021-06-16 13:00:00 Outpatient R AARON HENDRICKS [facility] [id number] [facility] 2021-05-26 14:25:34 2021-05-26 14:40:34 Routine Visit Aaron Hendricks [facility] 1.2.840.114 350.1.13.10 4.2.7.2.[id number] [facility] 2021-05-26 13:00:00 2021-05-26 13:00:00 Outpatient R AARON HENDRICKS [facility] [id number] [facility] 2021-05-14 11:15:00 2021-05-14 12:07:49 Outpatient R ELADIO AARON [facility] [id number] [facility] 2021-05-14 11:00:44 2021-05-14 12:07:49 Routine Visit Eladio Aaron [facility] 1.2.840.114 350.1.13.10 4.2.7.2.[id number] [facility] 2021-05-14 00:00:00 2021-05-14 00:00:00 Letter (Out) Eladio [facility] 1.2.840.114 350.1.13.10 4.2.7.2.[id number] [facility] 2021-05-01 09:45:05 2021-05-01 10:00:05 Nurse Visit Nurse, j [facility] Eladio [facility] 1.2.840.114 350.1.13.10 4.2.7.2.[id number] [facility] 2021-05-01 09:30:00 2021-05-01 09:30:00 Outpatient R AARON HENDRICKS [facility] [id number] [facility] 2021-04-23 14:34:00 2021-04-27 12:31:00 Inpatient [facility] [id number] [facility] 2021-04-23 14:34:00 2021-04-27 12:31:00 Hospital Encounter Aaron [facility]is [facility] 1.2.840.114 350.1.13.10 4.2.7.2.[id number] [facility] 2021-04-24 01:30:00 2021-04-24 03:47:00 [facility] 1.2.840.114 350.1.13.10 4.2.7.2.[id number] [facility] 2021-04-24 00:36:26 2021-04-24 00:36:26 Anesthesia Event Josue Rausch [facility] 1.2.840.114 350.1.13.10 4.2.7.2.[id number] [facility] 2021-04-23 10:33:09 2021-04-23 12:23:17 Routine Visit Aaron Hendricks [facility] 1.2.840.114 350.1.13.10 4.2.7.2.[id number] [facility] 2021-04-23 10:30:00 2021-04-23 12:23:17 Outpatient R AARON HENDRICKS [facility] [id number] [facility] 2021-04-23 00:00:00 2021-04-23 00:00:00 Orders Only Doctor Unassigned, [place] [facility] 1.2.840.114 350.1.13.10 4.2.7.2.[id number] [facility] 2021-04-16 10:02:54 2021-04-16 10:50:32 Routine Visit Aaron Hendricks [facility] 1.2.840.114 350.1.13.10 4.2.7.2.[id number] [facility] 2021-04-16 10:00:00 2021-04-16 10:50:32 Outpatient R AARON HENDRICKS [facility] [id number] [facility] 2021-04-09 10:16:43 2021-04-09 11:07:35 Routine Visit Aaron Hendricks [facility] 1..840.114 350.1.13.10 4.2.7.2.[id number] [facility] 2021-04-09 10:00:00 2021-04-09 11:07:35 Outpatient R AARON HENDRICKS [facility] [id number] [facility] 2021-04-07 10:53:00 2021-04-07 15:42:00 Hospital Encounter Aaron Hendricks [facility] 1..840.114 350.1.13.10 4.2.7.2.[id number] [facility] 2021-04-07 09:05:58 2021-04-07 10:05:58 Communication Consultant Visit Ultrasound, Adc Bronwyn Bartlett [facility] 1..840.114 350.1.13.10 4.2.7.2.[id number] [facility] 2021-04-07 09:00:00 2021-04-07 09:00:00 Outpatient P FILIPE NAVARRETE [facility] [id number] [facility] 2021-04-07 00:00:00 2021-04-07 00:00:[address] [facility] [id number] [facility] 2021-03-30 13:04:07 2021-03-30 13:33:33 Routine Visit Aaron Hendricks [facility] 1.2.840.114 350.1.13.10 4.2.7.2.[id number] [facility] 2021-03-30 13:00:00 2021-03-30 13:00:00 Outpatient R AARON HENDRICKS [facility] [id number] [facility] 2021-03-26 14:14:00 2021-03-26 23:18:00 Hospital Encounter Aaron Hendricks [facility] 1.2.840.114 350.1.13.10 4.2.7.2.[id number] [facility] 2021-03-26 00:00:00 2021-03-26 00:00:00 Telephone Eladio Aaron [facility] Building 1.840.114 350.1.13.10 4.2.7.2.[id number] [facility] 2021-03-26 00:00:00 2021-03-26 00:00:00 Telephone Aaron Hendricks [facility] 1.284.114 350.1.13.10 4.2.7.2.[id number] [facility] 2021-03-26 00:00:00 2021-03-26 00:00:00 Orders Only Doctor Unassigned, [place] [facility] 1.2.840.114 350.1.13.10 4.2.7.2.[id number] [facility] 2021-03-17 11:00:00 2021-03-17 11:00:00 Outpatient R AARON HENDRICKS [facility] [id number] [facility] 2021-03-17 10:27:40 2021-03-17 10:42:40 Communication Consultant Visit Pob, Adc Lab Main lEadio Aaron [facility] Building 1.2840.114 350.1.13.10 4.2.7.2.[id number] [facility] 2021-03-17 00:00:00 2021-03-17 00:00:00 Case Management Aaron Hendricks [facility] 1..114 350.1.13.10 4.2.7.2.[id number] [facility] 2021-03-17 00:00:00 2021-03-17 00:00:00 Orders Only Doctor Unassigned, [place] [facility] 1..114 350.1.13.10 4.2.7.2.[id number] [facility] 2021-03-16 13:47:40 2021-03-16 14:25:56 Routine Visit Aaron Hendricks [facility] 1..114 350.1.13.10 4.2.7.2.[id number] [facility] 2021-03-16 13:45:00 2021-03-16 13:45:00 Outpatient R AARON HENDRICKS [facility] [id number] [facility] 2021-03-10 09:58:59 2021-03-10 10:58:59 Communication Consultant Visit Ultrasound, Bronwyn Ang Luis Diego [facility] GAS MAIN [employer] [facility] 1..114 350.1.13.10 4.2.7.2.[id number] [facility] 2021-03-10 08:00:00 2021-03-10 08:00:00 Outpatient P BRONWYN DYER [facility] [id number] [facility] 2021-03-02 15:01:02 2021-03-02 16:11:02 Routine Visit Aaron Hendricks [facility] 1.2.840.114 350.1.13.10 4.2.7.2.[id number] [facility] 2021-03-02 15:00:00 2021-03-02 15:00:00 Outpatient R AARON HENDRICKS [facility] [id number] [facility] 2021-03-02 00:00:00 2021-03-02 00:00:00 Orders Only Doctor Unassigned, [place] [facility] 1.2840.114 350.1.13.10 4.2.7.2.[id number] [facility] 2021-02-25 00:00:00 2021-02-25 00:00:00 Telephone Aaron Hendricks [facility] 1.840.114 350.1.13.10 4.2.7.2.[id number] [facility] 2021-02-24 13:15:00 2021-02-24 13:15:00 Outpatient R AARON HENDRICKS [facility] [id number] [facility] 2021-02-20 11:59:00 2021-02-20 14:43:00 Hospital Encounter Aaron Hendricks [facility] 1.840.114 350.1.13.10 4.2.7.2.[id number] [facility] 2021-02-20 11:09:15 2021-02-20 11:38:12 Routine Visit Aaron Hendricks [facility] Professio [facility] Building 1.2840.114 350.1.13.10 4.2.7.2.[id number] [facility] 2021-02-20 11:00:00 2021-02-20 11:00:00 Outpatient R AARON HENDRICKS [facility] [id number] [facility] 2021-02-20 00:00:00 2021-02-20 00:00:00 Telephone Aaron Hendricks [facility] 1.2.840.114 350.1.13.10 4.2.7.2.[id number] [facility] 2021-02-12 14:34:26 2021-02-12 15:27:11 Routine Visit Aaron Hendricks [facility] 1.2.840.114 350.1.13.10 4.2.7.2.[id number] [facility] 2021-02-12 14:30:00 2021-02-12 14:30:00 Outpatient R AARON HENDRICKS [facility] [id number] [facility] 2021-02-10 08:01:18 2021-02-10 09:01:18 Communication Consultant Visit Ultrasound, Bronwyn Ang [facility] GAS MAIN [employer] [facility] 1.2.840.114 350.1.13.10 4.2.7.2.[id number] [facility] 2021-02-10 08:00:00 2021-02-10 08:00:00 Outpatient P [facility] [id number] [facility] 2021-02-09 00:00:00 2021-02-09 00:00:00 Telephone Aaron Hendricks [facility] 1.2840.114 350.1.13.10 4.2.7.2.[id number] [facility] 2021-02-04 14:45:00 2021-02-04 14:45:00 Outpatient P [facility] [id number] [facility] 2021-02-03 08:00:00 2021-02-03 08:00:00 Outpatient R FRANCOIS AMEZCUA [facility] [id number] [facility] 2021-02-02 08:00:00 2021-02-02 08:00:00 Outpatient R AARON HENDRICKS [facility] [id number] [facility] 2021-01-12 13:15:00 2021-01-12 13:15:00 Outpatient R AARON HENDRICKS [facility] [id number] [facility] 2021-01-06 14:00:00 2021-01-06 14:00:00 Outpatient P [facility] [id number] [facility] 2021-01-01 08:00:00 2021-01-01 08:00:00 Outpatient R AARON HENDRICKS [facility] [id number] [facility] 2020-12-24 10:30:00 2020-12-24 10:30:00 Outpatient R AARON HENDRICKS [facility] [id number] [facility] 2020-12-17 13:15:00 2020-12-17 13:15:00 Outpatient R AARON HENDRICKS [facility] [id number] [facility] 2020-12-16 13:45:00 2020-12-16 13:45:00 Outpatient R AARON HENDRICKS [facility] [id number] [facility] 2020-11-18 11:00:00 2020-11-18 11:00:00 Outpatient R AARON HENDRICKS [facility] [id number] [facility] 2020-11-18 08:00:00 2020-11-18 08:00:00 Outpatient R AARON HENDRICKS [facility] [id number] [facility] 2020-10-29 14:00:00 2020-10-29 14:00:00 Outpatient P [facility] [id number] [facility] 2020-10-28 14:30:00 2020-10-28 14:30:00 Outpatient R AARON HENDRICKS [facility] [id number] [facility] 2020-10-21 08:30:00 2020-10-21 08:30:00 Outpatient R AARON HENDRICKS [facility] [id number] [facility] 2020-10-07 10:30:00 2020-10-07 10:30:00 Outpatient AARON MISHRA [facility] [id number] [facility] 2019-09-16 14:20:14 2019-09-16 18:01:00 Emergency X CALLY SANDRA [facility] ERT [id number] [facility] 2019-09-16 14:20:14 2019-09-16 18:01:00 Emergency Cally Sandra [facility] 1.2.840.114 350.1.13.10 4.2.7.2.686 [id number] 2019-09-16 00:00:00 2019-09-16 00:00:00 Orders Only Doctor Unassigned, [place] [facility] 1.2.840.114 350.1.13.10 4.2.7.2.686 [id number] 009 [id number] 2019-01-07 14:13:46 2019-01-07 15:40:00 Emergency Endy Spencer [facility] 1.2.840.114 350.1.13.10 4.2.7.2.686 [id number] 084 [id number] 2019-01-07 00:00:00 2019-01-07 00:00:00 Orders Only Doctor Unassigned, [place] [facility] 1.2.840.114 350.1.13.10 4.2.7.2.686 [id number] [id number] Results Test Description Test Time Test Comments Results Result Co [facility]:11[facility]55* Test Item Value Reference Range Interpretation Comme nts LIPASE (test code = 7147919608) 54 U/L 0-220 Lab Interpretation (test cod e = 01774-1) [facility] Kpjm7621-66-48 05:00:53* Test Item Value Reference Range Interpretation Comme nts WBC (test code = 6690-2) 12.52 4.30-11.10 H RBC (test code = 789-8) 4.69 3.93-5.25 HGB (test code = 718-7) 13.8 g/dL 11.6-15.0 HCT (test code = 4544-3) 41.4 % 35.7-45.2 MCV (test code = 787-2) 88.3 fL 80.6-95.5 MCH (test code = 785-6) 29.4 pg 25.9-32.8 MCHC (test code = 786-4) 33.3 g/dL 31.6-35.1 RDW-SD (test code = 77510-4) 40.2 fL 39.0-49.9 RDW-CV (test code = 788-0) 12.6 % 12.0-15.5 PLT (test code = 777-3) 275 166-358 MPV (test code = 87748-9) 10.4 fL 9.5-12.9 NRBC/100 WBC (test code = 5333933514) 0.0 0.0-10.0 NRBC x10^3 (test code = 1099121000) See_Comment [Automated message] The system which generated this result transmitted reference range: 10*3/?L. The reference range was not used to interpret this result as normal/abnormal. GRAN MAT (NEUT) % (test code = 770-8) 87.3 % IMM GRAN % (test code = 3121455924) 0.60 % LYMPH % (test code = 736-9) 7.6 % MONO % (test code = 5905-5) 3.8 % EOS % (test code = 713-8) 0.3 % BASO % (test code = 706-2) 0.4 % GRAN MAT x10^3(ANC) (test code = 3956711372) 10.94 10*3/uL 1.88-7.09 H IMM GRAN x10^3 (test code = 6250351713) 0.07 10*3/uL 0.00-0.06 H LYMPH x10^3 (test code = 731-0) 0.95 10*3/uL 1.32-3.29 L MONO x10^3 (test code = 742-7) 0.47 10*3/uL 0.33-0.92 EOS x10^3 (test code = 711-2) 0.04 10*3/uL 0.03-0.39 BASO x10^3 (test code = 704-7) 0.05 10*3/uL 0.01-0.07 Lab Interpretation (test code = 44293-0) Abnormal [facility] URINALYSIS W/O SPECIFIC [id number] 19:02:00* Test Item Value Reference Range Interpretation [...] = 3257) negative Negative - Negati ve [facility] URINALYSIS W/O SPECIFIC RUVNNQK9267-02-27 19:02:00* Test Item Value Reference Range Interpretation [...] = 3257) negative Negative - [facility]ati ve [facility] [id number] 18:44:00* Test Item Value Reference Range Interpretation Comme nts Case Report (test code = 7539765838) Surgical Pathology ?Case: [id number] ? Authorizing Provider: ?Krysta Sun, ? Collected: ? 04/24/2021 0244 ? MD ? Ordering Location: ? ? Obstetrics and Gynecology ?Received: ?04/24/2021 1358 ? (DEMI 3A) ?Pathologist: ? Jose Manuel Asencio, ?Specimens: ? A) - FALLOPIAN TUBE, LEFT ? B) - FALLOPIAN TUBE, RIGHT ? Final Diagnosis (test code = 5228218216) d9dxeBGvRGYml1gyLCBsvU FuZzEwMzNcZnRuYmpcdWMx IHtccnRmMVxlcGljOTYwMV pgomHnAKVqvBMvY4Lxvwrq HTejJF8lNI9ldMsjmSFuhP JaYBTeTwJvz2jfj637qCIb x7msYJHKrkwjfSy3oOlkS2 2bs3O1KudaU36qwTGoGJA2 KQHiNCNknVBoRGCcDAA5LK IuvHBmV5yvNEXwVY9xxamf GNgtOHrxYXVxzNN1BUNprH KjF2QfXAKlMMawFQHuzjt4 WhMrOx6zwUObdGjzOSppWA JkXHBsYWluXGZzMjBccGFy IEEuIEZBTExPUElBTiBUVU FKTYKZAUHOTLRBBDgZVM0T ZImdRsJLEESSFK4KSnllXM DsNTLaPZRFDVpWATPDS1HH BJCNR2SSW50sR5DaUuBVFR 9QSUFOIFRVQkUgSURFTlRJ RklFRFxwYXJccGFyIEIuIE ZBTExPUElBTiBUVUJFLCBS LXvVUMbhQ4JDGMPADJFSEF ZIZ7TFDTcZRqjxaIWrBOAy AF5tNgYCSLRQPj8OCfCZOR PQFY2BQY5OQGCYOVnGWFdM MyTCKQZSZPyKHV4GEKLEKH AxJKUynuhbYOT5x2tfnLHs XHNzdGVjZjIyMDAwXGFuc2 lcZGVmbGFuZzEwMzNcZnRu LindxAEdVXQfNiRon9dgv7 67vQHyg6obKLPzIyD9dZQy FBJcdZfevxr3lAlwKxPgQL Cdm0zwnoSeAdQuRGFkQXCd WGMhoJGiF981FMLbMAptt2 fjr1IzJORpnWSes9P6AHJR OVraIyIwN978e3gos1ujhu BzmDB6YRXuHQM8HMmfhmFc sgU5SBnozPRtVxU0DAdyxl DbDXkzoyKqmiBuTpb6QILl A647DEK3vDjjs2vdADW0AG FoEKNrGzaiGl6yiPYmQ437 DZXiDGVOBJBosCo2VXIajg GxlkLjyFZWi796G959y8fx WNXjfeCrwUmWfdpps1uqH7 19XHBhcGVydzEyMjQwXHBh qBRziOW4IXBtTJ2cmabtMQ kzDSilCIErwaM3MXAipQWm K5EiZMJqRK1ibjycAPP8VH eaEIYbGMO6MqKyBAGsz1Gp uvt5ReLwbs4pud99CQQ8t0 EovBefRRK9FFX6CjFvFy3k oKGoUFJlGK5qLpXutYNtAO Kumu09dBkyBHnvuaZsmJ4v PgOcEJYsaKSqNVPiWO7mhI QgRDVqmC2rizzzEVRqHqHj xtvgJIYrfFqfajZaAh5ioZ tlTAY6AQdqC7cvjQ0yOdL9 GWxoD1ekuR8mDZu1WLyzgS Y5BKQgiA6xVW0ckcrkm0mz BBfnILksMBJmtxT9kkH6MS HdfUBvE6KwdL1cQIGgUA3p bphsv1xxJYB7RLfcRFZdZE A3TrPjWHRij0Sgywu1SpRz h5JraLUbSMakL95ws345IH HdhdYqJ9vkyVMluruttRMq obhjLYbplcC0PMUxTASlFH luXGYxXGZzMjBcbGFuZzEw MzNcaGljaFxmMVxkYmNoXG FdMKlhW2keRfAeV8YwJZDp YwBfqOJvNUsncGW3XNRxNQ Zif27pdFl8SZDvkghru3If NMFbpZMynPOlbY2rfmHzs4 rvFOCiTEGoYLObP7PpLTB7 sGRyDNZnmUMkgCC0TF6diu RvII6nPVVxBbsfmpOawDEg ojXzXGLmGFwtd1qoIX1qZZ OgkEbnpH5wqOR7ZARfm3ej wHBwnTOse6isx3EyaoPtHG xhUIJzPDjsUGLiCSOlLJ8f OWWlzBAvyzOji5K6MecqjE CwhfnlLgymotU1WKeyuhom NZWqNKpxR8suVaWaPMShyU ygFvrvi1StQJRqTOBgQiup cGFyfX0= Clinical Information (test code = 6220408620) 30 yo s/p ERCS for PTL, w BTL Gross Description (test code = 7918850191) t6xphUYnIXLhhUVSQCKvGo rxkzGbJWGqwZQmH7Whbqjs ECthSM5yTX1unDesbCDalA OlIN7JHSPsNsBoOHTrzLKo iySoBsOeBSDolZDcfBM2WS JnSH3kpifkIEnhAAwdARWq woH4QOJfcYUnV2RxGOQxKR 8dgjkzIWX9APnjpZ7ezpPQ GhtqVs3pwJQygMooTyZwOn NoYXJzZXQwXGZuaWwgQXJp YBj9fP2JXqvnKNL0OITNEy axLPWvKU6Bq8gfYQMfqMGs YBA5LZebdNNhGUOtAQAmUT e7IYTvUVqleRYbSC6foKsu XmfrnJavh5ZosCWyDOrnWL JiQDQhSVyiZVDoBS4EAqZg PFzGZHEmOEy2TcP8DSv6WX CDRpBoLgClNVoxXUM6KSKa MOu3STt1TTgHBhCbLpj4RL ZiWNF0KTD2LKldMUmizQRu IFxcZiBBcmlhbCBcXGZzID NnLZcmVgxlSPorN91duTcy jW4yTvRuEONDVtREPMkQT4 DPDP5vONIPUIdiFGMBWT1m fYBlPM4BSZIeHNzjHYXbrC NROGA8WD9oPZQVEgiplGHw WPYbrRxgUTtzfF2gDL9MJK o4vvQcSZOlLoOkL9CjQ2zo TP3iILIllyGfBZBptZZhRQ FiseTip3XiZAarnoLkUMVp bGVkIHdpdGggdGhlIHBhdG mdgyIprlGdAA5sXXXEXEKo yG3pFTGwHOXdFNqgt2IaXR 8pfZOxRFtlzKJnnBRdAV1f NEEbohCej8EdDK7hCRUui7 fuK9woSWLyuk3ygM4dSHSq R23acuShc7FiLkNjaX9jvU TvFWF9LoLiOSQqPWKgkPFo ktCtYE1ygOtyGeqiZA79SB DkTKnyHORlUF2rzSFrZAW9 aGljaCBpcyBzZXJpYWxseS YhHXT2dP8gVNDhdV4baiN5 EFLzBWIwhj2ofS2oLSGijj 8kv0d3ECIqggQhOGOeKOWb OBEplTWqu1MbErKfWUYaWZ LWJJHiPKTiglObxZn6EGTl CXV0hY8wwwOyvbSjv6TrgC g7hRMgFSgjEDByWzbmrO0p WO5ZUMImOEtxRDTkrNJZHB S0PA9qDCfhbDSsjuovEZCl U9OeF7NkkmCvsHCsZVIrow Fjx8nmLQW8JIPnpPUmiYSi DqOwWipdLEL8NQi6ZQakLZ MxM3MmR7GdXIrkSEX2THOr MiBcXGRiICBPVlIgIiBaQj F3BVO4HoAfVWc2DIusL8KG FEAhEFA2SFI0Puo4OvJ4FM p2MOMRPz9yYUS5TJWtWmP4 XvJ1NGB0TUNqESLjYvIeJI YgQXJpYWwgXFxmcyAxMCBc EJNnNVpnnfQ1IOYeNhChMb 8bCsJXLK0UXRPCEEYWXsOx PZWYU2vVXxgoVCMeKKaycO bggF6jTMCqS87mm1FZr5Mr IB0WEKu9hqVihdwrqX4nOE DdkpPjDZdxeHLmC4zcPkHu YnQOhPDepQ3hzpUXYZsoZO WkB1AwcxMiLZguDTTwjo7t uQbqOTjaDbSjCBZwz3b0oA L8tBBjmCK9sQPmhMyaHA4a jDYqIXVCEM45kUGwwyqyPy CqoWpbkEhknxV7fXHnHGBn eJmqpIWdGN5uHCVinxCgl4 CqBF1fTYFvp4qvV7urCXJn jz5isU0dEDEmB13cvaWho7 HhFdFfpV8zfLZwFRS2ZiBv DNLyGQZowCJgcsCqDA1tfQ szTgghVS80LKRlMArwNZEz CD3ctUKqMTS5oStviMBubt PvNGXsMCdgfKSbXZM2zQ2r OOSjrN5ektR2UHVsMXFiuy 9dcQ5jCYOclj9wi2m0TLJq cmVtYXJrYWJsZSBjdXQgc3 VyZmFjZXMuICBSZXByZXNl pbQqrNz3HTHgCJC5mT9xmx GtzrGxd9OjwQh8nYPiPAdh OBWiKusqaL0cRJvinO2zZN z3lVixOV6wSFsfBL7ypCky YUIrLUNTU9IqNIpcxKjptN 2bZZIfL30av7CSd8TiRPIx TVips5yxvNsre0CprNZyMH zuHYXjtFAdWMeehI7lEjKw g8wksHg3YWdnqxZ1WJGpdb 6EVspudQ0dUvVqv2gnoPl6 WALOKeafffK6i5wneDkqb1 NboNFaQM6UDj6= Disclaimer (test code = 5377710105) v7ruuRNtEOJrp1kiSCMomK FuZzEwMzNcZnRuYmpcdWMx FVlibyUpWNvju0MhI3GaPt AwMFxhbnNpXGRlZmxhbmcx IKXdVLE5vxJoKTFyXMphTQ MyNMbxWr0ygTAygEzlNfTn FWAoj3spvhPJLIhwOwNlZ3 52EOTgLAejn9fnn2SuRFIf oRKlm2J9IEPJbtsvvLu6eO rvI58ye4W8FfocH5wxKFZh FAJsQ0NrHK8kCCNpDbs8XT D2MBR7GXVpDHLoA2TdGF2k QKSnoNGkSEk5z8glsOusGL NjWNN7b6sqPIjyhsFeFZ0u aq0gsKt5f3lconHqNYDvEZ XyhEFWUWExJ6UxsNvdKj6e hPl2bPojPtpxXMD2Rvk5BO 7dmc04ndj7zPwyXLVrcbmr EqS5TPkrZQZpkowgCWi9EU ewNHLwjEX4GYHcoTCwI4Uo HXRlTN9paxt0SYU3YNjdCJ UjVoA6XFFnfNVaQBNfcMlv KKzti354VKN1ZhNjEF7qC3 Imf3E9nP0kmOSrSMMnhJNg RoPnAERise3etNWbQAfgz7 ZwRAJ3dvE9hIQooKYlDJHy DP00Vwike3NzCedfg4YsV8 9pxWS2VUkhs8roOH1sYzP6 pwCmHSkji7okmR7gVxF9AZ ndJB1xAD7qJADgiU8ahfxc XHBnYnJkcmhlYWRccGdicm UdQl8ylWmzFML3FNczS6jp kK7hOhG2CAhuW3qchQ7iON t6DQhhdNP5ZFXoxP9zCW5m tyevu3kjICnxORotGRKtva O7alG1TLIpfNSuQ7PpfR3m UEGpTA5yzjwcb4paSIL8VM raZOWrZJI3OxNnICYkd6Le ugn8KsShf6IjaZTgKEiuY1 0rq140TFPvdtBeJ3fpvCPl iewvlPQsksqgDHdxtvS8HW PwlmOyo6VcABSbKIW9MVsp XIbitMUbPBQueLnto1nsW4 RscGFyXHBsYWluXGYxXGZz MjBcbGFuZzEwMzNcaGljaF ebUHrlLpGwFDNlYZeyY6cl EkJnV0GoSSJtQtHodHZrJ2 ggVGhpcyByZXBvcnQgbWF5 GKxfT6e5EHMngnXwvNs7vj FjNhFhQJSgWGE5OMcrpFFf OFEad6OjcgoymTFgAp2rhX KwMAArfP0sWSRgZTPrRZut RR6hnGk6COWOwXXixQYhZf HKNMFfSG54ncTyYQIEfpsg z2R4KSsgTTUqr8TwrVMaH0 qcn7IyVYBuq18cKG2ng3L2 m7xcJXT5LB1tg9IxHARtmF CzaTErXRHyy2Rsbbxwk5Tm BPXkyuVfl8IcXUNuevKohZ JgZPIvpnAixa0gjnNlCGUs CSNkH6GsvwmydEeniuKgCD Wwuj7rguWsSYG4CDCSKBTx QRCoh2NzkU4qxQSBVNH2zU Mucn3kspYLmOWxYIYbzo15 NVPqIP7rN1uoINBeMEAvig LuyNTur1XqMJSmlEE7jUBx BS4HBjZQi61kZBMtYWVVkg QoKOKhyFatyFW9lbV2uG0k IChGREEpLlx+IFRoZSBGRE XgOT9oxrCvi9AkhwBpyJix SXTwvWNow1EvoLNos9DeiW sln1BurYFkvWFkFQ5eIRTk clxwYXIgVVRNQiBMYWJvcm Z6n0KtNBGhPXYqYWI3qGfd kzl7YYJmmP1yPOCbF4hsln hoSTdlAPSza2CwpZ9njTYB aLQwn3HsvLXmkQEIlPGrSB 9pzdLsDKrLZLwQXWE8vnWn THUaz5VcSGqrO8zoG28jxR qexQb7vBG9DSR1jY9gCrc+ IFxwYXJccGFyIEFwcHJvcH IcDHMmiBaaraIrV1EskkEw lA3kmOHxalMrVL0pPX2wS9 T8kNHbNYCkaxPrr3zmWUlk dmUgYmVlbiByZXZpZXdlZC Elt3WfFNihUDO5WVztbpCk bmNsdWRpbmcgSCZFLCBTcG AziGBmSFU4BInbrcOeggZb IA4afJ9sfXgriW4ceRJjzQ R9jqmsNCOlMLLtoOhdEUAw QB0ziFNgTGVkksMCvJxzwB ZetK5oA6DuYOYsATShou6h QCRhhU1gFIxjc9UwglbqLC PjHDNlPOSekwPjcm4tZVUm sVBYXR2BVEuezRIux0Kzos KhD4fYKHR6DUJaYgVmSnam SYBtbMAmuMRhZZRnmw59MK ErnJ8maWglCKFhmO1stU4u oLxiqA0iCcWeXeOnHHoiRH 1pVZTiN3twoSXoTZAlVHRu F3ctSmSysF1zxBpqBMjrQc VrSfPeIZqsPMM4vN== Embedded Images (test code = 0063223799) [facility] ONLY - SYPHILIS IGG/[id number] 14:51:03* Test Item Value Reference Range Interpretation Comme nts Syphilis IgG/IgM (test code = 06014-2) Non-reactive Non-reactive GAGAN (test code = GAGAN) Non-reactive - No serologic evidence of T. pallidum infection. Cannot exclude incubating or early syphilis. Submit a second specimen in 2-4 weeks if syphilis is clinically suspected. Equivocal - Further testing to follow. Reactive - Further testing to follow. Lab Interpretation (test code = 67439-3) Normal [facility] ONLY - SYPHILIS [id number] 14:51:03* Test Item Value Reference Range Interpretation Comme nts Syphilis IgG/IgM (test code = 48216-5) Non-reactive Non-reactive GAGAN (test code = GAGAN) Non-reactive - No serologic evidence of T. pallidum infection. Cannot exclude incubating or early syphilis. Submit a second specimen in 2-4 weeks if syphilis is clinically suspected. Equivocal - Further testing to follow. Reactive - Further testing to follow. Lab Interpretation (test code = 67281-8) [facility] [id number] 11:18:41* Test Item Value Reference Range Interpretation Comme nts WBC (test code = 6690-2) See_Comment H [Automated Lumenpul[employer] ge] The system which generated this result transmitted reference range: 4.30 - 11.10 10*3/?L. The reference range was not used to interpret this result as normal/abnormal. RBC (test code = 789-8) See_Comment L [Automated [employer]umenpul[employer] ge] The system which generated this result [...] g/dL 31.6-35.1 L RDW-SD (test code = 77083-7) 57.2 fL 39.0-49.9 H RDW-CV (test code = 788-0) 20.2 % 12.0-15.5 H PLT (test code = 777-3) See_Comment [Automated Lumenpulsea ge] The system which generated this result transmitted reference range: 166 - 358 10*3/?L. The reference range was not used to interpret this result as normal/abnormal. MPV (test code = 48265-0) 10.1 fL 9.5-12.9 NRBC/100 WBC (test code = 3586305732) See_Comment [Automated me ssage] The system which generated this result transmitted reference range: 0.0 - 10.0 /100 WBCs. The reference range was not used to interpret this result as normal/abnormal. NRBC x10^3 (test code = 7297559472) <0.01 See_Comment [Automated messa ge] The system which generated this result transmitted reference range: 10*3/?L. The reference range was not used to interpret this result as normal/abnormal. GRAN MAT (NEUT) % (test code = 770-8) 78.8 % IMM GRAN % (test code = 7352911168) 1.00 % LYMPH % (test code = 736-9) 15.1 % MONO % (test code = 5905-5) 4.7 % EOS % (test code = 713-8) 0.2 % BASO % (test code = 706-2) 0.2 % GRAN MAT x10^3(ANC) (test code = 6796265015) 8.96 10*3/uL 1.88-7.09 H IMM GRAN x10^3 (test code = 6092834778) 0.11 10*3/uL 0.00-0.06 H LYMPH x10^3 (test code = 731-0) 1.71 10*3/uL 1.32-3.29 MONO x10^3 (test code = 742-7) 0.53 10*3/uL 0.33-0.92 EOS x10^3 (test code = 711-2) <0.03 0.03-0.39 L BASO x10^3 (test code = 704-7) <0.03 0.01-0.07 Lab Interpretation (test code = 08671-0) Abnormal [facility] with [id number] 11:18:41* Test Item Value Reference Range Interpretation [...] g/dL 31.6-35.1 L RDW-SD (test code = 75212-3) 57.2 fL 39.0-49.9 H RDW-CV (test code = 788-0) 20.2 % 12.0-15.5 H PLT (test code = 777-3) See_Comment [Automated messa ge] The system which generated this result transmitted reference range: 166 - 358 10*3/?L. The reference range was not used to interpret this result as normal/abnormal. MPV (test code = 64478-1) 10.1 fL 9.5-12.9 NRBC/100 WBC (test code = 7706240326) See_Comment [Automated me ssage] The system which generated this result transmitted reference range: 0.0 - 10.0 /100 WBCs. The reference range was not used to interpret this result as normal/abnormal. NRBC x10^3 (test code = 6288424160) <0.01 See_Comment [Automated messa ge] The system which generated this result transmitted reference range: 10*3/?L. The reference range was not used to interpret this result as normal/abnormal. GRAN MAT (NEUT) % (test code = 770-8) 78.8 % IMM GRAN % (test code = 1336876900) 1.00 % LYMPH % (test code = 736-9) 15.1 % MONO % (test code = 5905-5) 4.7 % EOS % (test code = 713-8) 0.2 % BASO % (test code = 706-2) 0.2 % GRAN MAT x10^3(ANC) (test code = 9819993775) 8.96 10*3/uL 1.88-7.09 H IMM GRAN x10^3 (test code = 6077997463) 0.11 10*3/uL 0.00-0.06 H LYMPH x10^3 (test code = 731-0) 1.71 10*3/uL 1.32-3.29 MONO x10^3 (test code = 742-7) 0.53 10*3/uL 0.33-0.92 EOS x10^3 (test code = 711-2) <0.03 0.03-0.39 L BASO x10^3 (test code = 704-7) <0.03 0.01-0.07 Lab Interpretation (test code = 55956-2) Abnormal [facility] (D) IMMUNE [id number] 10:16:52* Test Item Value Reference Range Interpretation Comme nts RHIG CANDIDATE? (test code = 5055) No- see comment Patient is not a candidate for RhIg- Patient is Rh Positive.Performed at [facility] Laboratory Services [facility] Blood [address] Free: [phone] No. [id number] [facility] (D) IMMUNE [id number] 10:16:52* Test Item Value Reference Range Interpretation Comme nts RHIG CANDIDATE? (test code = 5055) No- see comment Patient is not a candidate for RhIg- Patient is Rh Positive.Performed at [facility] Laboratory Services - [facility] Blood [address] [place], [place] [address]Toll Free: [phone] No. [id number] [facility] [id number] 08:56:38* Test Item Value Reference Range Interpretation Comme nts BASE EXCESS, CORD (test code = 4877526127) mEq/L AC PH, CORD (BEAKER) (test code = 2814369045) 7.18-7.38 PC02, CORD (test code = 4739410422) See_Comment [Automated messa ge] The system which generated this result transmitted reference range: 32 - 66 mmHg. The reference range was not used to interpret this result as normal/abnormal. PO2, CORD (test code = 7069356634) See_Comment [Automated messa ge] The system which generated this result transmitted reference range: 10 - 30 mmHg. The reference range was not used to interpret this result as normal/abnormal. BICARBONATE, CORD (test code = 7484636896) See_Comment [Automated messa ge] The system which generated this result transmitted reference range: 17 - 27 mEq/L. The reference range was not used to interpret this result as normal/abnormal. [facility] [id number] 08:56:38* Test Item Value Reference Range Interpretation Comme nts BASE EXCESS, CORD (test code = 4885204333) mEq/L AC PH, CORD (BEAKER) (test code = 5846789083) 7.18-7.38 PC02, CORD (test code = 9697062386) See_Comment [Automated messa ge] The system which generated this result transmitted reference range: 32 - 66 mmHg. The reference range was not used to interpret this result as normal/abnormal. PO2, CORD (test code = 5764977010) See_Comment [Automated messa ge] The system which generated this result transmitted reference range: 10 - 30 mmHg. The reference range was not used to interpret this result as normal/abnormal. BICARBONATE, CORD (test code = 6483335024) See_Comment [Automated messa ge] The system which generated this result transmitted reference range: 17 - 27 mEq/L. The reference range was not used to interpret this result as normal/abnormal. [id number] 08:54:07* Test Item Value Reference Range Interpretation Comme nts VENOUS BASE EXCESS, CORD (test code = 2723718031) mEq/L VENOUS PH, CORD (test code = 0525826295) 7.25-7.45 VENOUS PC02, CORD (test code = 5295420451) See_Comment [Automated messa ge] The system which generated this result transmitted reference range: 27 - 49 mmHg. The reference range was not used to interpret this result as normal/abnormal. VENOUS PO2, CORD (test code = 1879747103) See_Comment [Automated me ssage] The system which generated this result transmitted reference range: 17 - 41 mmHg. The reference range was not used to interpret this result as normal/abnormal. VENOUS BICARBONATE, CORD (test code = 8856977754) See_Comment [Automated messa ge] The system which generated this result transmitted reference range: 12 - 29 mEq/L. The reference range was not used to interpret this result as normal/abnormal. [facility] CORD [id number] 08:54:07* Test Item Value Reference Range Interpretation Comme nts VENOUS BASE EXCESS, CORD (test code = 8403561017) mEq/L VENOUS PH, CORD (test code = 4939855305) 7.25-7.45 VENOUS PC02, CORD (test code = 9549252651) See_Comment [Automated messa ge] The system which generated this result transmitted reference range: 27 - 49 mmHg. The reference range was not used to interpret this result as normal/abnormal. VENOUS PO2, CORD (test code = 8302305695) See_Comment [Automated me ssage] The system which generated this result transmitted reference range: 17 - 41 mmHg. The reference range was not used to interpret this result as normal/abnormal. VENOUS BICARBONATE, CORD (test code = 4294954617) See_Comment [Automated messa ge] The system which generated this result transmitted reference range: 12 - 29 mEq/L. The reference range was not used to interpret this result as normal/abnormal. [facility] ONLY - [id number] 08:52:42* Test Item Value Reference Range Interpretation Comme nts RPR (Qualitative) (test code = 61815-8) Nonreactive Nonreactive Lab Interpretation (test cod e = 72370-5) Normal [facility] ONLY - [id number] 08:52:42* Test Item Value Reference Range Interpretation Comme nts RPR (Qualitative) (test code = 70654-2) Nonreactive Nonreactive Lab Interpretation (test cod e = 49862-2) Normal [facility] CORD [id number] 08:50:56* Test Item Value Reference Range Interpretation Comme nts VENOUS BASE EXCESS, CORD (test code = 5715594425) mEq/L VENOUS PH, CORD (test code = 5385200678) 7.25-7.45 VENOUS PC02, CORD (test code = 3161777245) See_Comment [Automated messa ge] The system which generated this result transmitted reference range: 27 - 49 mmHg. The reference range was not used to interpret this result as normal/abnormal. VENOUS PO2, CORD (test code = 8734894533) See_Comment [Automated me ssage] The system which generated this result transmitted reference range: 17 - 41 mmHg. The reference range was not used to interpret this result as normal/abnormal. VENOUS BICARBONATE, CORD (test code = 8040014924) See_Comment [Automated messa ge] The system which generated this result transmitted reference range: 12 - 29 mEq/L. The reference range was not used to interpret this result as normal/abnormal. [facility] CORD [id number] 08:50:56* Test Item Value Reference Range Interpretation Comme nts VENOUS BASE EXCESS, CORD (test code = 0613674978) mEq/L VENOUS PH, CORD (test code = 4078531540) 7.25-7.45 VENOUS PC02, CORD (test code = 1789469809) See_Comment [Automated messa ge] The system which generated this result transmitted reference range: 27 - 49 mmHg. The reference range was not used to interpret this result as normal/abnormal. VENOUS PO2, CORD (test code = 8696557291) See_Comment [Automated me ssage] The system which generated this result transmitted reference range: 17 - 41 mmHg. The reference range was not used to interpret this result as normal/abnormal. VENOUS BICARBONATE, CORD (test code = 3714213106) See_Comment [Automated messa ge] The system which generated this result transmitted reference range: 12 - 29 mEq/L. The reference range was not used to interpret this result as normal/abnormal. [facility] CORD [id number] 08:48:36* Test Item Value Reference Range Interpretation Comme nts BASE EXCESS, CORD (test code = 3030407866) mEq/L AC PH, CORD (BEAKER) (test code = 3620652599) 7.18-7.38 PC02, CORD (test code = 0468240430) See_Comment [Automated messa ge] The system which generated this result transmitted reference range: 32 - 66 mmHg. The reference range was not used to interpret this result as normal/abnormal. PO2, CORD (test code = 1744733211) See_Comment [Automated messa ge] The system which generated this result transmitted reference range: 10 - 30 mmHg. The reference range was not used to interpret this result as normal/abnormal. BICARBONATE, CORD (test code = 9340844945) See_Comment [Automated messa ge] The system which generated this result transmitted reference range: 17 - 27 mEq/L. The reference range was not used to interpret this result as normal/abnormal. [facility] [id number] 08:48:36* Test Item Value Reference Range Interpretation Comme nts BASE EXCESS, CORD (test code = 3506506179) mEq/L AC PH, CORD (BEAKER) (test code = 1733617672) 7.18-7.38 PC02, CORD (test code = 7883294047) See_Comment [Automated messa ge] The system which generated this result transmitted reference range: 32 - 66 mmHg. The reference range was not used to interpret this result as normal/abnormal. PO2, CORD (test code = 1694335739) See_Comment [Automated messa ge] The system which generated this result transmitted reference range: 10 - 30 mmHg. The reference range was not used to interpret this result as normal/abnormal. BICARBONATE, CORD (test code = 4216930228) See_Comment [Automated messa ge] The system which generated this result transmitted reference range: 17 - 27 mEq/L. The reference range was not used to interpret this result as normal/abnormal. [facility] BranchType and Screen - ONCE [id number] 07:13:42* Test Item Value Reference Range Interpretation Comme nts ABO & RH (test code = 20) A POSITIVE Performed at [facility] Laboratory Services - [facility] Blood [address] [address]Aije Free: [phone] No. [id number] IAT (test code = 1185) Negative Performed at [facility] Laboratory Services - [facility] Blood [place] [address]Toll Free: [phone] No. [id number] [facility] BranchType and Screen - ONCE [id number] 07:13:42* Test Item Value Reference Range Interpretation Comme nts ABO & RH (test code = 20) A POSITIVE Performed at [facility] Laboratory Services - [facility] Blood [address] [place] [address]Zptx Free: [phone] No. [id number] IAT (test code = 1185) Negative Performed at [facility] Laboratory Services - [facility] Blood [address] [place] [address]Dqyl Free: [phone] No. [id number] [facility] Surface [id number] 06:10:47 * Test Item Value Reference Range Interpretation Comme nts HBsAg Semi-Quantitative (herlinda t code = 5195-3) Negative Negative [facility] B Surface [id number] 06:10:47 * Test Item Value Reference Range Interpretation Comme nts HBsAg Semi-Quantitative (herlinda t code = 5195-3) Negative Negative [facility]-AB WITH [id number] 01:35:43* Test Item Value Reference Range Interpretation Comme nts HIV Semi-quantitative (test code = 32760-3) Negative Negative GAGAN (test code = GAGAN) Non-reactive for HIV-1 antigen and HIV-1/HIV-2 antibodies. ?No laboratory evidence of HIV infection. ?Repeat in 2-4 weeks if acute HIV infection is suspected. [facility] AG-AB WITH [id number] 01:35:43* Test Item Value Reference Range Interpretation Comme nts HIV Semi-quantitative (test code = 57379-9) Negative Negative GAGAN (test code = GAGAN) Non-reactive for HIV-1 antigen and HIV-1/HIV-2 antibodies. ?No laboratory evidence of HIV infection. ?Repeat in 2-4 weeks if acute HIV infection is suspected. [facility] BranchType and Screen - ONCE [id number] 00:42:20 * Test Item Value Reference Range Interpretation Comme nts ABO & RH (test code = 20) A Positive Performed at [facility] Laboratory Services - [facility] Blood [address] [place] [address]Ions Free: [phone] No. [id number] IAT (test code = 1185) Negative Performed at [facility] Laboratory [facility] Blood [address]Toll Free: [phone] No. [id number] [facility] - ONCE [id number] 00:42:20 * Test Item Value Reference Range Interpretation Comme nts ABO & RH (test code = 20) A Positive Performed at [facility] Blood [place] [address]Toll Free: [phone] No. [id number] IAT (test code = 1185) Negative Performed at [facility] Blood [address]Toll Free: [phone] No. [id number] [facility] WITH [id number] 22:10:03* Test Item Value Reference Range Interpretation [...] g/dL 31.6-35.1 L RDW-SD (test code = 03177-1) 55.2 fL 39.0-49.9 H RDW-CV (test code = 788-0) 20.4 % 12.0-15.5 H PLT (test code = 777-3) See_Comment [Automated Lumenpulsea ge] The system which generated this result transmitted reference range: 166 - 358 10*3/?L. The reference range was not used to interpret this result as normal/abnormal. MPV (test code = 02352-6) 10.0 fL 9.5-12.9 NRBC/100 WBC (test code = 6822199813) See_Comment [Automated OnVantage ssage] The system which generated this result transmitted reference range: 0.0 - 10.0 /100 WBCs. The reference range was not used to interpret this result as normal/abnormal. NRBC x10^3 (test code = 0773145290) <0.01 See_Comment [Automated Lumenpulsea ge] The system which generated this result transmitted reference range: 10*3/?L. The reference range was not used to interpret this result as normal/abnormal. GRAN MAT (NEUT) % (test code = 770-8) 80.2 % IMM GRAN % (test code = 8596077819) 0.60 % LYMPH % (test code = 736-9) 15.0 % MONO % (test code = 5905-5) 3.6 % EOS % (test code = 713-8) 0.3 % BASO % (test code = 706-2) 0.3 % GRAN MAT x10^3(ANC) (test code = 0519047908) 5.80 10*3/uL 1.88-7.09 IMM GRAN x10^3 (test code = 8267637243) 0.04 10*3/uL 0.00-0.06 LYMPH x10^3 (test code = 731-0) 1.08 10*3/uL 1.32-3.29 L MONO x10^3 (test code = 742-7) 0.26 10*3/uL 0.33-0.92 L EOS x10^3 (test code = 711-2) <0.03 0.03-0.39 L BASO x10^3 (test code = 704-7) <0.03 0.01-0.07 Lab Interpretation (test code = 86753-8) Abnormal [facility] WITH [id number] 22:10:03* Test Item Value Reference Range Interpretation [...] g/dL 31.6-35.1 L RDW-SD (test code = 10600-4) 55.2 fL 39.0-49.9 H RDW-CV (test code = 788-0) 20.4 % 12.0-15.5 H PLT (test code = 777-3) See_Comment [Automated messa ge] The system which generated this result transmitted reference range: 166 - 358 10*3/?L. The reference range was not used to interpret this result as normal/abnormal. MPV (test code = 26059-1) 10.0 fL 9.5-12.9 NRBC/100 WBC (test code = 6362160878) See_Comment [Automated OnVantage ssage] The system which generated this result transmitted reference range: 0.0 - 10.0 /100 WBCs. The reference range was not used to interpret this result as normal/abnormal. NRBC x10^3 (test code = 9377982588) <0.01 See_Comment [Automated messa ge] The system which generated this result transmitted reference range: 10*3/?L. The reference range was not used to interpret this result as normal/abnormal. GRAN MAT (NEUT) % (test code = 770-8) 80.2 % IMM GRAN % (test code = 1718365983) 0.60 % LYMPH % (test code = 736-9) 15.0 % MONO % (test code = 5905-5) 3.6 % EOS % (test code = 713-8) 0.3 % BASO % (test code = 706-2) 0.3 % GRAN MAT x10^3(ANC) (test code = 6462093818) 5.80 10*3/uL 1.88-7.09 IMM GRAN x10^3 (test code = 6556220986) 0.04 10*3/uL 0.00-0.06 LYMPH x10^3 (test code = 731-0) 1.08 10*3/uL 1.32-3.29 L MONO x10^3 (test code = 742-7) 0.26 10*3/uL 0.33-0.92 L EOS x10^3 (test code = 711-2) <0.03 0.03-0.39 L BASO x10^3 (test code = 704-7) <0.03 0.01-0.07 Lab Interpretation (test code = 45514-3) Abnormal [facility] URINALYSIS W/O SPECIFIC [id number] 15:17:00* Test Item Value Reference Range Interpretation [...] ve Lab Interpretation (test cod e = 79736-6) Normal [facility] URINALYSIS W/O SPECIFIC [id number] 16:16:00* Test Item Value Reference Range Interpretation [...] ve Lab Interpretation (test cod e = 77174-0) Normal [facility] W/O SPECIFIC [id number] 18:14:00* Test Item Value Reference Range Interpretation [...] ve Lab Interpretation (test cod e = 22214-0) Normal [facility] WITH [id number] 21:35:10* Test Item Value Reference Range Interpretation [...] g/dL 31.6-35.1 L RDW-SD (test code = 86709-3) 42.6 fL 39.0-49.9 RDW-CV (test code = 788-0) 15.2 % 12.0-15.5 PLT (test code = 777-3) See_Comment [Automated messa ge] The system which generated this result transmitted reference range: 166 - 358 10*3/?L. The reference range was not used to interpret this result as normal/abnormal. MPV (test code = 91555-3) 9.7 fL 9.5-12.9 NRBC/100 WBC (test code = 4810024676) See_Comment [Automated OnVantage ssage] The system which generated this result transmitted reference range: 0.0 - 10.0 /100 WBCs. The reference range was not used to interpret this result as normal/abnormal. NRBC x10^3 (test code = 4709342958) See_Comment [Automated messa ge] The system which generated this result transmitted reference range: 10*3/?L. The reference range was not used to interpret this result as normal/abnormal. GRAN MAT (NEUT) % (test code = 770-8) 72.7 % IMM GRAN % (test code = 1704622947) 1.10 % LYMPH % (test code = 736-9) 18.8 % MONO % (test code = 5905-5) 6.2 % EOS % (test code = 713-8) 0.8 % BASO % (test code = 706-2) 0.4 % GRAN MAT x10^3(ANC) (test code = 7978544447) 5.16 10*3/uL 1.88-7.09 IMM GRAN x10^3 (test code = 7822780899) 0.08 10*3/uL 0.00-0.06 H LYMPH x10^3 (test code = 731-0) 1.34 10*3/uL 1.32-3.29 MONO x10^3 (test code = 742-7) 0.44 10*3/uL 0.33-0.92 EOS x10^3 (test code = 711-2) 0.06 10*3/uL 0.03-0.39 BASO x10^3 (test code = 704-7) 0.03 10*3/uL 0.01-0.07 Lab Interpretation (test code = 55478-6) [facility]normal [facility]/O SPECIFIC [id number] 19:26:00* Test Item Value Reference Range Interpretation [...] ve Lab Interpretation (test cod e = 35933-7) Normal [facility] AG-AB WITH [id number] 19:37:38* Test Item Value Reference Range Interpretation Comme nts HIV Semi-quantitative (test code = 02320-0) Negative Negative GAGAN (test code = GAGAN) Non-reactive for HIV-1 antigen and HIV-1/HIV-2 antibodies. ?No laboratory evidence of HIV infection. ?Repeat in 2-4 weeks if acute HIV infection is suspected. [facility], BLOOD [id number] 19:31:04 * Test Item Value Reference Range Interpretation Comme nts ABO & RH (test code = 20) A Positive Performed at [facility] Laboratory [facility] Blood [address] [place], [place] [address]Toll Free: [phone] No. [id number] IAT (test code = 1185) Negative Performed at [facility] Laboratory [facility] Blood [address] [place], [place] [address]Toll Free: [phone] No. [id number] [facility] ONLY - [facility] [id number] 18:53:33* Test Item Value Reference Range Interpretation Comme nts Fern Test (test code = 7528815346) Negative [facility] WITH [id number] 18:45:29* Test Item Value Reference Range Interpretation [...] 32.2 g/dL 31.6-35.1 RDW-SD (test code = 50520-0) 38.5 fL 39.0-49.9 L RDW-CV (test code = 788-0) 13.2 % 12.0-15.5 PLT (test code = 777-3) See_Comment [Automated messa ge] The system which generated this result transmitted reference range: 166 - 358 10*3/?L. The reference range was not used to interpret this result as normal/abnormal. MPV (test code = 04965-7) 9.7 fL 9.5-12.9 NRBC/100 WBC (test code = 8587345044) See_Comment [Automated me ssage] The system which generated this result transmitted reference range: 0.0 - 10.0 /100 WBCs. The reference range was not used to interpret this result as normal/abnormal. NRBC x10^3 (test code = 7233729681) <0.01 See_Comment [Automated messa ge] The system which generated this result transmitted reference range: 10*3/?L. The reference range was not used to interpret this result as normal/abnormal. GRAN MAT (NEUT) % (test code = 770-8) 75.3 % IMM GRAN % (test code = 8273037219) 1.50 % LYMPH % (test code = 736-9) 16.4 % MONO % (test code = 5905-5) 5.8 % EOS % (test code = 713-8) 0.5 % BASO % (test code = 706-2) 0.5 % GRAN MAT x10^3(ANC) (test code = 5427272902) 6.37 10*3/uL 1.88-7.09 IMM GRAN x10^3 (test code = 1262555277) 0.13 10*3/uL 0.00-0.06 H LYMPH x10^3 (test code = 731-0) 1.39 10*3/uL 1.32-3.29 MONO x10^3 (test code = 742-7) 0.49 10*3/uL 0.33-0.92 EOS x10^3 (test code = 711-2) 0.04 10*3/uL 0.03-0.39 BASO x10^3 (test code = 704-7) 0.04 10*3/uL 0.01-0.07 Lab Interpretation (test code = 79096-4) Abnormal [facility]
[2024-07-02] MEDS ORDERED: KETOROLAC 30 MG/ML INJ ONE (22:00)
[2024-07-02] MEDS ORDERED: NA CHLORIDE 0.9% 1,000 ML ONE (22:00)
[2024-07-02 22:07] LABS: Absolute Eosinophils 0.1 K/uL (0-0.5); Absolute Monocytes 0.6 K/uL (0.1-1.3); Absolute Neutrophil 3.8 K/uL (1.8-8.0); Basophils % 0.5 % (0-1.3); Eosinophils % 1.4 % (0-4.4); Hematocrit 43.3 % (36.0-45.0); Hemoglobin 14.7 g/dL (12.0-15.0); Lymphocytes % 18.8 % (15.3-44.8); MCH 29.3 pg (27.0-35.0); MCHC 34.1 g/dL (32.0-36.0); MCV 85.9 fL (80-100); Monocytes % 10.7 % (3.3-12.3); Neutrophils % 68.6 % (41.7-73.7); Platelets 216 thou/uL (152-406); RBC Red Blood Cell Count 5.04 M/uL (3.86-4.86); Red Cell Distribution Width 13.3 % (12.1-15.2)
--- NOTE | 2024-07-02 22:09 | RAD REPORT ---
EXAM: Chest Pa And Lat (2 Views) HISTORY: 33 years Female CHEST PAIN COMPARISON: None. FINDINGS: LUNGS/PLEURA: The lungs are clear. No pleural effusions or pneumothorax. No pulmonary edema. MEDIASTINUM: The mediastinal silhouette is within normal limits. CARDIAC: The cardiac silhouette is within normal limits. UPPER ABDOMEN: No significant abnormality. BONES: No acute abnormality. LINES/TUBES/OTHER: N/A IMPRESSION: No evidence of acute cardiopulmonary disease.
[2024-07-02 22:57] LABS: Anion Gap 7.8 mEq/L (5.0-15.0); BUN Blood Urea Nitrogen 13 mg/dL (7-18); Bicarbonate 28 mEq/L (21-32); Glomerular Filtration Rate 93 ml/min (=/>90); Glucose Level 125 mg/dL (74-106); Magnesium 2.3 mg/dL (1.6-2.4); Potassium 3.8 mEq/L (3.5-5.1); Sodium Level 137 mEq/L (136-145)
[2024-07-02 23:03] LABS: SARS-CoV-2 Antigen CONTROL BLUE LINE VIS/BG OK; SARS-CoV-2 Antigen Rapid Res Negative (Negative)
[2024-07-02 23:05] LABS: Troponin High Sensitivity < 3.0 pg/mL (<58.9)
--- NOTE | 2024-07-02 23:11 | ER ---
Nurse's Notes [facility] Name: Alberto Johnson Age: 33 yrs Sex: Female : 1990 Arrival Date: 07/02/2024 Time: 21:40 Bed 5 Private MD: Diagnosis: Acute upper respiratory infection, unspecified Presentation: 07/02 21:51 Chief complaint: Patient states: I have been coughing for the past few days. Tonight I jb4 feel like I cannot breath and have a sore throat and am now coughing up green mucus. Coronavirus screen: At this time, the client does not indicate any symptoms associated with coronavirus-19. Ebola Screen: No symptoms or risks identified at this time. Initial Sepsis Screen: Does the patient meet any 2 criteria? No. Patient's initial sepsis screen is negative. Does the patient have a suspected source of infection? No. Patient's initial sepsis screen is negative. Risk Assessment: Do you want to hurt yourself or someone else? Patient reports no desire to harm self or others. Onset of symptoms was July 02, 2024. Transition of care: patient was not received from another setting of care. 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 - Infectious Disease History:: Denies. - Social history:: Smoking status: Patient denies any tobacco usage or history of. Patient uses alcohol, occasionally. Screenin:[address] [facility] ED Fall Risk Assessment (Adult) History of falling in the last 3 months, bm8 including since admission No falls in past 3 months (0 pts) Confusion or Disorientation No (0 pts) Intoxicated or Sedated No (0 pts) Impaired Gait No (0 pts) Mobility Assist Device Used No (0 pt) Altered Elimination No (0 pt) Score/Fall Risk Level 0 - 2 = Low Risk Oriented to surroundings, Maintained a safe environment, Educated pt \T\ family on fall prevention, incl call for assistance when getting out of bed, Assessed \T\ reinforced patient's understanding of fall precautions, Hourly rounding (assess needs \T\ fall precautionary measures) done, Used ambulatory aids as needed (educated on \T\ assisted with), Used gait belt as appropriate. Abuse screen: Denies threats or abuse. Nutritional screening: No deficits noted. Tuberculosis screening: No symptoms or risk factors identified. Assessment: 22:11 General: Appears in no apparent distress. comfortable, Behavior is calm, cooperative, bm8 appropriate for age. Pain: Complains of pain in mid-sternal area Pain currently is 8 out of 10 on a pain scale. Quality of pain is described as sharp, tearing with coughing fits. Neuro: No deficits noted. Level of Consciousness is awake, alert, obeys commands, Oriented to person, place, time, situation, Appropriate for age. Cardiovascular: Reports chest pain, Heart tones S1 S2 present Capillary refill < 3 seconds in bilateral fingers Patient's skin is warm and dry. Rhythm is sinus rhythm. Respiratory: Reports cough that is productive, pain with cough Pain is 8 out of 10 on a pain scale. Breath sounds are clear bilaterally. GI: No deficits noted. No signs and/or symptoms were reported involving the gastrointestinal system. : No deficits noted. No signs and/or symptoms were reported regarding the genitourinary system. EENT: No deficits noted. No signs and/or symptoms were reported regarding the EENT system. Derm: No deficits noted. No signs and/or symptoms reported regarding the dermatologic system. Musculoskeletal: No deficits noted. No signs and/or symptoms reported regarding the musculoskeletal system. 23:07 Reassessment: Patient appears in no apparent distress at this time. Patient and/or bm8 family updated on plan of care and expected duration. Pain level reassessed. Patient is alert, oriented x 3, equal unlabored respirations, skin warm/dry/pink. Patient states feeling better. Vital Signs: 21:51 BP 127 / 76; Pulse 80; Resp 18; Temp 98.2(O); Pulse Ox 95% on R/A; Weight 55.79 kg (R); jb4 Height 5 ft. 3 in. (R); 22:11 BP 124 / 81; Pulse 74; Resp 18; Temp 98.2; Pulse Ox 96% ; Pain 8/10; bm8 23:07 BP 102 / 65; Pulse 77; Resp 17; Temp 98.2; Pulse Ox 96% ; Pain 7/10; bm8 21:51 Body Mass Index 21.79 (55.79 kg, 160.02 cm) jb4 22:11 Pain Scale: Adult bm8 23:07 Pain Scale: Adult bm8 Diamond Coma Score: 22:11 Eye Response: spontaneous(4). Motor Response: obeys commands(6). Verbal Response: bm8 oriented(5). Total: 15. 23:07 Eye Response: spontaneous(4). Motor Response: obeys commands(6). Verbal Response: bm8 oriented(5). Total: 15. ED Course: 21:43 Patient arrived in ED. ra3 21:44 Betzy Lopez PA-C is PHCP. sb4 21:44 Adam Joseph MD is Attending Physician. sb4 21:53 Triage completed. jb4 21:53 Arm band placed on right wrist. jb4 21:54 Luis Bran, RN is Primary Nurse. bm8 22:04 EKG done, by ED staff, reviewed by Betzy Lopez PA-C. lg3 22:08 XRAY Chest Pa And Lat (2 Views) In Process Unspecified. EDMS 22:11 Patient has correct armband on for positive identification. Placed in gown. Bed in low bm8 position. Call light in reach. Side rails up X 1. Client placed on continuous cardiac and pulse oximetry monitoring. NIBP monitoring applied. Pulse ox on. NIBP on. Door closed. Noise minimized. Warm blanket given. Pillow given. Verbal reassurance given. Head of bed elevated. 22:11 Initial lab(s) drawn, by me, sent to lab. COVID swab sent to lab. Flu and/or RSV swab bm8 sent to lab. Strep swab sent to lab. Inserted saline lock: 20 gauge in right antecubital area, using aseptic technique. Blood collected. Flushed with 10 mL NS. Patient maintains SpO2 saturation greater than 95% on room air. 23:09 Provided Education on: post er care. bm8 23:18 No provider procedures requiring assistance completed. IV discontinued, intact, dd2 bleeding controlled, No redness/swelling at site. Pressure dressing applied. Administered Medications: 22:03 CANCELLED (Physician Discretion): mg IM once sb4 22:10 Drug: NS 0.9% IV 1000 ml IV at 1000 ml once; to be given as a bolus over 60 minutes bm8 Route: IV; Rate: 1000 ml; Site: right antecubital; 23:09 Follow up: Response: No adverse reaction; IV Status: Completed infusion; IV Intake: bm8 1000ml 22:10 Drug: Ketorolac IVP 15 mg IVP once Route: IVP; Site: right antecubital; bm8 23:09 Follow up: Response: No adverse reaction bm8 23:11 Drug: predniSONE PO 40 mg PO once Route: PO; bm8 23:18 Follow up: Response: Medication administered at discharge. dd2 23:11 Drug: AZITHromycin PO 500 mg PO once Route: PO; bm8 23:18 Follow up: Response: Medication administered at discharge. dd2 Medication: 22:11 VIS not applicable for this client. bm8 Intake: 23:09 IV: 1000ml; Total: 1000ml. bm8 Outcome: 23:11 Discharge ordered by . sb4 23:18 Discharged to home ambulatory, dd2 23:18 Condition: stable 23:18 Discharge instructions given to patient, Instructed on discharge instructions, follow up and referral plans. medication usage, Demonstrated understanding of instructions, follow-up care, medications, Prescriptions given X 2, 23:19 Patient left the ED. dd2 Signatures: Dispatcher [employer] EDMS Jagjit Irving, RN GAYATRI [email or web address] Nai Clarke, GAYATRI MENDIETA lg3 Betzy Lopez, PA-Oleg PA-Oleg [email or web address] Suzanna Leal Brad RN RN bm8 YRIS BAUTISTA RN RN dd2
--- NOTE | 2024-07-02 23:12 | EDPHYS ---
Physician Documentation [facility] Name: Alberto Johnson Age: 33 yrs Sex: Female : 1990 Arrival Date: 07/02/2024 Time: 21:40 Bed 5 Private MD: ED Physician Adam Joseph HPI: 07/02 21:51 This 33 yrs old Female presents to ER via Unassigned with complaints of Flu Symptoms. sb4 21:51 painful cough, sore throat, malaise x 3 days. contact with someone with bronchitis, sb4 possibly the flu. no n/v/d. otherwise healthy. denies fever or chills. DIRECTOR [employer]: 21:53 unknown, Pt reports tubal ligation jb4 Historical: - Allergies: 21:53 Hydrocodone-Acetaminophen; jb4 21:53 Sulfa (Sulfonamide Antibiotics); jb4 21:53 Tramadol HCl; jb4 - PMHx: 21:53 Anemia; jb4 - PSHx: 21:53 Adenoid excision; Appendectomy; section; tubal ligation; jb4 - Immunization history:: Adult Immunizations up to date. - Infectious Disease History:: Denies. - Social history:: Smoking status: Patient denies any tobacco usage or history of. Patient uses alcohol, occasionally. ROS: 21:51 Abdomen/GI: Negative for abdominal pain, nausea, vomiting, diarrhea, and constipation, sb4 21:51 ENT: Positive for sore throat, 21:51 Respiratory: Positive for cough, shortness of breath, 21:51 All other systems are negative, Exam: 21:51 Constitutional: This is a well developed, well nourished patient who is awake, alert, sb4 and in no acute distress. Head/Face: Normocephalic, atraumatic. Eyes: Extra-ocular motions intact. Periorbital areas with no swelling, redness, or edema. ENT: Mucous membranes moist. Cardiovascular: Regular rate and rhythm with a normal S1 and S2. Respiratory: No increased work of breathing, no retractions or nasal flaring. Abdomen/GI: Soft, non-tender, no distension. Skin: Warm, dry with normal turgor. Normal color with no rashes, no lesions, and no evidence of cellulitis. 21:51 Respiratory: Breath sounds: are clear throughout, Vital Signs: 21:51 BP 127 / 76; Pulse 80; Resp 18; Temp 98.2(O); Pulse Ox 95% on R/A; Weight 55.79 kg (R); jb4 Height 5 ft. 3 in. (R); 22:11 BP 124 / 81; Pulse 74; Resp 18; Temp 98.2; Pulse Ox 96% ; Pain 8/10; bm8 23:07 BP 102 / 65; Pulse 77; Resp 17; Temp 98.2; Pulse Ox 96% ; Pain 7/10; bm8 21:51 Body Mass Index 21.79 (55.79 kg, 160.02 cm) jb4 22:11 Pain Scale: Adult bm8 23:07 Pain Scale: Adult bm8 Diamond Coma Score: 22:11 Eye Response: spontaneous(4). Motor Response: obeys commands(6). Verbal Response: bm8 oriented(5). Total: 15. 23:07 Eye Response: spontaneous(4). Motor Response: obeys commands(6). Verbal Response: bm8 oriented(5). Total: 15. MDM: 21:44 Medical Screening Exam initiated sb4 23:10 Antibiotic administration: The patient is discharged and will get outpatient sb4 antibiotics, Zithromax. Data reviewed: vital signs, nurses notes, lab test result(s), EKG, radiologic studies, and as a result, I will discharge patient. Counseling: I had a detailed discussion with the patient and/or guardian regarding the historical points, exam findings, and any diagnostic results supporting the discharge/admit diagnosis, lab results, radiology results, the need for outpatient follow up, for definitive care, to return to the emergency department if symptoms worsen or persist or if there are any questions or concerns that arise at home. 07/02 21:50 Order name: BMP; Complete Time: 23:06 sb4 07/02 21:50 Order name: CBC with Diff; Complete Time: 22:38 sb4 07/02 21:50 Order name: Magnesium; Complete Time: 23:06 sb4 07/02 21:50 Order name: Troponin HS; Complete Time: 23:06 sb4 07/02 21:50 Order name: SARS RAPID; Complete Time: 23:04 sb4 07/02 21:50 Order name: Flu; Complete Time: 23:04 sb4 07/02 21:50 Order name: Strep; Complete Time: 23:04 sb4 07/02 22:52 Order name: Throat Culture EDMS 07/02 21:50 Order name: XRAY Chest Pa And Lat (2 Views); Complete Time: 22:10 sb4 07/02 21:50 Order name: Cardiac monitoring; Complete Time: 22:11 sb4 07/02 21:50 Order name: EKG - Nurse/Tech; Complete Time: 22:04 sb4 07/02 21:50 Order name: IV Saline Lock; Complete Time: 22:11 sb4 07/02 21:50 Order name: Labs collected and sent; Complete Time: 22:11 sb4 07/02 21:50 Order name: O2 Per Protocol; Complete Time: 22:11 sb4 07/02 21:50 Order name: O2 Sat Monitoring; Complete Time: 22:11 sb4 EC:04 Rate is 75 beats/min. Rhythm is regular, Normal Sinus Rhythm. RI interval is normal at sb4 150 msec. QRS interval is normal at 88 msec. QT interval is normal at 366 msec. No Q waves. T waves are Normal. No ST changes noted. Clinical impression: Normal ECG. Interpreted by me. Reviewed by me. Administered Medications: 22:03 CANCELLED (Physician Discretion): [id number] mg IM once sb4 22:10 Drug: NS 0.9% IV 1000 ml IV at 1000 ml once; to be given as a bolus over 60 minutes bm8 Route: IV; Rate: 1000 ml; Site: right antecubital; 23:09 Follow up: Response: No adverse reaction; IV Status: Completed infusion; IV Intake: bm8 1000ml 22:10 Drug: Ketorolac IVP 15 mg IVP once Route: IVP; Site: right antecubital; bm8 23:09 Follow up: Response: No adverse reaction bm8 23:11 Drug: predniSONE PO 40 mg PO once Route: PO; bm8 23:18 Follow up: Response: Medication administered at discharge. dd2 23:11 Drug: AZITHromycin PO 500 mg PO once Route: PO; bm8 23:18 Follow up: Response: Medication administered at discharge. dd2 Disposition: 07/03 02:19 Co-signature as Attending Physician, Adam Joseph MD I agree with the assessment sp4 and plan of care. I reviewed the patient's care provided by the Advanced Practice Provider and agree with the diagnosis and treatment plan. Disposition Summary: 07/02/24 23:11 Discharge Ordered Notes: Location: Home sb4 Problem: new sb4 Symptoms: are unchanged sb4 Condition: Stable sb4 Diagnosis - Acute upper respiratory infection, unspecified sb4 Followup: sb4 - With: Emergency Department - When: As needed - Reason: Trouble breathing, Worsening of condition Discharge Instructions: - Discharge Summary Sheet sb4 - Acute Bronchitis, Adult, [id number] sb4 - Upper Respiratory Infection, Adult, [id number] sb4 Forms: - Antibiotic Education sb4 - Patient Portal Instructions sb4 - Leadership Thank You Letter sb4 Prescriptions: - Zithromax Z-Baljit 250 mg Oral tablet - take 1 tablet ORAL route once daily for 4 days; 4 tablet; Refills: 0, Product sb4 Selection Permitted - Prednisone 20 mg Oral tablet - take 2 tablets ORAL route once daily for 4 days; 8 tablet; Refills: 0, Product sb4 Selection Permitted Signatures: Dispatcher [employer] EDNE Jagjit Irving, RN RN jb4 Betzy Lopez PA-C PACherriC sb4 Adam Joseph MD MD sp4 Luis Bran RN RN bm8 YRIS BAUTISTA RN dd2 Corrections: (The following items were deleted from the chart) 07/02 21:51 21:51 BASIC METABOLIC PANEL+C.LAB.BRZ ordered. EDMS EDMS 21:51 21:51 CBC+H.LAB.BRZ ordered. EDMS EDMS 21:51 21:51 MAGNESIUM+C.LAB.BRZ ordered. EDMS EDMS 21:51 21:51 Troponin High Sensitivity+C.LAB.BRZ ordered. EDMS EDMS 21:51 21:51 SARS-COV-2 Antigen Rapid+I.LAB.BRZ ordered. EDMS EDMS 21:51 21:51 Influenza Screen (A \T\ B)+BA.LAB.BRZ ordered. EDMS EDMS 21:51 21:51 Group A Streptococcus Rapid Sc+BA.LAB.BRZ ordered. EDMS EDMS 21:51 21:51 Chest Pa And Lat (2 Views)+RAD.RAD.BRZ ordered. EDMS EDMS 22:03 21:50 Ketorolac IM 15 mg IM once ordered. sb4 sb4
[2024-07-02] MEDS ORDERED: predniSONE 20 MG TAB ONE (23:13)
[2024-07-02] MEDS ORDERED: AZITHROMYCIN 250 MG TAB ONE (23:14)
[2024-07-03 01:24] VITALS: TEMP 98.2
[2024-07-03 01:25] VITALS: O2SAT 96
[2024-07-03 01:26] VITALS: BP 102/65
== END 2024-07-02 23:19 | disposition home or self-care (01) ==
LOC: ER 21:40
DX: J06.9 Acute upper respiratory infection, unspecified (principal); Z11.52 Encounter for screening for COVID-19
CPT/HCPCS: 36415; 71046; 80048; 83735; 84484; 85025; 87070; 87081; 87804; 87811; 96361; 96374; 99285; J7030; J7512

== ENCOUNTER 2024-09-13 13:41 | Emergency (ER) | payer SELFPAY ==
--- OUTSIDE RECORDS SUMMARY | 2024-09-13 13:47 | XMS REPORT | Continuity of Care Document ---
Author Name Unknown Address [address] [facility] [address] [place] [address] [facility] Address [address] [facility] [place] [address] Care Team Providers Care State Archivist Name Role Phone PCP, PATIENT DOES NOT HAVE A Primary Care Physic romulo Unavailable MARIVEL PARSONS Attending Clinician Unavailable Issa Marivel WALSH Attending Clinician [phone] CHRIS SANDRA Attending Clinician Unavailable CHRIS SANDRA Attending Clinician Unavailable Chris Sandra MD Attending Clinician ARMANDO ALDANA Attending Clinician ARMANDO Mcqueen Attending Clinician SAVITA Cross Attending Clinician SAVITA Parikh Attending Clinician ANNE-MARIE Nettles Attending Clinician FRAN Crawford Attending Clinician FRAN Ying Attending Clinician Alli al Pob, [facility] Attending Clinician Anton biggs Doctor Unassigned, Twilight Attending Clinician U chrissyailDARYL Escobar Attending Clinician Unavaila Daryl Aden Attending Clinician + [phone] AARON HENDRICKS Attending Clinician Unavailable Aaron Hendricks MD Attending Clinician [phone] Nurse, [facility] Attending Clinician Unavailable KRYSTA SUN Attending Clinician Krysta Schmitz MD Attending Clinician + Josue Rausch DO Attending Clinician [phone] Ultrasound, [facility] Attending Clinician UnavailBronwyn Zacarias MD Attending Clinician [phone] Filipe Navarrete MD Attending Clinician + [phone] AdanEric holland DO Attending Clinician +[phone] FILIPE NAVARRETE Attending Clinician Unavaila servando Ultrasound, [facility] Attending Clinician UnavailBRONWYN Zacarias Attending Clinician UnavailFRANCOIS Gudino Attending Clinician Unavailable Cally Sandra PA-C Attending Clinician [phone] CALLY SANDRA Attending Clinician Unavailable Endy Fisher Attending Clinician [phone] AARON HENDRICKS Admitting Clinician Unavailable FRAN MAYA Admitting Clinician UnavailKRYSTA Al[place] Admitting Clinician Krysta Schmitz MD Admitting Clinician + Aaron Hendricks MD Admitting Clinician [phone] CALLY SANDRA Admitting Clinician Unavailable Payers Payer Name Policy Type Policy Number Effective Date Expirati on Date Source [employer] MEDICAID [id number] 2020 00:00:00 [facility] [id number] 2023 00:00:00 [place] [id number] 2020 00:00:[address] [facility] [id number] 2018 00:00:00 2020 00:00:00 Problems Condition Name Condition Details Condition Category Status Onset Date Resolution Date Last Treatment Date Treating Clinician Comments Source Vaginal discharge Vaginal discharge Disease Active 3-14 00:00: 00 [facility] Tubal ligation status Tubal ligation status Disease Active 3-14 00:00: 00 [facility] Anemia of mother in , antepartum Anemia of mother in , antepartum Disease Active 9-22 00:00: 00 [facility] Screening examinatio n for venereal disease Screening examinatio n for venereal disease Disease Active 10-07 00:00: 00 [facility] History of section History of section Disease Active 4 00:00: 00 [facility] History of gestationa l hypertensi on History of gestationa l hypertensi on Disease Active 4 00:00: 00 [facility] Dizziness and giddiness Dizziness and giddiness Disease Resolve d 6-12 00:00: 00 2024-09-12 00:00:00 2024-09-12 11:46:45 [facility] Pain pelvic Pain pelvic Disease Resolve d 6-12 00:00: 00 2024-09-12 00:00:00 2024-09-12 11:46:58 [facility] Dyspareuni a in female Dyspareuni a in female Disease Resolve d 3-20 00:00: 00 2024-09-12 00:00:00 2024-09-12 11:46:56 [facility] RLQ abdominal pain RLQ abdominal pain Disease Resolve d 3-14 00:00: 00 2024-09-12 00:00:00 2024-09-12 11:53:04 [facility] Sciatic nerve pain, unspecifie d laterality Sciatic nerve pain, unspecifie d laterality Disease Resolve d 8-02 00:00: 00 2024-09-12 00:00:00 2024-09-12 11:46:47 [facility] Dichorioni c diamniotic twin in third trimester Dichorioni c diamniotic twin in third trimester Disease Resolve d 2020-0 4-27 00:00: 00 2024-09-12 00:00:00 2024-09-12 11:46:50 [facility] uterine contractio ns in third trimester, antepartum uterine contractio ns in third trimester, antepartum Disease Resolve d 2020-06 1-12 00:00: 00 2021-05-15 00:00:00 2021-05-15 11:27:19 [facility] Premature uterine contractio ns Premature uterine contractio ns Disease Resolve d 1 1-11 00:00: 00 2021-05-15 00:00:00 2021-05-15 11:27:22 [facility] Decreased movements in third trimester Decreased movements in third trimester Disease Resolve d 2020-1 0-14 00:00: 00 2021-05-15 00:00:00 2021-05-15 11:27:43 [facility] Anemia of mother in , antepartum Anemia of mother in , antepartum Disease Resolve d 2020-0 9-22 00:00: 00 2021-05-15 00:00:00 2021-05-15 11:27:38 [facility] Abnormal maternal glucose tolerance, antepartum Abnormal maternal glucose tolerance, antepartum Disease Resolve d 2020-0 9-22 00:00: 00 2021-05-15 00:00:00 2021-05-15 11:27:40 [facility] Uterine contractio ns during Uterine contractio ns during Disease Resolve d 2020-0 9-10 00:00: 00 2021-05-15 00:00:00 2021-05-15 11:27:25 [facility] History of UTI History of UTI Disease Resolve d 2020-0 6-08 00:00: 00 2021-05-15 00:00:00 2021-05-15 11:27:27 [facility] Nausea Nausea Disease Resolve d 2020-0 4-27 00:00: 00 2021-05-15 00:00:00 2021-05-15 11:27:46 [facility] Sinusitis, unspecifie d chronicity , unspecifie d location Sinusitis, unspecifie d chronicity , unspecifie d location Disease Resolve d -07 00:00: 00 2021-01-04 00:00:00 2021-01-04 22:22:20 [facility] Yeast detected Yeast detected Disease Resolve d 5-18 00:00: 00 2020-12-17 00:00:00 2020-12-17 13:37:27 [facility] Dysuria Dysuria Disease Resolve d 5-11 00:00: 00 2020-12-17 00:00:00 2020-12-17 13:37:28 [facility] 8 weeks gestation of 8 weeks gestation of Disease Resolve d 5- 00:00: 00 2020-10-21 00:00:00 2020-10-21 09:55:44 [facility] Allergies, Adverse Reactions, Alerts Allergy Name Allergy Type Status Severity Reaction(s) Onset Date Inactive Date Treating Clinician Comments Source Hydrocod one Propensi ty to adverse reaction s Active Nausea and/or Vomiting 10-07 00:00: 00 [facility] Tramadol Propensi ty to adverse reaction s Active Nausea and/or Vomiting 10-07 00:00: 00 [facility] HYDROCOD ONE DRUG INGREDI Active N/V 10-07 00:00: 00 [facility] TRAMADOL DRUG INGREDI Active N/V 10-07 00:00: 00 [facility] Sulfa (Sulfona mide Antibiot ics) Propensi ty to adverse reaction s Active Anaphylaxis 01-07 00:00: 00 [facility] Sulfa (Sulfona mide Antibiot ics) Propensi ty to adverse reaction s Active Anaphylaxis 01-07 00:00: 00 [facility] SULFA (SULFONA MIDE ANTIBIOT ICS) Drug Class Active Anaphylaxis 01-07 00:00: 00 [facility] Social History Social Habit Start Date Stop Date Quantity Comments Source ASSERTION 2020-09-07 00:00:00 [facility] Alcoholic beverage intake 2024-09-12 00:00:00 2024-09-12 00:00:00 Current drinker of alcohol (finding) [facility] History of Social function 2024-09-11 00:00:00 2024-09-11 00:00:00 [facility] Alcohol Comment 2024-06-28 00:00:00 2024-06-28 00:00:00 socially [facility] Alcohol intake 2022-11-22 00:00:00 2022-11-22 00:00:00 Ex-drinker (finding) [facility] Exposure to SARS-CoV-2 (event) 2022-09-12 00:00:00 2022-09-22 15:40:00 Not sure [facility] Tobacco use and exposure 2022-08-24 00:00:00 2022-08-24 00:00:00 Smokeless tobacco non-user [facility] Sex assigned at 1990 00:00:00 1990 00:00:00 [facility] Smoking Status Start Date Stop Date Source Never smoked tobacco [facility] Medications Ordered Medication Name Filled Medication Name Start Date Stop Date Current Medication? Ordering Clinician Indication Dosage Frequency Signature (SIG) Comments Components Source metroNIDAZO LE 500 mg tablet 06-28 00:00: 00 09-12 00:00 :00 No [id number] 500mg Take 1 tablet by mouth every 12 (twelve) hours. [facility] fluconazole 150 mg tablet 06-28 00:00: 00 06-29 05:59 :00 No [id number] 150mg Take 1 tablet by mouth once now for 1 dose. [facility] butalbital- acetaminoph en-caff (ESGIC) 50-325-40 mg tablet 1 tablet 2023-06 06:15: 00 03-28 06:34 :00 No 1{tbl} 1 tablet, Oral, ONCE, 1 dose, On Tue03/28/24 at 0115, HERNANDO [facility] ondansetron (ZOFRAN) 4 mg tablet 2023-06 0-16 00:00: 00 09-12 00:00 :00 No [id number] 4mg Take 1 tablet by mouth every 8 (eight) hours as needed for Nausea and Vomiting (N/V). [facility] butalbital- acetaminoph en-caff 50-325-40 mg tablet 2023-06 0-16 00:00: 00 09-12 00:00 :00 No [id number] 1{tbl} Take 1 tablet by mouth every 6 (six) hours as needed for Pain (scale 7-10) (Headache) . [facility] metroNIDAZO LE 500 mg tablet 08-25 00:00: 00 09-02 04:59 :00 No [id number] 500mg Take 1 tablet by mouth every 12 (twelve) hours for 7 days. [facility] acetaminoph en (TYLENOL) tablet 650 mg 2021-06 00:15: 00 04-21 23:45 :00 No 650mg 650 mg, Oral, ONCE, 1 dose, On Tue04/21/22 at 1815, HERNANDO [facility] naproxen (NAPROSYN) tablet 250 mg 2021-06 00:15: 00 04-21 23:45 :00 No 250mg 250 mg, Oral, ONCE, 1 dose, On Tue04/21/22 at 1815, HERNANDO [facility] naproxen 500 mg EC tablet 2021-06 00:00: 00 09-12 00:00 :00 No [id number] 500mg Take 1 tablet by mouth in the morning and 1 tablet in the evening. Take with meals. [facility] No known medications 2020-06 14:54: 56 No [facility] SERTraline 25 mg tablet 2020-06 00:00: 00 Yes [id number] 25mg Take 1 tablet by mouth daily. [facility] FEROSUL 325 mg (65 mg iron) tablet 2020-06 00:00: 00 05-26 00:00 :00 No TAKE ONE (1) TABLET BY MOUTH 2 (TWO) TIMES DAILY. [facility] ibuprofen 600 mg tablet 2020-06 00:00: 00 05-26 00:00 :00 No TAKE ONE (1) TABLET BY MOUTH EVERY 6 (SIX) HOURS NEEDED (PAIN). TAKE WITH FOOD OR MILK. [facility] vit calc,iron,f olic ( VITAMIN ORAL) 2020-06 06:29: 27 04-27 00:00 :00 No Take by mouth. [facility] cetirizine 10 mg tablet 2020-06 00:00: 00 Yes 10mg Take 10 mg by mouth daily. [facility] fluticasone propionate 50 mcg/actuati on nasal spray 2020-06 00:00: 00 Yes USE TWO (2) SPRAYS IN EACH NOSTRIL DAILY. [facility] foLIC acid 1 mg tablet 2020-06 00:00: 00 Yes 1mg Take 1 mg by mouth daily. [facility] vitamin w/FA tablet 2020-06 00:00: 00 05-15 00:00 :00 No [id number] 1{tbl} Take 1 tablet by mouth daily. [facility] docusate calcium 240 mg capsule 2020-06 00:00: 00 05-15 00:00 :00 No [id number] 240mg Take 1 capsule by mouth once daily as needed for Constipati on. [facility] ferrous sulfate 325 mg (65 mg iron) tablet 2020-06 00:00: 00 05-15 00:00 :00 No [id number] 325mg Take 1 tablet by mouth 2 (two) times daily. [facility] ibuprofen 600 mg tablet 2020-06 00:00: 00 05-15 00:00 :00 No [id number] 600mg Take 1 tablet by mouth every 6 (six) hours as needed (Pain). Take with food or milk. [facility] acetaminoph en-codeine 300-30 mg tablet 2020-06 00:00: 00 05-05 05:59 :00 No [id number] 1{tbl} Take 1 tablet by mouth every 6 (six) hours as needed (Pain Scale above 4) for up to 7 days. Do not exceed 3 grams of acetaminop hen in 24 hours. Indication s: acute pain [facility] acetaminoph en-codeine (TYLENOL #3) 300-30 mg tablet 1 tablet 2020-06 10:16: 40 Yes 1{tbl} 1 tablet, Oral, Q4HPRN, Starting on Tue04/24/21 at 0416, Until Discontinu ed, Routine, Pain (scale 7-10) [facility] rho(D) immune globulin (RHOGAM) syringe 300 mcg 2020-06 10:16: 12 Yes 300ug 300 mcg, Intramuscu lar, ONCE, For 1 dose, Conditiona l, Routine [facility] ondansetron (ZOFRAN (PF)) injection 4 mg 2020-06 10:16: 07 Yes 4mg 4 mg, Slow IV Push, Q8HPRN, Starting on Tue04/24/21 at 0416, Until Discontinu ed, Routine, Nausea and Vomiting (N/V) [facility] simethicone (GAS RELIEF (SIMETHICON E)) chewable tablet 160 mg 2020-06 10:16: 07 Yes 160mg 160 mg, Oral, PC+HSPRN, Starting on Tue04/24/21 at 0416, Until Discontinu ed, Routine, Gas [facility] magnesium hydroxide (MILK OF MAGNESIA) 400 mg/5 mL suspension 30 mL 2020-06 10:16: 07 Yes 30mL 30 mL, Oral, QDAILYPRN, Starting on Tue04/24/21 at 0416, Until Discontinu ed, Routine, Constipati on [facility] ibuprofen (IBU) tablet 600 mg 2020-06 10:16: 06 Yes 600mg 600 mg, Oral, Q6HPRN, Starting on Tue04/24/21 at 0416, Until Discontinu ed, Routine, Pain (scale 1-3) [facility] diphenhydrA MINE-0.9 % sod.chlr (BENADRYL) 25 mg/50 mL piggyback 25 mg 2020-06 10:16: 06 Yes 25mg 25 mg, IV Piggyback, Administer over 30 Minutes, Q6HPRN, 1 dose, Starting on Tue04/24/21 at 0416, Until Discontinu ed, Routine, Itching [facility] diphenhydrA MINE (BENADRYL) tablet 25 mg 2020-06 10:16: 06 Yes 25mg 25 mg, Oral, Q6HPRN, Starting on Tue04/24/21 at 0416, Until Discontinu ed, Routine, Sleep, Itching [facility] bisacodyL (DULCOLAX) suppository 10 mg 2020-06 10:16: 06 Yes 10mg 10 mg, Rectal, QDAILYPRN, Starting on Tue04/24/21 at 0416, Until Discontinu ed, Routine, Constipati on [facility] docusate calcium (SURFAK) capsule 240 mg 2020-06 10:16: 06 Yes 240mg 240 mg, Oral, QDAILYPRN, Starting on Tue04/24/21 at 0416, Until Discontinu ed, Routine, Constipati on [facility] nalbuphine (NUBAIN) injection 5 mg 2020-06 09:49: 46 Yes 5mg 5 mg, Intravenou s, PRN, 1 dose, Starting on Tue04/24/21 at 0349, Until Discontinu ed, Routine, itching, PACU [facility] ketorolac (TORADOL) injection 30 mg 2020-06 09:49: 46 04-24 10:22 :00 No 30mg 30 mg, Slow IV Push, PRN, 1 dose, Starting on Tue04/24/21 at 0349, Until Discontinu ed, Routine, Pain (scale 4-6), PACU
Fa culty member approving Restricted medication : LD PACU [facility] ceFAZolin in dextrose (iso-os) (ANCEF) 2 gram/100 mL Piggyback 2 g 2020-06 06:32: 22 04-24 07:03 :00 No 2000mg 2 g (2,000 mg), IV Piggyback, O.R. HOLDING ONCE, 1 dose, Starting on Tue04/24/21 at 0032, Until Discontinu ed, 100 mL
Reas on for Anti-Infec tive: Surgical Prophylaxi s
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
Duration of therapy: within 24 hours of surgery [facility] D5W 0.45% NaCl (1/2NS) IV infusion 1,000 mL 2020-06 02:15: 00 04-24 10:16 :12 No 1000mL at 75 mL/hr, 1,000 mL, IV Infusion, CONTINUOUS , Starting on Tue04/23/21 at 2014, Until Tue04/24/21 at 0416, [facility] magnesium sulfate in 0.9 %NaCl 10 gram/250 mL (40 mg/mL) IV SOLUTION 2020-06 02:15: 00 04-24 10:16 :12 No 2g/h 2 g/hr (50 mL/hr), at 50 mL/hr, IV Infusion, CONTINUOUS , Starting on Tue04/23/21 at 2014, Until Tue04/24/21 at 0416, [facility] vit calc,iron,f olic ( VITAMIN ORAL) 2020-06 01:07: 30 Yes Take by mouth. [facility] betamethaso ne acet,sod phos (CELESTONE SOLUSPAN) 6 mg/mL injection 12 mg 2020-06 00:00: 00 04-24 10:16 :12 No 12mg 12 mg, Intramuscu lar, Q24H, 2 doses, First dose on Tue04/23/21 at 1800, Last dose on Tue04/24/21 at 1800, Routine [facility] ceFAZolin (ANCEF) 1,000 mg in NaCl 0.9% (NS) 50 mL MINI-BAG 2020-06 23:45: 00 04-24 01:13 :00 No 1000mg 1,000 mg, IV Piggyback, ONCE, 1 dose, On Makenzie 04/23/21 at 1745, Administer over 30 Minutes, 50 mL
Reas on for Anti-Infec tive: Empiric Non-Surgic al Prophylaxi s [facility] terbutaline (BRETHINE) injection 0.25 mg 2020-06 23:45: 00 04-24 01:16 :00 No .25mg 0.25 mg, Subcutaneo us, ONCE, 1 dose, On Makenzie 04/23/21 at 1745, Routine [facility] D5W-LR IV infusion 1,000 mL 2020-06 22:45: 00 04-24 10:16 :12 No 1000mL at 125 mL/hr, IV Infusion, CONTINUOUS , Starting on Makenzie 04/23/21 at 1645, Until Tue04/24/21 at 0416, Routine [facility] sodium citrate-cit dayron acid (BICITRA) 500-334 mg/5 mL solution 30 mL 2020-06 22:37: 31 04-24 07:04 :00 No 30mL 30 mL, Oral, PRE-PROCED URE ONCE, 1 dose, Starting on Makenzie 04/23/21 at 1637, Until Discontinu ed, Routine, Surgery/Pr ocedure [facility] lactated ringers IV infusion 1,000 mL 2020-06 22:00: 00 04-23 22:25 :00 No 1000mL at 999 mL/hr, 1,000 mL, IV Infusion, ONCE, 1 dose, On Makenzie 04/23/21 at 1600, Routine [facility] magnesium oxide 400 mg (241.3 mg magnesium) tablet 2020-06 00:00: 00 04-27 00:00 :00 No [id number] 400mg Take 1 tablet by mouth daily. [facility] cetirizine 10 mg tablet 2020-06 00:00: 00 04-27 00:00 :00 No [id number] 10mg Take 1 tablet by mouth daily. [facility] fluticasone propionate (FLONASE ALLERGY RELIEF) 50 mcg/actuati on nasal spray 2020-06 00:00: 00 04-27 00:00 :00 No [id number] 2{spray } Use 2 Sprays in each nostril daily. [facility] iron sucrose (VENOFER) 300 mg in NaCl 0.9% (NS) 250 mL infusion 2020-06 17:30: 00 04-07 20:27 :00 No 300mg 300 mg, IV Infusion, ONCE, 1 dose, On Tue04/07/21 at 1230, Administer over 2.5 Hours, 250 mL
Appr kwaku Indication /Faculty: ADC PROVIDER [facility] vit calc,iron,f olic ( VITAMIN ORAL) 2020-06 15:47: 10 Yes Take by mouth. [facility] lactated ringers IV infusion 1,000 mL 2020-06 03:30: 00 03-27 02:36 :00 No 1000mL at 999 mL/hr, 1,000 mL, IV Infusion, ONCE, 1 dose, On Tue03/26/21 at 2230, STAT [facility] acetaminoph en-codeine (TYLENOL #3) 300-30 mg tablet 1 tablet 2020-06 02:21: 58 Yes 1{tbl} 1 tablet, Oral, Q4HPRN, Starting on Tue03/26/21 at 2121, Until Discontinu ed, Routine, Pain (scale 7-10) [facility] vit calc,iron,f olic ( VITAMIN ORAL) 2020-06 00:01: 28 Yes Take by mouth. [facility] iron sucrose (VENOFER) 300 mg in NaCl 0.9% (NS) 250 mL infusion 2020-06 23:45: 00 03-27 04:17 :00 No 300mg 300 mg, IV Infusion, ONCE, Administer over 2.5 Hours, On Tue03/26/21 at 1845, For 1 dose [facility] Nitrofurant oin&Nit. Macrocryst 100 mg capsule 2020-06 00:00: 00 04-27 00:00 :00 No TAKE ONE (1) CAPSULE(S) BY MOUTH TWICE A DAY. [facility] vit calc,iron,f olic ( VITAMIN ORAL) 02-20 19:44: 27 Yes Take by mouth. [facility] Nitrofurant oin&Nit. Macrocryst (MACROBID) 100 mg capsule 100 mg 02-20 19:30: 00 02-20 18:31 :00 No 100mg 100 mg, Oral, ONCE, 1 dose, Tue02/20/21 at 1430, Routine
Reason for Anti-Infec tive: Empiric Therapy for Suspected Infection< br>Empiric Therapy Site: Urine
D uration of therapy: 7 days [facility] lactated ringers IV infusion 1,000 mL 02-20 19:15: 00 02-20 18:30 :00 No 1000mL at 999 mL/hr, 1,000 mL, IV Infusion, ONCE, 1 dose, Tue02/20/21 at 1415, STAT [facility] vit calc,iron,f olic ( VITAMIN ORAL) 02-20 17:03: 54 Yes Take by mouth. [facility] vit calc,iron,f olic ( VITAMIN ORAL) 02-20 14:44: 27 Yes Take by mouth. [facility] famotidine 20 mg tablet 02-20 00:00: 00 04-27 00:00 :00 No [id number] 20mg Take 1 tablet by mouth 2 (two) times daily. Take about 30 minutes before eating. [facility] Nitrofurant oin&Nit. Macrocryst 100 mg capsule 02-20 00:00: 00 03-26 00:00 :00 No [id number] 100mg Take 1 capsule by mouth 2 (two) times daily. [facility] Nitrofurant oin&Nit. Macrocryst (MACROBID) 100 mg capsule 12-16 00:00: 00 Yes [id number] 07 100mg Take 1 capsule by mouth daily. [facility] aspirin 81 mg EC tablet 6-08 00:00: 00 04-27 00:00 :00 No [id number] 81mg Take 1 tablet by mouth daily. [facility] foLIC acid 1 mg tablet 10-07 00:00: 00 04-27 00:00 :00 No [id number] 1mg Take 1 tablet by mouth daily. [facility] ferrous sulfate (IRON, FERROUS SULFATE,) 325 mg (65 mg iron) tablet 10-07 00:00: 00 04-27 00:00 :00 No [id number] 325mg Take 1 tablet by mouth daily. [facility] ascorbic acid, vitamin C, 500 mg tablet 10-07 00:00: 00 04-27 00:00 :00 No [id number] 500mg Take 1 tablet by mouth daily. Take with iron. [facility] Vital Signs Vital Name Observation Time Observation Value Comments S ource Systolic blood pressure 2024-09-11 15:02:00 104 mm[Hg] [facility] Diastolic blood pressure 2024-09-11 15:02:00 68 mm[Hg] [facility] Heart rate 2024-09-11 15:01:00 75 /min [facility] Body temperature 2024-09-11 15:01:00 35.94 [facility] Respiratory rate 2024-09-11 15:01:00 16 /min [facility] Body height 2024-09-11 15:01:00 157.5 cm [facility] Body weight 2024-09-11 15:01:00 60.924 kg [facility] BMI 2024-09-11 15:01:00 24.57 kg/m2 [facility] Systolic blood pressure 2024-06-28 15:54:00 130 mm[Hg] [facility] Diastolic blood pressure 2024-06-28 15:54:00 70 mm[Hg] [facility] Heart rate 2024-06-28 15:54:00 63 /min [facility] Body temperature 2024-06-28 15:54:00 36.61 [facility] Respiratory rate 2024-06-28 15:54:00 18 /min [facility] Body height 2024-06-28 15:54:00 157.5 [facility] 2024-06-28 15:54:00 58.605 kg [facility] BMI 2024-06-28 15:54:00 23.63 kg/m2 [facility] Systolic blood pressure 2024-03-28 07:00:00 112 mm[Hg] [facility] Diastolic blood pressure 2024-03-28 07:00:00 67 mm[Hg] [facility] Heart rate 2024-03-28 07:00:00 62 /min [facility] Body temperature 2024-03-28 07:00:00 36.94 [facility] Respiratory rate 2024-03-28 07:00:00 16 /min [facility] Oxygen saturation in Arterial blood by Pulse oximetry 2024-03-28 07:00:00 97 /min [facility] Body height 2024-03-28 02:51:00 157.5 cm [facility] Body weight 2024-03-28 02:51:00 63.504 kg [facility] BMI 2024-03-28 02:51:00 25.61 kg/m2 [facility] Systolic blood pressure 2022-11-22 19:00:00 120 mm[Hg] [facility] Diastolic blood pressure 2022-11-22 19:00:00 78 mm[Hg] [facility] Heart rate 2022-11-22 19:00:00 99 /min [facility] Body height 2022-11-22 19:00:00 158.8 cm [facility] Body weight 2022-11-22 19:00:00 56.926 kg [facility] BMI 2022-11-22 19:00:00 22.59 kg/m2 [facility] Systolic blood pressure 2022-09-22 20:52:00 119 mm[Hg] [facility] Diastolic blood pressure 2022-09-22 20:52:00 71 mm[Hg] [facility] Heart rate 2022-09-22 20:52:00 67 /min [facility] Respiratory rate 2022-09-22 20:52:00 18 /min [facility] Body height 2022-09-22 20:52:00 158.8 cm [facility] Body weight 2022-09-22 20:52:00 60.328 kg [facility] BMI 2022-09-22 20:52:00 23.94 kg/m2 [facility] Systolic blood pressure 2022-08-24 19:04:00 129 mm[Hg] [facility] Diastolic blood pressure 2022-08-24 19:04:00 74 mm[Hg] [facility] Heart rate 2022-08-24 19:04:00 64 /min Unive [facility] Body temperature 2022-08-24 19:04:00 36.72 I[facility] Respiratory rate 2022-08-24 19:04:00 16 /min [facility] Body height 2022-08-24 19:04:00 160 cm [facility] Body weight 2022-08-24 19:04:00 59.693 kg [facility] BMI 2022-08-24 19:04:00 23.31 kg/m2 [facility] Systolic blood pressure 2022-04-21 23:02:00 122 mm[Hg] [facility] Diastolic blood pressure 2022-04-21 23:02:00 78 mm[Hg] [facility] Heart rate 2022-04-21 23:02:00 66 /min Unive [facility] Body temperature 2022-04-21 23:02:00 36.83 [facility] Respiratory rate 2022-04-21 23:02:00 18 /min [facility] Body height 2022-04-21 23:02:00 160 cm [facility] Body weight 2022-04-21 23:02:00 57.153 kg [facility] BMI 2022-04-21 23:02:00 22.32 kg/m2 [facility] Oxygen saturation in Arterial blood by Pulse oximetry 2022-04-21 23:02:00 99 /min [facility] Systolic blood pressure 2021-05-26 20:32:00 109 mm[Hg] [facility] Diastolic blood pressure 2021-05-26 20:32:00 58 mm[Hg] [facility] Heart rate 2021-05-26 20:32:00 80 /min Unive [facility] Body temperature 2021-05-26 20:32:00 36.61 [facility] Respiratory rate 2021-05-26 20:32:00 18 /min [facility] Body height 2021-05-26 20:32:00 157.5 cm [facility] Body weight 2021-05-26 20:32:00 57.834 kg [facility] BMI 2021-05-26 20:32:00 23.32 kg/m2 [facility] Systolic blood pressure 2021-05-14 17:25:00 124 mm[Hg] [facility] Diastolic blood pressure 2021-05-14 17:25:00 64 mm[Hg] [facility] Heart rate 2021-05-14 17:25:00 61 /min [facility] Body temperature 2021-05-14 17:25:00 36.67 [facility] Respiratory rate 2021-05-14 17:25:00 16 /min [facility] Body height 2021-05-14 17:25:00 157.5 cm [facility] Body weight 2021-05-14 17:25:00 56.359 kg [facility] BMI 2021-05-14 17:25:00 22.73 kg/m2 [facility] Systolic blood pressure 2021-05-01 15:53:00 116 mm[Hg] [facility] Diastolic blood pressure 2021-05-01 15:53:00 79 mm[Hg] [facility] Heart rate 2021-05-01 15:53:00 84 /min Unive [facility] Body temperature 2021-05-01 15:53:00 36.72 [facility] Respiratory rate 2021-05-01 15:53:00 18 /min [facility] Body weight 2021-05-01 15:53:00 58.015 kg [facility] BMI 2021-05-01 15:53:00 23.39 kg/m2 [facility] Systolic blood pressure 2021-04-27 14:10:00 118 mm[Hg] [facility] Diastolic blood pressure 2021-04-27 14:10:00 76 mm[Hg] [facility] Heart rate 2021-04-27 14:10:00 75 /min Unive [facility] Body temperature 2021-04-27 14:10:00 36.72 [facility] Respiratory rate 2021-04-27 14:10:00 18 /min [facility] Oxygen saturation in Arterial blood by Pulse oximetry 2021-04-27 14:10:00 97 /min [facility] Body height 2021-04-23 21:11:00 157.5 cm [facility] Body weight 2021-04-23 21:11:00 68.947 kg [facility] BMI 2021-04-23 21:11:00 27.80 kg/m2 [facility] Systolic blood pressure 2021-04-24 09:45:00 118 mm[Hg] [facility] Diastolic blood pressure 2021-04-24 09:45:00 76 mm[Hg] [facility] Heart rate 2021-04-24 09:45:00 71 /min [facility] Oxygen saturation in Arterial blood by Pulse oximetry 2021-04-24 09:45:00 98 /min [facility] Respiratory rate 2021-04-24 09:30:00 26 /min [facility] Body temperature 2021-04-24 09:20:00 36.61 [facility] Body height 2021-04-23 21:11:00 157.5 cm [facility] Body weight 2021-04-23 21:11:00 68.947 kg [facility] BMI 2021-04-23 21:11:00 27.80 kg/m2 [facility] Systolic blood pressure 2021-04-23 17:17:00 112 mm[Hg] [facility] Diastolic blood pressure 2021-04-23 17:17:00 75 mm[Hg] [facility] Heart rate 2021-04-23 17:17:00 97 /min [facility] Respiratory rate 2021-04-23 17:17:00 20 /min [facility] Body height 2021-04-23 17:17:00 157.5 cm [facility] Body weight 2021-04-23 17:17:00 68.181 kg [facility] BMI 2021-04-23 17:17:00 27.49 kg/m2 [facility] Systolic blood pressure 2021-04-16 15:13:00 100 mm[Hg] [facility] Diastolic blood pressure 2021-04-16 15:13:00 57 mm[Hg] [facility] Heart rate 2021-04-16 15:13:00 112 /min [facility] Body temperature 2021-04-16 15:13:00 36.44 [facility] Respiratory rate 2021-04-16 15:13:00 19 /min [facility] Body height 2021-04-16 15:13:00 157.5 cm [facility] Body weight 2021-04-16 15:13:00 69.032 kg [facility] BMI 2021-04-16 15:13:00 27.84 kg/m2 [facility] Oxygen saturation in Arterial blood by Pulse oximetry 2021-04-16 15:13:00 98 /min [facility] Systolic blood pressure 2021-04-09 15:30:00 99 mm[Hg] [facility] Diastolic blood pressure 2021-04-09 15:30:00 59 mm[Hg] [facility] Heart rate 2021-04-09 15:30:00 105 /min [facility] 2021-04-09 15:30:00 36.94 [facility] Respiratory rate 2021-04-09 15:30:00 19 /min [facility] Body height 2021-04-09 15:30:00 157.5 cm [facility] Body weight 2021-04-09 15:30:00 67.643 kg [facility] BMI 2021-04-09 15:30:00 27.28 kg/m2 [facility] Systolic blood pressure 2021-04-07 19:37:00 104 mm[Hg] [facility] Diastolic blood pressure 2021-04-07 19:37:00 60 mm[Hg] [facility] Body temperature 2021-04-07 18:00:00 36.89 [facility] Respiratory rate 2021-04-07 18:00:00 16 /min [facility] Heart rate 2021-04-07 17:15:00 93 /min Unive [facility] Body weight 2021-04-07 16:29:00 68.13 kg [facility] BMI 2021-04-07 16:29:00 27.47 kg/m2 [facility] Systolic blood pressure 2021-03-30 18:11:00 101 mm[Hg] [facility] Diastolic blood pressure 2021-03-30 18:11:00 59 mm[Hg] [facility] Heart rate 2021-03-30 18:11:00 97 /min Unive [facility] Respiratory rate 2021-03-30 18:11:00 19 /min [facility] Body height 2021-03-30 18:11:00 157.5 cm [facility] Body weight 2021-03-30 18:11:00 68.748 kg [facility] BMI 2021-03-30 18:11:00 27.72 kg/m2 [facility] Heart rate 2021-03-26 23:00:00 89 /min [facility] Oxygen saturation in Arterial blood by Pulse oximetry 2021-03-26 23:00:00 100 /min [facility] Systolic blood pressure 2021-03-26 20:00:00 122 mm[Hg] [facility] Diastolic blood pressure 2021-03-26 20:00:00 69 mm[Hg] [facility] Body temperature 2021-03-26 20:00:00 36.78 Ils[facility] Respiratory rate 2021-03-26 20:00:00 18 /min [facility] Body height 2021-03-26 20:00:00 157.5 cm [facility] Body weight 2021-03-26 20:00:00 67.405 kg [facility] BMI 2021-03-26 20:00:00 27.18 kg/m2 [facility] Systolic blood pressure 2021-03-16 19:05:00 100 mm[Hg] [facility] Diastolic blood pressure 2021-03-16 19:05:00 64 mm[Hg] [facility] Heart rate 2021-03-16 19:05:00 99 /min Unive [facility] Body temperature 2021-03-16 19:05:00 36.83 [facility]ls[facility] Respiratory rate 2021-03-16 19:05:00 18 /min [facility] Body height 2021-03-16 19:05:00 157.5 cm [facility] Body weight 2021-03-16 19:05:00 65.726 kg [facility] BMI 2021-03-16 19:05:00 26.50 kg/m2 [facility] Systolic blood pressure 2021-03-02 20:23:00 125 mm[Hg] [facility] Diastolic blood pressure 2021-03-02 20:23:00 74 mm[Hg] [facility] Heart rate 2021-03-02 20:23:00 100 /min Unive [facility] Body temperature 2021-03-02 20:23:00 36.61 [facility]ls[facility] Respiratory rate 2021-03-02 20:23:00 18 /min [facility] Body height 2021-03-02 20:23:00 157.5 cm [facility] Body weight 2021-03-02 20:23:00 65.545 kg [facility] BMI 2021-03-02 20:23:00 26.43 kg/m2 [facility] Systolic blood pressure 2021-02-20 17:18:00 116 mm[Hg] [facility] Diastolic blood pressure 2021-02-20 17:18:00 69 mm[Hg] [facility] Heart rate 2021-02-20 17:18:00 98 /min [facility] Respiratory rate 2021-02-20 17:18:00 28 /min [facility] Body height 2021-02-20 17:18:00 157.5 cm [facility] Body weight 2021-02-20 17:18:00 63.141 kg [facility] BMI 2021-02-20 17:18:00 25.46 kg/m2 [facility] Oxygen saturation in Arterial blood by Pulse oximetry 2021-02-20 17:18:00 100 /min [facility] Procedures Procedure Date / Time Performed Performing Clinician Source POCT URINALYSIS W/O SPECIFIC GRAVITY 2024-06-28 16:53:00 Marivel Parsons [facility] GALV ONLY - VAGINAL PATHOGENS BY NUCLEIC ACID TESTING 2024-06-28 16:47:00 Marivel Parsons [facility] HIV 1/2 AG-AB WITH REFLEX 2024-06-28 16:47:00 Oleg Parsons [facility] PAP SMEAR-LIQUID BASED-CP 2024-06-28 16:47:00 [facility] 2024-06-28 16:47:00 [facility] METABOLIC PANEL ([id number]) 2024-03-28 05:35:00 Chris Sandra [facility] URINALYSIS 2024-03-28 05:24:00 Chris Sandra [facility] INFLUENZA A/B RSV COVID NAAT 2024-03-28 04:52:00 Chris Sandra [facility] LIPASE 2024-03-28 04:44:00 Chris Sandra [facility] CBC WITH DIFF 2024-03-28 04:44:00 Chris Sandra [facility] US ABDOMEN COMPLETE 2022-10-15 15:40:06 Laura Maya [facility] PELVIS COMPLETE WITH TRANSVAGINAL 2022-09-20 16:40:32 Fran Maya [facility] ASSIGNMENT OF BENEFITS 2022-09-20 15:22:06 Docto r Unassigned, Twilight [facility] GC & CHLAMYDIA AMPLIFIED ASSAY 2022-08-24 19:37:00 Fran Maya [facility] GALV ONLY - VAGINAL PATHOGENS BY NUCLEIC ACID TESTING 2022-08-24 19:37:00 [facility] 2022-08-24 18:48:09 Docto r Unassigned, Twilight [facility] POCT URINALYSIS W/O SPECIFIC GRAVITY 2022-08-24 00:00:00 Fran Maya [facility] EKG-12 LEAD 2022-04-21 23:40:50 Daryl Danielle [facility] CONSENT/REFUSAL FOR DIAGNOSIS AND TREATMENT 2022-04-21 22:56:41 Doctor Unassigned, Twilight [facility] GALV ONLY - SYPHILIS IGG/IGM 2021-04-25 21:18:00 Dianne [facility] GALV ONLY - SYPHILIS IGG/IGM 2021-04-25 21:18:00 [facility] CBC WITH DIFF 2021-04-25 10:29:00 Tammy Brito [facility] CBC WITH DIFF 2021-04-25 10:29:00 Tammy Brito [facility] SURGICAL PATHOLOGY EXAM 2021-04-24 08:44:00 Neftali Paulino, [facility] VENOUS CORD GAS 2021-04-24 08:29:00 Daniele rayo [facility] VENOUS CORD GAS 2021-04-24 08:29:00 Osman Luma rayo, [facility] SECTION 2021-04-24 06:59:00 Daniele Madeline moreno [facility] TUBAL LIGATION 2021-04-24 06:59:00 Daniele Luma rayo, [facility] HB ABO GROUPING 2021-04-24 06:29:00 [facility] RHO (D) IMMUNE GLOBULIN 2021-04-24 06:29:00 Alisha [facility] HB ABO GROUPING 2021-04-24 06:29:00 David Levy [facility] RHO (D) IMMUNE GLOBULIN 2021-04-24 06:29:00 Alisha [facility] COVID-19 (ID NOW RAPID TESTING) 2021-04-24 04:59:00 Fish, [facility] LAB ONLY COVID INTERPRETATION 2021-04-24 04:59:00 Fish, [facility] COVID-19 (ID NOW RAPID TESTING) 2021-04-24 04:59:00 Fish, [facility] LAB ONLY COVID INTERPRETATION 2021-04-24 04:59:00 Fish, [facility] GROUP B STREPTOCOCCUS BY PCR 2021-04-24 00:03:00 Fish, [facility] GROUP B STREPTOCOCCUS BY PCR 2021-04-24 00:03:00 Fish, [facility] URINE CULTURE 2021-04-23 23:56:00 Fish Aaron [facility] URINE CULTURE 2021-04-23 23:56:00 FishAaron [facility] URINALYSIS 2021-04-23 23:55:[address] [facility] HB ABO GROUPING 2021-04-23 23:55:00 Aaron Hendricks [facility] URINALYSIS 2021-04-23 23:55:[address] [facility] HB ABO GROUPING 2021-04-23 23:55:00 Fish, [facility] HEPATITIS B SURFACE ANTIGEN 2021-04-23 23:53:00 Fish, Aaron [facility] ADC OR THI ONLY - RPR 2021-04-23 23:53:00 Fish, [facility] HIV 1/2 AG-AB WITH REFLEX 2021-04-23 23:53:00 Fish, [facility] HEPATITIS B SURFACE ANTIGEN 2021-04-23 23:53:00 Fish, [facility] ADC OR THI ONLY - RPR 2021-04-23 23:53:00 Fish, [facility] HIV 1/2 AG-AB WITH REFLEX 2021-04-23 23:53:00 Fish, [facility] CBC WITH DIFF 2021-04-23 22:00:00 Fish, Aaron [facility] CBC WITH DIFF 2021-04-23 22:00:00 Fish, [facility] ASSIGNMENT OF BENEFITS 2021-04-23 20:31:55 Docto r Unassigned, [facility]ilight [facility] HOSPITAL ADMISSION 2021-04-23 06:01:00 Doctor Un assigned, [facility]ilight [facility] ADMISSION 2021-04-23 06:01:00 Doctor Un assigned, [facility]ilight [facility] POCT URINALYSIS W/O SPECIFIC GRAVITY 2021-04-16 15:16:00 Fish, [facility] POCT URINALYSIS W/O SPECIFIC GRAVITY 2021-04-09 16:15:00 Fish, [facility] CONSENT/REFUSAL FOR DIAGNOSIS AND TREATMENT 2021-04-07 15:55:21 Doctor Unassigned, Twilight [facility] ASSIGNMENT OF BENEFITS 2021-04-07 15:55:03 Docto r Unassigned, Twilight [facility] POCT URINALYSIS W/O SPECIFIC GRAVITY 2021-03-30 18:13:00 Fish, [facility] CBC WITH DIFF 2021-03-26 21:32:00 Fish, [facility] ASSIGNMENT OF BENEFITS 2021-03-26 19:13:44 Docto r Unassigned, Twilight [facility] CBC WITH DIFF 2021-03-17 16:50:00 Aaron Hendricks [facility] ASSIGNMENT OF BENEFITS 2021-03-17 15:25:37 Docto r Unassigned, Twilight [facility] POCT URINALYSIS W/O SPECIFIC GRAVITY 2021-03-16 19:25:00 Denis Hendricksn [facility] STERILIZATION CONSENT FORM 2021-03-02 05:01:00 Doctor Unassigned, Twilight [facility] HB ABO GROUPING 2021-02-20 18:25:00 Eladio Aaron [facility] CBC WITH DIFF 2021-02-20 18:19:00 Denis Hendricksn [facility] HIV 1/2 AG-AB WITH REFLEX 2021-02-20 18:19:00 Eladio, Me navarrete [facility] ADC ONLY - FERN TEST 2021-02-20 18:18:00 Denis Hendricksn [facility] Encounters Start Date/Time End Date/Time Encounter Type Admission Type Attending [facility] Care Facility Care Department Encounter ID Source 2021-04-14 09:55:[address] [facility] DAVID [id number] [facility] 2021-04-14 06:58:[address] [facility] DAVID [id number] [facility] 2021-04-13 21:52:[address] [facility] DAVID [id number] [facility] 2021-04-13 21:48:48 Outpatient [facility] [id number] [facility] 2024-09-11 09:45:00 2024-09-11 10:35:27 Outpatient R MARIVEL PARSONS [facility] [id number] [facility] 2024-09-11 09:45:00 2024-09-11 10:35:27 Office Visit Marivel Parsons [facility] VEHICLE BODY [facility] [id number] 350.1.13.10 4.2.7.2.686 [id number] [facility] 2024-09-11 09:45:00 2024-09-11 09:45:00 Outpatient R ADRIANNE PARSONSICE [facility] [id number] [facility] 2024-06-28 09:45:00 2024-06-28 10:47:32 Outpatient R MARIVEL PARSONS [facility] [id number] [facility] 2024-06-28 09:45:00 2024-06-28 10:47:32 Office Visit Marivel Parsons [facility] VEHICLE [facility] 1.2.840.114 350.1.13.10 4.2.7.2.686 [id number] [facility] 2024-06-28 09:45:00 2024-06-28 09:45:00 Outpatient R ADRIANNE PARSONSICE [facility] [id number] [facility] 2024-03-27 21:54:00 2024-03-28 02:38:00 Emergency X CHRIS SANDRA WAKILI [facility] ERT [id number] [facility] 2024-03-27 21:54:00 2024-03-28 02:38:00 Emergency Chris Sandra [facility] 1.2.840.114 350.1.13.10 4.2.7.2.686 [id number] [facility] 2023-09-20 11:30:00 2023-09-20 11:30:00 Outpatient R LISA HOLCOMBSOL HEBER-MICHELE S ARMANDO [facility] [id number] [facility] 2023-08-30 09:30:00 2023-08-30 09:30:00 Outpatient R LISA HOLCOMBSOL HEBER-MICHELE S ARMANDO [facility] [id number] [facility] 2023-07-13 12:45:00 2023-07-13 12:45:00 Outpatient SAVITA CANALES EMILY [facility] [id number] [facility] 2023-06-20 15:30:00 2023-06-20 15:30:00 Outpatient R BUCKLEBRON Anmol, ARMANDO GARTH Anmol ARMANDO [facility] [id number] [facility] 2022-12-06 10:30:00 2022-12-06 10:30:00 Outpatient R ANNE-MARIE RODGERS [facility] [id number] [facility] 2022-11-22 14:00:00 2022-11-22 14:25:36 Outpatient R FRAN MAYA CHERYAL [facility] [id number] [facility] 2022-11-22 14:00:00 2022-11-22 14:25:36 Office Visit Fran Maya [facility] 1.0.114 350.1.13.10 4.2.7.2.686 [id number] [facility] 2022-10-15 09:50:17 2022-10-15 23:59:00 Outpatient R FRAN MAYA CHERYAL [facility] [id number] [facility] 2022-10-15 09:50:17 2022-10-15 23:59:00 Hospital Encounter Fran Maya [facility] 1.84.114 350.1.13.10 4.2.7.2.686 [id number] [facility] 2022-10-15 10:30:00 2022-10-15 10:45:00 Career Services Director Visit Pob, Adc Lab Main Fran Maya [facility] 1..114 350.1.13.10 4.2.7.2.686 [id number] [facility] 2022-09-22 16:00:00 2022-09-22 16:09:11 Outpatient R FRAN MAYA CHERYAL [facility] [id number] [facility] 2022-09-22 16:00:00 2022-09-22 16:09:11 Office Visit Fran Maya [facility] 1.2.840.114 350.1.13.10 4.2.7.2.686 [id number] [facility] 2022-09-22 00:00:00 2022-09-22 00:00:00 Telephone RenoFran dodd [facility] 1.2.840.114 350.1.13.10 4.2.7.2.686 [id number] [facility] 2022-09-20 10:24:14 2022-09-20 23:59:00 [facility] [id number] [facility] 2022-09-20 10:24:14 2022-09-20 23:59:00 Hospital Encounter Awildaninidarcy Fran [facility] 1.2840.114 350.1.13.10 4.2.7.2.686 [id number] [facility] 2022-09-20 00:00:00 2022-09-20 00:00:00 Orders Only Doctor Unassigned, Twilight [facility] 1.2.840.114 350.1.13.10 4.2.7.2.686 [id number] [facility] 2022-09-14 00:00:00 2022-09-14 00:00:00 Outpatient R RENODARCY FRAN STOKES [facility] [id number] [facility] 2022-08-25 00:00:00 2022-08-25 00:00:[address] [facility] [facility] 1.2.840.114 350.1.13.10 4.2.7.2.686 [id number] [facility] 2022-08-24 14:00:00 2022-08-24 14:24:38 Outpatient R FRAN MAYA CHERYAL [facility] [id number] [facility] 2022-08-24 14:00:00 2022-08-24 14:24:38 Office Visit Fran Maya [facility] 1..114 350.1.13.10 4.2.7.2.686 [id number] [facility] 2022-08-24 00:00:00 2022-08-24 00:00:00 Orders Only Doctor Unassigned, Twilight [facility] 1.20.114 350.1.13.10 4.2.7.2.686 [id number] [facility] 2022-05-19 11:30:00 2022-05-19 11:30:00 Out[facility] [id number] [facility] 2022-04-21 17:03:00 2022-04-21 17:55:[address] [facility] ERT [id number] [facility] 2022-04-21 17:03:00 2022-04-21 17:55:00 [place] [facility] 1.2840.114 350.1.13.10 4.2.7.2.686 [id number] [facility] 2022-04-21 00:00:00 2022-04-21 00:00:00 Orders Only Doctor Unassigned, Twilight [facility] 1.2840.114 350.1.13.10 4.2.7.2.686 [id number] [facility] 2021-06-16 13:00:00 2021-06-16 13:00:00 Outpatient R AARON HENDRICKS [facility] [id number] [facility] 2021-05-26 14:25:34 2021-05-26 14:40:34 Routine Visit Eladio Aaron [facility] 1.2.840.114 350.1.13.10 4.2.7.2.686 [id number] [facility] 2021-05-26 13:00:00 2021-05-26 13:00:00 Outpatient R AARON HENDRICKS [facility] [id number] [facility] 2021-05-14 11:15:00 2021-05-14 12:07:49 Outpatient R AARON HENDRICKS [facility] [id number] [facility] 2021-05-14 11:00:44 2021-05-14 12:07:49 Routine Visit Eladio Aaron [facility] 1.2.840.114 350.1.13.10 4.2.7.2.686 [id number] [facility] 2021-05-14 00:00:00 2021-05-14 00:00:00 Letter (Out) Eladio Aaron [facility] 1.2.840.114 350.1.13.10 4.2.7.2.686 [id number] [facility] 2021-05-01 09:45:05 2021-05-01 10:00:05 Nurse Visit Nurse, j [facility] 1.2.840.114 350.1.13.10 4.2.7.2.686 [id number] 134 [id number] [facility] 2021-05-01 09:30:00 2021-05-01 09:30:00 Outpatient R AARON HENDRICKS [facility] [id number] [facility] 2021-04-23 14:34:00 2021-04-27 12:31:00 Inpatient P DANIELE Corea [facility] [id number] [facility] 2021-04-23 14:34:00 2021-04-27 12:31:00 Hospital Encounter Aaron Hendricks [facility] 1.2.840.114 350.1.13.10 4.2.7.2.686 [id number] 134 [id number] [facility] 2021-04-24 01:30:00 2021-04-24 03:47:00 Surgery Daniele [facility] 1.2.840.114 350.1.13.10 4.2.7.2.686 [id number] [id number] [facility] 2021-04-24 00:36:26 2021-04-24 00:36:26 Anesthesia Event ShalomJosue [facility] 1.2.840.114 350.1.13.10 4.2.7.2.686 [id number] 140 [id number] [facility] 2021-04-23 10:33:09 2021-04-23 12:23:17 Routine Visit Aaron Hendricks [facility] 1.2.840.114 350.1.13.10 4.2.7.2.686 [id number] 134 [id number] [facility] 2021-04-23 10:30:00 2021-04-23 12:23:17 Outpatient R AARON HENDRICKS [facility] [id number] [facility] 2021-04-23 00:00:00 2021-04-23 00:00:00 Orders Only Doctor Unassigned, Twilight [facility] 1.2.840.114 350.1.13.10 4.2.7.2.686 [id number] 009 [id number] [facility] 2021-04-16 10:02:54 2021-04-16 10:50:32 Routine Visit Aaron Hendricks [facility] 1.2.840.114 350.1.13.10 4.2.7.2.686 [id number] 134 [id number] [facility] 2021-04-16 10:00:00 2021-04-16 10:50:32 Outpatient R AARON HENDRICKS [facility] [id number] [facility] 2021-04-09 10:16:43 2021-04-09 11:07:35 Routine Visit Aaron Hendricks [facility] 1..840.114 350.1.13.10 4.2.7.2.686 [id number] 134 [id number] [facility] 2021-04-09 10:00:00 2021-04-09 11:07:35 Outpatient R AARON HENDRICKS [facility] [id number] [facility] 2021-04-07 10:53:00 2021-04-07 15:42:00 Hospital Encounter Aaron Hendricks [facility] 1..840.114 350.1.13.10 4.2.7.2.686 [id number] 083 [id number] [facility] 2021-04-07 09:05:58 2021-04-07 10:05:58 Career Services Director Visit Ultrasound, Adc Bronwyn Bartlett Luis [facility] 1..840.114 350.1.13.10 4.2.7.2.686 [id number] 134 [id number] [facility] 2021-04-07 09:00:00 2021-04-07 09:00:00 Outpatient P FILIPE NAVARRETE [facility] [id number] [facility] 2021-04-07 00:00:00 2021-04-07 00:00:[address] [facility] [id number] [facility] 2021-03-30 13:04:07 2021-03-30 13:33:33 Routine Visit Aaron Hendricks [facility] 1.2.840.114 350.1.13.10 4.2.7.2.686 [id number] 134 [id number] [facility] 2021-03-30 13:00:00 2021-03-30 13:00:00 Outpatient R AARON HENDRICKS [facility] [id number] [facility] 2021-03-26 14:14:00 2021-03-26 23:18:00 Hospital Encounter Aaron Hendricks [facility] 1.2.840.114 350.1.13.10 4.2.7.2.686 [id number] [facility] 2021-03-26 00:00:00 2021-03-26 00:00:00 Telephone Eladio Aaron [facility] 1.2.840.114 350.1.13.10 4.2.7.2.686 [id number] 134 [id number] [facility] 2021-03-26 00:00:00 2021-03-26 00:00:00 Telephone Aaron Hendricks [facility] 1.2.840.114 350.1.13.10 4.2.7.2.686 [id number] 134 [id number] [facility] 2021-03-26 00:00:00 2021-03-26 00:00:00 Orders Only Doctor Unassigned, Twilight [facility] 1.2.840.114 350.1.13.10 4.2.7.2.686 [id number] 009 [id number] [facility] 2021-03-17 11:00:00 2021-03-17 11:00:00 Outpatient R AARON HENDRICKS [facility] [id number] [facility] 2021-03-17 10:27:40 2021-03-17 10:42:40 Career Services Director Visit Pob, Adc Lab Main Aaron Hendricks [facility] 1..114 350.1.13.10 4.2.7.2.686 [id number] [facility] 2021-03-17 00:00:00 2021-03-17 00:00:00 Case Management Aaron Hendricks [facility] 1.0.114 350.1.13.10 4.2.7.2.686 [id number] 134 [id number] [facility] 2021-03-17 00:00:00 2021-03-17 00:00:00 Orders Only Doctor Unassigned, Twilight [facility] 1.0.114 350.1.13.10 4.2.7.2.686 [id number] 009 [id number] [facility] 2021-03-16 13:47:40 2021-03-16 14:25:56 Routine Visit Aaron Hendricks [facility] 1..114 350.1.13.10 4.2.7.2.686 [id number] 134 [id number] [facility] 2021-03-16 13:45:00 2021-03-16 13:45:00 Outpatient R AARON HENDRICKS [facility] [id number] [facility] 2021-03-10 09:58:59 2021-03-10 10:58:59 Career Services Director Visit Ultrasound, Bronwyn Ang Luis Diego [facility] VEHICLE BODY [facility] MATERNAL & CHILD HEALTH [facility] 1..114 350.1.13.10 4.2.7.2.686 [id number] [facility] 2021-03-10 08:00:00 2021-03-10 08:00:00 Outpatient P BRONWYN DYER [facility] [id number] [facility] 2021-03-02 15:01:02 2021-03-02 16:11:02 Routine Visit Aaron Hendricks [facility] 1.0.114 350.1.13.10 4.2.7.2.686 [id number] 134 [id number] [facility] 2021-03-02 15:00:00 2021-03-02 15:00:00 Outpatient R AARON HENDRICKS [facility] [id number] [facility] 2021-03-02 00:00:00 2021-03-02 00:00:00 Orders Only Doctor Unassigned, Twilight [facility] 1.0.114 350.1.13.10 4.2.7.2.686 [id number] [id number] [facility] 2021-02-25 00:00:00 2021-02-25 00:00:00 Telephone Aaron Hendricks [facility] 1..114 350.1.13.10 4.2.7.2.686 [id number] 134 [id number] [facility] 2021-02-24 13:15:00 2021-02-24 13:15:00 Outpatient R AARON HENDRICKS [facility] [id number] [facility] 2021-02-20 11:59:00 2021-02-20 14:43:00 Hospital Encounter Eladio Aaron [facility] 1..114 350.1.13.10 4.2.7.2.686 [id number] 083 [id number] [facility] 2021-02-20 11:09:15 2021-02-20 11:38:12 Routine Visit Aaron Hendricks [facility] 1.20.114 350.1.13.10 4.2.7.2.686 [id number] 134 [id number] [facility] 2021-02-20 11:00:00 2021-02-20 11:00:00 Outpatient R AARON HENDRICKS [facility] [id number] [facility] 2021-02-20 00:00:00 2021-02-20 00:00:00 Telephone Aaron Hendricks [facility] 1.2.840.114 350.1.13.10 4.2.7.2.686 [id number] 134 [id number] [facility] 2021-02-12 14:34:26 2021-02-12 15:27:11 Routine Visit Aaron Hendricks [facility] 1.20.114 350.1.13.10 4.2.7.2.686 [id number] 134 [id number] [facility] 2021-02-12 14:30:00 2021-02-12 14:30:00 Outpatient R AARON HENDRICKS [facility] [id number] [facility] 2021-02-10 08:01:18 2021-02-10 09:01:18 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 VEHICLE BODY [facility] MATERNAL & CHILD HEALTH [facility] 1.2840.114 350.1.13.10 4.2.7.2.686 [id number] [facility] 2021-02-10 08:00:00 2021-02-10 08:00:00 Outpatient P [facility] [id number] [facility] 2021-02-09 00:00:00 2021-02-09 00:00:00 Telephone Eladio Aaron [facility] 1.2840.114 350.1.13.10 4.2.7.2.686 [id number] 134 [id number] [facility] 2021-02-04 14:45:00 2021-02-04 14:45:00 Outpatient P [facility] [id number] [facility] 2021-02-03 08:00:00 2021-02-03 08:00:00 Outpatient R FRANCOIS AMEZCUA [facility] [id number] [facility] 2021-02-02 08:00:00 2021-02-02 08:00:00 Outpatient AARON MISHRA [facility] [id number] [facility] 2021-01-12 13:15:00 2021-01-12 13:15:00 Outpatient R AARON HENDRICKS [facility] [id number] [facility] 2021-01-06 14:00:00 2021-01-06 14:00:00 Outpatient P [facility] [id number] [facility] 2021-01-01 08:00:00 2021-01-01 08:00:00 Outpatient R ARAON HENDRICKS [facility] [id number] [facility] 2020-12-24 10:30:00 2020-12-24 10:30:00 Outpatient R AARON HENDRICKS [facility] [id number] [facility] 2020-12-17 13:15:00 2020-12-17 13:15:00 Outpatient R AARON HENDRICKS [facility] [id number] [facility] 2020-12-16 13:45:00 2020-12-16 13:45:00 Outpatient R AARON HENDRICKS [facility] [id number] [facility] 2020-11-18 11:00:00 2020-11-18 11:00:00 Outpatient R AARON HENDRICKS [facility] [id number] [facility] 2020-11-18 08:00:00 2020-11-18 08:00:00 Outpatient R AARON HENDRICKS [facility] [id number] [facility] 2020-10-29 14:00:00 2020-10-29 14:00:00 Outpatient P [facility] [id number] [facility] 2020-10-28 14:30:00 2020-10-28 14:30:00 Outpatient R AARON HENDRICKS [facility] [id number] [facility] 2020-10-21 08:30:00 2020-10-21 08:30:00 Outpatient AARON MISHRA [facility] [id number] [facility] 2020-10-07 10:30:00 2020-10-07 10:30:00 Outpatient AARON MISHRA [facility] [id number] [facility] 2019-09-16 14:20:14 2019-09-16 18:01:00 Emergency [facility] 1.2.840.114 350.1.13.10 4.2.7.2.686 [id number] 2019-09-16 14:20:14 2019-09-16 18:01:00 Emergency X [facility] ERT [id number] [facility] 2019-09-16 00:00:00 2019-09-16 00:00:00 Orders Only Doctor Unassigned, Twilight [facility] 1.2.840.114 350.1.13.10 4.2.7.2.686 [id number] [id number] 2019-01-07 14:13:46 2019-01-07 15:40:00 Emergency Endy Spencer [facility] 1.2.840.114 350.1.13.10 4.2.7.2.686 [id number] 2019-01-07 00:00:00 2019-01-07 00:00:00 Orders Only Doctor Unassigned, Twilight [facility] 1.2.840.114 350.1.13.10 4.2.7.2.686 [id number] [id number] Results Test Description Test Time Test Comments Results Result Co [facility]:11:55* Test Item Value Reference Range Interpretation Comme nts LIPASE (test code = 1776769077) 54 U/L 0-220 Lab Interpretation (test cod e = 30340-8) Normal [facility] with Ibew2914-38-64 05:00:53* Test Item Value Reference Range Interpretation [...] 33.3 g/dL 31.6-35.1 RDW-SD (test code = 07444-5) 40.2 fL 39.0-49.9 RDW-CV (test code = 788-0) 12.6 % 12.0-15.5 PLT (test code = 777-3) 275 166-358 MPV (test code = 25961-3) 10.4 fL 9.5-12.9 NRBC/100 WBC (test code = 0443822049) 0.0 0.0-10.0 NRBC x10^3 (test code = 2619079166) See_Comment [Automated message] The system which generated this result transmitted reference range: 10*3/?L. The reference range was not used to interpret this result as normal/abnormal. GRAN MAT (NEUT) % (test code = 770-8) 87.3 % IMM GRAN % (test code = 7714049195) 0.60 % LYMPH % (test code = 736-9) 7.6 % MONO % (test code = 5905-5) 3.8 % EOS % (test code = 713-8) 0.3 % BASO % (test code = 706-2) 0.4 % GRAN MAT x10^3(ANC) (test code = 1283756478) 10.94 10*3/uL 1.88-7.09 H IMM GRAN x10^3 (test code = 3460985372) 0.07 10*3/uL 0.00-0.06 H LYMPH x10^3 (test code = 731-0) 0.95 10*3/uL 1.32-3.29 L MONO x10^3 (test code = 742-7) 0.47 10*3/uL 0.33-0.92 EOS x10^3 (test code = 711-2) 0.04 10*3/uL 0.03-0.39 BASO x10^3 (test code = 704-7) 0.05 10*3/uL 0.01-0.07 Lab Interpretation (test code = 55960-8) Abnormal [facility] URINALYSIS W/O SPECIFIC RDLALOW3035-40-49 19:02:00* Test Item Value Reference Range Interpretation [...] = 3257) negative Negative - Negati ve [facility] URINALYSIS W/O SPECIFIC SUJXUYM3210-40-97 19:02:00* Test Item Value Reference Range Interpretation [...] = 3257) negative Negative - Negati ve [facility] WGAL2289-97-74 18:44:00* Test Item Value Reference Range Interpretation Comme nts Case Report (test code = 2488752069) Surgical Pathology ?Case: [id number] ? Authorizing Provider: ?Krysta Sun, ? Collected: ? 04/24/2021 0244 ? MD ? Ordering Location: ? ? Obstetrics and Gynecology ?Received: ?04/24/2021 1358 ? (DEMI 3A) ?Pathologist: ? Jose Manuel Asencio, ?Specimens: ? A) - FALLOPIAN TUBE, LEFT ? B) - FALLOPIAN TUBE, RIGHT ? Final Diagnosis (test code = 1809130386) n2jlyUWxQQIhs8xqIYRlhU FuZzEwMzNcZnRuYmpcdWMx IHtccnRmMVxlcGljOTYwMV hwbhBdQSQcmKMzX6Isqulc UGybCO6oTN8koKnayXEihO DeKLLuJmBhg6lxg296cCYx f7hiKUTOlkszbUj7bNnxR9 5uj9D1LqexZ58ouNVuWBX9 FSDzEGWipBAwIGWbLXM8FL LdePDiB0ylASHqXP5kefyd SZilZGggCVZudQH5HLZcqW BvV6ArTJMoGEryDYJwimj5 FkOtUw7teVBwcCsjUGaxJF JkXHBsYWluXGZzMjBccGFy IEEuIEZBTExPUElBTiBUVU TXZGMSAPLPJRNKOSqCKN7E KLtvLeBDXZBWCA1YSkksFZ ZwZBHuUPYUXAyIVCPAI2TN DSFYU8SBK91tH2PbRrMGEP 9QSUFOIFRVQkUgSURFTlRJ RklFRFxwYXJccGFyIEIuIE ZBTExPUElBTiBUVUJFLCBS QYqRAXmfT2QPQEQQYGJKJT JDB7FGLTtYYwpibZScORZd YG9dAvANPEUVTg5KKlDFSA NNSO5FUR7QMOOMAInTFUtR DrMSJGYCZUiGIW3JIYLXJS XnYOIjzfrtVTD9r2kyyKIm XHNzdGVjZjIyMDAwXGFuc2 lcZGVmbGFuZzEwMzNcZnRu MaerjEKdORGrFaKjk4szt2 77cXLym8fuCBReSvD9bBGp BQNjaBztxcj6lRaxSdZrKR Ccc2tcsiSiMvQmZTHeRQKb PPMshFLyN237VANkEFdho6 npo6YkJHZmxDCyx7J5YUZZ OHqmOsKqG144h2ufx7ovki FmvTZ6MWYhUUY6TUnmenPs vgZ9QLkxoWMbXkD9IAbxud KxQFecrwNslsJtRyn5XUMl U693HIC5cHvwb0shZOI3TF RdTURsFtxtBg3dsUZwJ937 LAUpMCMZJEOdhPl2YWHngh OcslYunTOXk550F350v2ll GLJctdFfjExPlvrcx1wlY7 19XHBhcGVydzEyMjQwXHBh pFOutFC7GCJkAR9yfdxzFY jyXMtgOVJlwcT1WERmxZKp P6RoLUAqAG3richwLVU2JS juPSNxNTS1PqSbQSJlu9Ob psm9UcJpji7xzg12OHI1y1 SsoHjgMMM9XJV7HuKzDa1k dLAqCMExNL9qRzFcmGVbIX Wnxh95gSttXTpkzfPyyC8c HrJpXCFwfTDxZZRqHO8ncS GzHIIziS3izwdcZYEhHxYy zpfrLAKdbKdeeaMvOc8ioN umHET8BHpaW1dtrS5fQhD9 MBhsB8jneM9iIBc8GLnlqV U6VDAjxB0qUS6zbkxch6ol ZAhqTRmwEYVhcxD0ytH5NF EoqGYlJ2WbpJ5eDLXjQY9z sgcjb5upHMS3DKlkAINoSL J2BbMtTQNpu9Xbkzp6AzNb o6KxvCPjTVigG17eq003BS MrfkUsP6ibqBMaxgvkfHRm ixthGEngzcN5HOEcIQQtLJ luXGYxXGZzMjBcbGFuZzEw MzNcaGljaFxmMVxkYmNoXG ToXGheU8mbXuEzA2JtWTUg QtKpiXWqAUhyhHM3CPIkEH Pda74icGr7SBTjmcktx6Ab QGLokTNpwRRriX8husPko3 bvWNTnPYNlXTHfV9SdLXT3 wSPfTXNckHZqeQL8JL4dgu YwVU8jSWGgRauhmbTsnOKt tqHuDHKmUOuaa5nzVT4rRR BvjNewqX6joQC1QQKwt0lw aALzaCBmb8yyk3XmctMnKQ szXDVvSEebURPbXGTwVI4r ESNkxSKphyEqu0H9QkgpvH TlqyniCdhpslQ9BGkfsdwu UNWzBQwsZ5awDrUjHQVmlD taGomhp2NnSZPkSNUkYxrr cGFyfX0= Clinical Information (test code = 9958169602) 30 yo s/p ERCS for PTL, w BTL Gross Description (test code = 6887121265) y2mhdZSzEJYfrTCFEANrBb scmcYjPWZyhMStD3Annpaq KHylTS1rXL0pzCfgdGBlvB ZoBV7LEMHkSgMpSBLutSMp eiGcVrYvGORcuWFxsFC2JA SzHU2iqyoyEKyiMEitIVSn azM9PTNiaRCvS0MuKKCuRP 3amdroAFH5DLxgqK8zclHS QgwmRp5mdGNijEcyRfUiPd NoYXJzZXQwXGZuaWwgQXJp TYc8sM7DVovtARH8UINEGq qmWHWbUO8Ah7hfSGLjhNFg IER4XBwlsLByMFErOSTqAN e2STIbGNxmjNAsVH5jtMoo PnhcsMasn4UvmTMoRKlbRH JwJIAvMSkaJNFwCK4MWpTz CSyAPZTgGMx3YeG7DJt9QU LNItVpHaCrPHvjYYI0ZJWn IOy6ZKm8GCiYWjFaOnl4MP LoPIK5WPX7VJczJRrnfGVa IFxcZiBBcmlhbCBcXGZzID RnJNcvGtdcCAatL70wxJti zJ1gHfDcCLYOKsGVTTgVK9 ZINF1jKJOLCDhbHZJAHW0z wKOfFN5DUYVxIOisAFEaeO JZKCD3XB0aUHIMUisovALh ZVCakAcwATtjoM5jEE1BGO b1cwJsBMNjXoIfG1GpQ5go DD6jYCQxtvExFEPrfLWbMZ ZmiaXvy4PuLCzpphNrKONp bGVkIHdpdGggdGhlIHBhdG jbugWcavNxJI0uQYDOIHRm dF2iEYYcPHPsFWlek0QsWA 0kvJRbIIsczRFfxTXuTY8t ATPubkWik9MzJA8oKWEaw4 fbP1bkKCGnha9grN2sMNUz C34yxaApo8OxUtOfgK0dfB ZzFCX5WvLfRNAzMMPgnMUo nkAnHU1fpMbkWkrdKQ62GE JlDLxpPLAvEL6wmTHvUUH0 aGljaCBpcyBzZXJpYWxseS JtESV5vX1lNHSvuO6nykF7 OEJdZAKzqz9tdL2kRYEqbd 6vt9y7PVOfnuLtXYSqLWFw PWFhoNNdx9QlJmNoMVIiFB SOPXMjIWDuzsPoaOh8ISXg PKY2hK0svlEaytKle0GlbN e6fVGiTRinNFRkNlaxqK6p TY2QIRMsCAfqOUElpHNXZM L8AX3rJRpisPDnxioaBSNk H8BwX1LmpoAovJXhQGKfos Hlk2fuODV1LSKuyEPyxGGq QfOjZkavQAX4YNd6LAqaFB KlH2HoT3WuVVirXHC7EGXv MiBcXGRiICBPVlIgIiBaQj M9MUZ6WlUyQSk3ESemH3YP FSGvLLA7EUC9Pga9CtA4NS z1FJQXAk0sBDY3JKUsNoP2 VyU1MQE0SIQxZJEtMxPpIW YgQXJpYWwgXFxmcyAxMCBc JJLvTQoxhzH6YGPwYyEyTt 5aDuPOFN0NHKPNFLWWXmMs PCIQN3tKCkemOSFtJBqjwI rijG4qBTVaJ57uu6DJs2Sm EC5HYGh6muDgbflrdI1tKD EvoaVbSLdyxBVkN4nwXmCq NtGJsQBftT8xkeKNNVjoVB CcF1HiceVwLUcrDUEfht1e dEfzNTbiWdPxOZKfr4k7yE D0fAFoqWL7tVCkiGteBH3g aJOsEDTYID31oNJdwroyOa XjuEosaAftygH0xIKeIZYo aClhtKSiXC4mOFJcrwCcx1 ImRO4nSWIdg1whL2oaXHLr rx5wtJ9eGZYfT33xcjAqr2 HtTcIjhT7lwVZfDNN3GxJl BYJtAQKlmXOekdTdEC9heF gySnfsAY32KVDmHMpjVZLb AK1qbUKyISU2jTdztKXcip DuQARtPEfqvOPeEOD1wC2w VNPrpQ5ichF9XZUvADVweo 3sbR9pDCLbjc2jw7o3BEQb cmVtYXJrYWJsZSBjdXQgc3 VyZmFjZXMuICBSZXByZXNl oaUvtAj2FWOxPQR4xY7vjo JfynLcp9PqtAa2jRHiZYdr MJVoRnzgiW0gUPqynV6hCK e3nRckVS5vAMskPF8ybSek GUInRCMGW6QcNAxcjDbwlD 1mPGEkI96ts9SEf8NiWZCh SMjgc2rzmUsom5OqtCNsTX bdOUFpdTPzVGlbwQ0uWcNx j6ylhIu9EVxiqyP7RJNwqy 3VKnnhwN3yHdRah7jxdGj1 TPCLNregvgX6h1qyqIwdl3 FxwKOyGZ9WUe6= Disclaimer (test code = [id number]) a8ynuOHiMYJlf4yqRLQcuW FuZzEwMzNcZnRuYmpcdWMx MTiqupZlHGvnq3NtK2XnBn AwMFxhbnNpXGRlZmxhbmcx AETvPTA2lcEtMOOjAGjpMM ByNKyzSk3kcDVkvZjjJwTk OXAlm8xapoANULzxEtLnV7 08QHBsOGipm3fwz2KlUPOg dQZxb8H2SKRHegdaoBd7zD ncL10hv8S6PgzjJ3ofLVCk XSAwW5ElDA0lWRYmTrv0PB D7FLX3NGYfRNWtX0EuZP9b UTPkiPRrIBx1m6nezLwsWC LlZNE4b3keDPrhtfShVT8i in4vqOx3r8hakkQtCMWjVN VbdRLSIRIpE0EleQwuVk5i iFb4bIclNmfbUEN1Rzq2JM 0lcu96qzv6jFnaVPHzrvjx CzB1VYtxPTMmbdmyTOm8HU ueJGTgeZZ4PFVvnZIlD8Bj LFZpYZ6zkhz3GHE0SOtbVH ZdMjN0SNFdbKIiSIRhaGoy NAwan141QGC1ZkCaBM4rC4 Gif5O3tB4gwJZxELUdnYFo LjAbZYQqzo4xaLObILnkg2 NmDZG4efL4dDJxiWEiMBAa HS75Syrln8BxGduxk3CrK4 7qwQI1LEdex4ijIZ5uQrS3 nzNhTSyjf0zruT1fBlZ1MR zkDB0wRJ0aHWYapY7subug XHBnYnJkcmhlYWRccGdicm NnYi7vbYbyPRY1LAztS9mc bZ4vVxX4QVjlS3gxpV6uSJ k2WJgypFQ4JJWdhY7dKM1h dgacq3nhKWdzTDftXJDocf O0oxT8ILVmqLByE3DqtH8m WHAgHZ7blirqz3jtEHC6CD aeLRDrGQC5SrVqADCae7Nw srd2FwRfu0XsmXEoSJcaM9 4lm666PAMzlfNcB5migEQv xsghuIKzdqvkNPqizkZ4NN SrsrPle2DtBSFhRFY4LVgr CTbfuIDrLNCrdYxcm9jfU7 RscGFyXHBsYWluXGYxXGZz MjBcbGFuZzEwMzNcaGljaF pdTUobMiGrCKVeGFluG6ls HnLiB0McVKKnEaGgdBCbR0 ggVGhpcyByZXBvcnQgbWF5 BEzkU2a2XDJwraJvhDa5wq KhZmYiTRRzWVE6BPcfiMGj IAEej7XivitnpLHzNu2kkU EgWKPlwR3eSEEdIXIzICcp MZ0llVg3AVCWgQArlQZpXq IORGVjCE24mlDzVLILmeih u4U5GLybIUKli4TpyAAmR9 ghi3IlJZIpr01gRC9yr8U1 i0hzMHY3FO2zz8HnBMQhcG HhzENcDDGgz9Gpyducr3Wb BGIiwhXyw6XwSHGjojSepH ZrMCIyqeGeni7tdyZmMNMt DMAuN2JogtvbcNuibwTsTM Qgjv8xcxTaZUJ9OEFNMWKz GEBgt7UhuZ9jjYREVFP6eU Ksul6ffeFLpXMbICNyhk45 VKSbNO6gR5uaYMFmPSZkfz QfoUYoc0PhQBBsuLZ4pNQa OH0KYlFTb89sEOHbISUVyb MlPYIsyTemzHA5okR2iR4a IChGREEpLlx+IFRoZSBGRE PoXC9ereHud1XryrWsaPgq LUVghYKfv5ZbnIYsp6EnnS ymy6HxvAPvaSOzII0fWCVx clxwYXIgVVRNQiBMYWJvcm M7b4TqPTEnXJTrREL4mMnz vnf4FPHimR1yNYFrU6kzwj ekESeyDHJps3CkuR9ycMYE yLQvt5GicLVvjIRYpSMzBM 6lkxXuQKiQKFdXNXX9edZh XIMbc5XjOPlmF5seQ18ymC eorAl4xRN5FPX9kZ3rCas+ IFxwYXJccGFyIEFwcHJvcH HkODLmtVkqpiXtC3VuzzWb kX1gcFUgquLgUZ1uIB2gO7 L0cHCdAGVpkdKup1olUKma dmUgYmVlbiByZXZpZXdlZC Ycs8MlLSjtPSE4SNrurhRu bmNsdWRpbmcgSCZFLCBTcG PuuNBcWBO2AXavqsCfluEs WF0jyG5znZhaoO1psZGrwG O0eiwzMEWuMBCrlLuqBPDb SS3jjHUfBFSwsfTFzYfcaJ NkuS4wB7NkIOOfLFXccu4m GLTfnP3zYEqzp9NkbuwvLF LdDFLuAHFvmlWhth9vHRGa jSSYQR4TCTwyxNEgt3Exvx EvQ9wBCRO6ZPMuTtRgLcsx ELKogAKspGUoLDEmgh13ZO XaiM9ppJzaSCWnjU5arU0e uGrknB0nFqFuOkRyFZorAR 1aIUHwC6lulEQpZDJqZCCb W0gcRuHtqP4xyLvxJBbxEc TqMyEiDVamEAH6pI== Embedded Images (test code = 5585600813) [id number] 14:51:03* Test Item Value Reference Range Interpretation Comme nts Syphilis IgG/IgM (test code = 37507-9) Non-reactive Non-reactive GAGAN (test code = GAGAN) Non-reactive - No serologic evidence of T. pallidum infection. Cannot exclude incubating or early syphilis. Submit a second specimen in 2-4 weeks if syphilis is clinically suspected. Equivocal - Further testing to follow. Reactive - Further testing to follow. Lab Interpretation (test code = 82131-4) [id number] 14:51:03* Test Item Value Reference Range Interpretation Comme nts Syphilis IgG/IgM (test code = 84169-1) Non-reactive Non-reactive GAGAN (test code = GAGAN) Non-reactive - No serologic evidence of T. pallidum infection. Cannot exclude incubating or early syphilis. Submit a second specimen in 2-4 weeks if syphilis is clinically suspected. Equivocal - Further testing to follow. Reactive - Further testing to follow. Lab Interpretation (test code = 98564-3) [facility] [id number] 11:18:41* Test Item Value Reference Range Interpretation [...] g/dL 31.6-35.1 L RDW-SD (test code = 56125-6) 57.2 fL 39.0-49.9 H RDW-CV (test code = 788-0) 20.2 % 12.0-15.5 H PLT (test code = 777-3) See_Comment [Automated messa ge] The system which generated this result transmitted reference range: 166 - 358 10*3/?L. The reference range was not used to interpret this result as normal/abnormal. MPV (test code = 02146-9) 10.1 fL 9.5-12.9 NRBC/100 WBC (test code = 3372047508) See_Comment [Automated me ssage] The system which generated this result transmitted reference range: 0.0 - 10.0 /100 WBCs. The reference range was not used to interpret this result as normal/abnormal. NRBC x10^3 (test code = 4199498244) <0.01 See_Comment [Automated messa ge] The system which generated this result transmitted reference range: 10*3/?L. The reference range was not used to interpret this result as normal/abnormal. GRAN MAT (NEUT) % (test code = 770-8) 78.8 % IMM GRAN % (test code = 2872633051) 1.00 % LYMPH % (test code = 736-9) 15.1 % MONO % (test code = 5905-5) 4.7 % EOS % (test code = 713-8) 0.2 % BASO % (test code = 706-2) 0.2 % GRAN MAT x10^3(ANC) (test code = 3921239212) 8.96 10*3/uL 1.88-7.09 H IMM GRAN x10^3 (test code = 4333117886) 0.11 10*3/uL 0.00-0.06 H LYMPH x10^3 (test code = 731-0) 1.71 10*3/uL 1.32-3.29 MONO x10^3 (test code = 742-7) 0.53 10*3/uL 0.33-0.92 EOS x10^3 (test code = 711-2) <0.03 0.03-0.39 L BASO x10^3 (test code = 704-7) <0.03 0.01-0.07 Lab Interpretation (test code = 78363-6) Abnormal [facility] with [id number] 11:18:41* Test Item Value Reference Range Interpretation [...] g/dL 31.6-35.1 L RDW-SD (test code = 66106-5) 57.2 fL 39.0-49.9 H RDW-CV (test code = 788-0) 20.2 % 12.0-15.5 H PLT (test code = 777-3) See_Comment [Automated Clinithinka ge] The system which generated this result transmitted reference range: 166 - 358 10*3/?L. The reference range was not used to interpret this result as normal/abnormal. MPV (test code = 54731-7) 10.1 fL 9.5-12.9 NRBC/100 WBC (test code = 7146906841) See_Comment [Automated irisnote ssage] The system which generated this result transmitted reference range: 0.0 - 10.0 /100 WBCs. The reference range was not used to interpret this result as normal/abnormal. NRBC x10^3 (test code = 8726316189) <0.01 See_Comment [Automated Clinithinka ge] The system which generated this result transmitted reference range: 10*3/?L. The reference range was not used to interpret this result as normal/abnormal. GRAN MAT (NEUT) % (test code = 770-8) 78.8 % IMM GRAN % (test code = 7775318393) 1.00 % LYMPH % (test code = 736-9) 15.1 % MONO % (test code = 5905-5) 4.7 % EOS % (test code = 713-8) 0.2 % BASO % (test code = 706-2) 0.2 % GRAN MAT x10^3(ANC) (test code = 9693723548) 8.96 10*3/uL 1.88-7.09 H IMM GRAN x10^3 (test code = 5391120915) 0.11 10*3/uL 0.00-0.06 H LYMPH x10^3 (test code = 731-0) 1.71 10*3/uL 1.32-3.29 MONO x10^3 (test code = 742-7) 0.53 10*3/uL 0.33-0.92 EOS x10^3 (test code = 711-2) <0.03 0.03-0.39 L BASO x10^3 (test code = 704-7) <0.03 0.01-0.07 Lab Interpretation (test code = 62741-5) Abnormal [facility] (D) IMMUNE [id number] 10:16:52* Test Item Value Reference Range Interpretation Comme nts RHIG CANDIDATE? (test code = 5055) No- see comment Patient is not a candidate for RhIg- Patient is Rh Positive.Performed at [facility] Laboratory Services [facility] Blood [place] [id number] Free: [phone] No. [id number] [facility] (D) IMMUNE [id number] 10:16:52* Test Item Value Reference Range Interpretation Comme nts RHIG CANDIDATE? (test code = 5055) No- see comment Patient is not a candidate for RhIg- Patient is Rh Positive.Performed at [facility] Laboratory Services [facility] Blood [address] [place], [place] [id number] Free: [phone] No. [id number] [facility] [id number] 08:56:38* Test Item Value Reference Range Interpretation Comme nts BASE EXCESS, CORD (test code = 7665777288) mEq/L AC PH, CORD (BEAKER) (test code = 8269227009) 7.18-7.38 PC02, CORD (test code = 3314607143) See_Comment [Automated messa ge] The system which generated this result transmitted reference range: 32 - 66 mmHg. The reference range was not used to interpret this result as normal/abnormal. PO2, CORD (test code = 2564845941) See_Comment [Automated messa ge] The system which generated this result transmitted reference range: 10 - 30 mmHg. The reference range was not used to interpret this result as normal/abnormal. BICARBONATE, CORD (test code = 9982528579) See_Comment [Automated messa ge] The system which generated this result transmitted reference range: 17 - 27 mEq/L. The reference range was not used to interpret this result as normal/abnormal. [facility] CORD [id number] 08:56:38* Test Item Value Reference Range Interpretation Comme nts BASE EXCESS, CORD (test code = 0688496069) mEq/L AC PH, CORD (BEAKER) (test code = 9390143236) 7.18-7.38 PC02, CORD (test code = 5674015667) See_Comment [Automated messa ge] The system which generated this result transmitted reference range: 32 - 66 mmHg. The reference range was not used to interpret this result as normal/abnormal. PO2, CORD (test code = 1496421351) See_Comment [Automated messa ge] The system which generated this result transmitted reference range: 10 - 30 mmHg. The reference range was not used to interpret this result as normal/abnormal. BICARBONATE, CORD (test code = 0452624512) See_Comment [Automated messa ge] The system which generated this result transmitted reference range: 17 - 27 mEq/L. The reference range was not used to interpret this result as normal/abnormal. [facility] CORD [id number] 08:54:07* Test Item Value Reference Range Interpretation Comme nts VENOUS BASE EXCESS, CORD (test code = 4128456171) mEq/L VENOUS PH, CORD (test code = 5274545303) 7.25-7.45 VENOUS PC02, CORD (test code = 8115456261) See_Comment [Automated messa ge] The system which generated this result transmitted reference range: 27 - 49 mmHg. The reference range was not used to interpret this result as normal/abnormal. VENOUS PO2, CORD (test code = 2180515587) See_Comment [Automated me ssage] The system which generated this result transmitted reference range: 17 - 41 mmHg. The reference range was not used to interpret this result as normal/abnormal. VENOUS BICARBONATE, CORD (test code = 7978876433) See_Comment [Automated messa ge] The system which generated this result transmitted reference range: 12 - 29 mEq/L. The reference range was not used to interpret this result as normal/abnormal. [facility] CORD [id number] 08:54:07* Test Item Value Reference Range Interpretation Comme nts VENOUS BASE EXCESS, CORD (test code = 0235484877) mEq/L VENOUS PH, CORD (test code = 3201527230) 7.25-7.45 VENOUS PC02, CORD (test code = 7044242308) See_Comment [Automated messa ge] The system which generated this result transmitted reference range: 27 - 49 mmHg. The reference range was not used to interpret this result as normal/abnormal. VENOUS PO2, CORD (test code = 7641649908) See_Comment [Automated me ssage] The system which generated this result transmitted reference range: 17 - 41 mmHg. The reference range was not used to interpret this result as normal/abnormal. VENOUS BICARBONATE, CORD (test code = 7778651797) See_Comment [Automated messa ge] The system which generated this result transmitted reference range: 12 - 29 mEq/L. The reference range was not used to interpret this result as normal/abnormal. [facility] OR [facility] ONLY - [id number] 08:52:42* Test Item Value Reference Range Interpretation Comme nts RPR (Qualitative) (test code = 37767-1) Nonreactive Nonreactive Lab Interpretation (test cod e = 94414-5) Normal [facility] OR [facility] ONLY - [id number] 08:52:42* Test Item Value Reference Range Interpretation Comme nts RPR (Qualitative) (test code = 55113-2) Nonreactive Nonreactive Lab Interpretation (test cod e = 03595-0) Normal [facility] CORD [id number] 08:50:56* Test Item Value Reference Range Interpretation Comme nts VENOUS BASE EXCESS, CORD (test code = 8247640602) mEq/L VENOUS PH, CORD (test code = 9313671440) 7.25-7.45 VENOUS PC02, CORD (test code = 7291978397) See_Comment [Automated messa ge] The system which generated this result transmitted reference range: 27 - 49 mmHg. The reference range was not used to interpret this result as normal/abnormal. VENOUS PO2, CORD (test code = 5127831160) See_Comment [Automated me ssage] The system which generated this result transmitted reference range: 17 - 41 mmHg. The reference range was not used to interpret this result as normal/abnormal. VENOUS BICARBONATE, CORD (test code = 2120274208) See_Comment [Automated messa ge] The system which generated this result transmitted reference range: 12 - 29 mEq/L. The reference range was not used to interpret this result as normal/abnormal. [facility] CORD [id number] 08:50:56* Test Item Value Reference Range Interpretation Comme nts VENOUS BASE EXCESS, CORD (test code = 4411579916) mEq/L VENOUS PH, CORD (test code = 5772335614) 7.25-7.45 VENOUS PC02, CORD (test code = 1781531042) See_Comment [Automated messa ge] The system which generated this result transmitted reference range: 27 - 49 mmHg. The reference range was not used to interpret this result as normal/abnormal. VENOUS PO2, CORD (test code = 3573084072) See_Comment [Automated me ssage] The system which generated this result transmitted reference range: 17 - 41 mmHg. The reference range was not used to interpret this result as normal/abnormal. VENOUS BICARBONATE, CORD (test code = 6471436092) See_Comment [Automated messa ge] The system which generated this result transmitted reference range: 12 - 29 mEq/L. The reference range was not used to interpret this result as normal/abnormal. [facility] CORD [id number] 08:48:36* Test Item Value Reference Range Interpretation Comme nts BASE EXCESS, CORD (test code = 3358217608) mEq/L AC PH, CORD (BEAKER) (test code = 2341880074) 7.18-7.38 PC02, CORD (test code = 5396071639) See_Comment [Automated messa ge] The system which generated this result transmitted reference range: 32 - 66 mmHg. The reference range was not used to interpret this result as normal/abnormal. PO2, CORD (test code = 1100206443) See_Comment [Automated messa ge] The system which generated this result transmitted reference range: 10 - 30 mmHg. The reference range was not used to interpret this result as normal/abnormal. BICARBONATE, CORD (test code = 3502778808) See_Comment [Automated messa ge] The system which generated this result transmitted reference range: 17 - 27 mEq/L. The reference range was not used to interpret this result as normal/abnormal. [facility] [id number] 08:48:36* Test Item Value Reference Range Interpretation Comme nts BASE EXCESS, CORD (test code = 5944719993) mEq/L AC PH, CORD (BEAKER) (test code = 9674915126) 7.18-7.38 PC02, CORD (test code = 4232151103) See_Comment [Automated messa ge] The system which generated this result transmitted reference range: 32 - 66 mmHg. The reference range was not used to interpret this result as normal/abnormal. PO2, CORD (test code = 9878173266) See_Comment [Automated messa ge] The system which generated this result transmitted reference range: 10 - 30 mmHg. The reference range was not used to interpret this result as normal/abnormal. BICARBONATE, CORD (test code = 3623959843) See_Comment [Automated messa ge] The system which generated this result transmitted reference range: 17 - 27 mEq/L. The reference range was not used to interpret this result as normal/abnormal. [facility] ONCE [id number] 07:13:42* Test Item Value Reference Range Interpretation Comme nts ABO & RH (test code = 20) A POSITIVE Performed at [facility] Laboratory Services - [facility] Blood [address] [address]Tpje Free: [phone] No. [id number] IAT (test code = 1185) Negative Performed at [facility] Laboratory Services - [facility] Blood [address] [address]Pgom Free: [phone] No. [id number] [facility] - ONCE [id number] 07:13:42* Test Item Value Reference Range Interpretation Comme nts ABO & RH (test code = 20) A POSITIVE Performed at [facility] Laboratory Services - [facility] Blood [address] Free: [phone] No. [id number] IAT (test code = 1185) Negative Performed at [facility] Laboratory Services - [facility] Blood [address] Free: [phone] No. [id number] [facility] [id number] 06:10:47 * Test Item Value Reference Range Interpretation Comme nts HBsAg Semi-Quantitative (herlinda t code = 5195-3) Negative Negative [facility] B Surface [id number] 06:10:47 * Test Item Value Reference Range Interpretation Comme nts HBsAg Semi-Quantitative (herlinda t code = 5195-3) Negative Negative [facility] AG-AB WITH [id number] 01:35:43* Test Item Value Reference Range Interpretation Comme nts HIV Semi-quantitative (test code = 00258-8) Negative Negative GAGAN (test code = GAGAN) Non-reactive for HIV-1 antigen and HIV-1/HIV-2 antibodies. ?No laboratory evidence of HIV infection. ?Repeat in 2-4 weeks if acute HIV infection is suspected. [facility]-AB WITH [id number] 01:35:43* Test Item Value Reference Range Interpretation Comme nts HIV Semi-quantitative (test code = 10169-4) Negative Negative GAGAN (test code = GAGAN) Non-reactive for HIV-1 antigen and HIV-1/HIV-2 antibodies. ?No laboratory evidence of HIV infection. ?Repeat in 2-4 weeks if acute HIV infection is suspected. [facility] ONCE [id number] 00:42:20 * Test Item Value Reference Range Interpretation Comme nts ABO & RH (test code = 20) A Positive Performed at [facility] Laboratory [facility] Blood [place] [address]Toll Free: [phone] No. [id number] IAT (test code = 1185) Negative Performed at [place] [address]Toll Free: [phone] No. [id number] [facility] - ONCE [id number] 00:42:20 * Test Item Value Reference Range Interpretation Comme nts ABO & RH (test code = 20) A Positive Performed at [facility] Blood [place] [address]Toll Free: [phone] No. [id number] IAT (test code = 1185) Negative Performed at [facility] Blood [place] [address]Toll Free: [phone] No. [id number] [facility]CBC WITH [id number] 22:10:03* Test Item Value Reference Range Interpretation [...] g/dL 31.6-35.1 L RDW-SD (test code = 07113-9) 55.2 fL 39.0-49.9 H RDW-CV (test code = 788-0) 20.4 % 12.0-15.5 H PLT (test code = 777-3) See_Comment [Automated messa ge] The system which generated this result transmitted reference range: 166 - 358 10*3/?L. The reference range was not used to interpret this result as normal/abnormal. MPV (test code = 45623-4) 10.0 fL 9.5-12.9 NRBC/100 WBC (test code = 6315513635) See_Comment [Automated irisnote ssage] The system which generated this result transmitted reference range: 0.0 - 10.0 /100 WBCs. The reference range was not used to interpret this result as normal/abnormal. NRBC x10^3 (test code = 5582756769) <0.01 See_Comment [Automated messa ge] The system which generated this result transmitted reference range: 10*3/?L. The reference range was not used to interpret this result as normal/abnormal. GRAN MAT (NEUT) % (test code = 770-8) 80.2 % IMM GRAN % (test code = 0789492862) 0.60 % LYMPH % (test code = 736-9) 15.0 % MONO % (test code = 5905-5) 3.6 % EOS % (test code = 713-8) 0.3 % BASO % (test code = 706-2) 0.3 % GRAN MAT x10^3(ANC) (test code = 4550158870) 5.80 10*3/uL 1.88-7.09 IMM GRAN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
[2024-09-13 14:41] LABS: Influenza A Ag Negative; Influenza B Ag Negative; SARS-CoV-2 Antigen Rapid Res Negative (Negative)
--- NOTE | 2024-09-13 14:55 | EDPHYS ---
Physician Documentation [facility] Name: Alberto Johnson Age: 33 yrs Sex: Female : 1990 Arrival Date: 09/13/2024 Time: 13:41 Bed 12 Private MD: ED Physician Garry Isaac HPI: 09/13 14:05 This 33 yrs old Female presents to ER via Ambulatory with complaints of Flu Symptoms. cp 14:05 The patient or guardian reports cough, that is intermittent, sore throat. cp 14:05 Onset: The symptoms/episode began/occurred 1 week(s) ago. cp 14:05 Associated signs and symptoms: Pertinent positives: sore throat, cough, Pertinent cp negatives: ear ache, fever, rhinorrhea, vomiting. 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 - Infectious Disease History:: Denies. - Social history:: Smoking status: Patient denies any tobacco usage or history of. ROS: 14:10 Constitutional: Negative for body aches, chills, fever, poor PO intake, cp 14:10 Eyes: Negative for injury, pain, redness, and discharge, cp 14:10 Respiratory: Positive for cough, "sounds productive", Negative for shortness of breath, wheezing, 14:10 Abdomen/GI: Negative for abdominal pain, nausea, vomiting, and diarrhea, 14:10 ENT: Positive for sore throat, Negative for drainage from ear(s), ear pain, difficulty cp swallowing, difficulty handling secretions, 14:10 Skin: Negative for rash, 14:10 All other systems are negative, Exam: 14:15 Constitutional: The patient appears in no acute distress, alert, awake, non-toxic, well cp developed, well nourished, 14:15 Head/Face: Normocephalic, atraumatic. cp 14:15 Eyes: Periorbital structures: appear normal, Conjunctiva: normal, no exudate, no cp injection, Sclera: no appreciated abnormality, Lids and lashes: appear normal, bilaterally, 14:15 ENT: External ear(s): are unremarkable, Ear canal(s): are normal, clear, TM's: dullness, bilaterally, Nose: is normal, Mouth: Lips: moist, Oral mucosa: moist, Posterior pharynx: Airway: no evidence of obstruction, patent, Tonsils: mild erythema, mild enlargement, no exudates, Uvula: midline, exudate, is not appreciated, Voice: is normal, 14:15 Neck: ROM/movement: limited range of motion, is not appreciated, Meningeal signs: are not present, Lymph nodes: no appreciated lymphadenopathy, 14:15 Chest/axilla: Inspection: normal, 14:15 Cardiovascular: Rate: normal, 14:15 Respiratory: the patient does not display signs of respiratory distress, Respirations: normal, no use of accessory muscles, no retractions, labored breathing, is not present, Breath sounds: are clear throughout, no decreased breath sounds, no stridor, no wheezing, 14:15 Abdomen/GI: Exam negative for discomfort, distension, guarding, Inspection: abdomen appears normal, 14:15 Skin: no rash present. Vital Signs: 14:00 BP 121 / 64; Pulse 84; Resp 16; Temp 98.4; Pulse Ox 100% ; Weight 54.88 kg; Height 5 hb ft. 2 in. ; Pain 9/10; 15:11 BP 119 / 83; Pulse 79; Resp 16; Temp 98.8; Pulse Ox 100% ; ll1 14:00 Body Mass Index 22.13 (54.88 kg, 157.48 cm) hb 14:00 Pain Scale: Adult hb MDM: 13:48 Medical Screening Exam initiated cp 14:55 Antibiotic administration: Not indicated, the patient has a suspected viral illness. cp 14:55 Differential diagnosis: bronchitis, flu, strep throat, otitis media, tonsillitis. Data cp reviewed: vital signs, nurses notes, lab test result(s), and as a result, I will discharge patient. I considered the following discharge prescriptions or medication management in the emergency department Medications were administered in the Emergency Department. See MAR. Counseling: I had a detailed discussion with the patient and/or guardian regarding the historical points, exam findings, and any diagnostic results supporting the discharge/admit diagnosis, lab results, to return to the emergency department if symptoms worsen or persist or if there are any questions or concerns that arise at home. 09/13 14:01 Order name: COVID-19 Ag + Flu A+B Ag; Complete Time: 14:48 cp 09/13 14:48 Interpretation: Reviewed. cp 09/13 14:01 Order name: Group A Streptococcus Rapid; Complete Time: 14:48 cp 09/13 14:48 Interpretation: Reviewed. cp 09/13 14:44 Order name: Throat Culture EDMS Administered Medications: 15:11 Drug: GI Cocktail without - (Maalox PO 30 ml, Lidocaine Mucous Membrane 2 % 15 ll1 ml) PO once Route: PO; 15:11 Follow up: Response: No adverse reaction ll1 Disposition: 15:13 Co-signature as Attending Physician, Garry Isaac MD I reviewed the patient's care rn provided by the Advanced Practice Provider and agree with the diagnosis and treatment plan. Disposition Summary: 09/13/24 14:55 Discharge Ordered Notes: Location: Home cp Problem: new cp Symptoms: have improved cp Condition: Stable cp Diagnosis - Cough cp - Acute pharyngitis, unspecified cp Followup: cp - With: Private Physician - When: 2 - 3 days - Reason: Worsening of condition Discharge Instructions: - Discharge Summary Sheet cp - Pharyngitis cp - Sore Throat cp - Viral Respiratory Infection cp - Cough, Adult cp Forms: - Medication Reconciliation Form cp - Antibiotic Education cp - Prescription Opioid Use cp - Patient Portal Instructions cp - Leadership Thank You Letter cp Prescriptions: - Lidocaine Viscous - take 5 milliliter ORAL route every 4-6 hours As needed; 120 milliliter; cp Refills: 0, Product Selection Permitted - Tessalon Perles 100 mg Oral capsule - take 1 capsule ORAL route every 8 hours As needed; 20 capsule; Refills: 0, cp Product Selection Permitted Signatures: Dispatcher [employer] EDMS Grary Isaac MD MD rn Page, Corey, PA PA cp Veronica Suresh RN RN hb Bryson, James, RN RN jb4 Diomedes Vazquez RN RN ll1
--- NOTE | 2024-09-13 14:55 | ER ---
Nurse's Notes [facility] Name: Alberto Johnson Age: 33 yrs Sex: Female : 1990 Arrival Date: 09/13/2024 Time: 13:41 Bed 12 Private MD: Diagnosis: Cough;Acute pharyngitis, unspecified Presentation: 09/13 14:00 Chief complaint: Patient states: Sore throat, cough for 1 week. Son is also sick. hb Coronavirus screen: Client denies travel out of the [place] in the last 14 days. cough unrelated to allergies, fatigue. Ebola Screen: Patient denies travel to an Ebola-affected area in the 21 days before illness onset. Initial Sepsis Screen: Does the patient meet any 2 criteria? No. Patient's initial sepsis screen is negative. Does the patient have a suspected source of infection? No. Patient's initial sepsis screen is negative. Risk Assessment: Do you want to hurt yourself or someone else? Patient reports no desire to harm self or others. Onset of symptoms was September 08, 2024. 14:00 Method Of Arrival: Ambulatory hb 14:00 Acuity: IKER 4 hb Triage Assessment: 14:01 General: Appears uncomfortable, Behavior is calm, cooperative, appropriate for age, hb Reports feeling ill for fatigue for. EENT: Reports nasal congestion pain when swallowing. Respiratory: Reports cough that is. CLERICAL ADVISER: 15:12 LMP N/A - control method, Not ll1 Historical: - Allergies: 13:59 Hydrocodone-Acetaminophen; hb 13:59 Sulfa (Sulfonamide Antibiotics); hb 13:59 Tramadol HCl; hb - PMHx: 13:59 Anemia; hb - PSHx: 13:59 Adenoid excision; Appendectomy; section; tubal ligation; hb - Immunization history:: Adult Immunizations up to date. - Infectious Disease History:: Denies. - Social history:: Smoking status: Patient denies any tobacco usage or history of. Screenin:05 [facility] ED Fall Risk Assessment (Adult) History of falling in the last 3 months, jb4 including since admission No falls in past 3 months (0 pts) Confusion or Disorientation No (0 pts) Intoxicated or Sedated No (0 pts) Impaired Gait No (0 pts) Mobility Assist Device Used No (0 pt) Altered Elimination No (0 pt) Score/Fall Risk Level 0 - 2 = Low Risk Oriented to surroundings, Maintained a safe environment. Abuse screen: Denies threats or abuse. Nutritional screening: No deficits noted. Tuberculosis screening: No symptoms or risk factors identified. Assessment: 14:05 General: Appears in no apparent distress. comfortable, Behavior is calm, cooperative, jb4 appropriate for age. Pain: Complains of pain in throat Pain does not radiate. Pain currently is 9 out of 10 on a pain scale. Neuro: Level of Consciousness is awake, alert, obeys commands, Oriented to person, place, time, situation. Cardiovascular: Patient's skin is warm and dry. Respiratory: Airway is patent Respiratory effort is even, unlabored, Respiratory pattern is regular, symmetrical. EENT: Throat is clear is reddened with gag reflex present. Derm: Skin is intact, Skin is pink, warm \T\ dry. 15:11 Reassessment: No changes from previously documented assessment. Patient and/or family ll1 updated on plan of care and expected duration. Pain level reassessed. Patient is alert, oriented x 3, equal unlabored respirations, skin warm/dry/pink. Vital Signs: 14:00 BP 121 / 64; Pulse 84; Resp 16; Temp 98.4; Pulse Ox 100% ; Weight 54.88 kg; Height 5 hb ft. 2 in. ; Pain 9/10; 15:11 BP 119 / 83; Pulse 79; Resp 16; Temp 98.8; Pulse Ox 100% ; ll1 14:00 Body Mass Index 22.13 (54.88 kg, 157.48 cm) hb 14:00 Pain Scale: Adult hb ED Course: 13:45 Patient arrived in ED. im 13:46 Eric Rivas PA is PHCP. cp 13:46 Garry Isaac MD is Attending Physician. cp 13:59 Arm band placed on. hb 14:01 Triage completed. hb 14:04 COVID-19 Ag + Flu A+B Ag Sent. ll1 14:04 Group A Streptococcus Rapid Sent. ll1 14:05 Patient has correct armband on for positive identification. Bed in low position. Call jb4 light in reach. Side rails up X 1. Provided Education on: plan of care. 14:05 No provider procedures requiring assistance completed. jb4 14:07 COVID-19 Ag + Flu A+B Ag Sent. jb4 14:07 Group A Streptococcus Rapid Sent. jb4 15:12 Patient did not have IV access during this emergency room visit. ll1 Administered Medications: 15:11 Drug: GI Cocktail without - (Maalox PO 30 ml, Lidocaine Mucous Membrane 2 % 15 ll1 ml) PO once Route: PO; 15:11 Follow up: Response: No adverse reaction ll1 Medication: 14:05 VIS not applicable for this client. jb4 Outcome: 14:55 Discharge ordered by . cp 15:12 Discharged to home ambulatory, ll1 15:12 Condition: stable 15:12 Discharge instructions given to patient, Instructed on discharge instructions, follow up and referral plans. medication usage, Demonstrated understanding of instructions, follow-up care, medications, Prescriptions given X 2, 15:12 Patient left the ED. 1 Signatures: Eric Rivas, LAURO RESTREPO cp Veronica Suresh RN RN Jagjit Irving RN RN jb4 Diomedes Vazquez RN RN 1 Blanche Chen Corrections: (The following items were deleted from the chart) 14:02 14:00 Pulse 84bpm; Resp 16bpm; Pulse Ox 100%; 54.88 kg; Height 5 ft. 2 in.; BMI: 22.1; hb Pain 9/10, Adult; hb
[2024-09-13] MEDS ORDERED: MAGNES/ALUMIN/SIMET 30ML UCUP ONE (15:03)
[2024-09-13] MEDS ORDERED: LIDOCAINE VISCOUS 2% 10ML ORAL SOLN ONE (15:04)
[2024-09-13 15:21] VITALS: O2SAT 100
[2024-09-13 15:25] VITALS: BP 119/83; TEMP 98.8
== END 2024-09-13 15:12 | disposition home or self-care (01) ==
LOC: ER 13:41
DX: R05.9 Cough, unspecified (principal); J02.9 Acute pharyngitis, unspecified; Z11.52 Encounter for screening for COVID-19; Z88.2 Allergy status to sulfonamides; Z88.5 Allergy status to narcotic agent
CPT/HCPCS: 36415; 87070; 87428; 99284